=== PATIENT | male | born 1935 | race African-American/Black ===

== ENCOUNTER 2017-03-22 12:22 | Outpatient (CLI) | payer MEDICARE ==
--- NOTE | 2017-03-22 14:01 | CT ---
CT PELVIS NONCONTRAST: 03/22/2017 HISTORY: An 81-year-old male with left groin pain (R10.32). FINDINGS: There is a gamma nail in the left femoral head and neck, attached to a long intramedullary nail, that extends at least to the mid femoral diaphysis, with the distal portion outside the field of view. T he gamma nail tip is within the confines of the humeral head. There are no high grade degenerative c hanges of the bilateral hips. No fracture or destructive osseous lesion. There is multilevel severe degenerative disk disease and severe degenerative facet disease in the lower lumbar spine, associate d with high grade bilateral neural foraminal stenosis. This is associated with a dextroscoliosis of the lumbar spine, as seen on the drafting layout man scanogram. Evaluation of the intrapelvic contents is limited without IV and oral contrast. The prostate gland is enlarged, and it mildly superiorly displaces the urinary bladder. No moderate or large amounts of free fluid within the pelvic cavity. No herniatio n of bowel loops into the inguinal canals. There is a nonspecific, approximately 2.5 x 1.5 x 2 cm lo w attenuation cystic structure just deep to the left inguinal canal, of uncertain etiology and signif icance, with limited evaluation without IV contrast. No destructive osseous lesion is identified. T he pelvic ring appears to be intact. IMPRESSION: 1. Severe lumbar spondylosis with multilevel severe bilateral neural foraminal stenosis. 2. Gamma nail and intramedullary nail fixation of the left femur. 3. Enlarged prostate gland. 4. Nonspecific small cystic structure just deep to the left inguinal canal, of uncertain etiology an d significance. POS: [facility]
== END 2017-03-22 12:23 | disposition home or self-care (01) ==
LOC: CT 12:22
PROVIDERS: ATTEND Family Medicine
DX: R10.32 Left lower quadrant pain (principal); M47.816 Spondylosis without myelopathy or radiculopathy, lumbar region; M99.53 Intervertebral disc stenosis of neural canal of lumbar region; N40.0 Benign prostatic hyperplasia without lower urinary tract symptoms
CPT/HCPCS: 72192

== ENCOUNTER 2017-06-06 12:35 | Outpatient (CLI) | payer MEDICARE | END 2017-06-06 12:36 | disposition home or self-care (01) | LOC: BICRAD 12:35 | PROVIDERS: ATTEND Family Medicine | DX: I10 Essential (primary) hypertension (principal) ==

== ENCOUNTER 2017-09-28 10:05 | Emergency (ER) | payer MEDICARE ==
[2017-09-28 10:34] LABS: Hemoglobin 12.8 g/dL (14.0-18.0); Mean Corpuscular HGB CONC 31.2 g/dL (32.0-36.0); Mean Corpuscular Hemoglobin 26.7 pg (27.0-31.0); Mean Corpuscular Volume 85.6 fL (78.0-98.0); Mean Platelet Volume 7.9 fL (7.4-10.4); Platelet Count 199 thou/uL (130-400); RBC Distribution Width 16.7 % (11.5-14.5); Red Blood Cell (RBC) Count 4.81 mill/uL (4.70-6.10); White Blood Cell (WBC) Count 5.3 thou/uL (4.8-10.8)
[2017-09-28 10:40] LABS: INR-International Normal Ratio 1.2; PTT 28.6 SEC (22.9-36.1); Prothrombin Time 15.4 SEC (12.0-14.7)
[2017-09-28 10:53] LABS: Eosinophils 2 % (0-10); Lymphocytes 21 % (21-51); MDiff Complete? YES; Monocytes 5 % (0-10); Neutrophil 72 % (42-75); RBC Morphology Normal
[2017-09-28 10:56] LABS: ALT (SGPT) 17 U/L (8-55); AST (SGOT) 19 U/L (5-34); Albumin 4.1 g/dL (3.4-4.8); Alkaline Phosphatase 84 U/L (40-150); Anion Gap 14 mmol/L (10-20); BUN (Urea Nitrogen) 9 mg/dL (8.4-25.7); Bilirubin, Total 0.7 mg/dL (0.2-1.2); Calc. Creatinine Clearance 0 mL/min (70-130); Calcium 10.1 mg/dL (7.8-10.44); Carbon Dioxide 22 mmol/L (23-31); Chloride 106 mmol/L (98-107); Estimated GFR-MDRD Greater than 90; Globulin 2.4 g/dL (2.4-3.5); Glucose 130 mg/dL (83-110); Potassium 3.9 mmol/L (3.5-5.1); Protein, Total 6.5 g/dL (5.8-8.1); Sodium 138 mmol/L (136-145)
[2017-09-28 11:00] LABS: CKMB 1.9 ng/mL (0-6.6); Troponin I Less than 0.010 ng/mL (< 0.028)
--- NOTE | 2017-09-28 11:31 | RAD ---
PA AND LATERAL IMAGING OF THE CHEST: DATE: 09/28/17. COMPARISON: 02/18/15. HISTORY: Chest pain. FINDINGS: No pneumothorax or pleural fluid. No focal consolidation or alveolar edema. Heart and mediastinal c ontours are stable. There is prominence of a tortuous descending thoracic aorta, stable. Stable int erstitial opacity noted with pulmonary hyperinflation suggesting COPD in the proper clinical setting. Multilevel degenerative change noted within the midthoracic spine and the upper lumbar spine. IMPRESSION: Chronic findings as described above. No lobar consolidation or alveolar edema. POS: [facility]
--- NOTE | 2017-09-28 12:43 | CT ---
CT ANGIOGRAM OF THE CHEST AND ABDOMEN: Date: 09-28-17 Comparison: CT angiogram chest, 07-02-16 History: Chest pain, assess for aortic aneurysm or dissection. Technique: Serial axial CT imaging obtained at 2.5 mm intervals from the thoracic inlet through the m id sacrum with IV contrast using a CT angiogram protocol. Coronal and sagittal 3D reformatted imaging obtained. FINDINGS: As seen on prior imaging there is a lipoma posterior to the pectoralis musculature on the right measu ring up to 4.3 cm. There is no axillary, mediastinal or hilar lymphadenopathy. No pleural, paracardial, or mediastinal f luid. There is no pneumothorax. Motion artifact limits detailed assessment of the lung parenchyma, particul fely the lung bases. There are scattered areas of increased linear interstitial density noted within both lungs. There is no dominant pulmonary parenchymal mass lesion or nodule noted. There is atherosclerotic calcification of the aortic arch in the ascending aorta. There is no aneurys m or dissection seen involving the thoracic aorta. The origin of the left subclavian artery, left common carotid artery, innominate artery, right common carotid artery, right subclavian artery and bilateral vertebral arteries is unremarkable. The pelvis is not imaged on this examination. Timing of the contrast bolus utilized to maximize arterial enhancement limits detailed assessment of the viscera. Gallbladder, liver, and spleen appear grossly unremarkable. Pancreas and bilateral adrenal glands demonstrate no acute findings. The common bile duct is dilated, measuring up to approximately 1.1 cm in transverse dimension, etiolo gy uncertain. There is also mild prominence of the pancreatic duct. Multiple hypodense renal lesions noted bilaterally, the majority of which are consistent with simple cysts. There is a mildly hyperdense lesion emanating from the upper pole of the right kidney with Gautam nsfield units 30-50 range, difficult to accurately assess secondary to streak artifact. This lesion m easures 2.9 cm and should be further assessed with a nonemergent follow up renal ultrasound. The abdominal aorta is tortuous but demonstrates no evidence for aneurysm or dissection. The celiac a xis, the superior mesenteric artery, and the inferior mesenteric artery are patent. Bilateral renal a rteries are patent. There are scattered atherosclerotic calcification of the abdominal aorta and the arterial structures of the pelvis. Review of the bowel is grossly unremarkable, limited without contrast media. No lymphadenopathy is no rox in the retroperitoneum. The osseous structures demonstrate multilevel degenerative change within the midthoracic spine as well as the imaged lumbar spine with multilevel disc space narrowing, degene rative endplate change and facet hypertrophic change, most prominent in the lower lumbar spine. IMPRESSION: 1. No evidence for aneurysm or dissection of the thoracic or abdominal aorta. 2. Nonspecific hypodense lesion in the upper pole of the right kidney for which follow up ultrasound advised. 3. Dilated common bile ducts, etiology uncertain. Correlation with LFT advised as this may represent a biliary obstructed process. POS: [facility]
[2017-09-28] MEDS ORDERED: ISOVUE-370 76%-LOCM 1 ML ONE (13:35)
== END 2017-09-28 14:15 | disposition home or self-care (01) ==
LOC: ERS 10:05
DX: M54.5 Low back pain (principal); M19.90 Unspecified osteoarthritis, unspecified site; N28.1 Cyst of kidney, acquired; I10 Essential (primary) hypertension; J44.9 Chronic obstructive pulmonary disease, unspecified
CPT/HCPCS: 36415; 71046; 71275; 80053; 82553; 84484; 85025; 85610; 85730; 93005

== ENCOUNTER 2018-03-23 14:46 | Emergency (ER) | payer MEDICARE ==
[2018-03-23] MEDS ORDERED: Morphine 4 MG/ML VIAL ONE (16:03)
[2018-03-23] MEDS ORDERED: Ketorolac Tromethamine 30 MG/ML VIAL ONE (16:04)
--- NOTE | 2018-03-23 17:38 | CT ---
CT PELVIS WITHOUT CONTRAST: Date: 03/23/18 HISTORY: Left hip pain. Fall. COMPARISON: 03/22/17. TECHNIQUE: A noncontrast CT pelvis is performed in the axial plane. Sagittal and coronal reformatted images are submitted for interpretation. FINDINGS: Visualized alimentary canal is unremarkable. Atherosclerosis of the visualized aorta and iliac arteri es. Symmetric attenuation of the iliopsoas muscle complex. Unremarkable urinary bladder. There is prostatic hypertrophy. Redemonstration of a hypodensity in the left inguinal region currently measuring 2.1 x 2.1 cm (previo usly measuring 2.6 x 1.8 cm). There is vacuum disc phenomenon in the lower lumbar spine, as well as the lumbosacral junction. The v isualized iliac wings are intact. Visualized inferior and superior pubic rami are intact. There is de generative change in both SI joints with osteophyte formation. Sacral ala are preserved. Contour of both femoral heads are maintained. Hip joint spaces are symmetric. Incompletely visualized internal fixation hardware in the left hip is uncomplicated. No perihardware lucency. IMPRESSION: No evidence of a left hip fracture. POS: [facility]
== END 2018-03-23 19:01 | disposition home or self-care (01) ==
LOC: ERS 14:46
DX: M25.552 Pain in left hip (principal); J44.9 Chronic obstructive pulmonary disease, unspecified; I10 Essential (primary) hypertension; F17.210 Nicotine dependence, cigarettes, uncomplicated; Z79.52 Long term (current) use of systemic steroids; Z79.51 Long term (current) use of inhaled steroids; Z79.899 Other long term (current) drug therapy
CPT/HCPCS: 72192; 93005; 96372; J1885; J2270

== ENCOUNTER 2018-04-20 14:10 | Outpatient (CLI) | payer MEDICARE ==
--- NOTE | 2018-04-20 16:16 | MRI ---
MRI LUMBAR SPINE: History: Lumbar radiculopathy, M54.16; severe back pain. Technique: Multiplanar, multisequence noncontrast MRI images were obtained of the lumbar spine. FINDINGS: Images demonstrate bilateral renal cortical cysts. T12-L1: Disc space height loss and disc desiccation seen. Osteophyte seen anteriorly posteriorly exte nding into the central canal, compressing the thecal sac resulting in mild central and lateral recess stenosis. There is moderate left and right sided neural foraminal narrowing due to osteophyte encroa chment as well as bilateral facet hypertrophy. The central canal demonstrates mild to moderate centra l and lateral recess stenosis. L1-2: Disc desiccation and disc space height loss is seen. There is a broad based disc osteophyte com plex compressing the thecal sac. There is severe facet and ligamentum flavum hypertrophy. This with t he disc degeneration at L1-2 results in moderate degree of central and lateral recess stenosis. There is severe left and mild to moderate right sided neural foraminal narrowing seen. L2-3: Disc desiccation is seen. There is disc space height loss seen. There is a broad based disc ost eophyte complex. There is severe facet and ligamentum flavum hypertrophy seen. This results in severe L2-3 central and lateral recess stenosis with moderate right and severe left sided neural foraminal narrowing. L3-4: Disc desiccation is seen. There is a broad based disc osteophyte complex with bilateral facet a nd ligamentum flavum hypertrophy resulting in moderate to severe central and severe right L3-4 latera l recess stenosis. There is moderate to severe bilateral neural foraminal narrowing seen. L4-5: Disc desiccation is seen. There is a broad based disc osteophyte complex centrally compressing the thecal sac as well as a broad based disc bulge compressing the thecal sac. This results in modera te to severe central and lateral recess stenosis. Bilateral facet and ligamentum flavum hypertrophy i s seen, more prominent on the right than on the left. This results in moderate right and mild left si ded neural foraminal narrowing. L5-S1: Bilateral facet hypertrophy is seen. Central canal is patent. There is severe left and moderat e right sided neural foraminal narrowing seen. IMPRESSION: Multilevel disc degenerative changes with severe central stenosis at L2-3. Multilevel neural foramina l level is also present as described above. POS: [facility]
== END 2018-04-20 14:11 | disposition home or self-care (01) ==
LOC: BICMRI 14:10
PROVIDERS: ATTEND Nurse Practitioner Family
DX: M51.16 Intervertebral disc disorders with radiculopathy, lumbar region (principal); M48.061 Spinal stenosis, lumbar region without neurogenic claudication; M48.07 Spinal stenosis, lumbosacral region; M48.05 Spinal stenosis, thoracolumbar region
CPT/HCPCS: 72148

== ENCOUNTER 2019-01-08 15:13 | Inpatient (IN) | payer MEDICARE ==
[2019-01-08 15:29] LABS: #Basophils 0.1 thou/uL (0.0-0.2); #Eosinphils 0.3 thou/uL (0.0-0.7); #Monocytes 0.7 thou/uL (0.11-0.59); #Neutrophils 2.1 thou/uL (1.40-6.50); %Basophils 1.6 % (0.0-1.0); %Eosinophils 5.2 % (0.0-10.0); %Lymphocytes 39.1 % (21.0-51.0); %Monocytes 12.9 % (0.0-10.0); %Neutrophils 41.3 % (42.0-75.0); Hemoglobin 15.7 g/dL (14.0-18.0); Mean Corpuscular HGB CONC 31.5 g/dL (32.0-36.0); Mean Corpuscular Hemoglobin 29.3 pg (27.0-31.0); Mean Platelet Volume 8.1 fL (7.4-10.4); Platelet Count 203 thou/uL (130-400); RBC Distribution Width 13.9 % (11.5-14.5); Red Blood Cell (RBC) Count 5.35 mill/uL (4.70-6.10)
--- NOTE | 2019-01-08 15:34 | CT ---
CT Head without IV contrast COMPARISON: None. HISTORY: Right-sided weakness. Stroke alert. TECHNIQUE: Axial CT imaging at 5 mm intervals from vertex through skull base without contrast FINDINGS: There is an oval-shaped area of increased density measuring 1.9 cm in the lower left thalamus most co mpatible with a parenchymal hemorrhage. Findings could be attributable to hypertensive hemorrhage. No additional intraparenchymal or extra-axial hemorrhage is seen. There is no evidence of an acute infarction, mass effect, or midline shift. There is decreased attenu ation seen in the periventricular white matter which is nonspecific but likely attributable to chronic small vessel ischemic changes. There is mild cerebral volume loss. The ventricular system is normal in size, shape, and position for the degree of sulcal atrophy. Visualized paranasal sinuses are clear. Osseous structures appear intact. IMPRESSION: Focal parenchymal hemorrhage measuring 1.9 cm and the left thalamus. Findings were discussed with Dr. Antunez in the emergency department on 01/08/2019 at 1528 hours.
[2019-01-08 15:36] LABS: INR-International Normal Ratio 1.2; PTT 28.7 SEC (22.9-36.1); Prothrombin Time 15.2 SEC (12.0-14.7)
[2019-01-08 15:56] LABS: ALT (SGPT) 15 U/L (8-55); AST (SGOT) 25 U/L (5-34); Albumin 4.2 g/dL (3.4-4.8); Alkaline Phosphatase 97 U/L (40-110); Anion Gap 14 mmol/L (10-20); BUN (Urea Nitrogen) 6 mg/dL (8.4-25.7); Bilirubin, Total 0.5 mg/dL (0.2-1.2); CK (CPK) 91 U/L (30-200); Calc. Creatinine Clearance 0 mL/min (70-130); Calcium 10.6 mg/dL (7.8-10.44); Carbon Dioxide 27 mmol/L (23-31); Chloride 104 mmol/L (98-107); Estimated GFR-MDRD Greater than 90; Globulin 3.1 g/dL (2.4-3.5); Glucose 95 mg/dL (83-110); Potassium 4.7 mmol/L (3.5-5.1); Protein, Total 7.3 g/dL (5.8-8.1); Sodium 140 mmol/L (136-145)
[2019-01-08] MEDS ORDERED: niCARdipine 25 MG in Sodium Chloride 0.9% 250 ML 240 ML IVPB SCH (16:00)
[2019-01-08] MEDS ORDERED: Ondansetron PF 4 MG/2 ML Vial IVP PRN (16:06)
[2019-01-08] MEDS ORDERED: Acetaminophen 650 MG in Premix Bag 1 BAG IVPB PRN (16:10)
[2019-01-08] MEDS ORDERED: Morphine 2 MG/ML SYRINGE SLOW IVP PRN (16:10)
[2019-01-08] MEDS ORDERED: CCU Electrolyte Replacement 1 EACH FS ONE (16:10)
--- NOTE | 2019-01-08 16:46 | CON ---
DATE OF CONSULTATION: 01/08/2019 REASON FOR CONSULTATION: Critical care admission, history of COPD. HISTORY OF PRESENT ILLNESS: Mr. Brunson is an 83-year-old male, who was found down at his residence in [place]. He has been found to have a left-sided intracranial bleed. This measures about 2 cm. He has developed some right hemiparesis. He also has some aphasia for speech. PAST MEDICAL HISTORY: 1. COPD, requiring oxygen. 2. Prostate cancer. 3. Chronic cough. 4. Hypertension. 5. Coronary artery disease. 6. Gastroesophageal reflux. 7. Hyperlipidemia. PAST SURGICAL HISTORY: 1. Cardiac catheterization. 2. Hernia repair. 3. Tonsillectomy. 4. Cholecystectomy. 5. Appendectomy. ALLERGIES: NONE. MEDICATIONS: Prior to admission, not currently known, but I do know for a fact that he takes inhalers. REVIEW OF SYSTEMS: Cannot be obtained secondary to his aphasia. PHYSICAL EXAMINATION: VITAL SIGNS: Temperature 98.8, pulse 87, blood pressure 171/107, O2 saturation 98%, and respiratory rate in the mid 20s. GENERAL: He is awake. He is able to follow commands, but his speech is intermittent at best. HEENT: Both pupils are 2 mm and reactive. Sclerae are muddy. Oropharynx clear. NECK: No adenopathy or JVD. LUNGS: Fairly clear without audible wheezing. CARDIOVASCULAR: S1 and S2. Regular without murmur. ABDOMEN: Soft and nontender. EXTREMITIES: No clubbing, cyanosis, or edema. NEUROLOGIC: He is aphasic for speech partially. He will say some garbled words here and there. He is able to move his left side without deficit. He is profoundly weak on his right arm and right leg, but can move them some. He says he does not feel me touch him on the right side. LABORATORY DATA: White blood cell count 5, hematocrit 49.7, and platelet count 203. INR 1.2. Sodium 140, potassium 4.7, chloride 104, CO2 of 27, BUN 6, creatinine 0.8, glucose 95, calcium is 10.6, and albumin 4.2. CT of the head was reviewed. ASSESSMENT: 1. Intracranial hemorrhage. 2. Hypertension, out of control. 3. Right-sided hemiparesis. 4. Underlying severe chronic obstructive pulmonary disease with profound cough. PLAN: The patient is being admitted to the ICU for [place] crews. I will write for some pulmonary medication, which he will need. I will follow closely with you. Job ID: [id number]
[2019-01-08 16:49] LABS: Amphetamine Not Detected (NotDetected); Barbiturates Screen Not Detected (NotDetected); Benzodiazepine Screen Not Detected (NotDetected); Cocaine Metabolite Screen Not Detected (NotDetected); Medtox Control Line Valid? VALID (VALID); Medtox Reader # READER 4; Methadone Not Detected (NotDetected); Methamphetamine Not Detected (NotDetected); Opiate Screen Detected (NotDetected); Oxycodone Screen Not Detected (NotDetected); Phencyclidine (PCP) Not Detected (NotDetected); THC/Cannabinoid Screen Not Detected (NotDetected); Tricyclic Screen Not Detected (NotDetected)
--- NOTE | 2019-01-08 17:03 | HP ---
HISTORY OF PRESENT ILLNESS: The patient is an 83-year-old male with a past medical history of COPD, hypertension, coronary artery disease, who presented to the emergency department per EMS after being found down at [facility]. The patient was brought to [facility], where he was evaluated with noncontrast CT head on arrival and found to have a small left thalamic intracranial hemorrhage. He is also found to be quite hypertensive on arrival and systolic blood pressure at the bedside during my visit was 197/119. He has recently been started on Cardene in the emergency department. During initial assessment by ER team, the patient had a significant right-sided hemiparesis as well as significant aphasia, however, this seems to be slightly improved during my visit. I visited the patient at bedside. He has a GCS of 15. He is oriented, able to tell me his name, location and birthday. He is noted to have right-sided facial droop and slightly weak on the right side with positive drift in the upper and lower extremity. He has 5/5 throughout on the left-hand side. I reviewed his med list from [facility] and there is no antiplatelet or anticoagulant medications. PAST MEDICAL HISTORY: Notable for COPD, hypertension, prostate cancer, coronary artery disease. PAST SURGICAL HISTORY: Appendectomy, cardiac cath, cholecystectomy, hernia repair, tonsillectomy. SOCIAL HISTORY: The patient does not drink or use any drugs. He is a daily tobacco user. Smokes for greater than 30 years, approximately 2 cigarettes per day. He lives at [facility]. REVIEW OF SYSTEMS: Unobtainable secondary to the patient's current condition. PHYSICAL EXAMINATION: VITAL SIGNS: Current vitals; BP 197/119, pulse is 85, respiratory rate is 18, temperature is 98.8. The patient is 97% on 3 L nasal cannula. He is on home oxygen at baseline. GCS 15. HEENT: Head, normocephalic and atraumatic. Eyes, PERRLA. Extraocular movements intact. ENT, oral mucosa is dry. He has notable aphasia. RESPIRATORY: Symmetric chest expansion. No evidence of dyspnea at this time. CARDIOVASCULAR: Regular rate and rhythm. MUSCULOSKELETAL: No obvious deformities. Symmetric pulses. He is significantly weak on the right side compared to the left with notable drift. NEURO: The patient is awake. He is oriented to person, place, and location. He has some right-sided hemiparesis when compared to the left. He is slightly weak with positive drift in the upper and lower extremity. On the left side, he has 5/5 strength throughout. ASSESSMENT AND PLAN: This is an 83-year-old male, status post acute intracranial hemorrhage in the left thalamus which is likely related to his hypertensive crisis. We will plan to treat his blood pressure with nicardipine and titrate with systolic blood pressure goal less than 140. He will be admitted to the ICU where we can monitor him closely with q.1 neuro checks. I will repeat his a.m. CT in the am. Head of the bed should be elevated to 30 degrees. He should not be given any anticoagulants or any antiplatelet medications. I have consulted Critical Care and Medicine Teams to assist with medical management of this patient. He also ultimately likely require inpatient rehab at some point. I have discussed this plan with Dr. Campbell who is in agreement. Job ID: [id number] MTDD
[2019-01-08] MEDS ORDERED: PHOS-NAK 1 PKT PACK PO PRN ×2 (17:08)
[2019-01-08] MEDS ORDERED: Magnesium 2 GM/50 ML 2 GM in Premix Bag 1 BAG IVPB PRN (17:08)
[2019-01-08] MEDS ORDERED: CCU ELECTROLYTE REPLACEMENT PROTOCOL FS PRN (17:08)
[2019-01-08] MEDS ORDERED: Potassium Phosphate 9 MMOL in Sodium Chloride 0.9% 100 ML IVPB PRN (17:08)
[2019-01-08] MEDS ORDERED: Potassium Chloride 40 MEQ in Premix Bag 1 BAG IVPB PRN (17:08)
[2019-01-08] MEDS ORDERED: Potassium Phosphate 15 MMOL in Sodium Chloride 0.9% 250 ML 250 ML IV PRN (17:08)
[2019-01-08] MEDS ORDERED: Magnesium Oxide 400 MG TAB PO PRN ×2 (17:08)
[2019-01-08] MEDS ORDERED: Potassium Phosphate 12 MMOL in Sodium Chloride 0.9% 250 ML 250 ML IV PRN (17:08)
[2019-01-08] MEDS ORDERED: Potassium Chloride 20 MEQ TAB PO PRN (17:08)
[2019-01-08] MEDS ORDERED: Potassium Chloride 40 MEQ in Sodium Chloride 0.9% 250 ML 250 ML IVPB PRN (17:08)
[2019-01-08] MEDS: Arformoterol 15 MCG/2 ML NEB NEB SCH (18:59)
[2019-01-08] MEDS: Budesonide 0.5 MG/2 ML NEB INH SCH (18:59)
[2019-01-08] MEDS ORDERED: Lorazepam 2 MG/ML VIAL SLOW IVP PRN (19:11)
[2019-01-08] MEDS: niCARdipine 25 MG in Sodium Chloride 0.9% 250 ML 240 ML IVPB PRN (20:12)
[2019-01-08] MEDS: Famotidine/PF 20 mg/2ml Vial SLOW IVP SCH (20:12)
--- NOTE | 2019-01-08 20:53 | CON ---
DATE OF CONSULTATION: 01/08/2019 PRIMARY CARE PROVIDER: Dr. Dixon. REASON FOR CONSULTATION: General medical management. HISTORY OF PRESENT ILLNESS: This is an 83-year-old male, who presents to [facility] Emergency Department after being found down at his home at [facility]. The patient apparently was last seen normal approximately at 9:00 a.m. on 01/08/2019. The patient was discovered by EMS personnel lying on the floor with right-sided weakness and facial droop with slurred speech. The patient was unable to give any significant history due to aphasia and was brought to the emergency room for further evaluation. Exact time course of patient being down is unclear, but estimations at 6 hours. In the emergency room, the patient underwent general evaluation including emergent CT imaging of the brain showing evidence of focal parenchymal hemorrhage approximately 1.9 cm of the left thalamus. Neurosurgical team was notified at which point patient was placed on a Cardene infusion due to hypertensive crisis presentation. Initial systolic in the mid 190s with diastolics in the 120s. No specific indication for acute surgical intervention was recommended and the patient was transferred to the Critical Care Unit on a Cardene infusion. PAST MEDICAL HISTORY: 1. Hypertension. 2. Chronic obstructive pulmonary disease, on chronic oxygen supplementation at 3 L/minute by nasal cannula. 3. Prostate carcinoma, status post resection. 4. Tobacco use. 5. Coronary artery disease. 6. Gastroesophageal reflux disease. 7. Benign prostatic hyperplasia. 8. Dyslipidemia. 9. Deconditioning. PAST SURGICAL HISTORY: 1. Status post hernia repair. 2. Status post cardiac catheterization x2. 3. Status post appendectomy. 4. Status post cholecystectomy. 5. Status post tonsillectomy. CURRENT MEDICATIONS: List may not be comprehensive. 1. Brovana 15 mcg nebulized b.i.d. 2. Gabapentin 300 mg p.o. daily. 3. DuoNeb 3 mL nebulized q.i.d. p.r.n. 4. Isosorbide mononitrate 30 mg p.o. daily. 5. Protonix 40 mg p.o. daily. 6. Daliresp 500 mg p.o. daily. 7. Flomax 0.4 mg p.o. daily. 8. Trazodone 50 mg p.o. at bedtime. 9. Flexeril 10 mg p.o. t.i.d. p.r.n. ALLERGIES: NO KNOWN DRUG ALLERGIES. FAMILY HISTORY: No inheritable diseases per patient report. SOCIAL HISTORY: Smokes tobacco greater than 30+ years. No alcohol or illicit drug use. Ambulates with a rolling walker or cane. Resides at [facility]. REVIEW OF SYSTEMS: Unobtainable due to patient's altered mental status and aphasia. PHYSICAL EXAMINATION: VITAL SIGNS: Currently blood pressure 132/89, pulse 105, respiratory rate 24, temperature 98.7 degrees Fahrenheit, O2 saturation 100% on 3 L/minute by nasal cannula. GENERAL APPEARANCE: This is an 83-year-old male, lethargic and agitated, receiving DuoNeb therapy on exam. HEENT: Pupils are minimally reactive to light and accommodation of the right eye. Right eye blindness noted, chronic. No scleral icterus. Nares patent. OP is clear. Teeth in poor repair. NECK: Supple. No cervical adenopathy. No thyromegaly. No carotid bruits. No JVD appreciated. Cervical spine with full active and passive range of motion. No meningeal signs noted. CHEST: Diminished breath sounds bilaterally with expiratory wheezing and coarse rhonchi. CARDIOVASCULAR EXAM: S1, S2 without noted murmur, rub, or gallop. Heart sounds are distant. ABDOMEN: Rounded, soft, nontender, and nondistended. Bowel sounds are positive in all 4 quadrants. There is no hepatosplenomegaly. No abdominal bruits, no rebound or guarding appreciated. EXTREMITIES: Warm and dry with fair turgor. No clubbing, cyanosis, or asymmetric edema appreciated. Pulses palpable distally at the dorsalis pedis, posterior tibial, and popliteal arteries bilaterally. Capillary refill less than 2 seconds. NEUROLOGIC: Expressive aphasia. Right facial asymmetry with right hemiparesis. Not observed ambulatory during this exam. PERTINENT LABORATORY AND X-RAY FINDINGS: Basic metabolic profile within normal limits. Calcium 10.6. Troponin I negative x1. Total CK of 91. CBC showed a white blood cell count of 5.0, hemoglobin 15.7, hematocrit 50, platelet count 203 with 41% neutrophils. PT 15.2, INR 1.2, PTT 28.7. Urine drug screen positive for opiates on 01/08/2019. CT of the brain without contrast dated 01/08/2019, showed intracranial hemorrhage of the left thalamus 1.9 cm. EKG dated 01/08/2019, by my interpretation shows sinus mechanism with PVCs. Heart rates in the 90s. Normal R-wave progression noted in the precordial leads. No acute ST-T wave changes noted. ASSESSMENT/PLAN: 1. Acute intracranial hemorrhage of left thalamus. The patient admitted under the Neurosurgical Service to the Critical Care Unit. No acute surgical intervention recommended currently. Continue supportive management with serial CT imaging of the brain. Avoid anticoagulation and nonsteroidal anti-inflammatory drugs. Blood pressure control with Cardene infusion. Continue general stroke protocol, obtaining carotid Doppler study and 2D transthoracic echocardiogram in the a.m. 2. Hypertensive urgency. Continue Cardene infusion to maintain systolic blood pressure less than 140. Add hydralazine as needed. Confirm home blood pressure regimen. 3. Right hemiparesis with expressive aphasia secondary to #1. We will continue general stroke protocol including PT, OT, and speech therapy evaluation. 4. Chronic hypoxic respiratory failure. Continue oxygen supplementation at 3 L/minute by nasal cannula. Continue DuoNeb q.4 hours. Resume Brovana 15 mcg nebulized b.i.d. Continue Pulmicort 0.5 mg b.i.d. 5. Prophylaxis. SCDs while in bed. Pepcid 20 mg IV b.i.d. CODE STATUS: Full. Surrogate medical decision maker is Andry Prescott. Thank you for the consultation. We will continue to follow with primary service. Job ID: [id number]
[2019-01-08] MEDS ORDERED: Amiodarone 150 MG, Admixture Fee 1 EACH in Dextrose 5% in Water 100 ML IVPB SCH (21:00)
[2019-01-08] MEDS: Amiodarone 450 MG, Admixture Fee 1 EACH in Dextrose 5% in Water 250 ML IVPB SCH (21:11)
[2019-01-09] MEDS ORDERED: Haloperidol Lactate 5 MG/ML VIAL IM SCH (02:45)
[2019-01-09] MEDS ORDERED: Haloperidol Lactate 5 MG/ML VIAL IM PRN (02:45)
[2019-01-09] MEDS: Lorazepam 2 MG/ML VIAL SLOW IVP PRN ×4 (02:48→21:17)
[2019-01-09] MEDS: Amiodarone 450 MG, Admixture Fee 1 EACH in Dextrose 5% in Water 250 ML IVPB SCH ×2 (03:00→20:10)
[2019-01-09] MEDS: niCARdipine 25 MG in Sodium Chloride 0.9% 250 ML 240 ML IVPB PRN (03:00)
[2019-01-09 04:10] LABS: #Eosinphils 0.2 thou/uL (0.0-0.7); #Lymphocytes 1.2 thou/uL (1.20-3.40); #Monocytes 0.8 thou/uL (0.11-0.59); #Neutrophils 5.3 thou/uL (1.40-6.50); %Basophils 0.5 % (0.0-1.0); %Lymphocytes 16.5 % (21.0-51.0); %Neutrophils 70.1 % (42.0-75.0); Hemoglobin 16.1 g/dL (14.0-18.0); Mean Corpuscular HGB CONC 31.8 g/dL (32.0-36.0); Mean Corpuscular Hemoglobin 29.2 pg (27.0-31.0); Mean Corpuscular Volume 91.8 fL (78.0-98.0); Mean Platelet Volume 8.1 fL (7.4-10.4); Platelet Count 209 thou/uL (130-400); Red Blood Cell (RBC) Count 5.51 mill/uL (4.70-6.10); White Blood Cell (WBC) Count 7.5 thou/uL (4.8-10.8)
[2019-01-09 04:27] LABS: Anion Gap 13 mmol/L (10-20); BUN (Urea Nitrogen) 6 mg/dL (8.4-25.7); Calc. Creatinine Clearance 59 mL/min (70-130); Calcium 10.5 mg/dL (7.8-10.44); Carbon Dioxide 24 mmol/L (23-31); Cardiac Risk 2.7 (Less than 4.5); Chloride 108 mmol/L (98-107); Cholesterol 212 mg/dl (< 200 Desired); Estimated GFR-MDRD Greater than 90; Glucose 133 mg/dL (83-110); HDL Cholesterol 78 mg/dL (>60 Neg Risk); LDL Cholesterol, Calculated 121 mg/dL; Potassium 3.7 mmol/L (3.5-5.1); Sodium 141 mmol/L (136-145); Triglycerides 65 mg/dL (Less than 150)
--- NOTE | 2019-01-09 07:28 | CT ---
PRELIMINARY REPORT/[facility]/EMERGENCY AFTER HOURS PROCEDURE: PROCEDURE INFORMATION: Exam: CT Head Without Contrast Exam date and time: 01/09/2019 4:12 AM Age: 83 years old Clinical history: Other: Ich stroke; Patient HX: Ich f/u TECHNIQUE: Imaging protocol: Computed tomography of the head without contrast. COMPARISON: CT Brain WO Con 01/08/2019 3:21 PM FINDINGS: Brain: There is stable LEFT thalamic 1.7 x 1 cm parenchymal hematoma which is unchanged from prior Th ere is mild mass effect from LEFT thalamic bleed with slight shift of the third ventricle from LEFT t o RIGHT which appears otherwise patent. No ventriculomegaly is demonstrated at this time. Ventricles: See Brain Finding. Bones/joints: Unremarkable. No acute fracture. Sinuses: Visualized sinuses are unremarkable. No fluid levels. Mastoid air cells: Visualized mastoid air cells are well aerated. Soft tissues: Unremarkable. IMPRESSION: Stable LEFT thalamic intraparenchymal hematoma. Thank you for allowing us to participate in the care of your patient. Dictated and Authenticated by: Doug Anglin MD 01/09/2019 4:23 AM Central Time ([place] & [place]) FINAL REPORT EMERGENCY AFTER HOURS CT BRAIN WITHOUT CONTRAST: IMPRESSION: I agree with the preliminary report provided by Pet[facility]. There is a stable left thalamic hemorrhagic inf arct. POS:
--- NOTE | 2019-01-09 07:48 | RAD ---
Chest AP view INDICATION: COPD COMPARISON: November 14, 2015 and September 28, 2017 FINDINGS: Lungs:Chronic lung changes are stable. No consolidation is present. Cardiac silhouette:The cardiomediastinal silhouette appears within normal limits. Pulmonary vasculature:Normal Pleural spaces:No pleural effusion or pneumothorax is demonstrated. Upper abdomen:No abnormality seen. Osseous structures: No acute osseous abnormality. Additional findings:None. IMPRESSION: No acute cardiopulmonary abnormality.
[2019-01-09] MEDS: Budesonide 0.5 MG/2 ML NEB INH SCH ×2 (08:02→18:43)
[2019-01-09] MEDS: Arformoterol 15 MCG/2 ML NEB NEB SCH ×2 (08:02→18:43)
[2019-01-09] MEDS: Famotidine/PF 20 mg/2ml Vial SLOW IVP SCH ×2 (08:17→20:29)
[2019-01-09] MEDS ORDERED: FLU VACC TS2019-20(65YR UP)/PF 180 MCG/0.5 ML SYRINGE IM ONE (09:00)
--- NOTE | 2019-01-09 09:12 | PRG ---
DATE OF SERVICE: 01/09/2019 SUBJECTIVE: Mr. Brunson is currently sedated with Ativan and Haldol after experiencing agitation last night. OBJECTIVE: VITAL SIGNS: Temperature 98.0, pulse 101, blood pressure 143/96, and O2 saturation 96%. He is currently on amiodarone drip after having atrial fibrillation with rapid ventricular response last night. He is now back in a sinus rhythm. Intake 828 and output 703. HEENT: Unremarkable. NECK: No adenopathy or JVD. LUNGS: Clear anteriorly. CARDIAC: S1 and S2, now regular. ABDOMEN: Soft. EXTREMITIES: No edema. DIAGNOSTIC STUDIES: His head CT continues to show the thalamic bleed about the same size. LABORATORY DATA: Sodium is 141, potassium 3.7, chloride 108, CO2 of 24, BUN 6, creatinine 0.8, glucose 133. White blood cell count 7.5, hematocrit 50, and platelet count 209. ASSESSMENT: 1. Thalamic brain bleed. 2. History of underlying severe chronic obstructive pulmonary disease. PLAN: 1. Continue monitoring in the CCU. 2. Continue nicardipine drip for hypertension. 3. Continue amiodarone drip for atrial fibrillation. 4. Minimize sedatives as much as possible. 5. Speech therapy consult to assess swallowing. Job ID: [id number]
--- NOTE | 2019-01-09 11:30 | ULT ---
BILATERAL CAROTID DUPLEX ULTRASOUND: HISTORY: CVA TECHNIQUE: Grayscale, color-flow and spectral Doppler ultrasound imaging of the extracranial carotid artery syst ems was performed bilaterally. FINDINGS: No significant plaque formation or intimal wall thickening is seen. The peak systolic velocity in the right ICA measures 46 cm/s. The peak systolic velocity in the left ICA measures 33 cm/s. Vertebral flow: Antegrade flow of right vertebral artery. Left vertebral artery is not visualized fo r comment. IMPRESSION: No hemodynamically significant stenosis of Both ICAs. Nonvisualization of left vertebral artery.
--- NOTE | 2019-01-09 11:47 | PRG ---
DATE OF SERVICE: 01/09/2019 SUBJECTIVE: Mr. Brunson is an 83-year-old man, who was found down in [facility]. Currently, he is alert, has slurred and largely unintelligible speech. He is moving all fours with some right hemiparesis. He is on a Cardene drip. The patient was found to have a left thalamic hemorrhage, stable on followup. IMPRESSION AND PLAN: Nonsurgical left thalamic hemorrhage, likely related to hypertension. Main focus will be on controlling blood pressure and gradually mobilize him towards rehab or snf. We will ask hospitalist to assume primary service function. No other specific neurosurgical recommendations at this time. Job ID: [id number]
[2019-01-09] MEDS: hydrALAZINE 20 MG/ML VIAL SLOW IVP PRN ×2 (13:33→20:29)
--- NOTE | 2019-01-09 14:10 | PDOC.HOSPP ---
- Subjective Subjective: Seen and examined. Patient not oriented. Requiring restraints for his safety. Received symptomatic medications to keep him calm. Patient does withdrawal all extremities to noxious stimuli, though his movement in the right hand is slower than the other extremities. Briefly discuss case with neurosurgery recommends nonsurgical intervention and maximal medical therapy. Blood pressure control. - Objective Vital Signs & Weight: Vital Signs (12 hours) Temp Pulse Pulse Pulse Resp BP BP 01/09/19 13:33 105 H 01/09/19 12:51 98.5 F 01/09/19 12:00 98.5 F 01/09/19 10:37 105 H 16 01/09/19 09:47 95 133 H 130/83 132/88 01/09/19 09:46 95 133 H 130/83 132/88 01/09/19 08:03 01/09/19 07:59 84 17 01/09/19 07:26 01/09/19 04:00 98.0 F 01/09/19 02:30 115 H 18 Pulse Ox Pulse Ox Pulse Ox 01/09/19 13:33 01/09/19 12:51 01/09/19 12:00 01/09/19 10:37 99 01/09/19 09:47 98 97 01/09/19 09:46 98 97 01/09/19 08:03 98 01/09/19 07:59 98 01/09/19 07:26 100 01/09/19 04:00 01/09/19 02:30 100 Weight Weight 142 lb 3.17 oz Most Recent Monitor Data Heart Rate from ECG 134 NIBP 168/99 NIBP BP-Mean 122 Respiration from ECG 27 SpO2 98 I&O: 01/08/19 01/09/19 01/10/19 06:59 06:59 06:59 Intake Total 828 0 Output Total 703 650 Balance 125 -650 Result Diagrams: 01/09/19 03:58 01/09/19 03:58 Additional Labs: Accuchecks 01/08/19 15:21 POC Glucose 83 Radiology Reviewed by me: Yes Hospitalist ROS - Review of Systems ROS unobtainable: due to mental status - Medication Medications: Active Medications Generic Name Dose Route Start Last Admin Trade Name Freq PRN Reason Stop Dose Admin Albuterol/Ipratropium 3 ml 01/08/19 18:30 01/09/19 10:37 Duoneb NEB 3 ml [id number] GAMAL Administration Arformoterol Tartrate 15 mcg 01/08/19 18:30 01/09/19 08:02 Brovana NEB 15 mcg BID-RT GAMAL Administration Budesonide 0.5 mg 01/08/19 18:30 01/09/19 08:02 Pulmicort Neb Solution INH 0.5 mg BID-RT GAMAL Administration Famotidine 20 mg 01/08/19 21:00 01/09/19 08:17 Pepcid SLOW IVP 20 mg BID GAMAL Administration Haloperidol Lactate 10 mg 01/09/19 02:45 01/09/19 02:58 Haldol IM 01/10/19 02:46 10 mg ONE PRN Administration Anxiety/Agitation Hydralazine HCl 10 mg 01/08/19 19:10 01/09/19 13:33 Apresoline SLOW IVP 10 mg Q4H PRN Administration SBP GREATER THAN 160 Nicardipine HCl 25 mg/ Sodium 250 mls @ 0 mls/hr 01/08/19 16:06 01/09/19 03: 00 Chloride IVPB 250 mls INF PRN Administration Hypertension Protocol Titrate Amiodarone HCl 450 mg/ 259 mls @ 0 mls/hr 01/08/19 21:15 01/09/19 03:00 Miscellaneous Medication 1 IVPB 259 mls each/ Dextrose/Water INF GAMAL Administration Protocol As Directed Lorazepam 0.5 mg 01/08/19 19:11 01/08/19 23:45 Ativan SLOW IVP 0.5 mg Q6H PRN Administration Anxiety/Agitation Lorazepam 1 mg 01/09/19 02:42 01/09/19 14:02 Ativan SLOW IVP 1 mg Q4H PRN Administration Anxiety/Agitation - Exam General Appearance: ill appearing. negative: awake alert Eye: PERRL, anicteric sclera ENT: moist mucosa Neck: supple, symmetric, no lymphadenopathy Heart: no murmur, no gallops, no rubs Respiratory: CTAB, no wheezes, no rales, no ronchi Gastrointestinal: soft, non-tender, no guarding, no rigidity Extremities: no clubbing, no edema Skin: no lesions, no rashes Neurological: cranial nerve grossly intact, no focal deficits Musculoskeletal: generalized weakness Psychiatric: not oriented, flat affect Hosp A/P (1) Hemiparesis Code(s): G81.90 - HEMIPLEGIA, UNSPECIFIED AFFECTING UNSPECIFIED SIDE Status: Acute (2) Intracranial hemorrhage Code(s): I62.9 - NONTRAUMATIC INTRACRANIAL HEMORRHAGE, UNSPECIFIED Status: Acute (3) Hypertensive emergency Code(s): I16.1 - HYPERTENSIVE EMERGENCY Status: Acute (4) Dementia Code(s): F03.90 - UNSPECIFIED DEMENTIA WITHOUT BEHAVIORAL DISTURBANCE Status: Chronic (5) HLD (hyperlipidemia) Code(s): E78.5 - HYPERLIPIDEMIA, UNSPECIFIED Status: Chronic Qualifiers: (6) Prostate CA Code(s): C61 - MALIGNANT NEOPLASM OF PROSTATE Status: Acute (7) CAD (coronary artery disease) Code(s): I25.10 - ATHSCL HEART DISEASE OF [place] CORONARY ARTERY W/O ANG PCTRS Status: Acute - Plan Plan: intensive care unit neurosurgery consultation, recommendations appreciated medical management alone no surgical intervention recommended pulmonology forward/critical-care consultation, recommendations appreciated blood pressure control with nicardipine drip as needed restart home medications as able symptomatic medications to keep the patient call restraints required for patient safety as needed no anticoagulation/antiplatelet/and sent in the setting of intracranial hemorrhage G.I. prophylaxis DVT prophylaxis SCDs
--- NOTE | 2019-01-09 14:19 | EKG ---
Test Reason : TACHYCARDIA Blood Pressure : / mmHG Vent. Rate : 163 BPM Atrial Rate : 163 BPM P-R Int : 000 ms QRS Dur : 076 ms QT Int : 300 ms P-R-T Axes : 000 050 083 degrees QTc Int : 494 ms Atrial fibrillation with rapid ventricular response with premature ventricular or aberrantly conducte d complexes Nonspecific ST and T wave abnormality Abnormal ECG When compared with ECG of 23-MAR-2018 17:16, Atrial fibrillation has replaced Sinus rhythm Vent. rate has increased BY [address] now depressed in Anterolateral leads Confirmed by JEFF HARRINGTON, SJocelyn ([id number]) on 01/09/2019 2:19:26 PM Referred By: MARTA Confirmed By:DR. Zafar AGUILAR MD
[2019-01-10] MEDS: niCARdipine 25 MG in Sodium Chloride 0.9% 250 ML 240 ML IVPB PRN ×3 (00:06→19:37)
[2019-01-10] MEDS: Lorazepam 2 MG/ML VIAL SLOW IVP PRN ×2 (01:46→07:04)
[2019-01-10 04:37] LABS: Anion Gap 16 mmol/L (10-20); BUN (Urea Nitrogen) 12 mg/dL (8.4-25.7); Calc. Creatinine Clearance 49 mL/min (70-130); Calcium 10.6 mg/dL (7.8-10.44); Carbon Dioxide 20 mmol/L (23-31); Chloride 107 mmol/L (98-107); Estimated GFR-MDRD 86; Glucose 131 mg/dL (83-110); Potassium 4.1 mmol/L (3.5-5.1); Sodium 139 mmol/L (136-145)
[2019-01-10 05:20] LABS: Band 1 % (5-11); Hemoglobin 16.6 g/dL (14.0-18.0); Lymphocytes 5 % (21-51); MDiff Complete? YES; Mean Corpuscular HGB CONC 31.4 g/dL (32.0-36.0); Mean Corpuscular Hemoglobin 28.7 pg (27.0-31.0); Mean Corpuscular Volume 91.4 fL (78.0-98.0); Mean Platelet Volume 8.6 fL (7.4-10.4); Monocytes 11 % (0-10); Neutrophil 83 % (42-75); Platelet Count 237 thou/uL (130-400); RBC Distribution Width 14.1 % (11.5-14.5); Red Blood Cell (RBC) Count 5.79 mill/uL (4.70-6.10); White Blood Cell (WBC) Count 11.5 thou/uL (4.8-10.8)
[2019-01-10] MEDS: Budesonide 0.5 MG/2 ML NEB INH SCH ×2 (06:32→18:07)
[2019-01-10] MEDS: Arformoterol 15 MCG/2 ML NEB NEB SCH ×2 (06:32→18:07)
--- NOTE | 2019-01-10 08:09 | PRG ---
DATE OF SERVICE: 01/10/2019 SUBJECTIVE: The patient remains in the ICU quite encephalopathic. He has required Ativan several times overnight. Apparently, he begins to yell out incoherently and follow his arms and legs. OBJECTIVE: VITAL SIGNS: On exam, temperature is 98.3, pulse 100, and blood pressure 148/83. GENERAL: He is currently on amiodarone drip for paroxysmal atrial fibrillation. The nicardipine has been weaned off. He is not eating. HEENT: Unremarkable. NECK: No adenopathy or JVD. LUNGS: Coarse breath sounds. CARDIOVASCULAR: S1 and S2, currently regular. ABDOMEN: Soft and nontender. EXTREMITIES: No clubbing, cyanosis, or edema. He does move all 4 extremities. LABORATORY DATA: Sodium of 139, potassium 4.1, chloride 107, CO2 of 20, BUN 12, creatinine 1.0, glucose 86, and calcium is 10.6. White blood cell count 11.5, hematocrit 53, and platelet count 237. ASSESSMENT: 1. Status post thalamic bleed from uncontrolled hypertension. 2. Encephalopathy/delirium. 3. Underlying severe chronic obstructive pulmonary disease. 4. Paroxysmal atrial fibrillation. 5. Hypercalcemia. PLAN: 1. Since he is not getting anything nutritionally, I will go ahead and start him on some D5 half-normal saline. 2. Continue the amiodarone drip since he is unable to take oral medications at this time. 3. Try to use Geodon or other antipsychotic instead of the Ativan. His Ativan can typically worsen ICU delirium. 4. At some point, we may have to insert a Dobhoff tube or consider PEG tube placement. 5. The patient has not had any family come up to participate in his care, so I am not sure what the ultimate goals or care are. I can say at baseline. He is in very poor shape from his COPD and is probably near the end of his life. Dr. Duncan will see the patient tomorrow. Job ID: [id number]
[2019-01-10] MEDS: Dextrose 5 %-0.45 % NaCl 1,000 ML IV SCH ×2 (09:20→20:29)
[2019-01-10] MEDS: Famotidine/PF 20 mg/2ml Vial SLOW IVP SCH ×2 (09:21→19:37)
[2019-01-10] MEDS: Ziprasidone 20 MG VIAL IM PRN ×2 (09:22→21:34)
[2019-01-10] MEDS: Amiodarone 450 MG, Admixture Fee 1 EACH in Dextrose 5% in Water 250 ML IVPB SCH ×2 (11:36→22:37)
--- NOTE | 2019-01-10 14:45 | PDOC.HOSPP ---
- Subjective Subjective: Seen and examined. Clinically unchanged. Patient protecting his airway. Requiring restraints for his safety, interfering with medical therapy, crawling out of bed and removing lines. Requiring symptomatic medications to keep the patient home. Both myself and pulmonology have not seen any family available at bedside. Will consolt palliative care to see if goals of care can be established with the family. Patient should probably be a DNR. Poor prognosis. - Objective Vital Signs & Weight: Vital Signs (12 hours) Temp Pulse Pulse Pulse Resp BP BP 01/10/19 14:40 96 21 H 01/10/19 11:00 98.3 F 01/10/19 10:21 92 23 H 01/10/19 09:30 122 H 98 153/95 H 138/97 H 01/10/19 08:00 01/10/19 06:33 01/10/19 06:31 107 H 24 H 01/10/19 06:00 98.4 F 01/10/19 05:00 98.3 F Pulse Ox Pulse Ox Pulse Ox 01/10/19 14:40 97 01/10/19 11:00 01/10/19 10:21 99 01/10/19 09:30 99 100 01/10/19 08:00 100 01/10/19 06:33 99 01/10/19 06:31 99 01/10/19 06:00 01/10/19 05:00 Weight Admit Weight 142 lb Weight 139 lb 12.369 oz Most Recent Monitor Data Heart Rate from ECG 86 NIBP 133/82 NIBP BP-Mean 99 Respiration from ECG 19 SpO2 94 I&O: 01/09/19 01/10/19 01/11/19 06:59 06:59 06:59 Intake Total 828 895 Output Total 703 850 400 Balance 125 45 -400 Result Diagrams: 01/10/19 03:29 01/10/19 03:29 Radiology Reviewed by me: Yes Hospitalist ROS - Review of Systems ROS unobtainable: due to mental status - Medication Medications: Active Medications Generic Name Dose Route Start Last Admin Trade Name Freq PRN Reason Stop Dose Admin Albuterol/Ipratropium 3 ml 01/08/19 18:30 01/10/19 14:40 Duoneb NEB 3 ml O3CG-DI GAMAL Administration Arformoterol Tartrate 15 mcg 01/08/19 18:30 01/10/19 06:32 Brovana NEB 15 mcg BID-RT GAMAL Administration Budesonide 0.5 mg 01/08/19 18:30 01/10/19 06:32 Pulmicort Neb Solution INH 0.5 mg BID-RT GAMAL Administration Famotidine 20 mg 01/08/19 21:00 01/10/19 09:21 Pepcid SLOW IVP 20 mg BID GAMAL Administration Hydralazine HCl 10 mg 01/08/19 19:10 01/09/19 20:29 Apresoline SLOW IVP 10 mg Q4H PRN Administration SBP GREATER THAN 160 Nicardipine HCl 25 mg/ Sodium 250 mls @ 0 mls/hr 01/08/19 16:06 01/10/19 12: 49 Chloride IVPB 250 mls INF PRN Administration Hypertension Protocol Titrate Amiodarone HCl 450 mg/ 259 mls @ 0 mls/hr 01/08/19 21:15 01/10/19 11:36 Miscellaneous Medication 1 IVPB 259 mls each/ Dextrose/Water INF GAMAL Administration Protocol As Directed Dextrose/Sodium Chloride 1,000 mls @ 75 mls/hr 01/10/19 07:45 01/10/19 09:20 D5 1/2 Ns IV 1,000 mls .[id number] GAMAL Administration Ziprasidone 20 mg 01/10/19 07:34 01/10/19 09:22 Geodon IM 20 mg Q4H PRN Administration Agitation - Exam General Appearance: ill appearing Eye: PERRL ENT: normocephalic atraumatic, moist mucosa Neck: supple, symmetric, no lymphadenopathy Heart: no murmur, no gallops, no rubs, normal peripheral pulses Respiratory: no rales, no ronchi, wheezes (Faint scattered) Gastrointestinal: soft, non-tender, no guarding, no rigidity Extremities: no edema Skin: no lesions, no rashes Neurological: cranial nerve grossly intact, no focal deficits Neurological - other findings: Follows no commands, no appreciated focal deficits Musculoskeletal: generalized weakness Psychiatric: not oriented, somnolent Hosp A/P (1) Hemiparesis Code(s): G81.90 - HEMIPLEGIA, UNSPECIFIED AFFECTING UNSPECIFIED SIDE Status: Acute (2) Intracranial hemorrhage Code(s): I62.9 - NONTRAUMATIC INTRACRANIAL HEMORRHAGE, UNSPECIFIED Status: Acute (3) Hypertensive emergency Code(s): I16.1 - HYPERTENSIVE EMERGENCY Status: Acute (4) Dementia Code(s): F03.90 - UNSPECIFIED DEMENTIA WITHOUT BEHAVIORAL DISTURBANCE Status: Chronic (5) HLD (hyperlipidemia) Code(s): E78.5 - HYPERLIPIDEMIA, UNSPECIFIED Status: Chronic Qualifiers: (6) Prostate CA Code(s): C61 - MALIGNANT NEOPLASM OF PROSTATE Status: Acute (7) CAD (coronary artery disease) Code(s): I25.10 - ATHSCL HEART DISEASE OF [place] CORONARY ARTERY W/O ANG PCTRS Status: Acute - Plan Plan: Intensive care unit Paliative care consultation, recommendations appreciated neurosurgery consultation, recommendations appreciated - medical management alone - no surgical intervention recommended pulmonology forward/critical-care consultation, recommendations appreciated blood pressure control with nicardipine drip as needed restart home medications as able symptomatic medications to keep the patient call restraints required for patient safety as needed no anticoagulation/antiplatelet/and sent in the setting of intracranial hemorrhage G.I. prophylaxis DVT prophylaxis - SCDs Disposition: Poor prognosis despite maximum medical management - recommend DNR/ DNI
[2019-01-10] MEDS ORDERED: Bisacodyl 5 MG TAB PO PRN (17:17)
[2019-01-10] MEDS ORDERED: Witch Hazel-Glycerin 1 EACH JAR TOP PRN (17:17)
--- NOTE | 2019-01-10 17:55 | RAD ---
AP ABDOMINAL RADIOGRAPHS: 01/10/19 HISTORY: Evaluate Dobhoff feeding tube placement. FINDINGS: Dobhoff feeding tube is noted in place with the tip overlying the midline of the upper abdomen likely overlying the body of the stomach. Gaseous distention loops of bowel are seen. 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 Radiopaque tubing overlies the pelvis. Postsurgical changes left hip are noted. IMPRESSION: 1. Dobhoff feeding tube noted in place with tip overlying the expected location of the body of t he stomach. 2. Gaseous distention of loops of bowel. POS: [facility]
[2019-01-11] MEDS: Ziprasidone 20 MG VIAL IM PRN ×2 (02:08→16:12)
[2019-01-11 04:13] LABS: Anion Gap 10 mmol/L (10-20); BUN (Urea Nitrogen) 14 mg/dL (8.4-25.7); Calc. Creatinine Clearance 53 mL/min (70-130); Calcium 9.7 mg/dL (7.8-10.44); Carbon Dioxide 22 mmol/L (23-31); Chloride 109 mmol/L (98-107); Estimated GFR-MDRD Greater than 90; Glucose 152 mg/dL (83-110); Potassium 3.3 mmol/L (3.5-5.1); Sodium 138 mmol/L (136-145)
[2019-01-11 05:00] LABS: Band 4 % (5-11); Hemoglobin 16.1 g/dL (14.0-18.0); Lymphocytes 10 % (21-51); MDiff Complete? YES; Mean Corpuscular HGB CONC 32.3 g/dL (32.0-36.0); Mean Corpuscular Hemoglobin 29.5 pg (27.0-31.0); Mean Corpuscular Volume 91.5 fL (78.0-98.0); Mean Platelet Volume 8.5 fL (7.4-10.4); Monocytes 12 % (0-10); Neutrophil 74 % (42-75); Platelet Count 208 thou/uL (130-400); RBC Distribution Width 14.1 % (11.5-14.5); Red Blood Cell (RBC) Count 5.46 mill/uL (4.70-6.10); White Blood Cell (WBC) Count 11.3 thou/uL (4.8-10.8)
[2019-01-11] MEDS: Budesonide 0.5 MG/2 ML NEB INH SCH ×2 (07:07→18:26)
[2019-01-11] MEDS: Arformoterol 15 MCG/2 ML NEB NEB SCH ×2 (07:07→18:25)
[2019-01-11] MEDS: Famotidine/PF 20 mg/2ml Vial SLOW IVP SCH ×2 (08:41→20:07)
[2019-01-11] MEDS: Tamsulosin HCl 0.4 MG CAP PO SCH (08:41)
[2019-01-11] MEDS: Finasteride 5 MG TAB PO SCH (08:41)
[2019-01-11] MEDS: Isosorbide Mononitrate (ER) 30 MG TAB PO SCH (08:41)
[2019-01-11] MEDS: Polyethylene Glycol OPTH DROP 15 ML BOT EA EYE SCH (08:42)
[2019-01-11] MEDS: Carvedilol 3.125 MG TAB PO SCH ×2 (08:42→16:15)
[2019-01-11] MEDS: Aspirin Chewable 81 MG TAB PO SCH (08:42)
[2019-01-11] MEDS ORDERED: ROFLUMILAST 500 MG PO SCH (09:00)
[2019-01-11] MEDS: Dorzolamide HCl 2% Ophth Soln 10 ml Bottle R EYE SCH (10:20)
[2019-01-11] MEDS: Brimonidine Tartrate 0.2% Ophth Soln 5 ml Bottle R EYE SCH (10:20)
[2019-01-11] MEDS: Dextrose 5 %-0.45 % NaCl 1,000 ML IV SCH ×2 (10:20→23:41)
--- NOTE | 2019-01-11 12:39 | PDOC.HOSPP ---
- Subjective Subjective: Seen and examined. Patient seems clinically improved. Patient turns his head to me when called by name. Patient nods his head to questions though it is questionable how accurate he is answering questions. Patient still very somnolent and weak. Requiring restraints for his safety, pulling outlines and IV. No family has been able to be contacted to date. Case management consultation, neonatal social worker consultation, and palliative care consultation requested to help locate family and goals of care. - Objective Vital Signs & Weight: Vital Signs (12 hours) Temp Pulse Resp Pulse Ox 01/11/19 12:00 98.9 F 01/11/19 10:01 100 32 H 96 01/11/19 08:00 98.0 F 97 01/11/19 07:07 103 H 27 H 97 01/11/19 04:00 100 01/11/19 03:00 98.6 F 01/11/19 02:17 113 H 33 H 100 Weight Admit Weight 142 lb Weight 143 lb 1.28 oz Most Recent Monitor Data Heart Rate from ECG 85 NIBP 105/75 NIBP BP-Mean 85 Respiration from ECG 29 SpO2 100 I&O: 01/10/19 01/11/19 01/12/19 06:59 06:59 06:59 Intake Total 895 2457 225 Output Total 850 1300 0 Balance 45 1157 225 Result Diagrams: 01/11/19 03:35 01/11/19 03:35 Radiology Reviewed by me: Yes Hospitalist ROS - Review of Systems ROS unobtainable: due to mental status - Medication Medications: Active Medications Generic Name Dose Route Start Last Admin Trade Name Freq PRN Reason Stop Dose Admin Albuterol/Ipratropium 3 ml 01/08/19 18:30 01/11/19 10:01 Duoneb NEB 3 ml [id number] GAMAL Administration Arformoterol Tartrate 15 mcg 01/08/19 18:30 01/11/19 07:07 Brovana NEB 15 mcg BID-RT GAMAL Administration Aspirin 81 mg 01/11/19 09:00 01/11/19 08:42 Aspirin Chewable PO 81 mg DAILY GAMAL Administration Brimonidine Tartrate 1 drop 01/11/19 09:00 01/11/19 10:20 Alphagan 0.2% Ophth Soln R EYE 1 drop DAILY GAMAL Administration Budesonide 0.5 mg 01/08/19 18:30 01/11/19 07:07 Pulmicort Neb Solution INH 0.5 mg BID-RT GAMAL Administration Carvedilol 3.125 mg 01/11/19 08:00 01/11/19 08:42 Coreg PO 3.125 mg BID-WM GAMAL Administration Dorzolamide HCl 1 drop 01/11/19 09:00 01/11/19 10:20 Trusopt 2% Ophth Soln R EYE 1 drop DAILY GAMAL Administration Famotidine 20 mg 01/08/19 21:00 01/11/19 08:41 Pepcid SLOW IVP 20 mg BID GAMAL Administration Finasteride 5 mg 01/11/19 09:00 01/11/19 08:41 Proscar PO 5 mg DAILY GAMAL Administration Hydralazine HCl 10 mg 01/08/19 19:10 01/09/19 20:29 Apresoline SLOW IVP 10 mg Q4H PRN Administration SBP GREATER THAN 160 Nicardipine HCl 25 mg/ Sodium 250 mls @ 0 mls/hr 01/08/19 16:06 01/10/19 19: 37 Chloride IVPB 250 mls INF PRN Administration Hypertension Protocol Titrate Amiodarone HCl 450 mg/ 259 mls @ 0 mls/hr 01/08/19 21:15 01/10/19 22:37 Miscellaneous Medication 1 IVPB 259 mls each/ Dextrose/Water INF GAMAL Administration Protocol As Directed Dextrose/Sodium Chloride 1,000 mls @ 75 mls/hr 01/10/19 07:45 01/11/19 10:20 D5 1/2 Ns IV 1,000 mls .[id number] GAMAL Administration Isosorbide Mononitrate 30 mg 01/11/19 09:00 01/11/19 08:41 Imdur Er PO 30 mg DAILY GAMAL Administration Pantoprazole Sodium 40 mg 01/11/19 09:00 01/11/19 08:42 Protonix PO Not Given DAILY GAMAL Potassium Chloride 40 meq 01/08/19 17:08 01/11/19 04:20 Klor-Con PER TUBE 40 meq ASDIR PRN Administration FOR SERUM K+ 2.5-3.5 Propylene Glycol 1 drop 01/11/19 09:00 01/11/19 08:42 Systane Opth Drop 15ml Bot EA EYE 1 drop DAILY GAMAL Administration Sertraline HCl 100 mg 01/11/19 09:00 01/11/19 08:41 Zoloft PO 100 mg DAILY GAMAL Administration Tamsulosin HCl 0.4 mg 01/11/19 09:00 01/11/19 08:41 Flomax PO 0.4 mg DAILY GAMAL Administration Ziprasidone 20 mg 01/10/19 07:34 01/11/19 02:08 Geodon IM 20 mg Q4H PRN Administration Agitation - Exam General Appearance: ill appearing Eye: PERRL ENT: normocephalic atraumatic, moist mucosa Neck: supple, symmetric, no lymphadenopathy Heart: no murmur, no gallops, no rubs Respiratory: CTAB, no rales, no ronchi, wheezes (few scattered) Gastrointestinal: soft, non-tender, non-distended, normal bowel sounds, no guarding, no rigidity Gastrointestinal - other findings: Dobhoff tube in position Extremities: 1+ LE edema Skin: no lesions, no rashes Neurological: cranial nerve grossly intact, no new deficit Neurological - other findings: Moves all extremities to noxious stim Musculoskeletal: generalized weakness Psychiatric: not oriented, flat affect Hosp A/P (1) Hemiparesis Code(s): G81.90 - HEMIPLEGIA, UNSPECIFIED AFFECTING UNSPECIFIED SIDE Status: Acute (2) Intracranial hemorrhage Code(s): I62.9 - NONTRAUMATIC INTRACRANIAL HEMORRHAGE, UNSPECIFIED Status: Acute (3) Hypertensive emergency Code(s): I16.1 - HYPERTENSIVE EMERGENCY Status: Acute (4) Dementia Code(s): F03.90 - UNSPECIFIED DEMENTIA WITHOUT BEHAVIORAL DISTURBANCE Status: Chronic (5) HLD (hyperlipidemia) Code(s): E78.5 - HYPERLIPIDEMIA, UNSPECIFIED Status: Chronic Qualifiers: (6) Prostate CA Code(s): C61 - MALIGNANT NEOPLASM OF PROSTATE Status: Acute (7) CAD (coronary artery disease) Code(s): I25.10 - ATHSCL HEART DISEASE OF [place] CORONARY ARTERY W/O ANG PCTRS Status: Acute - Plan Plan: Intensive care unit Paliative care consultation, recommendations appreciated neurosurgery consultation, recommendations appreciated - medical management alone - no surgical intervention recommended pulmonology forward/critical-care consultation, recommendations appreciated blood pressure control with nicardipine drip as needed Started Carvedilol 01/11 - will titrate up as needed Restarted Imdur restart other home medications as able symptomatic medications to keep the patient calm restraints required for patient safety as needed no anticoagulation/antiplatelet/and sent in the setting of intracranial hemorrhage G.I. prophylaxis DVT prophylaxis - SCDs Disposition: Poor prognosis despite maximum medical management - recommend DNR/ DNI
[2019-01-11] MEDS ORDERED: Amiodarone 200 MG TAB PO SCH (16:45)
--- NOTE | 2019-01-11 16:57 | PRG ---
DATE OF SERVICE: 01/11/2019 SUBJECTIVE: Ray Brunson is in no distress. OBJECTIVE: VITAL SIGNS: He is afebrile. Heart rate is 97 to 109, blood pressure is 112/74. This afternoon, respiratory rates in the high 20s. LUNGS: Remarkable for mild wheezes bilaterally. HEART: Regular rhythm. ABDOMEN: Soft. EXTREMITIES: Without clubbing, cyanosis, or edema. LABORATORY DATA: White count 11.3, hemoglobin 16.1, platelets 208. Sodium 138, potassium 3.3, chloride 109, bicarb 22, BUN 14, creatinine 0.92. IMPRESSION: 1. Status post thalamic bleed. 2. Hypertension. 3. Encephalopathy. 4. Severe chronic obstructive pulmonary disease. 5. Atrial fibrillation. 6. Hypercalcemia that is improved slightly. No family has been at the bedside. He has very poor prognosis without the bleed and I suspect this bedridden state will push him over the edge. I examined him after he was rolled over and changed and cleaned and just laying flat led to severe shortness of breath. This dramatically improved when he was set back up. Job ID: [id number]
[2019-01-12] MEDS: Ziprasidone 20 MG VIAL IM PRN ×2 (01:19→14:42)
[2019-01-12] MEDS: hydrALAZINE 20 MG/ML VIAL SLOW IVP PRN (04:10)
[2019-01-12 04:31] LABS: Eosinophils 1 % (0-10); Lymphocytes 14 % (21-51); MDiff Complete? YES; Mean Corpuscular HGB CONC 32.1 g/dL (32.0-36.0); Mean Corpuscular Volume 93.5 fL (78.0-98.0); Monocytes 2 % (0-10); Neutrophil 83 % (42-75); Platelet Count 127 thou/uL (130-400); Platelet Morphology Comment Appears Adequate; RBC Morphology Normal; Red Blood Cell (RBC) Count 5.01 mill/uL (4.70-6.10); White Blood Cell (WBC) Count 13.2 thou/uL (4.8-10.8)
[2019-01-12] MEDS: Budesonide 0.5 MG/2 ML NEB INH SCH ×2 (06:39→18:50)
[2019-01-12] MEDS: Arformoterol 15 MCG/2 ML NEB NEB SCH ×2 (06:40→18:49)
[2019-01-12 06:42] LABS: Anion Gap 14 mmol/L (10-20); BUN (Urea Nitrogen) 14 mg/dL (8.4-25.7); Calc. Creatinine Clearance 60 mL/min (70-130); Calcium 9.4 mg/dL (7.8-10.44); Carbon Dioxide 19 mmol/L (23-31); Chloride 109 mmol/L (98-107); Estimated GFR-MDRD Greater than 90; Glucose 136 mg/dL (83-110); Potassium 4.5 mmol/L (3.5-5.1); Sodium 137 mmol/L (136-145)
[2019-01-12] MEDS: Isosorbide Mononitrate (ER) 30 MG TAB PO SCH (08:12)
[2019-01-12] MEDS: Tamsulosin HCl 0.4 MG CAP PO SCH (08:12)
[2019-01-12] MEDS: Carvedilol 3.125 MG TAB PO SCH ×2 (08:12→17:20)
[2019-01-12] MEDS: Famotidine/PF 20 mg/2ml Vial SLOW IVP SCH ×2 (08:13→19:44)
[2019-01-12] MEDS: Finasteride 5 MG TAB PO SCH (08:13)
[2019-01-12] MEDS: Amiodarone 200 MG TAB PO SCH ×2 (08:13→19:44)
[2019-01-12] MEDS: Aspirin Chewable 81 MG TAB PO SCH (08:13)
[2019-01-12] MEDS: Brimonidine Tartrate 0.2% Ophth Soln 5 ml Bottle R EYE SCH (08:14)
[2019-01-12] MEDS: Dorzolamide HCl 2% Ophth Soln 10 ml Bottle R EYE SCH (08:14)
[2019-01-12] MEDS: Polyethylene Glycol OPTH DROP 15 ML BOT EA EYE SCH (08:15)
--- NOTE | 2019-01-12 09:05 | RAD ---
Portable chest: HISTORY: Cough COMPARISON: 01/09/2019 FINDINGS: Lung chu are clear. Heart and mediastinum appear unremarkable. Vascularity is normal. Visualized osseous structures unremarkable. NG tube is noted in place IMPRESSION: No acute finding
--- NOTE | 2019-01-12 09:56 | PRG ---
DATE OF SERVICE: 01/12/2019 SUBJECTIVE: Mr. Brunson was able to verbalize with me this morning. He told me that he wanted his oxygen back on. This is the first time he has been coherent since I have seen him during this hospitalization. OBJECTIVE: VITAL SIGNS: His temperature is 98.4, pulse 98, blood pressure 124/74, and O2 saturation 98%. HEENT: Remarkable for right naris Dobbhoff tube. NECK: No JVD, but he has audible upper airway breath sounds. CARDIAC: S1 and S2, regular. LUNGS: No distant wheezing. ABDOMEN: Soft and nontender. EXTREMITIES: No edema. LABORATORY DATA: Sodium 137, potassium 4.5, chloride 109, CO2 of 19, BUN 14, creatinine 0.8, glucose 136, calcium level is 9.4. White blood cell count 13.2, hematocrit 46.9, and platelet count 127. ASSESSMENT: 1. Status post thalamic bleed from uncontrolled hypertension. 2. Improved encephalopathy/delirium. 3. Underlying severe chronic obstructive pulmonary disease. 4. Underlying anxiety. 5. Corrected hypercalcemia with normal parathyroid hormone level. 6. Paroxysmal atrial fibrillation. PLAN: 1. The patient will be fed through his Dobbhoff tube until his swallowing improves. We will try to minimize sedation as much as possible. If his mental status cooperates, he can probably transfer to the stroke floor soon. 2. Further management per Internal Medicine. Job ID: [id number]
--- NOTE | 2019-01-12 10:36 | RAD ---
EXAM: Portable supine abdomen INDICATIONS: Feeding tube placement COMPARISON: 01/10/2019 FINDINGS: Feeding tube passes through the EG junction is coiled within the gastric fundus. Tip points toward the gastric antrum but is located in the upper gastric body.
--- NOTE | 2019-01-12 11:57 | RAD ---
SUPINE PORTABLE ABDOMEN: INDICATION: Assess feeding tube placement. COMPARISON: Film at 10:08 a.m. FINDINGS: NG tube passes through the EG junction is coiled in the upper gastric fundus. The tip points toward the antrum in the upper gastric fundal region. Bowel gas pattern is unchanged with mild gaseous distention. POS: OFF
--- NOTE | 2019-01-12 11:58 | RAD ---
SUPINE PORTABLE ABDOMEN: INDICATION: Dobbhoff placement: COMPARISON: Exam at 11:05 a.m. FINDINGS/IMPRESSION: The tube has been advanced. The tube is now coiled in the body of the stomach with the tip pointing away from the gastric antrum. POS: OFF
--- NOTE | 2019-01-12 12:28 | PDOC.HOSPP ---
- Subjective Subjective: Seen and examined. Patient continues to improve daily. He is able to tell me his name today. Moves all extremities. Complains of pain in the foot. Patient is breathing on room air. So far efforts to find family and power of hat finisher has not been fruitful. Patient is chronic resident of assisted living facility though they are not clear on his wishes towards end-of-life care. Will continue to investigate and see if family can be identified. In the meantime I'm happy with the progress the patient is made. Being moved out of the ICU today. - Objective Vital Signs & Weight: Vital Signs (12 hours) Temp Pulse Resp BP Pulse Ox 01/12/19 12:00 100.2 F H 01/12/19 10:24 98 31 H 87 L 01/12/19 08:00 98.4 F 01/12/19 07:32 99 01/12/19 06:40 100 01/12/19 06:39 102 H 33 H 100 01/12/19 04:10 86 172/98 H 01/12/19 03:00 98.0 F Weight Admit Weight 142 lb Weight 144 lb 2.917 oz Most Recent Monitor Data Heart Rate from ECG 90 NIBP 121/83 NIBP BP-Mean 95 Respiration from ECG 27 SpO2 100 I&O: 01/11/19 01/12/19 01/13/19 06:59 06:59 06:59 Intake Total 2457 3468 372 Output Total 1300 0 0 Balance 1157 3468 372 Result Diagrams: 01/12/19 04:03 01/12/19 06:15 Radiology Reviewed by me: Yes Hospitalist ROS - Review of Systems All other systems reviewed; all pertinent +/- noted in HPI/Subj - Medication Medications: Active Medications Generic Name Dose Route Start Last Admin Trade Name Freq PRN Reason Stop Dose Admin Albuterol/Ipratropium 3 ml 01/08/19 18:30 01/12/19 10:24 Duoneb NEB 3 ml [id number] GAMAL Administration Amiodarone HCl 400 mg 01/12/19 09:00 01/12/19 08:13 Cordarone PO 400 mg BID GAMAL Administration Arformoterol Tartrate 15 mcg 01/08/19 18:30 01/12/19 06:40 Brovana NEB 15 mcg BID-RT GAMAL Administration Aspirin 81 mg 01/11/19 09:00 01/12/19 08:13 Aspirin Chewable PO 81 mg DAILY GAMAL Administration Brimonidine Tartrate 1 drop 01/11/19 09:00 01/12/19 08:14 Alphagan 0.2% Ophth Soln R EYE 1 drop DAILY GAMAL Administration Budesonide 0.5 mg 01/08/19 18:30 01/12/19 06:39 Pulmicort Neb Solution INH 0.5 mg BID-RT GAMAL Administration Carvedilol 3.125 mg 01/11/19 08:00 01/12/19 08:12 Coreg PO 3.125 mg BID-WM GAMAL Administration Dorzolamide HCl 1 drop 01/11/19 09:00 01/12/19 08:14 Trusopt 2% Ophth Soln R EYE 1 drop DAILY GAMAL Administration Famotidine 20 mg 01/08/19 21:00 01/12/19 08:13 Pepcid SLOW IVP 20 mg BID GAMAL Administration Finasteride 5 mg 01/11/19 09:00 01/12/19 08:13 Proscar PO 5 mg DAILY GAMAL Administration Hydralazine HCl 10 mg 01/08/19 19:10 01/12/19 04:10 Apresoline SLOW IVP 10 mg Q4H PRN Administration SBP GREATER THAN 160 Nicardipine HCl 25 mg/ Sodium 250 mls @ 0 mls/hr 01/08/19 16:06 01/10/19 19: 37 Chloride IVPB 250 mls INF PRN Administration Hypertension Protocol Titrate Isosorbide Mononitrate 30 mg 01/11/19 09:00 01/12/19 08:12 Imdur Er PO 30 mg DAILY GAMAL Administration Pantoprazole Sodium 40 mg 01/11/19 09:00 01/12/19 08:12 Protonix PO Not Given DAILY GAMAL Potassium Chloride 40 meq 01/08/19 17:08 01/11/19 04:20 Klor-Con PER TUBE 40 meq ASDIR PRN Administration FOR SERUM K+ 2.5-3.5 Propylene Glycol 1 drop 01/11/19 09:00 01/12/19 08:15 Systane Opth Drop 15ml Bot EA EYE 1 drop DAILY GAMAL Administration Sertraline HCl 100 mg 01/11/19 09:00 01/12/19 08:13 Zoloft PO 100 mg DAILY GAMAL Administration Tamsulosin HCl 0.4 mg 01/11/19 09:00 01/12/19 08:12 Flomax PO 0.4 mg DAILY GAMAL Administration Ziprasidone 20 mg 01/10/19 07:34 01/12/19 01:19 Geodon IM 20 mg Q4H PRN Administration Agitation - Exam General Appearance: NAD Eye: PERRL, anicteric sclera ENT: normocephalic atraumatic, moist mucosa ENT - other findings: Dobhoff in position Neck: supple, symmetric, no JVD, no lymphadenopathy Heart: RRR, no murmur, no gallops, no rubs Respiratory: no rales, no ronchi, normal chest expansion, wheezes (improving) Gastrointestinal: soft, non-tender, no guarding, no rigidity Extremities: no edema Skin: no lesions, no rashes Neurological: cranial nerve grossly intact, no focal deficits Musculoskeletal: generalized weakness Psychiatric: oriented to person, flat affect. negative: oriented to place, oriented to time Hosp A/P (1) Hemiparesis Code(s): G81.90 - HEMIPLEGIA, UNSPECIFIED AFFECTING UNSPECIFIED SIDE Status: Acute (2) Intracranial hemorrhage Code(s): I62.9 - NONTRAUMATIC INTRACRANIAL HEMORRHAGE, UNSPECIFIED Status: Acute (3) Hypertensive emergency Code(s): I16.1 - HYPERTENSIVE EMERGENCY Status: Acute (4) Dementia Code(s): F03.90 - UNSPECIFIED DEMENTIA WITHOUT BEHAVIORAL DISTURBANCE Status: Chronic (5) HLD (hyperlipidemia) Code(s): E78.5 - HYPERLIPIDEMIA, UNSPECIFIED Status: Chronic Qualifiers: (6) Prostate CA Code(s): C61 - MALIGNANT NEOPLASM OF PROSTATE Status: Acute (7) CAD (coronary artery disease) Code(s): I25.10 - ATHSCL HEART DISEASE OF [place] CORONARY ARTERY W/O ANG PCTRS Status: Acute - Plan Plan: Intensive care unit, stable for d/g to Med/ tel on stroke unit Paliative care consultation, recommendations appreciated neurosurgery consultation, recommendations appreciated - medical management alone - no surgical intervention recommended pulmonology forward/critical-care consultation, recommendations appreciated blood pressure controlled on oral meds, off nicardipine drip Carvedilol 01/11 - will titrate up as needed Imdur Continue other home medications as able Speech therapy/ PT/ OT - eval and treat symptomatic medications to keep the patient calm restraints required for patient safety as needed no anticoagulation/antiplatelet/and sent in the setting of intracranial hemorrhage G.I. prophylaxis DVT prophylaxis - SCDs Disposition: prison prognosis remains guarded, despite maximum medical management - recommend DNR/ DNI
--- NOTE | 2019-01-12 14:54 | CON ---
DATE OF CONSULTATION: PRIMARY STEEL ERECTOR: Dr. Mao. HISTORY OF PRESENT ILLNESS: Ray Brunson is an 83-year-old black male who was hospitalized with a stroke. On January 08, he went into atrial fibrillation. He was started on IV amiodarone bolus and drip at 5 hours. At 1 hours, he converted back to sinus rhythm. He has been in sinus rhythm since that time. Now 4 days later, cardiology consultation is requested. The patient is aphasic with a stroke and could not provide any history. Mr. Brunson did undergo cardiac catheterization by Dr. Cordon in 2010, which revealed normal coronary arteries. Then in April 2015, he saw Dr. Mao for evaluation of chest discomfort. Lexiscan Cardiolite test revealed study to be probably normal with fixed finding of inferior wall defect probably due to diaphragmatic attenuation. In March 2015, he underwent chest CTA for evaluation of chest discomfort. He was found to have coronary artery calcification, possible lipoma in the anterior chest. He then underwent cardiac catheterization, which revealed luminal irregularities , but no significant coronary artery disease. Ejection fraction was 70%. He has not seen Dr. Mao since that time and several calls have been made from the office to have him come in for followup, however, he has not. He now lives at [facility] and apparently was found down. A noncontrast head CT revealed a left thalamic intracranial hemorrhage. Blood pressure was 197/119 at the time of admission. He was found to have right-sided hemiparesis as well as aphasia. He then on the day of admission had the atrial fibrillation as described above. PAST MEDICAL HISTORY: Coronary artery calcifications, but no significance stenosis; severe COPD; hypertension; prostate cancer. PAST SURGICAL HISTORY: Appendectomy, cholecystectomy, hernia repair, tonsillectomy. SOCIAL HISTORY: Smokes two cigarettes per day. Lives at [facility]. MEDICATIONS: At home include 1. Aspirin 81 daily. 2. Celebrex 200 mg b.i.d. 3. Butrans 5 mcg topically q.7 days. 4. Proscar 5 mg daily. 5. Flonase daily. 6. Neurontin 300 daily. 7. Motrin 600 mg q.12 hours p.r.n. 8. Isosorbide mononitrate 30 daily. 9. Loratadine 10 daily. 10. Myrbetriq 25 mg daily. 11. Nitrostat p.r.n. 12. Protonix 40 mg daily. 13. Prednisone dose pack. 14. Sertraline 100 mg daily. 15. Flomax 0.4 daily. 16. Ventolin inhaler. 17. Trazodone 150 at bedtime. ALLERGIES: NONE. REVIEW OF SYSTEMS: Unobtainable due to the patient's aphasia. PHYSICAL EXAMINATION: VITAL SIGNS: Blood pressure 122/70, pulse 99. HEENT PERRL. NECK: Supple. CHEST: Reveals bilateral rhonchi. CARDIOVASCULAR: S1, S2 normal without any S3, S4, or murmurs. Carotid upstrokes normal without bruits. Dorsalis pedis and posterior tibial pulses are intact. ABDOMEN: Normal bowel sounds without tenderness or organomegaly. EXTREMITIES: Revealed no clubbing, cyanosis, or edema. NEUROLOGIC: The patient is aphasic. He has right-sided hemiparesis. LABORATORY DATA: EKG on admission revealed normal sinus rhythm with PVC. White count 13,200, hemoglobin 15.0, hematocrit 46.9, platelets 127,000. Sodium 137, potassium 4.5, chloride 109, carbon dioxide 19, BUN 14, creatinine 0.83. Cholesterol 212, triglycerides 65, HDL 78, LDL 121. Echocardiogram was technically difficult. Ejection fraction of 55% to 60%, mild left atrial enlargement, mitral annular calcification, mild mitral regurgitation , aortic valvular sclerosis and mild tricuspid regurgitation. IMPRESSION: 1. Left thalamic intracranial bleed secondary to hypertension. 2. Atrial fibrillation with fast ventricular response 4 days ago, which converted to sinus rhythm 6 minutes after a bolus of amiodarone was given and drip was started. He now has been converted to p.o. amiodarone. 3. Coronary artery calcifications, but no significant stenosis. 4. Chronic obstructive pulmonary disease. 5. Hypertension. 6. Hyperlipidemia. 7. Prostate cancer. 8. Smoker. PLAN: Patient is being transitioned to p.o. amiodarone. Job ID: [id number] [facility]
[2019-01-13 06:31] LABS: Eosinophils 1 % (0-10); Hemoglobin 13.7 g/dL (14.0-18.0); Lymphocytes 6 % (21-51); MDiff Complete? YES; Mean Corpuscular HGB CONC 32.4 g/dL (32.0-36.0); Mean Corpuscular Hemoglobin 29.8 pg (27.0-31.0); Mean Corpuscular Volume 91.9 fL (78.0-98.0); Mean Platelet Volume 8.6 fL (7.4-10.4); Monocytes 12 % (0-10); Neutrophil 81 % (42-75); Platelet Count 172 thou/uL (130-400); Platelet Morphology Comment Appears Adequate; RBC Distribution Width 13.7 % (11.5-14.5); Red Blood Cell (RBC) Count 4.61 mill/uL (4.70-6.10); White Blood Cell (WBC) Count 11.5 thou/uL (4.8-10.8)
[2019-01-13 06:38] LABS: Anion Gap 11 mmol/L (10-20); BUN (Urea Nitrogen) 17 mg/dL (8.4-25.7); Calc. Creatinine Clearance 57 mL/min (70-130); Calcium 9.7 mg/dL (7.8-10.44); Carbon Dioxide 25 mmol/L (23-31); Chloride 109 mmol/L (98-107); Estimated GFR-MDRD Greater than 90; Glucose 142 mg/dL (83-110); Potassium 3.9 mmol/L (3.5-5.1); Sodium 141 mmol/L (136-145)
[2019-01-13] MEDS: Arformoterol 15 MCG/2 ML NEB NEB SCH ×2 (07:33→19:37)
[2019-01-13] MEDS: Budesonide 0.5 MG/2 ML NEB INH SCH ×2 (07:34→19:35)
[2019-01-13] MEDS: Carvedilol 3.125 MG TAB PO SCH ×2 (08:35→20:01)
[2019-01-13] MEDS: Famotidine/PF 20 mg/2ml Vial SLOW IVP SCH ×2 (08:35→20:01)
[2019-01-13] MEDS: Finasteride 5 MG TAB PO SCH (08:35)
[2019-01-13] MEDS: Tamsulosin HCl 0.4 MG CAP PO SCH (08:35)
[2019-01-13] MEDS: Aspirin Chewable 81 MG TAB PO SCH (08:35)
[2019-01-13] MEDS: Isosorbide Mononitrate (ER) 30 MG TAB PO SCH (08:35)
[2019-01-13] MEDS: Amiodarone 200 MG TAB PO SCH ×2 (08:35→20:01)
[2019-01-13] MEDS: Dorzolamide HCl 2% Ophth Soln 10 ml Bottle R EYE SCH (08:36)
[2019-01-13] MEDS: Brimonidine Tartrate 0.2% Ophth Soln 5 ml Bottle R EYE SCH (08:36)
[2019-01-13] MEDS: Polyethylene Glycol OPTH DROP 15 ML BOT EA EYE SCH (08:37)
--- NOTE | 2019-01-13 09:34 | PRG ---
DATE OF SERVICE: 01/13/2019 SUBJECTIVE: Mr. Brunson looks much better today. He is very communicative. OBJECTIVE: VITAL SIGNS: Temperature 98.0, pulse 94, blood pressure 120/80, O2 saturation 94%. HEENT: Unremarkable. NECK: No adenopathy or JVD. LUNGS: Clear to auscultation. CARDIAC: S1 and S2, regular. ABDOMEN: Soft. EXTREMITIES: No edema. LABORATORY DATA: Sodium 141, potassium 3.9, chloride 109, CO2 of 25, BUN 17, creatinine 0.8, glucose 142. White blood cell count 11.5, hematocrit 42.4, and platelet count 172. ASSESSMENT: 1. Thalamic bleed. 2. Uncontrolled hypertension, now better. 3. Improved encephalopathy/delirium. 4. Underlying chronic obstructive pulmonary disease. 5. Paroxysmal atrial fibrillation. PLAN: The patient is going to the stroke floor when a bed is available. He needs to be re-evaluated by Speech to see if he can swallow and in the meantime, he is continuing tube feeds. I will go ahead and stop the Geodon. He continues on the sertraline. Overall, his improvement is very impressive. Job ID: [id number]
--- NOTE | 2019-01-13 10:12 | PDOC.HOSPP ---
- Subjective Subjective: Seen and examined. Clinically improving. Talking more. Patient still with Dobbhoff tube for enteral nutrition. Working with speech therapy. I'm happy with the progress on this patient, hopefully now that he is more awake he will be able to cooperate more with speech therapy and we can advance his diet. - Objective Vital Signs & Weight: Vital Signs (12 hours) Temp Pulse Resp Pulse Ox 01/13/19 08:00 98.0 F 01/13/19 07:34 93 28 H 97 01/13/19 07:33 96 27 H 96 01/13/19 03:00 98.4 F 01/13/19 02:27 97 33 H 95 01/12/19 23:00 98.2 F 01/12/19 22:26 95 27 H 96 Weight Admit Weight 142 lb Weight 143 lb 11.862 oz Most Recent Monitor Data Heart Rate from ECG 94 NIBP 128/80 NIBP BP-Mean 96 Respiration from ECG 31 SpO2 94 I&O: 01/12/19 01/13/19 01/14/19 06:59 06:59 06:59 Intake Total 3468 1486 Output Total 0 150 0 Balance 3468 1336 0 Result Diagrams: 01/13/19 06:01 01/13/19 06:01 Radiology Reviewed by me: Yes Hospitalist ROS - Review of Systems All other systems reviewed; all pertinent +/- noted in HPI/Subj - Medication Medications: Active Medications Generic Name Dose Route Start Last Admin Trade Name Freq PRN Reason Stop Dose Admin Albuterol/Ipratropium 3 ml 01/08/19 18:30 01/13/19 07:34 Duoneb NEB 3 ml [id number] GAMAL Administration Amiodarone HCl 400 mg 01/12/19 09:00 01/13/19 08:35 Cordarone PO 400 mg BID GAMAL Administration Arformoterol Tartrate 15 mcg 01/08/19 18:30 01/13/19 07:33 Brovana NEB 15 mcg BID-RT GAMAL Administration Aspirin 81 mg 01/11/19 09:00 01/13/19 08:35 Aspirin Chewable PO 81 mg DAILY GAMAL Administration Brimonidine Tartrate 1 drop 01/11/19 09:00 01/13/19 08:36 Alphagan 0.2% Ophth Soln R EYE 1 drop DAILY GAMAL Administration Budesonide 0.5 mg 01/08/19 18:30 01/13/19 07:34 Pulmicort Neb Solution INH 0.5 mg BID-RT GAMAL Administration Carvedilol 3.125 mg 01/11/19 08:00 01/13/19 08:35 Coreg PO 3.125 mg BID-WM GAMAL Administration Dorzolamide HCl 1 drop 01/11/19 09:00 01/13/19 08:36 Trusopt 2% Ophth Soln R EYE 1 drop DAILY GAMAL Administration Famotidine 20 mg 01/08/19 21:00 01/13/19 08:35 Pepcid SLOW IVP 20 mg BID GAMAL Administration Finasteride 5 mg 01/11/19 09:00 01/13/19 08:35 Proscar PO 5 mg DAILY GAMAL Administration Hydralazine HCl 10 mg 01/08/19 19:10 01/12/19 04:10 Apresoline SLOW IVP 10 mg Q4H PRN Administration SBP GREATER THAN 160 Isosorbide Mononitrate 30 mg 01/11/19 09:00 01/13/19 08:35 Imdur Er PO 30 mg DAILY GAMAL Administration Pantoprazole Sodium 40 mg 01/11/19 09:00 01/13/19 08:37 Protonix PO Not Given DAILY GAMAL Propylene Glycol 1 drop 01/11/19 09:00 01/13/19 08:37 Systane Opth Drop 15ml Bot EA EYE 1 drop DAILY GAMAL Administration Sertraline HCl 100 mg 01/11/19 09:00 01/13/19 08:35 Zoloft PO 100 mg DAILY GAMAL Administration Tamsulosin HCl 0.4 mg 01/11/19 09:00 01/13/19 08:35 Flomax PO 0.4 mg DAILY GAAML Administration - Exam General Appearance: NAD, awake alert Eye: PERRL ENT: normocephalic atraumatic, moist mucosa Neck: supple, symmetric, no lymphadenopathy Heart: RRR, no murmur, no gallops, no rubs Respiratory: no rales, no ronchi (few coarse), normal chest expansion, no tachypnea, wheezes (few scattered) Gastrointestinal: soft, non-tender, no guarding, no rigidity Extremities: no edema Skin: no lesions, no rashes Neurological: cranial nerve grossly intact, normal sensation to touch Musculoskeletal: generalized weakness, diffuse muscle atrophy Psychiatric: oriented to person, oriented to place Hosp A/P (1) Hemiparesis Code(s): G81.90 - HEMIPLEGIA, UNSPECIFIED AFFECTING UNSPECIFIED SIDE Status: Acute (2) Intracranial hemorrhage Code(s): I62.9 - NONTRAUMATIC INTRACRANIAL HEMORRHAGE, UNSPECIFIED Status: Acute (3) Hypertensive emergency Code(s): I16.1 - HYPERTENSIVE EMERGENCY Status: Acute (4) Dementia Code(s): F03.90 - UNSPECIFIED DEMENTIA WITHOUT BEHAVIORAL DISTURBANCE Status: Chronic (5) HLD (hyperlipidemia) Code(s): E78.5 - HYPERLIPIDEMIA, UNSPECIFIED Status: Chronic Qualifiers: (6) Prostate CA Code(s): C61 - MALIGNANT NEOPLASM OF PROSTATE Status: Acute (7) CAD (coronary artery disease) Code(s): I25.10 - ATHSCL HEART DISEASE OF [place] CORONARY ARTERY W/O ANG PCTRS Status: Acute - Plan Plan: Intensive care unit, stable for d/g to Med/ tel on stroke unit Paliative care consultation, recommendations appreciated neurosurgery consultation, recommendations appreciated - medical management alone - no surgical intervention recommended pulmonology forward/critical-care consultation, recommendations appreciated blood pressure controlled on oral meds, off nicardipine drip Carvedilol 01/11 - will titrate up as needed Imdur Continue other home medications as able Speech therapy/ PT/ OT - eval and treat symptomatic medications to keep the patient calm restraints required for patient safety as needed no anticoagulation/antiplatelet/and sent in the setting of intracranial hemorrhage G.I. 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
--- NOTE | 2019-01-13 14:20 | PDOC.CPN ---
- Subjective Date: 01/13/19 Time: 14:17 Interval history: No new issues. Still not able to have full conversation. - Review of Systems ROS unobtainable: due to mental status - Objective Allergies/Adverse Reactions: Allergies Allergy/AdvReac Type Severity Reaction Status Date / Time No Known Allergies Allergy Verified 11/04/15 02:56 Visit Medications: Current Medications Albuterol/Ipratropium (Duoneb) 3 ml NEB [id number] GAMAL Last Admin: 01/13/19 11:11 Dose: 3 ml Albuterol/Ipratropium (Duoneb) 3 ml NEB QIDPRN PRN PRN Reason: SOB/WHEEZING Amiodarone HCl (Cordarone) 400 mg PO BID GAMAL Last Admin: 01/13/19 08:35 Dose: 400 mg Arformoterol Tartrate (Brovana) 15 mcg NEB BID-RT GAMAL Last Admin: 01/13/19 07:33 Dose: 15 mcg Aspirin (Aspirin Chewable) 81 mg PO DAILY GAMAL Last Admin: 01/13/19 08:35 Dose: 81 mg Bisacodyl (Dulcolax) 5 mg PO PRN PRN PRN Reason: Constipation Brimonidine Tartrate (Alphagan 0.2% Ophth Soln) 1 drop R EYE DAILY GAMAL Last Admin: 01/13/19 08:36 Dose: 1 drop Budesonide (Pulmicort Neb Solution) 0.5 mg INH BID-RT GAMAL Last Admin: 01/13/19 07:34 Dose: 0.5 mg Carvedilol (Coreg) 3.125 mg PO BID-WM GAMAL Last Admin: 01/13/19 08:35 Dose: 3.125 mg Dorzolamide HCl (Trusopt 2% Ophth Soln) 1 drop R EYE DAILY GAMAL Last Admin: 01/13/19 08:36 Dose: 1 drop Famotidine (Pepcid) 20 mg SLOW IVP BID GAMAL Last Admin: 01/13/19 08:35 Dose: 20 mg Finasteride (Proscar) 5 mg PO DAILY GAMAL Last Admin: 01/13/19 08:35 Dose: 5 mg Hydralazine HCl (Apresoline) 10 mg SLOW IVP Q4H PRN PRN Reason: SBP GREATER THAN 160 Last Admin: 01/12/19 04:10 Dose: 10 mg Cefazolin Sodium/Dextrose 2 gm (/ Device) 50 mls @ 100 mls/hr IVPB Q8HR [facility] Isosorbide Mononitrate (Imdur Er) 30 mg PO DAILY [facility] Last Admin: 01/13/19 08:35 Dose: 30 mg Ccu Electrolyte (Replacement Protocol) 0 each FS PRN PRN PRN Reason: FOR ELECTROLYTE REPLACEMENT Non-Formulary Medication (Roflumilast [Daliresp]) 500 mg PO DAILY [facility] Ondansetron HCl (Zofran) 4 mg IVP BIDPRN PRN PRN Reason: Nausea/Vomiting Pantoprazole Sodium (Protonix) 40 mg PO DAILY [facility] Last Admin: 01/13/19 08:37 Dose: Not Given Propylene Glycol (Systane Opth Drop 15ml Bot) 1 drop EA EYE DAILY [facility] Last Admin: 01/13/19 08:37 Dose: 1 drop Sertraline HCl (Zoloft) 100 mg PO DAILY [facility] Last Admin: 01/13/19 08:35 Dose: 100 mg Sodium Chloride (Flush - Normal Saline) 10 ml IVF PRN PRN PRN Reason: Saline Flush Tamsulosin HCl (Flomax) 0.4 mg PO DAILY [facility] Last Admin: 01/13/19 08:35 Dose: 0.4 mg Witch Delores/Glycerin (Tucks Pads) 1 each TOP PRN PRN PRN Reason: Hemorrhoids Vital Signs & Weight: Vital Signs Temp Pulse Resp Pulse Ox 01/13/19 11:11 90 29 H 97 01/13/19 08:00 98.0 F 96 01/13/19 07:34 93 28 H 97 01/13/19 07:33 96 27 H 96 01/13/19 03:00 98.4 F 01/13/19 02:27 97 33 H 95 Admit Weight 142 lb Weight 143 lb 11.862 oz - Physical Exam General: no apparent distress HEENT: mucus membranes moist, normocephaly Neck: supple neck Cardiac: regular rate and rhythm, systolic murmur Lungs: clear to auscultation Neuro: weakness Abdomen: active bowel sounds, soft, non-tender Extremities: no edema Skin: clear Musculoskeletal: no pain - Labs Result Diagrams: 01/13/19 06:01 01/13/19 06:01 Troponin/CKMB Troponin I Less than 0.010 ng/mL (< 0.028) 01/08/19 15:20 - Telemetry Sinus rhythms and dysrhythmias: sinus rhythm - Assessment/Plan Assessment/Plan: 1. 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 Paroxysmal afib, currently back in sinus. 3. CAD, mild 4. HTN 5. HLP 6. Prostate Ca 7. Tobacco use. PLAN: - Not a candidate for any anticoagulation or anti platelet at this time given intracraneal hemorrhage. - Continue PO amiodarone and coreg. - BP now very well controlled.
[2019-01-13] MEDS: CEFAZOLIN 2 GM in Premix Bag 1 BAG IVPB SCH ×2 (14:43→21:56)
--- NOTE | 2019-01-13 17:29 | RAD ---
SUPINE ABDOMEN: 01/13/19 HISTORY: NG tube placement. COMPARISON: 01/12/19. FINDINGS/IMPRESSION: NG tube passes through the EG junction and coils in the gastric fundus. The tip is near the EG juncti on pointing toward the gastric antrum. POS: AGW
--- NOTE | 2019-01-13 21:56 | EKG ---
Test Reason : Blood Pressure : / mmHG Vent. Rate : 096 BPM Atrial Rate : 100 BPM P-R Int : 154 ms QRS Dur : 066 ms QT Int : 340 ms P-R-T Axes : 224 124 088 degrees QTc Int : 429 ms Undetermined rhythm Left posterior fascicular block Junctional ST depression, probably normal Abnormal ECG Confirmed by JAKY BERGER DO ([id number]), brands editor CASANDRA KHAN ([id number] on 01/13/2019 9:54:42 PM Referred By: Confirmed By:JAKY BERGER DO
[2019-01-14] MEDS: CEFAZOLIN 2 GM in Premix Bag 1 BAG IVPB SCH ×3 (05:04→21:02)
[2019-01-14] MEDS: Aspirin Chewable 81 MG TAB PO SCH (08:14)
[2019-01-14] MEDS: Amiodarone 200 MG TAB PO SCH ×2 (08:14→19:26)
[2019-01-14] MEDS: Carvedilol 3.125 MG TAB PO SCH (08:14)
[2019-01-14] MEDS: Famotidine/PF 20 mg/2ml Vial SLOW IVP SCH ×2 (08:15→19:26)
[2019-01-14] MEDS: Finasteride 5 MG TAB PO SCH (08:15)
[2019-01-14] MEDS: Tamsulosin HCl 0.4 MG CAP PO SCH (08:15)
[2019-01-14] MEDS: Polyethylene Glycol OPTH DROP 15 ML BOT EA EYE SCH (08:21)
[2019-01-14] MEDS: Brimonidine Tartrate 0.2% Ophth Soln 5 ml Bottle R EYE SCH (08:22)
[2019-01-14] MEDS: Arformoterol 15 MCG/2 ML NEB NEB SCH ×2 (08:23→18:03)
[2019-01-14] MEDS: Budesonide 0.5 MG/2 ML NEB INH SCH ×2 (08:24→18:03)
[2019-01-14] MEDS: Dorzolamide HCl 2% Ophth Soln 10 ml Bottle R EYE SCH (08:24)
[2019-01-14] MEDS: Isosorbide Mononitrate (ER) 30 MG TAB PO SCH (08:26)
[2019-01-14] MEDS ORDERED: Carvedilol 3.125 MG TAB PO SCH (09:08)
--- NOTE | 2019-01-14 09:13 | PRG ---
DATE OF SERVICE: 01/14/2019 SUBJECTIVE: The patient remains in the ICU awaiting a stroke bed. His clinical course is unchanged overnight. PHYSICAL EXAMINATION: VITAL SIGNS: Temperature 97.4, pulse 84, blood pressure 159/94, O2 saturation 99%. HEENT: Unremarkable except for the right naris Dobbhoff tube. NECK: No adenopathy or JVD. CHEST: Fairly clear. CARDIAC: S1, S2. Regular. ABDOMEN: Soft. EXTREMITIES: No edema. NEUROLOGIC: Nonfocal. ASSESSMENT: 1. Status post thalamic bleed from uncontrolled hypertension. 2. Improved encephalopathy. 3. Underlying chronic obstructive pulmonary disease. 4. Paroxysmal atrial fibrillation. PLAN: Stroke rehab. Increase activity as tolerated. Pulmonary status is stable. Current medications. Job ID: [id number]
[2019-01-14] MEDS ORDERED: Carvedilol 6.25 MG TAB PO SCH (09:15)
--- NOTE | 2019-01-14 11:27 | PDOC.HOSPP ---
- Subjective Subjective: Seen and examined. Less alert and awake this a.m. Required restraints in the night for his safety. Still with Dobbhoff tube for medications and feeding. Patient does speak and tells me his name. Patient denies pain. Patient breathing well. - Objective Vital Signs & Weight: Vital Signs (12 hours) Temp Pulse Resp Pulse Ox 01/14/19 10:39 75 23 H 97 01/14/19 08:24 82 18 99 01/14/19 08:23 83 21 H 97 01/14/19 08:00 98.8 F 96 01/14/19 04:00 97.4 F L 01/14/19 03:33 96 01/14/19 00:00 99.2 F 01/13/19 23:35 95 Weight Admit Weight 142 lb Weight 135 lb 9.349 oz Most Recent Monitor Data Heart Rate from ECG 86 NIBP 159/98 NIBP BP-Mean 118 Respiration from ECG 24 SpO2 97 I&O: 01/13/19 01/14/19 01/15/19 06:59 06:59 06:59 Intake Total 1486 1628 Output Total 150 2 1 Balance 1336 1626 -1 Result Diagrams: 01/13/19 06:01 01/13/19 06:01 Radiology Reviewed by me: Yes Hospitalist ROS - Review of Systems All other systems reviewed; all pertinent +/- noted in HPI/Subj - Medication Medications: Active Medications Generic Name Dose Route Start Last Admin Trade Name Freq PRN Reason Stop Dose Admin Albuterol/Ipratropium 3 ml 01/08/19 18:30 01/14/19 10:39 Duoneb NEB 3 ml [id number] GAMAL Administration Amiodarone HCl 400 mg 01/12/19 09:00 01/14/19 08:14 Cordarone PO 400 mg BID GAMAL Administration Arformoterol Tartrate 15 mcg 01/08/19 18:30 01/14/19 08:23 Brovana NEB 15 mcg BID-RT G[facility]AL Administration Aspirin 81 mg 01/11/19 09:00 01/14/19 08:14 Aspirin Chewable PO 81 mg DAILY G[facility] Administration Brimonidine Tartrate 1 drop 01/11/19 09:00 01/14/19 08:22 Alphagan 0.2% Ophth Soln R EYE 1 drop DAILY G[facility] Administration Budesonide 0.5 mg 01/08/19 18:30 01/14/19 08:24 Pulmicort Neb Solution INH 0.5 mg BID-RT G[facility]AL Administration Dorzolamide HCl 1 drop 01/11/19 09:00 01/14/19 08:24 Trusopt 2% Ophth Soln R EYE 1 drop DAILY G[facility] Administration Famotidine 20 mg 01/08/19 21:00 01/14/19 08:15 Pepcid SLOW IVP 20 mg BID GAMAL Administration Finasteride 5 mg 01/11/19 09:00 01/14/19 08:15 Proscar PO 5 mg DAILY G[facility] Administration Hydralazine HCl 10 mg 01/08/19 19:10 01/12/19 04:10 Apresoline SLOW IVP 10 mg Q4H PRN Administration SBP GREATER THAN 160 Cefazolin Sodium/Dextrose 2 gm 50 mls @ 100 mls/hr 01/13/19 14:00 01/14/19 05 :04 / Device IVPB 50 mls Q8HR GAMAL Administration Isosorbide Mononitrate 30 mg 01/11/19 09:00 01/14/19 08:26 Imdur Er PO 30 mg DAILY [facility] Administration Propylene Glycol 1 drop 01/11/19 09:00 01/14/19 08:21 Systane Opth Drop 15ml Bot EA EYE 1 drop DAILY G[facility] Administration Sertraline HCl 100 mg 01/11/19 09:00 01/14/19 08:15 Zoloft PO 100 mg DAILY G[facility] Administration Tamsulosin HCl 0.4 mg 01/11/19 09:00 01/14/19 08:15 Flomax PO 0.4 mg DAILY GAMAL Administration - Exam General Appearance: NAD, awake alert Eye: PERRL ENT: normocephalic atraumatic, moist mucosa Neck: supple, symmetric, no lymphadenopathy Heart: RRR, no murmur, no gallops, no rubs, normal peripheral pulses Respiratory: CTAB, no wheezes, no rales, normal chest expansion Gastrointestinal: soft, non-tender, non-distended, no guarding, no rigidity Extremities: no edema Skin: no lesions, no rashes Neurological: cranial nerve grossly intact, no focal deficits Musculoskeletal: generalized weakness Psychiatric: normal behavior, oriented to person, oriented to place, flat affect Hosp A/P (1) Hemiparesis Code(s): G81.90 - HEMIPLEGIA, UNSPECIFIED AFFECTING UNSPECIFIED SIDE Status: Acute (2) Intracranial hemorrhage Code(s): I62.9 - NONTRAUMATIC INTRACRANIAL HEMORRHAGE, UNSPECIFIED Status: Acute (3) Hypertensive emergency Code(s): I16.1 - HYPERTENSIVE EMERGENCY Status: Acute (4) Dementia Code(s): F03.90 - UNSPECIFIED DEMENTIA WITHOUT BEHAVIORAL DISTURBANCE Status: Chronic (5) HLD (hyperlipidemia) Code(s): E78.5 - HYPERLIPIDEMIA, UNSPECIFIED Status: Chronic Qualifiers: (6) Prostate CA Code(s): C61 - MALIGNANT NEOPLASM OF PROSTATE Status: Acute (7) CAD (coronary artery disease) Code(s): I25.10 - ATHSCL HEART DISEASE OF [place] CORONARY ARTERY W/O ANG PCTRS Status: Acute - Plan Plan: Intensive care unit, stable for d/g to Med/ tel on stroke unit Paliative care consultation, recommendations appreciated neurosurgery consultation, recommendations appreciated - medical management alone - no surgical intervention recommended pulmonology forward/critical-care consultation, recommendations appreciated blood pressure controlled on oral meds, off nicardipine drip Carvedilol 01/11 - will titrate up as needed Imdur Continue other home medications as able Speech therapy/ PT/ OT - eval and treat - hopefully mentation will improve to the point where he can pass swallow evaluation, restart diet and do oral medications symptomatic medications to keep the patient calm restraints required for patient safety as needed no anticoagulation/antiplatelet/and sent in the setting of intracranial hemorrhage G.I. prophylaxis DVT prophylaxis - SCDs Disposition: jail prognosis remains guarded, despite maximum medical management - recommend DNR/ DNI
--- NOTE | 2019-01-14 11:28 | PDOC.CPN ---
- Subjective Date: 01/14/19 Time: 11:26 Interval history: No new issues. Remains - Review of Systems ROS unobtainable: due to mental status - Objective Allergies/Adverse Reactions: Allergies Allergy/AdvReac Type Severity Reaction Status Date / Time No Known Allergies Allergy Verified 11/04/15 02:56 Visit Medications: Current Medications Albuterol/Ipratropium (Duoneb) 3 ml NEB [id number] [facility] Last Admin: 01/14/19 10:39 Dose: 3 ml Albuterol/Ipratropium (Duoneb) 3 ml NEB QIDPRN PRN PRN Reason: SOB/WHEEZING Amiodarone HCl (Cordarone) 400 mg PO BID [facility] Last Admin: 01/14/19 08:14 Dose: 400 mg Arformoterol Tartrate (Brovana) 15 mcg NEB BID-RT [facility] Last Admin: 01/14/19 08:23 Dose: 15 mcg Aspirin (Aspirin Chewable) 81 mg PO DAILY [facility] Last Admin: 01/14/19 08:14 Dose: 81 mg Bisacodyl (Dulcolax) 5 mg PO PRN PRN PRN Reason: Constipation Brimonidine Tartrate (Alphagan 0.2% Ophth Soln) 1 drop R EYE DAILY [facility] Last Admin: 01/14/19 08:22 Dose: 1 drop Budesonide (Pulmicort Neb Solution) 0.5 mg INH BID-RT [facility] Last Admin: 01/14/19 08:24 Dose: 0.5 mg Carvedilol (Coreg) 6.25 mg PO BID-WM [facility] Carvedilol (Coreg) 6.25 mg PO NOW [facility] Stop: 01/14/19 12:00 Dorzolamide HCl (Trusopt 2% Ophth Soln) 1 drop R EYE DAILY [facility] Last Admin: 01/14/19 08:24 Dose: 1 drop Famotidine (Pepcid) 20 mg SLOW IVP BID [facility] Last Admin: 01/14/19 08:15 Dose: 20 mg Finasteride (Proscar) 5 mg PO DAILY [facility] Last Admin: 01/14/19 08:15 Dose: 5 mg Hydralazine HCl (Apresoline) 10 mg SLOW IVP Q4H PRN PRN Reason: SBP GREATER THAN 160 Last Admin: 01/12/19 04:10 Dose: 10 mg Cefazolin Sodium/Dextrose 2 gm (/ Device) 50 mls @ 100 mls/hr IVPB Q8HR [facility] Last Admin: 01/14/19 05:04 Dose: 50 mls Isosorbide Mononitrate (Imdur Er) 30 mg PO DAILY [facility] Last Admin: 01/14/19 08:26 Dose: 30 mg Ccu Electrolyte (Replacement Protocol) 0 each FS PRN PRN PRN Reason: FOR ELECTROLYTE REPLACEMENT Non-Formulary Medication (Roflumilast [Daliresp]) 500 mg PO DAILY [facility] Ondansetron HCl (Zofran) 4 mg IVP BIDPRN PRN PRN Reason: Nausea/Vomiting Propylene Glycol (Systane Opth Drop 15ml Bot) 1 drop EA EYE DAILY [facility] Last Admin: 01/14/19 08:21 Dose: 1 drop Sertraline HCl (Zoloft) 100 mg PO DAILY [facility] Last Admin: 01/14/19 08:15 Dose: 100 mg Sodium Chloride (Flush - Normal Saline) 10 ml IVF PRN PRN PRN Reason: Saline Flush Tamsulosin HCl (Flomax) 0.4 mg PO DAILY [facility] Last Admin: 01/14/19 08:15 Dose: 0.4 mg Witch Delores/Glycerin (Tucks Pads) 1 each TOP PRN PRN PRN Reason: Hemorrhoids Vital Signs & Weight: Vital Signs Temp Pulse Resp Pulse Ox 01/14/19 10:39 75 23 H 97 01/14/19 08:24 82 18 99 01/14/19 08:23 83 21 H 97 01/14/19 08:00 98.8 F 96 01/14/19 04:00 97.4 F L 01/14/19 03:33 96 01/14/19 00:00 99.2 F 01/13/19 23:35 95 Admit Weight 142 lb Weight 135 lb 9.349 oz - Physical Exam General: no apparent distress HEENT: mucus membranes moist, normocephaly Neck: supple neck, midline trachea Cardiac: regular rate and rhythm, no murmur Lungs: clear to auscultation Abdomen: active bowel sounds, soft, non-tender Extremities: no edema Skin: clear Musculoskeletal: no pain - Labs Result Diagrams: 01/13/19 06:01 01/13/19 06:01 Troponin/CKMB Troponin I Less than 0.010 ng/mL (< 0.028) 01/08/19 15:20 - Telemetry Sinus rhythms and dysrhythmias: sinus rhythm - Assessment/Plan Assessment/Plan: 1. 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 Paroxysmal afib, currently in sinus. 3. CAD, mild 4. HTN 5. HLP 6. Prostate Ca 7. Tobacco use. PLAN: - Not a candidate for any anticoagulation or anti platelet at this time given intracraneal hemorrhage. - Continue PO amiodarone and coreg. - BP now very well controlled, will add ACEI.
[2019-01-14] MEDS ORDERED: Lisinopril 5 MG TAB PO SCH (11:30)
[2019-01-14] MEDS: Carvedilol 6.25 MG TAB PO SCH (17:54)
[2019-01-15] MEDS: CEFAZOLIN 2 GM in Premix Bag 1 BAG IVPB SCH ×3 (05:01→21:00)
[2019-01-15] MEDS: Budesonide 0.5 MG/2 ML NEB INH SCH ×2 (07:10→18:32)
[2019-01-15] MEDS: Arformoterol 15 MCG/2 ML NEB NEB SCH ×2 (07:10→18:32)
[2019-01-15] MEDS: Isosorbide Mononitrate (ER) 30 MG TAB PO SCH (08:00)
[2019-01-15] MEDS: Carvedilol 6.25 MG TAB PO SCH ×2 (08:00→16:24)
[2019-01-15] MEDS: Lisinopril 5 MG TAB PO SCH (08:00)
[2019-01-15] MEDS: Aspirin Chewable 81 MG TAB PO SCH (08:00)
[2019-01-15] MEDS: Famotidine/PF 20 mg/2ml Vial SLOW IVP SCH ×2 (08:01→19:18)
[2019-01-15] MEDS: Finasteride 5 MG TAB PO SCH (08:01)
[2019-01-15] MEDS: Amiodarone 200 MG TAB PO SCH ×2 (08:01→19:18)
[2019-01-15] MEDS: Tamsulosin HCl 0.4 MG CAP PO SCH (08:01)
[2019-01-15] MEDS: Dorzolamide HCl 2% Ophth Soln 10 ml Bottle R EYE SCH (08:02)
[2019-01-15] MEDS: Polyethylene Glycol OPTH DROP 15 ML BOT EA EYE SCH (08:02)
[2019-01-15] MEDS: Brimonidine Tartrate 0.2% Ophth Soln 5 ml Bottle R EYE SCH (08:02)
--- NOTE | 2019-01-15 08:40 | PRG ---
DATE OF SERVICE: 01/15/2019 SUBJECTIVE: Mr. Brunson is doing reasonably well. He is still confabulating many of his answers. His Dobhoff tube was removed. He is able to swallow now. OBJECTIVE: VITAL SIGNS: His temperature is 98.6, pulse 82, blood pressure 151/87, and O2 saturation in the 90s. HEENT: Unremarkable. NECK: No adenopathy or JVD. CHEST: Clear. CARDIAC: S1, S2. Regular. ABDOMEN: Soft. EXTREMITIES: Show right arm edema. NEUROLOGIC: He has difficulty moving his right arm. LABORATORY DATA: No labs were done today. ASSESSMENT: 1. Status post thalamic stroke. 2. Hypertension. 3. Underlying chronic obstructive pulmonary disease. PLAN: I will restart his gabapentin as his legs are bother him. Main issue now is stroke rehab. His pulmonary medications are appropriate. Job ID: [id number]
[2019-01-15] MEDS: Gabapentin 300 MG CAP PO SCH (08:49)
--- NOTE | 2019-01-15 13:18 | PQF ---
CLINICAL DOCUMENTATION IMPROVEMENT CLARIFICATION FORM: ICD-10 Updated PLEASE DO AN ADDENDUM TO THE PROGRESS NOTE WITH ANY DOCUMENTATION UPDATES OR ADDITIONS AND CARRY THROUGH TO DC SUMMARY. THANK YOU. DATE: 01/15/2019 ATTN: Dr. Santana Please exercise your independent, professional judgment in responding to the clarification form. Clinical indicators are provided on the bottom of this form for your review Please check appropriate box(s): [x ] Encephalopathy: Type: [ x ] Acute [ ] Subacute [ ] Chronic Etiology: [ ] Hypertensive [ ] Metabolic [ ] Toxic [ ] Unspecified [ ] in the setting of underlying dementia [ x ] Other (please specify) Acute CVA [ ] Other diagnosis [ ] Unable to determine In addition, please specify: Present on Admission (POA): [ x ] Yes [ ] No [ ] Unable to determine For continuity of documentation, please document condition throughout progress notes and discharge summary. Thank You. CLINICAL INDICATORS - SIGNS / SYMPTOMS / LABS / RESULTS AND LOCATION IN EMR PN 01/10: ([place]) S/P thalamic bleed from uncontrolled hypertension. Encephalopathy/delirium. PN 01/12: ([place]) S/P thalamic bleed from uncontrolled hypertension. Improved encephalopathy/delirium. Underlying severe chronic obstructive pulmonary disease Corrected hypercalcemia with normal parathyroid hormone level PN 01/14: ([place]) Less alert and awake this am. Required restraints in the night for his safety. Pt does speak and tells me his name. RISKS: H&P 01/08: S/p acute intracranial hemorrhage in the left thalamus which is likely related to his hypertensive crisis. PN 01/14 ([place]) Intracranial hemorrhage. Hypertensive emergency. Dementia. TREATMENT: Order 01/08-01/12: Cardene 25 mg IV titrate per protocol Order 01/08-01/10: Ativan 0.5 mg slow IVP Q6 h prn. Order 01/09: Haldol 10 mg IM NOW Thank you, Cortney (This form is maintained as a part of the permanent medical record) 2014 [employer]. All Rights Reserved Cortney Foley RN, BSN [email or web address] Office: [phone] [facility]
--- NOTE | 2019-01-15 14:22 | PDOC.CPN ---
- Subjective Date: 01/15/19 Time: 14:19 Interval history: He is doing much better. He is more alert today. - Review of Systems General: denies: fever/chills, weight/appetite/sleep changes, night sweats, fatigue Respiratory: denies: cough, congestion, shortness of breath, exercise intolerance Cardiovascular: denies: chest pain, palpitation, edema, paroxysmal nocturnal dyspnea, orthopnea Gastrointestinal: denies: nausea, vomiting, diarrhea, constipation, abd pain, GI bleeding Musculoskeletal: denies: pain, tenderness, stiffness, swelling, arthritis/ arthralgias Neurological: denies: numbness, syncope, seizure, weakness - Objective Allergies/Adverse Reactions: Allergies Allergy/AdvReac Type Severity Reaction Status Date / Time No Known Allergies Allergy Verified 11/04/15 02:56 Visit Medications: Current Medications Albuterol/Ipratropium (Duoneb) 3 ml NEB [id number] [facility] Last Admin: 01/15/19 10:58 Dose: 3 ml Albuterol/Ipratropium (Duoneb) 3 ml NEB QIDPRN PRN PRN Reason: SOB/WHEEZING Amiodarone HCl (Cordarone) 400 mg PO BID [facility] Last Admin: 01/15/19 08:01 Dose: 400 mg Arformoterol Tartrate (Brovana) 15 mcg NEB BID-RT [facility] Last Admin: 01/15/19 07:10 Dose: 15 mcg Aspirin (Aspirin Chewable) 81 mg PO DAILY [facility] Last Admin: 01/15/19 08:00 Dose: 81 mg Bisacodyl (Dulcolax) 5 mg PO PRN PRN PRN Reason: Constipation Last Admin: 01/14/19 19:26 Dose: 5 mg Brimonidine Tartrate (Alphagan 0.2% Ophth Soln) 1 drop R EYE DAILY [facility] Last Admin: 01/15/19 08:02 Dose: 1 drop Budesonide (Pulmicort Neb Solution) 0.5 mg INH BID-RT [facility] Last Admin: 01/15/19 07:10 Dose: 0.5 mg Carvedilol (Coreg) 6.25 mg PO BID-WM [facility] Last Admin: 01/15/19 08:00 Dose: 6.25 mg Dorzolamide HCl (Trusopt 2% Ophth Soln) 1 drop R EYE DAILY [facility] Last Admin: 01/15/19 08:02 Dose: 1 drop Famotidine (Pepcid) 20 mg SLOW IVP BID [facility] Last Admin: 01/15/19 08:01 Dose: 20 mg Finasteride (Proscar) 5 mg PO DAILY [facility] Last Admin: 01/15/19 08:01 Dose: 5 mg Gabapentin (Neurontin) 300 mg PO DAILY [facility] Last Admin: 01/15/19 08:49 Dose: 300 mg Hydralazine HCl (Apresoline) 10 mg SLOW IVP Q4H PRN PRN Reason: SBP GREATER THAN 160 Last Admin: 01/12/19 04:10 Dose: 10 mg Cefazolin Sodium/Dextrose 2 gm (/ Device) 50 mls @ 100 mls/hr IVPB Q8HR [facility] Last Admin: 01/15/19 13:18 Dose: 50 mls Isosorbide Mononitrate (Imdur Er) 30 mg PO DAILY [facility] Last Admin: 01/15/19 08:00 Dose: 30 mg Lisinopril (Zestril) 5 mg PO DAILY [facility] Last Admin: 01/15/19 08:00 Dose: 5 mg Ccu Electrolyte (Replacement Protocol) 0 each FS PRN PRN PRN Reason: FOR ELECTROLYTE REPLACEMENT Non-Formulary Medication (Roflumilast [Daliresp]) 500 mg PO DAILY [facility] Ondansetron HCl (Zofran) 4 mg IVP BIDPRN PRN PRN Reason: Nausea/Vomiting Propylene Glycol (Systane Opth Drop 15ml Bot) 1 drop EA EYE DAILY [facility] Last Admin: 01/15/19 08:02 Dose: 1 drop Sertraline HCl (Zoloft) 100 mg PO DAILY [facility] Last Admin: 01/15/19 08:01 Dose: 100 mg Sodium Chloride (Flush - Normal Saline) 10 ml IVF PRN PRN PRN Reason: Saline Flush Tamsulosin HCl (Flomax) 0.4 mg PO DAILY [facility] Last Admin: 01/15/19 08:01 Dose: 0.4 mg Witch Delores/Glycerin (Tucks Pads) 1 each TOP PRN PRN PRN Reason: Hemorrhoids Vital Signs & Weight: Vital Signs Temp Pulse Resp BP Pulse Ox 01/15/19 11:55 98.4 F 01/15/19 08:00 79 135/82 01/15/19 07:11 72 22 H 100 01/15/19 07:10 71 17 99 01/15/19 07:04 97 01/15/19 03:15 68 25 H 98 01/15/19 03:00 98.6 F Admit Weight 142 lb Weight 139 lb 12.369 oz - Physical Exam General: alert & oriented x3 HEENT: mucus membranes moist Neck: supple neck Cardiac: regular rate and rhythm, no murmur, regular rate Lungs: normal breath sounds Neuro: weakness Abdomen: active bowel sounds, soft, non-tender Extremities: no edema Skin: clear Musculoskeletal: no pain - Labs Result Diagrams: 01/13/19 06:01 01/13/19 06:01 Troponin/CKMB Troponin I Less than 0.010 ng/mL (< 0.028) 01/08/19 15:20 - Telemetry Sinus rhythms and dysrhythmias: sinus rhythm - Assessment/Plan Assessment/Plan: 1. 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 Paroxysmal afib, currently in sinus. 3. CAD, mild 4. HTN 5. HLP 6. Prostate Ca 7. Tobacco use. PLAN: - Not a candidate for any anticoagulation or anti platelet at this time given intracraneal hemorrhage. - Continue PO amiodarone and coreg. - BP better control. Continue current regimen. - Placement.
--- NOTE | 2019-01-15 16:51 | PDOC.HOSPP ---
- Subjective Subjective: Doing ok. He spoke very briefly and then did not speak a great deal after that. - Objective Vital Signs & Weight: Vital Signs (12 hours) Temp Pulse Pulse Pulse Resp BP BP 01/15/19 16:24 100/70 01/15/19 15:04 72 77 105/68 01/15/19 14:35 74 24 H 01/15/19 11:55 98.4 F 01/15/19 08:00 79 135/82 01/15/19 07:11 72 22 H 01/15/19 07:10 71 17 01/15/19 07:04 BP Pulse Ox Pulse Ox Pulse Ox 01/15/19 16:24 01/15/19 15:04 110/66 100 100 01/15/19 14:35 100 01/15/19 11:55 01/15/19 08:00 01/15/19 07:11 100 01/15/19 07:10 99 01/15/19 07:04 97 Weight Admit Weight 142 lb Weight 139 lb 12.369 oz Most Recent Monitor Data Heart Rate from ECG 68 NIBP 100/70 NIBP BP-Mean 80 Respiration from ECG 18 SpO2 100 I&O: 01/14/19 01/15/19 01/16/19 06:59 06:59 06:59 Intake Total 1628 1833 600 Output Total 2 601 350 Balance 1626 1232 250 Result Diagrams: 01/13/19 06:01 01/13/19 06:01 Hospitalist ROS - Medication Medications: Active Medications Generic Name Dose Route Start Last Admin Trade Name Freq PRN Reason Stop Dose Admin Albuterol/Ipratropium 3 ml 01/08/19 18:30 01/15/19 14:35 Duoneb NEB 3 ml [id number] [facility] Administration Amiodarone HCl 400 mg 01/12/19 09:00 01/15/19 08:01 Cordarone PO 400 mg BID [facility] Administration Arformoterol Tartrate 15 mcg 01/08/19 18:30 01/15/19 07:10 Brovana NEB 15 mcg BID-RT [facility] Administration Aspirin 81 mg 01/11/19 09:00 01/15/19 08:00 Aspirin Chewable PO 81 mg DAILY [facility] Administration Bisacodyl 5 mg 01/10/19 17:17 01/14/19 19:26 Dulcolax PO 5 mg PRN PRN Administration Constipation Brimonidine Tartrate 1 drop 01/11/19 09:00 01/15/19 08:02 Alphagan 0.2% Ophth Soln R EYE 1 drop DAILY [facility] Administration Budesonide 0.5 mg 01/08/19 18:30 01/15/19 07:10 Pulmicort Neb Solution INH 0.5 mg BID-RT [facility] Administration Carvedilol 6.25 mg 01/14/19 17:00 01/15/19 16:24 Coreg PO Not Given BID-WM [facility] Dorzolamide HCl 1 drop 01/11/19 09:00 01/15/19 08:02 Trusopt 2% Ophth Soln R EYE 1 drop DAILY [facility] Administration Famotidine 20 mg 01/08/19 21:00 01/15/19 08:01 Pepcid SLOW IVP 20 mg BID [facility] Administration Finasteride 5 mg 01/11/19 09:00 01/15/19 08:01 Proscar PO 5 mg DAILY [facility] Administration Gabapentin 300 mg 01/15/19 09:00 01/15/19 08:49 Neurontin PO 300 mg DAILY [facility] Administration Hydralazine HCl 10 mg 01/08/19 19:10 01/12/19 04:10 Apresoline SLOW IVP 10 mg Q4H PRN Administration SBP GREATER THAN 160 Cefazolin Sodium/Dextrose 2 gm 50 mls @ 100 mls/hr 01/13/19 14:00 01/15/19 13 :18 / Device IVPB 50 mls Q8HR [facility] Administration Isosorbide Mononitrate 30 mg 01/11/19 09:00 01/15/19 08:00 Imdur Er PO 30 mg DAILY [facility] Administration Lisinopril 5 mg 01/15/19 09:00 01/15/19 08:00 Zestril PO 5 mg DAILY [facility] Administration Propylene Glycol 1 drop 01/11/19 09:00 01/15/19 08:02 Systane Opth Drop 15ml Bot EA EYE 1 drop DAILY [facility] Administration Sertraline HCl 100 mg 01/11/19 09:00 01/15/19 08:01 Zoloft PO 100 mg DAILY [facility] Administration Tamsulosin HCl 0.4 mg 01/11/19 09:00 01/15/19 08:01 Flomax PO 0.4 mg DAILY [facility] Administration - Exam General Appearance: NAD, awake alert Heart: RRR Respiratory - other findings: Scattered rales that cleared largely with cough. Gastrointestinal: soft, non-tender, non-distended, normal bowel sounds, no palpable masses, no hepatomegaly, no splenomegaly, no bruit Extremities: no cyanosis, no clubbing, no edema Skin: normal turgor Neurological - other findings: Moved right toes, LE. No signif movement with LUE. Musculoskeletal: generalized weakness Psychiatric: flat affect Hosp A/P (1) CAD (coronary artery disease) Code(s): I25.10 - ATHSCL HEART DISEASE OF [place] CORONARY ARTERY W/O ANG PCTRS Status: Acute (2) Hemiparesis Code(s): G81.90 - HEMIPLEGIA, UNSPECIFIED AFFECTING UNSPECIFIED SIDE Status: Acute (3) Hypertensive emergency Code(s): I16.1 - HYPERTENSIVE EMERGENCY Status: Acute (4) Intracranial hemorrhage Code(s): I62.9 - NONTRAUMATIC INTRACRANIAL HEMORRHAGE, UNSPECIFIED Status: Acute (5) Prostate CA Code(s): C61 - MALIGNANT NEOPLASM OF PROSTATE Status: Acute (6) Acute exacerbation of chronic obstructive pulmonary disease (COPD) Code(s): J44.1 - CHRONIC OBSTRUCTIVE PULMONARY DISEASE W (ACUTE) EXACERBATION Status: Acute (7) Dementia Code(s): F03.90 - UNSPECIFIED DEMENTIA WITHOUT BEHAVIORAL DISTURBANCE Status: Chronic (8) HLD (hyperlipidemia) Code(s): E78.5 - HYPERLIPIDEMIA, UNSPECIFIED Status: Chronic Qualifiers: (9) HTN (hypertension) Code(s): I10 - ESSENTIAL (PRIMARY) HYPERTENSION Status: Chronic Qualifiers: (10) PAF (paroxysmal atrial fibrillation) Code(s): I48.0 - PAROXYSMAL ATRIAL FIBRILLATION Status: Acute - Plan Stable. Working on placement. Can move to stroke unit anytime. No anticoag due to bleed. Currently in NSR. Continue cordarone.
[2019-01-16] MEDS ORDERED: Acetaminophen 325 MG TAB PO PRN (02:08)
[2019-01-16] MEDS ORDERED: traMADol HCl 50 MG TAB PO PRN (03:04)
[2019-01-16] MEDS ORDERED: Fentanyl 100 MCG/2 ML VIAL SLOW IVP PRN (03:05)
[2019-01-16] MEDS: CEFAZOLIN 2 GM in Premix Bag 1 BAG IVPB SCH ×3 (05:06→21:31)
[2019-01-16] MEDS: Budesonide 0.5 MG/2 ML NEB INH SCH ×2 (06:51→18:25)
[2019-01-16] MEDS: Arformoterol 15 MCG/2 ML NEB NEB SCH ×2 (06:51→18:25)
--- NOTE | 2019-01-16 08:25 | PRG ---
DATE OF SERVICE: 01/16/2019 SUBJECTIVE: Mr. Brunson is doing well. He has no acute complaints other than not being able to walk. OBJECTIVE: VITAL SIGNS: His temperature is 98.7, pulse 83, blood pressure 143/92, respiratory rate 23. HEENT: Unremarkable. NECK: No adenopathy or JVD. CHEST: Clear. CARDIAC: S1, S2. Regular. ABDOMEN: Soft. EXTREMITIES: No edema. LABORATORY DATA: I see no new labs. ASSESSMENT: 1. Status post thalamic bleed secondary to uncontrolled hypertension. 2. Chronic obstructive pulmonary disease which is stable. PLAN: Awaiting bed on stroke floor. Continue current pulmonary management. Job ID: [id number]
[2019-01-16] MEDS: Famotidine/PF 20 mg/2ml Vial SLOW IVP SCH ×2 (08:49→21:31)
[2019-01-16] MEDS: Aspirin Chewable 81 MG TAB PO SCH (08:50)
[2019-01-16] MEDS: Lisinopril 5 MG TAB PO SCH (08:50)
[2019-01-16] MEDS: Gabapentin 300 MG CAP PO SCH (08:50)
[2019-01-16] MEDS: Carvedilol 6.25 MG TAB PO SCH (08:50)
[2019-01-16] MEDS: Tamsulosin HCl 0.4 MG CAP PO SCH (08:50)
[2019-01-16] MEDS: Amiodarone 200 MG TAB PO SCH ×2 (08:50→21:30)
[2019-01-16] MEDS: Finasteride 5 MG TAB PO SCH (08:51)
[2019-01-16] MEDS: Polyethylene Glycol OPTH DROP 15 ML BOT EA EYE SCH (08:51)
[2019-01-16] MEDS: Isosorbide Mononitrate (ER) 30 MG TAB PO SCH (08:51)
[2019-01-16] MEDS: Dorzolamide HCl 2% Ophth Soln 10 ml Bottle R EYE SCH (08:52)
[2019-01-16] MEDS: Brimonidine Tartrate 0.2% Ophth Soln 5 ml Bottle R EYE SCH (08:52)
--- NOTE | 2019-01-16 16:58 | PDOC.HOSPP ---
- Subjective Subjective: Doing much better today. He has reported some pain in the right groin area when trying to lift his right leg. Has impeded his ability to do some of his therapy on that leg. A little frustrated about not being able to use his right hand. - Objective Vital Signs & Weight: Vital Signs (12 hours) Pulse Pulse Pulse Resp BP BP BP 01/16/19 14:22 67 19 01/16/19 10:27 87 27 H 01/16/19 10:03 85 77 130/77 129/77 01/16/19 08:50 73 100/70 01/16/19 08:00 01/16/19 06:51 73 24 H 01/16/19 06:47 73 24 H Pulse Ox Pulse Ox Pulse Ox 01/16/19 14:22 99 01/16/19 10:27 92 L 01/16/19 10:03 95 96 01/16/19 08:50 01/16/19 08:00 95 01/16/19 06:51 94 L 01/16/19 06:47 94 L Weight Admit Weight 142 lb Weight 138 lb 7.205 oz Most Recent Monitor Data Heart Rate from ECG 62 NIBP 132/78 NIBP BP-Mean 96 Respiration from ECG 21 SpO2 98 I&O: 01/15/19 01/16/19 01/17/19 06:59 06:59 06:59 Intake Total 1833 1269 460 Output Total 601 1100 65 Balance 1232 169 395 Result Diagrams: 01/13/19 06:01 01/13/19 06:01 Hospitalist ROS - Medication Medications: Active Medications Generic Name Dose Route Start Last Admin Trade Name Surendra PRN Reason Stop Dose Admin Acetaminophen 650 mg 01/16/19 02:08 01/16/19 02:24 Tylenol PO 650 mg Q6H PRN Administration Headache/Fever/MILD Pain 1-3 Albuterol/Ipratropium 3 ml 01/08/19 18:30 01/16/19 14:22 Duoneb NEB 3 ml [id number] GAMAL Administration Amiodarone HCl 400 mg 01/12/19 09:00 01/16/19 08:50 Cordarone PO 400 mg BID GAMAL Administration Arformoterol Tartrate 15 mcg 01/08/19 18:30 01/16/19 06:51 Brovana NEB 15 mcg BID-RT GAMAL Administration Aspirin 81 mg 01/11/19 09:00 01/16/19 08:50 Aspirin Chewable PO 81 mg DAILY GAMAL Administration Bisacodyl 5 mg 01/10/19 17:17 01/14/19 19:26 Dulcolax PO 5 mg PRN PRN Administration Constipation Brimonidine Tartrate 1 drop 01/11/19 09:00 01/16/19 08:52 Alphagan 0.2% Ophth Soln R EYE 1 drop DAILY GAMAL Administration Budesonide 0.5 mg 01/08/19 18:30 01/16/19 06:51 Pulmicort Neb Solution INH 0.5 mg BID-RT GAMAL Administration Carvedilol 6.25 mg 01/14/19 17:00 01/16/19 08:50 Coreg PO 6.25 mg BID-WM GAMAL Administration Dorzolamide HCl 1 drop 01/11/19 09:00 01/16/19 08:52 Trusopt 2% Ophth Soln R EYE 1 drop DAILY GAMAL Administration Famotidine 20 mg 01/08/19 21:00 01/16/19 08:49 Pepcid SLOW IVP 20 mg BID GAMAL Administration Fentanyl 25 mcg 01/16/19 03:05 01/16/19 03:21 Sublimaze SLOW IVP 01/19/19 03:06 25 mcg ONE PRN Administration Pain Finasteride 5 mg 01/11/19 09:00 01/16/19 08:51 Proscar PO 5 mg DAILY GAMAL Administration Gabapentin 300 mg 01/15/19 09:00 01/16/19 08:50 Neurontin PO 300 mg DAILY GAMAL Administration Hydralazine HCl 10 mg 01/08/19 19:10 01/12/19 04:10 Apresoline SLOW IVP 10 mg Q4H PRN Administration SBP GREATER THAN 160 Cefazolin Sodium/Dextrose 2 gm 50 mls @ 100 mls/hr 01/13/19 14:00 01/16/19 13 :47 / Device IVPB 50 mls Q8HR GAMAL Administration Isosorbide Mononitrate 30 mg 01/11/19 09:00 01/16/19 08:51 Imdur Er PO 30 mg DAILY GAMAL Administration Lisinopril 5 mg 01/15/19 09:00 01/16/19 08:50 Zestril PO 5 mg DAILY GAMAL Administration Propylene Glycol 1 drop 01/11/19 09:00 01/16/19 08:51 Systane Opth Drop 15ml Bot EA EYE 1 drop DAILY GAMAL Administration Sertraline HCl 100 mg 01/11/19 09:00 01/16/19 08:50 Zoloft PO 100 mg DAILY GAMAL Administration Tamsulosin HCl 0.4 mg 01/11/19 09:00 01/16/19 08:50 Flomax PO 0.4 mg DAILY GAMAL Administration - Exam General Appearance: NAD, awake alert Heart: RRR, no murmur, no gallops, no rubs, normal peripheral pulses Respiratory: CTAB, no wheezes, no rales, no ronchi, normal chest expansion, no tachypnea, normal percussion Gastrointestinal: soft, non-tender, non-distended, normal bowel sounds, no palpable masses, no hepatomegaly, no splenomegaly, no bruit Gastrointestinal - other findings: Appears to have R ing hernia. Not incarcerated. Neurological - other findings: Right hand weakness. Mild R sided weakness generally Musculoskeletal: generalized weakness Psychiatric: normal affect Psychiatric - other findings: Much improved. Sense of humor today. Hosp A/P (1) Intracranial hemorrhage Code(s): I62.9 - NONTRAUMATIC INTRACRANIAL HEMORRHAGE, UNSPECIFIED Status: Acute (2) Hemiparesis Code(s): G81.90 - HEMIPLEGIA, UNSPECIFIED AFFECTING UNSPECIFIED SIDE Status: Acute (3) CAD (coronary artery disease) Code(s): I25.10 - ATHSCL HEART DISEASE OF [place] CORONARY ARTERY W/O ANG PCTRS Status: Acute (4) Hypertensive emergency Code(s): I16.1 - HYPERTENSIVE EMERGENCY Status: Acute (5) Prostate CA Code(s): C61 - MALIGNANT NEOPLASM OF PROSTATE Status: Acute (6) Acute exacerbation of chronic obstructive pulmonary disease (COPD) Code(s): J44.1 - CHRONIC OBSTRUCTIVE PULMONARY DISEASE W (ACUTE) EXACERBATION Status: Acute (7) Dementia Code(s): F03.90 - UNSPECIFIED DEMENTIA WITHOUT BEHAVIORAL DISTURBANCE Status: Chronic (8) HLD (hyperlipidemia) Code(s): E78.5 - HYPERLIPIDEMIA, UNSPECIFIED Status: Chronic Qualifiers: (9) HTN (hypertension) Code(s): I10 - ESSENTIAL (PRIMARY) HYPERTENSION Status: Chronic Qualifiers: (10) PAF (paroxysmal atrial fibrillation) Code(s): I48.0 - PAROXYSMAL ATRIAL FIBRILLATION Status: Acute (11) Acute metabolic encephalopathy Code(s): G93.41 - METABOLIC ENCEPHALOPATHY Status: Resolved - Plan Stable. Working on placement. Can move to stroke unit anytime. No anticoag due to bleed. Currently in NSR. Continue cordarone. His metabolic encephalopathy appears to be resolved. More consistent with acute acute encephalopathy. Mental status is pretty good. Making jokes and seems very appropriate.
--- NOTE | 2019-01-16 17:46 | PDOC.CPN ---
- Subjective Date: 01/16/19 Time: 17:44 Interval history: More confused today. Sleeping but easily arousable. - Review of Systems ROS unobtainable: due to mental status - Objective Allergies/Adverse Reactions: Allergies Allergy/AdvReac Type Severity Reaction Status Date / Time No Known Allergies Allergy Verified 11/04/15 02:56 Visit Medications: Current Medications Acetaminophen (Tylenol) 650 mg PO Q6H PRN PRN Reason: Headache/Fever/MILD Pain 1-3 Last Admin: 01/16/19 02:24 Dose: 650 mg Albuterol/Ipratropium (Duoneb) 3 ml NEB [id number] GAMAL Last Admin: 01/16/19 14:22 Dose: 3 ml Albuterol/Ipratropium (Duoneb) 3 ml NEB QIDPRN PRN PRN Reason: SOB/WHEEZING Amiodarone HCl (Cordarone) 400 mg PO BID [facility] Last Admin: 01/16/19 08:50 Dose: 400 mg Arformoterol Tartrate (Brovana) 15 mcg NEB BID-RT GAMAL Last Admin: 01/16/19 06:51 Dose: 15 mcg Aspirin (Aspirin Chewable) 81 mg PO DAILY [facility] Last Admin: 01/16/19 08:50 Dose: 81 mg Bisacodyl (Dulcolax) 5 mg PO PRN PRN PRN Reason: Constipation Last Admin: 01/14/19 19:26 Dose: 5 mg Brimonidine Tartrate (Alphagan 0.2% Ophth Soln) 1 drop R EYE DAILY [facility] Last Admin: 01/16/19 08:52 Dose: 1 drop Budesonide (Pulmicort Neb Solution) 0.5 mg INH BID-RT [facility] Last Admin: 01/16/19 06:51 Dose: 0.5 mg Carvedilol (Coreg) 6.25 mg PO BID-WM [facility] Last Admin: 01/16/19 08:50 Dose: 6.25 mg Dorzolamide HCl (Trusopt 2% Ophth Soln) 1 drop R EYE DAILY [facility] Last Admin: 01/16/19 08:52 Dose: 1 drop Famotidine (Pepcid) 20 mg SLOW IVP BID GAMAL Last Admin: 01/16/19 08:49 Dose: 20 mg Fentanyl (Sublimaze) 25 mcg SLOW IVP ONE PRN PRN Reason: Pain Stop: 01/19/19 03:06 Last Admin: 01/16/19 03:21 Dose: 25 mcg Finasteride (Proscar) 5 mg PO DAILY [facility] Last Admin: 01/16/19 08:51 Dose: 5 mg Gabapentin (Neurontin) 300 mg PO DAILY [facility] Last Admin: 01/16/19 08:50 Dose: 300 mg Hydralazine HCl (Apresoline) 10 mg SLOW IVP Q4H PRN PRN Reason: SBP GREATER THAN 160 Last Admin: 01/12/19 04:10 Dose: 10 mg Cefazolin Sodium/Dextrose 2 gm (/ Device) 50 mls @ 100 mls/hr IVPB Q8HR [facility] Last Admin: 01/16/19 13:47 Dose: 50 mls Isosorbide Mononitrate (Imdur Er) 30 mg PO DAILY [facility] Last Admin: 01/16/19 08:51 Dose: 30 mg Lisinopril (Zestril) 5 mg PO DAILY [facility] Last Admin: 01/16/19 08:50 Dose: 5 mg Ccu Electrolyte (Replacement Protocol) 0 each FS PRN PRN PRN Reason: FOR ELECTROLYTE REPLACEMENT Non-Formulary Medication (Roflumilast [Daliresp]) 500 mg PO DAILY [facility] Ondansetron HCl (Zofran) 4 mg IVP BIDPRN PRN PRN Reason: Nausea/Vomiting Propylene Glycol (Systane Opth Drop 15ml Bot) 1 drop EA EYE DAILY [facility] Last Admin: 01/16/19 08:51 Dose: 1 drop Sertraline HCl (Zoloft) 100 mg PO DAILY [facility] Last Admin: 01/16/19 08:50 Dose: 100 mg Sodium Chloride (Flush - Normal Saline) 10 ml IVF PRN PRN PRN Reason: Saline Flush Tamsulosin HCl (Flomax) 0.4 mg PO DAILY [facility] Last Admin: 01/16/19 08:50 Dose: 0.4 mg Tramadol HCl (Ultram) 50 mg PO Q6H PRN PRN Reason: Moderate Pain (4-6) Witch Delores/Glycerin (Tucks Pads) 1 each TOP PRN PRN PRN Reason: Hemorrhoids Vital Signs & Weight: Vital Signs Pulse Pulse Pulse Resp BP BP BP 01/16/19 14:22 67 19 01/16/19 10:27 87 27 H 01/16/19 10:03 85 77 130/77 129/77 01/16/19 08:50 73 100/70 01/16/19 08:00 01/16/19 06:51 73 24 H 01/16/19 06:47 73 24 H Pulse Ox Pulse Ox Pulse Ox 01/16/19 14:22 99 01/16/19 10:27 92 L 01/16/19 10:03 95 96 01/16/19 08:50 01/16/19 08:00 95 01/16/19 06:51 94 L 01/16/19 06:47 94 L Admit Weight 142 lb Weight 138 lb 7.205 oz - Physical Exam General: alert & oriented x3 HEENT: mucus membranes moist Neck: supple neck Cardiac: regular rate and rhythm, no murmur Lungs: normal breath sounds Abdomen: active bowel sounds, soft, non-tender Extremities: no edema Skin: clear Musculoskeletal: normal range of motion - Labs Result Diagrams: 01/13/19 06:01 01/13/19 06:01 Troponin/CKMB Troponin I Less than 0.010 ng/mL (< 0.028) 01/08/19 15:20 - Telemetry Sinus rhythms and dysrhythmias: sinus rhythm - Assessment/Plan Assessment/Plan: 1. 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 Paroxysmal afib, currently in sinus. 3. CAD, mild 4. HTN 5. HLP 6. Prostate Ca 7. Tobacco use. PLAN: - Not a candidate for any anticoagulation or anti platelet at this time given intracraneal hemorrhage. - Continue PO amiodarone and coreg. - BP well controlled. Continue current regimen. - Placement. - Will sign off. Please call with any questions.
[2019-01-17] MEDS ORDERED: hydrALAZINE 20 MG/ML VIAL ONE (05:55)
[2019-01-17] MEDS: Budesonide 0.5 MG/2 ML NEB INH SCH ×2 (06:42→18:44)
[2019-01-17] MEDS ORDERED: Carvedilol 6.25 MG TAB ONE (07:15)
--- NOTE | 2019-01-17 11:41 | PRG ---
DATE OF SERVICE: 01/17/2019 Of note, the [employer] was down during the time I saw this patient this morning. SUBJECTIVE: The patient remains in the ICU, waiting a stroke bed. There have been no acute events overnight. OBJECTIVE: VITAL SIGNS: On exam, his temperature is 98.7, pulse 78, respirations 23, blood pressure 156/100, and O2 saturation 94%. GENERAL: He is complaining of some difficulty grasping with his right hand. HEENT: Unremarkable except for dysarthric speech. NECK: No adenopathy or JVD. LUNGS: Clear. CARDIAC: S1 and S2. Regular. ABDOMEN: Soft. EXTREMITIES: No edema. LABORATORY DATA: No labs are available for review at this time. ASSESSMENT: 1. Status post thalamic stroke. 2. Severe chronic obstructive pulmonary disease. PLAN: Main issue now is stroke rehab and control of his blood pressure. His pulmonary status is stable. Job ID: [id number]
[2019-01-17] MEDS: Arformoterol 15 MCG/2 ML NEB NEB SCH ×2 (14:32→18:44)
[2019-01-17] MEDS: CEFAZOLIN 2 GM in Premix Bag 1 BAG IVPB SCH ×3 (14:32→21:48)
[2019-01-17 14:46] VITALS: BMI 19.8
[2019-01-17] MEDS: Carvedilol 6.25 MG TAB PO SCH ×3 (18:22→19:58)
[2019-01-17] MEDS: Amiodarone 200 MG TAB PO SCH ×2 (18:23→21:47)
[2019-01-17] MEDS: Brimonidine Tartrate 0.2% Ophth Soln 5 ml Bottle R EYE SCH (18:24)
[2019-01-17] MEDS: Aspirin Chewable 81 MG TAB PO SCH (18:24)
[2019-01-17] MEDS: Famotidine/PF 20 mg/2ml Vial SLOW IVP SCH ×2 (18:24→21:47)
[2019-01-17] MEDS: Finasteride 5 MG TAB PO SCH (18:24)
[2019-01-17] MEDS: Gabapentin 300 MG CAP PO SCH (18:24)
[2019-01-17] MEDS: Dorzolamide HCl 2% Ophth Soln 10 ml Bottle R EYE SCH (18:24)
[2019-01-17] MEDS: Lisinopril 5 MG TAB PO SCH (18:27)
[2019-01-17] MEDS: Polyethylene Glycol OPTH DROP 15 ML BOT EA EYE SCH (18:27)
[2019-01-17] MEDS: Tamsulosin HCl 0.4 MG CAP PO SCH (18:27)
[2019-01-17] MEDS: Isosorbide Mononitrate (ER) 30 MG TAB PO SCH (18:27)
--- NOTE | 2019-01-17 21:18 | PDOC.HOSPP ---
- Subjective Subjective: Doing ok. Denies problems. - Objective Vital Signs & Weight: Vital Signs (12 hours) Temp Pulse Resp BP BP Pulse Ox 01/17/19 19:33 98.5 F 88 16 144/91 H 144/91 H 96 01/17/19 18:43 84 28 H 92 L 01/17/19 16:15 99.3 F 78 26 H 148/91 H 93 L 01/17/19 14:34 70 23 H 01/17/19 10:39 72 24 H 96 Weight Admit Weight 142 lb Weight 138 lb 7.205 oz Most Recent Monitor Data Heart Rate from ECG 78 NIBP 102/84 NIBP BP-Mean 90 Respiration from ECG 23 SpO2 92 I&O: 01/16/19 01/17/19 01/18/19 06:59 06:59 06:59 Intake Total 1269 648 Output Total 1100 340 Balance 169 308 Result Diagrams: 01/13/19 06:01 01/13/19 06:01 Hospitalist ROS - Medication Medications: Active Medications Generic Name Dose Route Start Last Admin Trade Name Freq PRN Reason Stop Dose Admin Acetaminophen 650 mg 01/16/19 02:08 01/16/19 02:24 Tylenol PO 650 mg Q6H PRN Administration Headache/Fever/MILD Pain 1-3 Albuterol/Ipratropium 3 ml 01/08/19 18:30 01/17/19 18:43 Duoneb NEB 3 ml [id number] GAMAL Administration Amiodarone HCl 400 mg 01/12/19 09:00 01/17/19 18:23 Cordarone PO Not Given BID GAMAL Arformoterol Tartrate 15 mcg 01/08/19 18:30 01/17/19 18:44 Brovana NEB 15 mcg BID-RT GAMAL Administration Aspirin 81 mg 01/11/19 09:00 01/17/19 18:24 Aspirin Chewable PO Not Given DAILY GAMAL Bisacodyl 5 mg 01/10/19 17:17 01/14/19 19:26 Dulcolax PO 5 mg PRN PRN Administration Constipation Brimonidine Tartrate 1 drop 01/11/19 09:00 01/17/19 18:24 Alphagan 0.2% Ophth Soln R EYE Not Given DAILY GAMAL Budesonide 0.5 mg 01/08/19 18:30 01/17/19 18:44 Pulmicort Neb Solution INH 0.5 mg BID-RT GAMAL Administration Carvedilol 6.25 mg 01/14/19 17:00 01/17/19 19:58 Coreg PO Not Given BID-WM [facility] Dorzolamide HCl 1 drop 01/11/19 09:00 01/17/19 18:24 Trusopt 2% Ophth Soln R EYE Not Given DAILY [facility] Famotidine 20 mg 01/08/19 21:00 01/17/19 18:24 Pepcid SLOW IVP Not Given BID [facility] Fentanyl 25 mcg 01/16/19 03:05 01/16/19 03:21 Sublimaze SLOW IVP 01/19/19 03:06 25 mcg ONE PRN Administration Pain Finasteride 5 mg 01/11/19 09:00 01/17/19 18:24 Proscar PO Not Given DAILY [facility] Gabapentin 300 mg 01/15/19 09:00 01/17/19 18:24 Neurontin PO Not Given DAILY [facility] Hydralazine HCl 10 mg 01/08/19 19:10 01/12/19 04:10 Apresoline SLOW IVP 10 mg Q4H PRN Administration SBP GREATER THAN 160 Cefazolin Sodium/Dextrose 2 gm 50 mls @ 100 mls/hr 01/13/19 14:00 01/17/19 18 :22 / Device IVPB Not Given Q8HR [facility] Isosorbide Mononitrate 30 mg 01/11/19 09:00 01/17/19 18:27 Imdur Er PO Not Given DAILY [facility] Lisinopril 5 mg 01/15/19 09:00 01/17/19 18:27 Zestril PO Not Given DAILY [facility] Propylene Glycol 1 drop 01/11/19 09:00 01/17/19 18:27 Systane Opth Drop 15ml Bot EA EYE Not Given DAILY [facility] Sertraline HCl 100 mg 01/11/19 09:00 01/17/19 18:27 Zoloft PO Not Given DAILY [facility] Tamsulosin HCl 0.4 mg 01/11/19 09:00 01/17/19 18:27 Flomax PO Not Given DAILY [facility] - Exam General Appearance: NAD, awake alert Heart: RRR, no murmur, no gallops, no rubs, normal peripheral pulses Respiratory: CTAB, no wheezes, no rales, no ronchi, normal chest expansion, no tachypnea, normal percussion Skin: normal turgor, no lesions, no rashes Musculoskeletal: normal tone, normal strength, generalized weakness Psychiatric: normal affect Hosp A/P (1) Intracranial hemorrhage Code(s): I62.9 - NONTRAUMATIC INTRACRANIAL HEMORRHAGE, UNSPECIFIED Status: Acute (2) Hemiparesis Code(s): G81.90 - HEMIPLEGIA, UNSPECIFIED AFFECTING UNSPECIFIED SIDE Status: Acute (3) CAD (coronary artery disease) Code(s): I25.10 - ATHSCL HEART DISEASE OF [place] CORONARY ARTERY W/O ANG PCTRS Status: Acute (4) Hypertensive emergency Code(s): I16.1 - HYPERTENSIVE EMERGENCY Status: Acute (5) Prostate CA Code(s): C61 - MALIGNANT NEOPLASM OF PROSTATE Status: Acute (6) Acute exacerbation of chronic obstructive pulmonary disease (COPD) Code(s): J44.1 - CHRONIC OBSTRUCTIVE PULMONARY DISEASE W (ACUTE) EXACERBATION Status: Acute (7) Dementia Code(s): F03.90 - UNSPECIFIED DEMENTIA WITHOUT BEHAVIORAL DISTURBANCE Status: Chronic (8) HLD (hyperlipidemia) Code(s): E78.5 - HYPERLIPIDEMIA, UNSPECIFIED Status: Chronic Qualifiers: (9) HTN (hypertension) Code(s): I10 - ESSENTIAL (PRIMARY) HYPERTENSION Status: Chronic Qualifiers: (10) PAF (paroxysmal atrial fibrillation) Code(s): I48.0 - PAROXYSMAL ATRIAL FIBRILLATION Status: Acute (11) Acute metabolic encephalopathy Code(s): G93.41 - METABOLIC ENCEPHALOPATHY Status: Resolved - Plan Stable. Working on placement. Can move to stroke unit anytime. No anticoag due to bleed. Currently in NSR. Continue cordarone. His metabolic encephalopathy appears to be resolved. More consistent with acute acute encephalopathy. Mental status is pretty good. Assisted him with using his cell phone to call his aunt. Can go to rehab anytime. BP well controlled.
[2019-01-18] MEDS: CEFAZOLIN 2 GM in Premix Bag 1 BAG IVPB SCH ×2 (06:35→15:00)
[2019-01-18] MEDS: Arformoterol 15 MCG/2 ML NEB NEB SCH (07:10)
[2019-01-18] MEDS: Budesonide 0.5 MG/2 ML NEB INH SCH (07:11)
[2019-01-18 07:37] VITALS: TEMP 98.3
[2019-01-18] MEDS: Brimonidine Tartrate 0.2% Ophth Soln 5 ml Bottle R EYE SCH (09:24)
[2019-01-18] MEDS: Dorzolamide HCl 2% Ophth Soln 10 ml Bottle R EYE SCH (09:24)
[2019-01-18] MEDS: Famotidine/PF 20 mg/2ml Vial SLOW IVP SCH (09:25)
[2019-01-18] MEDS: Polyethylene Glycol OPTH DROP 15 ML BOT EA EYE SCH (09:25)
[2019-01-18] MEDS: Amiodarone 200 MG TAB PO SCH (09:27)
[2019-01-18] MEDS: Aspirin Chewable 81 MG TAB PO SCH (09:27)
[2019-01-18] MEDS: Tamsulosin HCl 0.4 MG CAP PO SCH (09:27)
[2019-01-18] MEDS: Gabapentin 300 MG CAP PO SCH (09:27)
[2019-01-18] MEDS: Lisinopril 5 MG TAB PO SCH (09:27)
[2019-01-18] MEDS: Isosorbide Mononitrate (ER) 30 MG TAB PO SCH (09:27)
[2019-01-18] MEDS: Finasteride 5 MG TAB PO SCH (09:28)
[2019-01-18] MEDS: Carvedilol 6.25 MG TAB PO SCH (09:28)
--- NOTE | 2019-01-18 11:20 | PRG ---
DATE OF SERVICE: 01/18/2019 SUBJECTIVE: The patient remains alert, but disoriented. OBJECTIVE: VITAL SIGNS: Temperature 98.3, pulse 75, blood pressure 143/100, O2 saturation 96%. HEENT: Unremarkable. NECK: No JVD. LUNGS: Clear. CARDIAC: S1, S2. Regular. ABDOMEN: Soft. EXTREMITIES: No edema. ASSESSMENT: 1. Status post thalamic stroke. 2. Chronic obstructive pulmonary disease. PLAN: I doubt he will ever be able to return to independent living situation. His pulmonary status is stable on his current inhalers and nebulization treatments. I think he is ready for correction placement. No further recommendations available as needed. Job ID: [id number]
[2019-01-18 12:27] VITALS: BP 93/64
--- NOTE | 2019-01-19 20:07 | DIS ---
DATE OF ADMISSION: 01/08/2019 DATE OF DISCHARGE: 01/18/2019 DISCHARGE DIAGNOSES: 1. Left thalamic intracerebral hemorrhage. 2. Right hemiparesis. 3. Dysphagia, improved. 4. Acute metabolic encephalopathy, improved. 5. Hypertensive emergency. 6. Coronary artery disease. 7. Prostate cancer. 8. Chronic obstructive pulmonary disease with exacerbation. 9. Dementia. 10. Hyperlipidemia. 11. Paroxysmal atrial fibrillation. 12. Tobacco abuse. 13. Possible right inguinal hernia. HISTORY OF PRESENT ILLNESS: This patient is 83-year-old male who is a resident of the [facility]. He was found down and brought to the emergency department where CT scan revealed the left thalamic intracerebral hemorrhage. The patient had some right facial droop, right right-sided hemiparesis, and initially some aphasia which apparently promptly improved at the time of his admission as seen by Neurosurgery. He had severely elevated blood pressure. He was admitted to the ICU and started on a Cardene drip for blood pressure control. Neurosurgery indicated there was no surgical intervention indicated, so he was subsequently further managed by the Medicine Team. He had Dobhoff tube placed for feedings initially and was assessed by Physical and Occupational Therapy and Speech Therapy. His mental status continually improved from his initial encephalopathy. His right-sided weakness gradually improved, although he never fully regained complete use of his right hand. He was able to have the Dobhoff tube removed and eat independently and his blood pressure was managed with oral medications. Ultimately once these things were accomplished, the patient was felt to be stable for discharge to a nursing rehab facility. The patient did have underlying COPD and continued to require some nasal cannula oxygen in order to maintain adequate oxygen saturations. Of note, the patient did have an episode of atrial fibrillation with rapid ventricular response and soon after admission, he was converted to sinus rhythm 6 minutes after bolus of amiodarone and was started on a drip and subsequently converted to p.o. The patient also was reporting some discomfort in his right groin area with attempts at physical therapy. There was initially some concern on exam that he might have hernia in this area; however, it did not appear to be incarcerated in any way and subsequent exams were not as evident. Regardless, the patient was felt not to be a candidate for any type of elective intervention given the recent events; therefore, this will need to be continually monitored. PHYSICAL EXAMINATION: VITAL SIGNS: At the time of discharge, temperature was 98.3, pulse 65, respirations 20, O2 saturation 92% on 3 L nasal cannula, BP was 93/64. GENERAL: He was awake and alert. He was pleasant and interactive, still had some baseline dementia. HEART: Regular without murmurs. LUNGS: Clear bilaterally. ABDOMEN: Benign. EXTREMITIES: Had no edema. DISPOSITION: The patient will be discharged to a nursing rehab facility. ACTIVITY: As tolerated. He will have OT and PT. MEDICATIONS: He will be on: 1. Tylenol 650 mg q.6 hours p.r.n. 2. Amiodarone 400 mg b.i.d. 3. Brovana 15 mcg inhaled b.i.d. 4. Pulmicort 0.5 mg inhalation b.i.d. 5. Coreg 6.25 b.i.d. 6. Gabapentin 300 mg daily. 7. Lisinopril 5 mg daily. 8. Tramadol 50 mg q.6 hours p.r.n. 9. Tamsulosin 0.4 mg daily. 10. Aspirin 81 mg daily. 11. Trazodone 150 mg daily. 12. Daliresp 500 mg daily. 13. Pantoprazole 40 mg daily. 14. DuoNeb p.r.n. 15. Ventolin inhaler two puffs q.4 hours p.r.n. 16. Isosorbide mononitrate 30 mg daily. 17. Centrum adult multivitamin one daily. 18. Loratadine 10 mg daily. 19. Dulcolax 5 mg daily p.r.n. 20. Myrbetriq 25 mg daily. 21. Sertraline 100 mg daily. 22. Finasteride 5 mg daily. 23. Polyethylene glycol 17 g daily. 24. Simbrinza ophthalmic solution one drop right eye daily. 25. Nitroglycerin sublingual p.r.n. 26. Systane eye drops one drop each eye daily. 27. Fluticasone nasal spray one spray per nostril daily. 28. Preparation-H p.r.n. FOLLOWUP: He will be discharged to [facility] and will have further followup by the medical record administrator there and the patient can return to the hospital any time should he feel the need to do so. Time spent in discharge activities was 37 minutes. Job ID: [id number] [facility]
== END 2019-01-18 15:45 | DRG 64 ==
LOC: ERS 15:13 → CCU 17:37 → 2SE 01-17 16:17
PROVIDERS: ADMIT Neurological Surgery; ATTEND Neurological Surgery
DX: I62.9 Nontraumatic intracranial hemorrhage, unspecified (principal); G93.41 Metabolic encephalopathy; J44.1 Chronic obstructive pulmonary disease with (acute) exacerbation; G81.91 Hemiplegia, unspecified affecting right dominant side; I16.9 Hypertensive crisis, unspecified; J96.11 Chronic respiratory failure with hypoxia; I25.10 Atherosclerotic heart disease of native coronary artery without angina pectoris; F03.90 Unspecified dementia, unspecified severity, without behavioral disturbance, psychotic disturbance, mood disturbance, and anxiety; E78.5 Hyperlipidemia, unspecified; R47.01 Aphasia; R29.810 Facial weakness; R29.713 NIHSS score 13; H54.62 Unqualified visual loss, left eye, normal vision right eye; F17.210 Nicotine dependence, cigarettes, uncomplicated; I48.0 Paroxysmal atrial fibrillation; R47.81 Slurred speech; Z85.46 Personal history of malignant neoplasm of prostate; Z90.79 Acquired absence of other genital organ(s); K21.9 Gastro-esophageal reflux disease without esophagitis; I16.0 Hypertensive urgency; R40.2362 Coma scale, best motor response, obeys commands, at arrival to emergency department; E83.52 Hypercalcemia; R40.2142 Coma scale, eyes open, spontaneous, at arrival to emergency department; R40.2252 Coma scale, best verbal response, oriented, at arrival to emergency department; Z79.01 Long term (current) use of anticoagulants; Z90.49 Acquired absence of other specified parts of digestive tract
CPT/HCPCS: 36415; 36416; 70450; 71045; 74018; 80048; 80053; 80061; 80306; 82550; 83970; 84484; 85025; 85610; 85730; 93005; 93010; 93306; 93880; 94640; 96365; J0282; J0360; J0690; J1630; J2060; J3010; J3486; J7050; J7070; J7620; J7626; S0028

== ENCOUNTER 2019-01-19 18:38 | Inpatient (IN) | payer MEDICARE ==
[2019-01-19] MEDS ORDERED: Cefepime 2 GM VIAL ONE ×2 (19:46→19:49)
[2019-01-19] MEDS ORDERED: methylPREDNISolone Sod Succ/PF 125 MG/2 ML VIAL ONE (19:48)
[2019-01-19 19:55] LABS: #Basophils 0.1 thou/uL (0.0-0.2); #Eosinphils 0.1 thou/uL (0.0-0.7); #Lymphocytes 1.3 thou/uL (1.20-3.40); #Monocytes 0.7 thou/uL (0.11-0.59); #Neutrophils 4.7 thou/uL (1.40-6.50); %Basophils 0.7 % (0.0-1.0); %Eosinophils 1.7 % (0.0-10.0); %Lymphocytes 19.4 % (21.0-51.0); %Monocytes 10.6 % (0.0-10.0); %Neutrophils 67.5 % (42.0-75.0); Hemoglobin 14.3 g/dL (14.0-18.0); Mean Corpuscular HGB CONC 31.4 g/dL (32.0-36.0); Mean Corpuscular Hemoglobin 29.3 pg (27.0-31.0); Mean Corpuscular Volume 93.2 fL (78.0-98.0); Mean Platelet Volume 8.2 fL (7.4-10.4); Platelet Count 260 thou/uL (130-400); RBC Distribution Width 13.4 % (11.5-14.5); Red Blood Cell (RBC) Count 4.89 mill/uL (4.70-6.10); White Blood Cell (WBC) Count 6.9 thou/uL (4.8-10.8)
--- NOTE | 2019-01-19 20:04 | RAD ---
Chest one view HISTORY: Dyspnea. Cough. COMPARISON: 01/12/2019. FINDINGS: Cardiac silhouette is magnified by projection. Pulmonary vasculature is unremarkable. Media stinum is midline. No lobar consolidation or evidence of pneumothorax. Chronic interstitial prominence is stable. quality assurance monitor final leads overlie the chest. IMPRESSION: No active cardiopulmonary abnormalities are demonstrated.
[2019-01-19 20:16] LABS: ALT (SGPT) 13 U/L (8-55); AST (SGOT) 25 U/L (5-34); Albumin 3.4 g/dL (3.4-4.8); Alkaline Phosphatase 82 U/L (40-110); Anion Gap 11 mmol/L (10-20); BUN (Urea Nitrogen) 19 mg/dL (8.4-25.7); Bilirubin, Total 0.5 mg/dL (0.2-1.2); CK (CPK) 63 U/L (30-200); Calc. Creatinine Clearance 0 mL/min (70-130); Calcium 9.9 mg/dL (7.8-10.44); Carbon Dioxide 27 mmol/L (23-31); Chloride 109 mmol/L (98-107); Estimated GFR-MDRD 84; Globulin 3.3 g/dL (2.4-3.5); Glucose 105 mg/dL (83-110); Protein, Total 6.7 g/dL (5.8-8.1); Sodium 143 mmol/L (136-145)
--- NOTE | 2019-01-19 21:02 | CT ---
CT head noncontrast HISTORY: Altered mental status. COMPARISON: 01/09/2019. FINDINGS: The oval hyperdense lesion within the left thalamus surrounded by vasogenic edema now measu res 1.5 cm greatest oblique diameter (previously 1.9 cm). Mild associated mass effect is stable. No new areas of hemorrhage or infarct. Diffuse cortical atrophy and chronic ischemic small vessel dis ease are again demonstrated. There is calcification within the arterial structures. IMPRESSION: Interval evolution and slight decrease in size of hemorrhagic infarct at the left thalamu s. No new abnormalities are demonstrated.
[2019-01-19] MEDS ORDERED: Acetaminophen 325 MG TAB PO PRN (22:17)
[2019-01-19] MEDS ORDERED: HYDROcodone/Acetaminophen 5/325 mg Tablet PO PRN (22:17)
--- NOTE | 2019-01-19 22:21 | PDOC.HHP ---
Hospitalist HPI - History of Present Illness SOB History of Present Illness: Patient is a 83 year old male with PMH recent CVA and history of COPD, now with what looks to be chronic R sided weakenss and facial droop presents to ED for shortness of breath, patient Hospitalist ROS - Review of Systems Constitutional: denies: fever, chills Eyes: denies: pain, vision change ENT: denies: mouth pain, mouth swelling Respiratory: reports: cough, shortness of breath Cardiovascular: denies: chest pain, palpitations Gastrointestinal: denies: nausea, vomiting Genitourinary: denies: dysuria, frequency Musculoskeletal: denies: neck pain, shoulder pain Skin: denies: rash, lesions Neurological: reports: weakness (R side weakness since stroke) All other systems reviewed; all pertinent +/- noted in HPI/Subj - Medication Medications: reviewed Hospitalist History - Past Medical History Other Medical History: COPD, HTN, prostate cancer, CVA - Past Surgical History Other Surgical History: appendectomy CCY prostate surgery T&A - Family History Family History: reports: no pertinent history - Social History Smoking Status: Current every day smoker Alcohol: reports: None Drugs: reports: none - Exam General Appearance: NAD, awake alert Eye: PERRL, anicteric sclera ENT: normocephalic atraumatic, no oropharyngeal lesions, moist mucosa Neck: supple, symmetric, no JVD Heart: RRR, no murmur, no gallops Respiratory: tachypneic, wheezes Gastrointestinal: soft, non-tender, non-distended, normal bowel sounds Extremities: no cyanosis, no clubbing, no edema Skin: no lesions, no rashes Neurological - other findings: R sided weakness and R facial droop Psychiatric: normal affect, A&O x 3 Hospitalist Results - Labs Result Diagrams: 01/19/19 19:46 01/19/19 19:46 Lab results: WBC 6.9 thou/uL (4.8-10.8) 01/19/19 19:46 Hgb 14.3 g/dL (14.0-18.0) 01/19/19 19:46 Hct 45.5 % (42.0-52.0) 01/19/19 19:46 MCV 93.2 fL (78.0-98.0) 01/19/19 19:46 Plt Count 260 thou/uL (130-400) 01/19/19 19:46 Neutrophils % 67.5 % (42.0-75.0) 01/19/19 19:46 Sodium 143 mmol/L (136-145) 01/19/19 19:46 Potassium 4.0 mmol/L (3.5-5.1) 01/19/19 19:46 Chloride 109 mmol/L (98-107) H 01/19/19 19:46 Carbon Dioxide 27 mmol/L (23-31) 01/19/19 19:46 BUN 19 mg/dL (8.4-25.7) 01/19/19 19:46 Creatinine 1.02 mg/dL (0.7-1.3) 01/19/19 19:46 Glucose 105 mg/dL (83-110) 01/19/19 19:46 Calcium 9.9 mg/dL (7.8-10.44) 01/19/19 19:46 Total Bilirubin 0.5 mg/dL (0.2-1.2) 01/19/19 19:46 AST 25 U/L (5-34) 01/19/19 19:46 ALT 13 U/L (8-55) 01/19/19 19:46 Alkaline Phosphatase 82 U/L (40-110) 01/19/19 19:46 Creatine Kinase 63 U/L (30-200) 01/19/19 19:46 Troponin I 0.023 ng/mL (< 0.028) 01/19/19 19:46 Serum Total Protein 6.7 g/dL (5.8-8.1) 01/19/19 19:46 Albumin 3.4 g/dL (3.4-4.8) 01/19/19 19:46 Hospitalist H&P A/P - Plan Plan: # COPD exacerbation - unasyn - steroids - nebs scheduled + PRN # CVA w/ residual R sided symptoms - speech consult aspiration precautions - CVA w/ normal evolution of process - resume home meds when med rec compete # # HTN - PRNs ordered, resume home meds when med rec complete
[2019-01-19] MEDS ORDERED: Bacteriostatic Water 30 ML VIAL FS PRN (22:30)
[2019-01-20] MEDS: Ampicillin/Sulbactam 3 GM, Admixture Fee 1 EACH in Sodium Chloride 0.9% 100 ML IVPB SCH ×4 (00:04→17:14)
[2019-01-20] MEDS: Sodium Chloride 0.9% 1,000 ML IV SCH ×2 (00:04→12:41)
[2019-01-20 00:38] VITALS: BMI 20.3
[2019-01-20] MEDS: Nitroglycerin 0.4 MG TAB (25 Tab Bottle) ONE ×2 (05:45→05:50)
[2019-01-20] MEDS ORDERED: cloNIDine 0.1 MG TAB PO PRN (06:23)
[2019-01-20] MEDS ORDERED: methylPREDNISolone Sod Succ 40 MG VIAL IVP SCH (09:00)
[2019-01-20] MEDS: Prevnar 13-Val Conj/PF 0.5 ML SYRINGE IM ONE ×2 (09:15→10:20)
[2019-01-20] MEDS: Enoxaparin Sodium 40 MG/0.4 ML SYRINGE SC SCH (09:15)
[2019-01-20] MEDS: hydrALAZINE 20 MG/ML VIAL SLOW IVP PRN (11:17)
[2019-01-20 11:19] LABS: Troponin I 0.032 ng/mL (< 0.028)
[2019-01-20 14:53] LABS: Troponin I 0.309 ng/mL (< 0.028)
[2019-01-20] MEDS ORDERED: Aspirin Chewable 81 MG TAB ONE (15:47)
[2019-01-20] MEDS: Nitroglycerin 0.4 MG TAB (25 Tab Bottle) SL PRN ×2 (16:06→16:11)
[2019-01-20] MEDS: Carvedilol 6.25 MG TAB PO SCH (16:15)
[2019-01-20] MEDS: Budesonide 0.5 MG/2 ML NEB NEB SCH (19:11)
[2019-01-20] MEDS: Arformoterol 15 MCG/2 ML NEB NEB SCH (19:11)
[2019-01-20 19:27] LABS: Troponin I 4.344 ng/mL (< 0.028)
--- NOTE | 2019-01-20 19:58 | CON ---
DATE OF CONSULTATION: 01/20/2019 REASON FOR CONSULTATION: Chest pain, abnormal EKG. [employer] MANAGER: Donald Mao MD HISTORY OF PRESENT ILLNESS: Mr. Brunson is an unfortunate 83-year-old gentleman. He recently was in the hospital. He had a stroke and was hemorrhagic. The patient was released home. He was brought back to the hospital last night with shortness of breath. While the patient has been here, he had an episode of chest tightness with transient ST elevation, fortunately the ST segments came back down. He has been given aspirin. The patient is aphasic, therefore cannot give any other history. PAST MEDICAL HISTORY: 1. History of normal coronary arteries, had catheterization in 2010. 2. History of stroke. 3. Paroxysmal atrial fibrillation. 4. History of a malignancy. MEDICATIONS: 1. He has been started back on aspirin 81 mg a day. 2. He is on amiodarone. 3. Atorvastatin. 4. Carvedilol. 5. Enoxaparin has been started here. 6. . 7. Lisinopril. 8. Methylprednisolone. REVIEW OF SYSTEMS: Not obtainable due to the aphasia. PHYSICAL EXAMINATION: GENERAL: This is a pleasant, chronically ill-appearing gentleman. He is aphasic as mentioned. VITAL SIGNS: Blood pressure 118/68, pulse 90, it is regular. LUNGS: Clear. CARDIAC: Normal S1, normal S2. ABDOMEN: Soft, nontender. EXTREMITIES: No clubbing or cyanosis. There is no edema. SKIN: Warm and dry. PSYCHIATRIC: His mood and affect appear normal. PERTINENT LABORATORY DATA: Troponin 0.3. EKG showed transient ST elevation which fortunately returned back to normal. ASSESSMENT: 1. Recent intracranial hemorrhage. 2. Transient ST-elevation. 3. Paroxysmal atrial fibrillation. PLAN: 1. Continue amiodarone. 2. Started back on aspirin. 3. He is on low-dose Lovenox. 4. We will add nitrates. 5. Prognosis guarded. Would likely not be a candidate for any interventional therapies. He cannot be anticoagulated with a recent intracranial hemorrhage. Job ID: [id number]
[2019-01-20] MEDS: traZODone HCl 50 MG TAB PO SCH (20:08)
[2019-01-20] MEDS: Atorvastatin Calcium 40 MG TAB PO SCH (20:08)
[2019-01-20] MEDS: Nitroglycerin 2% Ointment 1 INCH/1 GM Packet TOP SCH (20:08)
[2019-01-20] MEDS ORDERED: Amiodarone 200 MG TAB PO SCH (21:00)
[2019-01-20 23:36] LABS: Troponin I 6.426 ng/mL (< 0.028)
[2019-01-21] MEDS: Ampicillin/Sulbactam 3 GM, Admixture Fee 1 EACH in Sodium Chloride 0.9% 100 ML IVPB SCH ×5 (01:08→23:28)
[2019-01-21] MEDS: Sodium Chloride 0.9% 1,000 ML IV SCH ×3 (05:26→21:06)
[2019-01-21] MEDS: Nitroglycerin 2% Ointment 1 INCH/1 GM Packet TOP SCH ×3 (05:26→21:07)
[2019-01-21] MEDS: Budesonide 0.5 MG/2 ML NEB NEB SCH ×2 (07:06→19:53)
[2019-01-21] MEDS: Arformoterol 15 MCG/2 ML NEB NEB SCH ×2 (07:08→20:51)
[2019-01-21] MEDS ORDERED: ROFLUMILAST 500 MG PO SCH ×2 (09:00)
[2019-01-21] MEDS ORDERED: FLU VACC TS2019-20(65YR UP)/PF 180 MCG/0.5 ML SYRINGE IM ONE (09:00)
--- NOTE | 2019-01-21 09:31 | RAD ---
XR Ba Swallow W/Speech Therap HISTORY: CVA. Dysphagia and feeding difficulties. COMPARISON: None. FINDINGS: Patient was given a variety materials from thin barium to barium coated crackers. He showed persistent spillage to the vallecular level with all consistencies. There is flash penetration with thin liquid. There is no evidence of aspiration. Please see speech therapist's report for detail s. IMPRESSION: Findings as above.
[2019-01-21 09:40] LABS: Troponin I 7.757 ng/mL (< 0.028)
[2019-01-21] MEDS: Dorzolamide HCl 2% Ophth Soln 10 ml Bottle R EYE SCH (10:35)
[2019-01-21] MEDS: Brimonidine Tartrate 0.2% Ophth Soln 5 ml Bottle R EYE SCH (10:36)
[2019-01-21] MEDS: methylPREDNISolone Sod Succ 40 MG VIAL IVP SCH (11:01)
[2019-01-21] MEDS: Lisinopril 5 MG TAB PO SCH (11:02)
[2019-01-21] MEDS: Isosorbide Mononitrate (ER) 30 MG TAB PO SCH (11:02)
[2019-01-21] MEDS: Carvedilol 6.25 MG TAB PO SCH ×2 (11:02→18:03)
[2019-01-21] MEDS: Gabapentin 300 MG CAP PO SCH (11:02)
[2019-01-21] MEDS: Tamsulosin HCl 0.4 MG CAP PO SCH (11:02)
[2019-01-21] MEDS: Enoxaparin Sodium 40 MG/0.4 ML SYRINGE SC SCH (11:03)
[2019-01-21] MEDS: Finasteride 5 MG TAB PO SCH (11:03)
[2019-01-21] MEDS: Aspirin Chewable 81 MG TAB PO SCH (11:03)
[2019-01-21] MEDS: Amiodarone 200 MG TAB PO SCH (11:03)
[2019-01-21] MEDS: Polyethylene Glycol 3350 17 GM Packet PO SCH (11:04)
--- NOTE | 2019-01-21 19:53 | PDOC.HOSPP ---
- Subjective Encounter Date: 01/21/19 Encounter Time: 10:15 Subjective: pt up in bed no chest pain. He did have chest pain last night. - Objective Vital Signs & Weight: Vital Signs (12 hours) Temp Pulse Resp BP BP Pulse Ox 01/21/19 19:24 97.3 F L 67 18 107/68 97 01/21/19 18:03 110/68 01/21/19 16:00 98.1 F 78 14 152/72 H 96 01/21/19 13:50 70 16 01/21/19 12:00 97.4 F L 72 16 137/60 95 01/21/19 11:02 67 110/68 Weight Weight 141 lb 14.4 oz Result Diagrams: 01/19/19 19:46 01/19/19 19:46 Hospitalist ROS - Review of Systems Cardiovascular: denies: chest pain, palpitations, orthopnea, paroxysmal noc. dyspnea, edema, light headedness, other Gastrointestinal: denies: nausea, vomiting, abdominal pain, diarrhea, constipation, melena, hematochezia, other - Medication Medications: Active Medications Generic Name Dose Route Start Last Admin Trade Name Freq PRN Reason Stop Dose Admin Hydrocodone Bitart/Acetaminophen 1 tab 01/19/19 22:17 01/20/19 12:40 [place] 5/325 PO 1 tab Q4H PRN Administration Moderate Pain (4-6) Albuterol/Ipratropium 3 ml 01/20/19 01:00 01/21/19 13:50 Duoneb NEB 3 ml [id number] GAMAL Administration Amiodarone HCl 400 mg 01/21/19 09:00 01/21/19 11:03 Cordarone PO 400 mg DAILY GAMAL Administration Arformoterol Tartrate 15 mcg 01/20/19 18:30 01/21/19 07:08 Brovana NEB 15 mcg BID-RT GAMAL Administration Aspirin 81 mg 01/21/19 09:00 01/21/19 11:03 Aspirin Chewable PO 81 mg DAILY GAMAL Administration Atorvastatin Calcium 40 mg 01/20/19 21:00 01/20/19 20:08 Lipitor PO 40 mg HS GAMAL Administration Brimonidine Tartrate 1 drop 01/21/19 09:00 01/21/19 10:36 Alphagan 0.2% Ophth Soln R EYE 1 drop DAILY GAMAL Administration Budesonide 0.5 mg 01/20/19 18:30 01/21/19 07:06 Pulmicort Neb Solution NEB 0.5 mg BID-RT GAMAL Administration Carvedilol 6.25 mg 01/20/19 17:00 01/21/19 18:03 Coreg PO 6.25 mg BID-WM GAMAL Administration Dorzolamide HCl 1 drop 01/21/19 09:00 01/21/19 10:35 Trusopt 2% Ophth Soln R EYE 1 drop DAILY GAMAL Administration Enoxaparin Sodium 40 mg 01/20/19 09:00 01/21/19 11:03 Lovenox SC 40 mg 0900 GAMAL Administration Finasteride 5 mg 01/21/19 09:00 01/21/19 11:03 Proscar PO 5 mg DAILY GAMAL Administration Gabapentin 300 mg 01/21/19 09:00 01/21/19 11:02 Neurontin PO 300 mg DAILY GAMAL Administration Hydralazine HCl 10 mg 01/20/19 06:23 01/20/19 11:17 Apresoline SLOW IVP 10 mg Q6H PRN Administration SBP GREATER THAN 160 Sodium Chloride 1,000 mls @ 75 mls/hr 01/19/19 22:30 01/21/19 15:17 Normal Saline 0.9% IV Not Given .[id number] [facility] Ampicillin Sodium/Sulbactam 100 mls @ 200 mls/hr 01/19/19 23:59 01/21/19 18: 03 Sodium 3 gm/ Miscellaneous IVPB 100 mls Medication 1 each/ Sodium Q6HR [facility] Administration Chloride Isosorbide Mononitrate 30 mg 01/21/19 09:00 01/21/19 11:02 Imdur Er PO 30 mg DAILY GAMAL Administration Lisinopril 5 mg 01/21/19 09:00 01/21/19 11:02 Zestril PO 5 mg DAILY GAMAL Administration Methylprednisolone Sodium Succinate 40 mg 01/21/19 09:00 01/21/19 11:01 Solu-Medrol IVP 40 mg DAILY [facility] Administration Nitroglycerin 0.4 mg 01/20/19 06:23 01/20/19 16:11 Nitrostat SL 1 tab Q5MIN PRN Administration Chest Pain Nitroglycerin 0.5 inch 01/20/19 22:00 01/21/19 15:16 Nitro-Bid 2% Ointment TOP 0.5 inch Q8HR GAMAL Administration Pantoprazole Sodium 40 mg 01/21/19 09:00 01/21/19 11:02 Protonix PO 40 mg DAILY GAMAL Administration Polyethylene Glycol 17 gm 01/21/19 09:00 01/21/19 11:04 Miralax PO 17 gm DAILY GAMAL Administration Sertraline HCl 100 mg 01/21/19 09:00 01/21/19 11:02 Zoloft PO 100 mg DAILY GAMAL Administration Sodium Chloride 10 ml 01/20/19 09:00 01/21/19 11:04 Flush - Normal Saline IVF 10 ml Q12HR GAMAL Administration Sterile Water 1 ml 01/19/19 22:30 01/20/19 09:14 Bacteriostatic Water FS 1 ml PRN PRN Administration RECONSTITUTION Tamsulosin HCl 0.4 mg 01/21/19 09:00 01/21/19 11:02 Flomax PO 0.4 mg DAILY GAMAL Administration Trazodone HCl 150 mg 01/20/19 21:00 01/20/19 20:08 Desyrel PO 150 mg HS GAMAL Administration - Exam Heart: negative: RRR, no murmur, no gallops, no rubs, normal peripheral pulses, irregular, diminshed peripheral pulses, murmur present, II/IV, III/IV Respiratory: negative: CTAB, no wheezes, no rales, no ronchi, normal chest expansion, no tachypnea, normal percussion, rales, rhonchi, tachypneic, wheezes Gastrointestinal: negative: soft, non-tender, non-distended, normal bowel sounds , no palpable masses, no hepatomegaly, no splenomegaly, no bruit, no guarding, no rigidity, tender to palpation, distended, diminished bowl sounds, voluntary guarding Hosp A/P (1) SOB (shortness of breath) Code(s): R06.02 - SHORTNESS OF BREATH Status: Acute (2) CAD (coronary artery disease) Code(s): I25.10 - ATHSCL HEART DISEASE OF [place] CORONARY ARTERY W/O ANG PCTRS Status: Acute (3) Intracranial hemorrhage Code(s): I62.9 - NONTRAUMATIC INTRACRANIAL HEMORRHAGE, UNSPECIFIED Status: Acute (4) PAF (paroxysmal atrial fibrillation) Code(s): I48.0 - PAROXYSMAL ATRIAL FIBRILLATION Status: Acute (5) HLD (hyperlipidemia) Code(s): E78.5 - HYPERLIPIDEMIA, UNSPECIFIED Status: Chronic Qualifiers: (6) HTN (hypertension) Code(s): I10 - ESSENTIAL (PRIMARY) HYPERTENSION Status: Chronic Qualifiers: (7) Aspiration pneumonia Code(s): J69.0 - PNEUMONITIS DUE TO INHALATION OF FOOD AND VOMIT Status: Acute (8) Non-STEMI (non-ST elevated myocardial infarction) Code(s): I21.4 - NON-ST ELEVATION (NSTEMI) MYOCARDIAL INFARCTION Status: Acute - Plan will continue abx for now. pt's cardiac enzymes are elevated. Due to his recent hemorrhagic conversion stroke not a candidate for AC. cardio consulted. pt to undergo swallow eval.
--- NOTE | 2019-01-21 19:55 | PDOC.HOSPP ---
- Subjective Encounter Date: 01/20/19 Encounter Time: 10:30 Subjective: pt up in bed complains of chest pain - Objective Vital Signs & Weight: Vital Signs (12 hours) Temp Pulse Resp BP BP Pulse Ox 01/21/19 19:24 97.3 F L 67 18 107/68 97 01/21/19 18:03 110/68 01/21/19 16:00 98.1 F 78 14 152/72 H 96 01/21/19 13:50 70 16 01/21/19 12:00 97.4 F L 72 16 137/60 95 01/21/19 11:02 67 110/68 Weight Weight 141 lb 14.4 oz Result Diagrams: 01/19/19 19:46 01/19/19 19:46 Hospitalist ROS - Review of Systems Cardiovascular: reports: chest pain. denies: palpitations, orthopnea, paroxysmal noc. dyspnea, edema, light headedness, other Gastrointestinal: denies: nausea, vomiting, abdominal pain, diarrhea, constipation, melena, hematochezia, other - Medication Medications: Active Medications Generic Name Dose Route Start Last Admin Trade Name Freq PRN Reason Stop Dose Admin Hydrocodone Bitart/Acetaminophen 1 tab 01/19/19 22:17 01/20/19 12:40 [place] 5/325 PO 1 tab Q4H PRN Administration Moderate Pain (4-6) Albuterol/Ipratropium 3 ml 01/20/19 01:00 01/21/19 13:50 Duoneb NEB 3 ml [id number] GAMAL Administration Amiodarone HCl 400 mg 01/21/19 09:00 01/21/19 11:03 Cordarone PO 400 mg DAILY GAMAL Administration Arformoterol Tartrate 15 mcg 01/20/19 18:30 01/21/19 07:08 Brovana NEB 15 mcg BID-RT GAMAL Administration Aspirin 81 mg 01/21/19 09:00 01/21/19 11:03 Aspirin Chewable PO 81 mg DAILY GAMAL Administration Atorvastatin Calcium 40 mg 01/20/19 21:00 01/20/19 20:08 Lipitor PO 40 mg HS GAMAL Administration Brimonidine Tartrate 1 drop 01/21/19 09:00 01/21/19 10:36 Alphagan 0.2% Ophth Soln R EYE 1 drop DAILY GAMAL Administration Budesonide 0.5 mg 01/20/19 18:30 01/21/19 07:06 Pulmicort Neb Solution NEB 0.5 mg BID-RT GAMAL Administration Carvedilol 6.25 mg 01/20/19 17:00 01/21/19 18:03 Coreg PO 6.25 mg BID-WM GAMAL Administration Dorzolamide HCl 1 drop 01/21/19 09:00 01/21/19 10:35 Trusopt 2% Ophth Soln R EYE 1 drop DAILY GAMAL Administration Enoxaparin Sodium 40 mg 01/20/19 09:00 01/21/19 11:03 Lovenox SC 40 mg 0900 GAMAL Administration Finasteride 5 mg 01/21/19 09:00 01/21/19 11:03 Proscar PO 5 mg DAILY GAMAL Administration Gabapentin 300 mg 01/21/19 09:00 01/21/19 11:02 Neurontin PO 300 mg DAILY GAMAL Administration Hydralazine HCl 10 mg 01/20/19 06:23 01/20/19 11:17 Apresoline SLOW IVP 10 mg Q6H PRN Administration SBP GREATER THAN 160 Sodium Chloride 1,000 mls @ 75 mls/hr 01/19/19 22:30 01/21/19 15:17 Normal Saline 0.9% IV Not Given .[id number] GAMAL Ampicillin Sodium/Sulbactam 100 mls @ 200 mls/hr 01/19/19 23:59 01/21/19 18: 03 Sodium 3 gm/ Miscellaneous IVPB 100 mls Medication 1 each/ Sodium Q6HR GAMAL Administration Chloride Isosorbide Mononitrate 30 mg 01/21/19 09:00 01/21/19 11:02 Imdur Er PO 30 mg DAILY GAMAL Administration Lisinopril 5 mg 01/21/19 09:00 01/21/19 11:02 Zestril PO 5 mg DAILY GAMAL Administration Methylprednisolone Sodium Succinate 40 mg 01/21/19 09:00 01/21/19 11:01 Solu-Medrol IVP 40 mg DAILY GAMAL Administration Nitroglycerin 0.4 mg 01/20/19 06:23 01/20/19 16:11 Nitrostat SL 1 tab Q5MIN PRN Administration Chest Pain Nitroglycerin 0.5 inch 01/20/19 22:00 01/21/19 15:16 Nitro-Bid 2% Ointment TOP 0.5 inch Q8HR GAMAL Administration Pantoprazole Sodium 40 mg 01/21/19 09:00 01/21/19 11:02 Protonix PO 40 mg DAILY GAMAL Administration Polyethylene Glycol 17 gm 01/21/19 09:00 01/21/19 11:04 Miralax PO 17 gm DAILY GAMAL Administration Sertraline HCl 100 mg 01/21/19 09:00 01/21/19 11:02 Zoloft PO 100 mg DAILY GAMAL Administration Sodium Chloride 10 ml 01/20/19 09:00 01/21/19 11:04 Flush - Normal Saline IVF 10 ml Q12HR GAMAL Administration Sterile Water 1 ml 01/19/19 22:30 01/20/19 09:14 Bacteriostatic Water FS 1 ml PRN PRN Administration RECONSTITUTION Tamsulosin HCl 0.4 mg 01/21/19 09:00 01/21/19 11:02 Flomax PO 0.4 mg DAILY GAMAL Administration Trazodone HCl 150 mg 01/20/19 21:00 01/20/19 20:08 Desyrel PO 150 mg HS GAMAL Administration - Exam Heart: negative: RRR, no murmur, no gallops, no rubs, normal peripheral pulses, irregular, diminshed peripheral pulses, murmur present, II/IV, III/IV Respiratory: negative: CTAB, no wheezes, no rales, no ronchi, normal chest expansion, no tachypnea, normal percussion, rales, rhonchi, tachypneic, wheezes Gastrointestinal: negative: soft, non-tender, non-distended, normal bowel sounds , no palpable masses, no hepatomegaly, no splenomegaly, no bruit, no guarding, no rigidity, tender to palpation, distended, diminished bowl sounds, voluntary guarding Hosp A/P (1) SOB (shortness of breath) Code(s): R06.02 - SHORTNESS OF BREATH Status: Acute (2) CAD (coronary artery disease) Code(s): I25.10 - ATHSCL HEART DISEASE OF [place] CORONARY ARTERY W/O ANG PCTRS Status: Acute (3) Intracranial hemorrhage Code(s): I62.9 - NONTRAUMATIC INTRACRANIAL HEMORRHAGE, UNSPECIFIED Status: Acute (4) PAF (paroxysmal atrial fibrillation) Code(s): I48.0 - PAROXYSMAL ATRIAL FIBRILLATION Status: Acute (5) HLD (hyperlipidemia) Code(s): E78.5 - HYPERLIPIDEMIA, UNSPECIFIED Status: Chronic Qualifiers: (6) HTN (hypertension) Code(s): I10 - ESSENTIAL (PRIMARY) HYPERTENSION Status: Chronic Qualifiers: (7) Aspiration pneumonia Code(s): J69.0 - PNEUMONITIS DUE TO INHALATION OF FOOD AND VOMIT Status: Acute (8) Non-STEMI (non-ST elevated myocardial infarction) Code(s): I21.4 - NON-ST ELEVATION (NSTEMI) MYOCARDIAL INFARCTION Status: Acute - Plan pt's trops trending up. will monitor. He does have ekg changes. spoke with cardio, however given his recent stroke not a candidate for AC. will continue aspirin and statin. will continue abx for now. pt's cardiac enzymes are elevated. Due to his recent hemorrhagic conversion stroke not a candidate for AC. cardio consulted. pt to undergo swallow eval.
[2019-01-21] MEDS: traZODone HCl 50 MG TAB PO SCH (21:06)
[2019-01-21] MEDS: Atorvastatin Calcium 40 MG TAB PO SCH (21:07)
[2019-01-22] MEDS: Ampicillin/Sulbactam 3 GM, Admixture Fee 1 EACH in Sodium Chloride 0.9% 100 ML IVPB SCH ×4 (05:11→23:56)
[2019-01-22] MEDS: Nitroglycerin 2% Ointment 1 INCH/1 GM Packet TOP SCH ×3 (05:11→22:10)
[2019-01-22] MEDS: Budesonide 0.5 MG/2 ML NEB NEB SCH ×2 (06:35→19:46)
[2019-01-22] MEDS: Arformoterol 15 MCG/2 ML NEB NEB SCH ×2 (06:44→19:49)
[2019-01-22] MEDS: Finasteride 5 MG TAB PO SCH (10:26)
[2019-01-22] MEDS: Polyethylene Glycol 3350 17 GM Packet PO SCH (10:26)
[2019-01-22] MEDS: Aspirin Chewable 81 MG TAB PO SCH (10:26)
[2019-01-22] MEDS: Gabapentin 300 MG CAP PO SCH (10:26)
[2019-01-22] MEDS: Isosorbide Mononitrate (ER) 30 MG TAB PO SCH (10:26)
[2019-01-22] MEDS: Carvedilol 6.25 MG TAB PO SCH ×2 (10:26→17:33)
[2019-01-22] MEDS: Lisinopril 5 MG TAB PO SCH (10:26)
[2019-01-22] MEDS: Amiodarone 200 MG TAB PO SCH (10:26)
[2019-01-22] MEDS: methylPREDNISolone Sod Succ 40 MG VIAL IVP SCH (10:27)
[2019-01-22] MEDS: Brimonidine Tartrate 0.2% Ophth Soln 5 ml Bottle R EYE SCH (10:27)
[2019-01-22] MEDS: Dorzolamide HCl 2% Ophth Soln 10 ml Bottle R EYE SCH (10:27)
[2019-01-22] MEDS: Enoxaparin Sodium 40 MG/0.4 ML SYRINGE SC SCH (10:27)
[2019-01-22] MEDS: Tamsulosin HCl 0.4 MG CAP PO SCH (10:28)
[2019-01-22 12:35] LABS: Troponin I 2.314 ng/mL (< 0.028)
--- NOTE | 2019-01-22 13:49 | PDOC.PALCO ---
Palliative Care Consult - Consult Details Requesting Physician: Dr Medrano Reason for Consult: goals of care, advance directives assistance Family Members Present: None - Allergies Allergies/Adverse Reactions: Allergies Allergy/AdvReac Type Severity Reaction Status Date / Time No Known Allergies Allergy Verified 01/20/19 00:00 - Objective Vital Signs: Vital Signs - Most Recent Temp Pulse Resp BP Pulse Ox 97.7 F 63 16 154/86 H 97 01/22/19 11:47 01/22/19 12:57 01/22/19 12:57 01/22/19 11:47 01/22/19 11:47 - Plan/Recommendations Plan: Attempting to locate next of kin/family for patient. CM with Palliative Care to assist. [] minutes spent on this encounter with >50% of the time in counseling and coordination of care. Thank you for this very appropriate consult.
[2019-01-22] MEDS ORDERED: traZODone HCl 50 MG TAB PO PRN (16:44)
--- NOTE | 2019-01-22 17:24 | PDOC.CPN ---
- Subjective Date: 01/22/19 Time: 11:55 Interval history: No chest pain. - Review of Systems ROS unobtainable: due to mental status - Objective Allergies/Adverse Reactions: Allergies Allergy/AdvReac Type Severity Reaction Status Date / Time No Known Allergies Allergy Verified 01/20/19 00:00 Visit Medications: Current Medications Acetaminophen (Tylenol) 650 mg PO Q4H PRN PRN Reason: Headache/Fever/Mild Pain (1-3) Hydrocodone Bitart/Acetaminophen ([place] 5/325) 1 tab PO Q4H PRN PRN Reason: Moderate Pain (4-6) Last Admin: 01/20/19 12:40 Dose: 1 tab Albuterol/Ipratropium (Duoneb) 3 ml NEB [id number] GAMAL Last Admin: 01/22/19 12:57 Dose: 3 ml Albuterol/Ipratropium (Duoneb) 3 ml NEB Q4H PRN PRN Reason: SOB &/or Wheezing Amiodarone HCl (Cordarone) 400 mg PO DAILY GAMAL Last Admin: 01/22/19 10:26 Dose: 400 mg Arformoterol Tartrate (Brovana) 15 mcg NEB BID-RT GAMAL Last Admin: 01/22/19 06:44 Dose: 15 mcg Aspirin (Aspirin Chewable) 81 mg PO DAILY GAMAL Last Admin: 01/22/19 10:26 Dose: 81 mg Atorvastatin Calcium (Lipitor) 40 mg PO HS GAMAL Last Admin: 01/21/19 21:07 Dose: 40 mg Brimonidine Tartrate ([place] 0.2% Ophth Soln) 1 drop R EYE DAILY GAMAL Last Admin: 01/22/19 10:27 Dose: 1 drop Budesonide (Pulmicort Neb Solution) 0.5 mg NEB BID-RT GAMAL Last Admin: 01/22/19 06:35 Dose: 0.5 mg Carvedilol (Coreg) 6.25 mg PO BID-WM GAMAL Last Admin: 01/22/19 10:26 Dose: 6.25 mg Clonidine (Catapres) 0.1 mg PO Q4H PRN PRN Reason: SBP > 160 use second Dorzolamide HCl (Trusopt 2% Ophth Soln) 1 drop R EYE DAILY GAMAL Last Admin: 01/22/19 10:27 Dose: 1 drop Enoxaparin Sodium (Lovenox) 40 mg SC 0900 [facility] Last Admin: 01/22/19 10:27 Dose: 40 mg Finasteride (Proscar) 5 mg PO DAILY [facility] Last Admin: 01/22/19 10:26 Dose: 5 mg Gabapentin (Neurontin) 300 mg PO DAILY [facility] Last Admin: 01/22/19 10:26 Dose: 300 mg Hydralazine HCl (Apresoline) 10 mg SLOW IVP Q6H PRN PRN Reason: SBP GREATER THAN 160 Last Admin: 01/20/19 11:17 Dose: 10 mg Sodium Chloride (Normal Saline 0.9%) 1,000 mls @ 75 mls/hr IV .[id number] [facility] Last Admin: 01/21/19 21:06 Dose: 1,000 mls Ampicillin Sodium/Sulbactam Sodium 3 gm/ Miscellaneous Medication 1 each/ Sodium Chloride 100 mls @ 200 mls/hr IVPB Q6HR [facility] Last Admin: 01/22/19 12:57 Dose: 100 mls Isosorbide Mononitrate (Imdur Er) 30 mg PO DAILY [facility] Last Admin: 01/22/19 10:26 Dose: 30 mg Lisinopril (Zestril) 5 mg PO DAILY [facility] Last Admin: 01/22/19 10:26 Dose: 5 mg Nitroglycerin (Nitrostat) 0.4 mg SL Q5MIN PRN PRN Reason: Chest Pain Last Admin: 01/20/19 16:11 Dose: 1 tab Nitroglycerin (Nitro-Bid 2% Ointment) 0.5 inch TOP Q8HR [facility] Last Admin: 01/22/19 15:40 Dose: 0.5 inch Pantoprazole Sodium (Protonix) 40 mg PO DAILY [facility] Last Admin: 01/22/19 10:26 Dose: 40 mg Patient's Home Medication ( Roflumilast 500 Mg) 0 each PO DAILY [facility] Polyethylene Glycol (Miralax) 17 gm PO DAILY [facility] Last Admin: 01/22/19 10:26 Dose: 17 gm Sertraline HCl (Zoloft) 100 mg PO DAILY [facility] Last Admin: 01/22/19 10:28 Dose: 100 mg Sodium Chloride (Flush - Normal Saline) 10 ml IVF Q12HR [facility] Last Admin: 01/22/19 10:28 Dose: 10 ml Sodium Chloride (Flush - Normal Saline) 10 ml IVF PRN PRN PRN Reason: Saline Flush Sterile Water (Bacteriostatic Water) 1 ml FS PRN PRN PRN Reason: RECONSTITUTION Last Admin: 01/20/19 09:14 Dose: 1 ml Tamsulosin HCl (Flomax) 0.4 mg PO DAILY G[facility]AL Last Admin: 01/22/19 10:28 Dose: 0.4 mg Trazodone HCl (Desyrel) 50 mg PO HS PRN PRN Reason: Insomnia Vital Signs & Weight: Vital Signs Temp Pulse Resp BP Pulse Ox 01/22/19 15:23 97.5 F L 65 19 121/75 96 01/22/19 12:57 63 16 01/22/19 11:47 97.7 F 63 22 H 154/86 H 97 01/22/19 07:42 97.6 F 65 16 135/76 96 01/22/19 06:44 95 01/22/19 06:35 63 24 H Weight 148 lb 8 oz - Physical Exam General: appears well HEENT: normocephaly Neck: supple neck Cardiac: regular rate and rhythm Lungs: normal breath sounds Neuro: weakness Abdomen: active bowel sounds Extremities: no edema Skin: clear Musculoskeletal: no pain - Labs Result Diagrams: 01/19/19 19:46 01/19/19 19:46 Troponin/CKMB Troponin I 2.314 ng/mL (< 0.028) H* 01/22/19 11:35 - Telemetry Sinus rhythms and dysrhythmias: sinus rhythm - Assessment/Plan Assessment/Plan: 1. Acute GA 2. Transient EDWIGE, resolved,. 3. Recent hemorrhagic CVA PLAN: - Continue conservative therapy. - Will repeat echo to see extent of damage to LV. - Cannot anticoagulate or do any invasive therapies due to recent cerebral hemorrhage. - He currently is asymptomatic.
[2019-01-22] MEDS: Sodium Chloride 0.9% 1,000 ML IV SCH (17:33)
--- NOTE | 2019-01-22 19:23 | PDOC.HOSPP ---
- Subjective Encounter Date: 01/22/19 Encounter Time: 09:00 Subjective: pt appears very drowsy but arousable - Objective Vital Signs & Weight: Vital Signs (12 hours) Temp Pulse Resp BP Pulse Ox 01/22/19 15:23 97.5 F L 65 19 121/75 96 01/22/19 12:57 63 16 01/22/19 11:47 97.7 F 63 22 H 154/86 H 97 01/22/19 07:42 97.6 F 65 16 135/76 96 Weight Weight 148 lb 8 oz I&O: 01/21/19 01/22/19 01/23/19 06:59 06:59 06:59 Intake Total 1200 Balance 1200 Result Diagrams: 01/19/19 19:46 01/19/19 19:46 Hospitalist ROS - Review of Systems Other: unable to obtain - Medication Medications: Active Medications Generic Name Dose Route Start Last Admin Trade Name Freq PRN Reason Stop Dose Admin Hydrocodone Bitart/Acetaminophen 1 tab 01/19/19 22:17 01/20/19 12:40 [place] 5/325 PO 1 tab Q4H PRN Administration Moderate Pain (4-6) Albuterol/Ipratropium 3 ml 01/20/19 01:00 01/22/19 12:57 Duoneb NEB 3 ml [id number] GAMAL Administration Amiodarone HCl 400 mg 01/21/19 09:00 01/22/19 10:26 Cordarone PO 400 mg DAILY GAMAL Administration Arformoterol Tartrate 15 mcg 01/20/19 18:30 01/22/19 06:44 Brovana NEB 15 mcg BID-RT GAMAL Administration Aspirin 81 mg 01/21/19 09:00 01/22/19 10:26 Aspirin Chewable PO 81 mg DAILY GAMAL Administration Atorvastatin Calcium 40 mg 01/20/19 21:00 01/21/19 21:07 Lipitor PO 40 mg HS GAMAL Administration Brimonidine Tartrate 1 drop 01/21/19 09:00 01/22/19 10:27 Alphagan 0.2% Ophth Soln R EYE 1 drop DAILY GAMAL Administration Budesonide 0.5 mg 01/20/19 18:30 01/22/19 06:35 Pulmicort Neb Solution NEB 0.5 mg BID-RT GAMAL Administration Carvedilol 6.25 mg 01/20/19 17:00 01/22/19 17:33 Coreg PO 6.25 mg BID-WM GAMAL Administration Dorzolamide HCl 1 drop 01/21/19 09:00 01/22/19 10:27 Trusopt 2% Ophth Soln R EYE 1 drop DAILY GAMAL Administration Enoxaparin Sodium 40 mg 01/20/19 09:00 01/22/19 10:27 Lovenox SC 40 mg 0900 GAMAL Administration Finasteride 5 mg 01/21/19 09:00 01/22/19 10:26 Proscar PO 5 mg DAILY GAMAL Administration Gabapentin 300 mg 01/21/19 09:00 01/22/19 10:26 Neurontin PO 300 mg DAILY GAMAL Administration Hydralazine HCl 10 mg 01/20/19 06:23 01/20/19 11:17 Apresoline SLOW IVP 10 mg Q6H PRN Administration SBP GREATER THAN 160 Sodium Chloride 1,000 mls @ 75 mls/hr 01/19/19 22:30 01/22/19 17:33 Normal Saline 0.9% IV 1,000 mls .[id number] GAMAL Administration Ampicillin Sodium/Sulbactam 100 mls @ 200 mls/hr 01/19/19 23:59 01/22/19 17: 33 Sodium 3 gm/ Miscellaneous IVPB 100 mls Medication 1 each/ Sodium Q6HR GAMAL Administration Chloride Isosorbide Mononitrate 30 mg 01/21/19 09:00 01/22/19 10:26 Imdur Er PO 30 mg DAILY GAMAL Administration Lisinopril 5 mg 01/21/19 09:00 01/22/19 10:26 Zestril PO 5 mg DAILY GAMAL Administration Nitroglycerin 0.4 mg 01/20/19 06:23 01/20/19 16:11 Nitrostat SL 1 tab Q5MIN PRN Administration Chest Pain Nitroglycerin 0.5 inch 01/20/19 22:00 01/22/19 15:40 Nitro-Bid 2% Ointment TOP 0.5 inch Q8HR GAMAL Administration Pantoprazole Sodium 40 mg 01/21/19 09:00 01/22/19 10:26 Protonix PO 40 mg DAILY GAMAL Administration Polyethylene Glycol 17 gm 01/21/19 09:00 01/22/19 10:26 Miralax PO 17 gm DAILY GAMAL Administration Sertraline HCl 100 mg 01/21/19 09:00 01/22/19 10:28 Zoloft PO 100 mg DAILY GAMAL Administration Sodium Chloride 10 ml 01/20/19 09:00 01/22/19 10:28 Flush - Normal Saline IVF 10 ml Q12HR GAMAL Administration Sterile Water 1 ml 01/19/19 22:30 01/20/19 09:14 Bacteriostatic Water FS 1 ml PRN PRN Administration RECONSTITUTION Tamsulosin HCl 0.4 mg 01/21/19 09:00 01/22/19 10:28 Flomax PO 0.4 mg DAILY GAMAL Administration - Exam Heart: negative: RRR, no murmur, no gallops, no rubs, normal peripheral pulses, irregular, diminshed peripheral pulses, murmur present, II/IV, III/IV Respiratory: negative: CTAB, no wheezes, no rales, no ronchi, normal chest expansion, no tachypnea, normal percussion, rales, rhonchi, tachypneic, wheezes Gastrointestinal: negative: soft, non-tender, non-distended, normal bowel sounds , no palpable masses, no hepatomegaly, no splenomegaly, no bruit, no guarding, no rigidity, tender to palpation, distended, diminished bowl sounds, voluntary guarding Hosp A/P (1) SOB (shortness of breath) Code(s): R06.02 - SHORTNESS OF BREATH Status: Acute (2) CAD (coronary artery disease) Code(s): I25.10 - ATHSCL HEART DISEASE OF [place] CORONARY ARTERY W/O ANG PCTRS Status: Acute (3) Intracranial hemorrhage Code(s): I62.9 - NONTRAUMATIC INTRACRANIAL HEMORRHAGE, UNSPECIFIED Status: Acute (4) PAF (paroxysmal atrial fibrillation) Code(s): I48.0 - PAROXYSMAL ATRIAL FIBRILLATION Status: Acute (5) HLD (hyperlipidemia) Code(s): E78.5 - HYPERLIPIDEMIA, UNSPECIFIED Status: Chronic Qualifiers: (6) HTN (hypertension) Code(s): I10 - ESSENTIAL (PRIMARY) HYPERTENSION Status: Chronic Qualifiers: (7) Aspiration pneumonia Code(s): J69.0 - PNEUMONITIS DUE TO INHALATION OF FOOD AND VOMIT Status: Acute (8) Non-STEMI (non-ST elevated myocardial infarction) Code(s): I21.4 - NON-ST ELEVATION (NSTEMI) MYOCARDIAL INFARCTION Status: Acute - Plan pt's trops trending up. will monitor. He does have ekg changes. spoke with cardio, however given his recent stroke not a candidate for AC. will continue aspirin and statin. will continue abx for now. pt's cardiac enzymes are elevated. Due to his recent hemorrhagic conversion stroke not a candidate for AC. cardio consulted. pt to undergo swallow eval. 01/22 will decrease his dose of trazadone. He did get up to eat. No pain meds given. if he continues to be drowsy will get ct head. will make trazadone prn. continue asa/statin. trop improving.
[2019-01-22] MEDS: Atorvastatin Calcium 40 MG TAB PO SCH (22:10)
[2019-01-23] MEDS: Ampicillin/Sulbactam 3 GM, Admixture Fee 1 EACH in Sodium Chloride 0.9% 100 ML IVPB SCH ×3 (05:33→18:13)
[2019-01-23] MEDS: Nitroglycerin 2% Ointment 1 INCH/1 GM Packet TOP SCH ×3 (05:34→21:06)
[2019-01-23] MEDS: hydrALAZINE 20 MG/ML VIAL SLOW IVP PRN (06:07)
[2019-01-23] MEDS: Budesonide 0.5 MG/2 ML NEB NEB SCH ×2 (06:52→19:08)
[2019-01-23] MEDS: Arformoterol 15 MCG/2 ML NEB NEB SCH ×2 (06:53→19:06)
[2019-01-23] MEDS ORDERED: predniSONE 20 MG TAB PO SCH (08:00)
[2019-01-23] MEDS: Sodium Chloride 0.9% 1,000 ML IV SCH (09:48)
[2019-01-23] MEDS: Aspirin Chewable 81 MG TAB PO SCH (10:09)
[2019-01-23] MEDS: Amiodarone 200 MG TAB PO SCH (10:09)
[2019-01-23] MEDS: Brimonidine Tartrate 0.2% Ophth Soln 5 ml Bottle R EYE SCH (10:09)
[2019-01-23] MEDS: Carvedilol 6.25 MG TAB PO SCH ×2 (10:09→18:13)
[2019-01-23] MEDS: Dorzolamide HCl 2% Ophth Soln 10 ml Bottle R EYE SCH (10:10)
[2019-01-23] MEDS: Isosorbide Mononitrate (ER) 30 MG TAB PO SCH (10:10)
[2019-01-23] MEDS: Gabapentin 300 MG CAP PO SCH (10:10)
[2019-01-23] MEDS: Lisinopril 5 MG TAB PO SCH (10:10)
[2019-01-23] MEDS: Enoxaparin Sodium 40 MG/0.4 ML SYRINGE SC SCH (10:10)
[2019-01-23] MEDS: Finasteride 5 MG TAB PO SCH (10:10)
[2019-01-23] MEDS: Polyethylene Glycol 3350 17 GM Packet PO SCH (10:11)
[2019-01-23] MEDS: Tamsulosin HCl 0.4 MG CAP PO SCH (10:12)
[2019-01-23 10:17] LABS: Hemoglobin 13.7 g/dL (14.0-18.0); Mean Corpuscular HGB CONC 31.4 g/dL (32.0-36.0); Mean Corpuscular Hemoglobin 29.5 pg (27.0-31.0); Mean Platelet Volume 8.1 fL (7.4-10.4); Platelet Count 305 thou/uL (130-400); RBC Distribution Width 13.2 % (11.5-14.5); Red Blood Cell (RBC) Count 4.65 mill/uL (4.70-6.10); White Blood Cell (WBC) Count 9.6 thou/uL (4.8-10.8)
[2019-01-23 10:18] LABS: Anion Gap 11 mmol/L (10-20); BUN (Urea Nitrogen) 12 mg/dL (8.4-25.7); Calc. Creatinine Clearance 66 mL/min (70-130); Calcium 8.9 mg/dL (7.8-10.44); Carbon Dioxide 25 mmol/L (23-31); Chloride 108 mmol/L (98-107); Estimated GFR-MDRD Greater than 90; Glucose 101 mg/dL (83-110); Potassium 3.6 mmol/L (3.5-5.1); Sodium 140 mmol/L (136-145)
[2019-01-23 11:34] LABS: Band 3 % (5-11); Lymphocytes 16 % (21-51); MDiff Complete? YES; Monocytes 2 % (0-10); Neutrophil 76 % (42-75); RBC Morphology Normal; Reactive Lymphocytes 3 % (0-10)
--- NOTE | 2019-01-23 18:47 | PDOC.CPN ---
- Subjective Date: 01/23/19 Time: 12:25 Interval history: No new issues. No chest pain. - Review of Systems General: denies: fever/chills, weight/appetite/sleep changes, night sweats, fatigue Respiratory: denies: cough, congestion, shortness of breath, exercise intolerance Cardiovascular: denies: chest pain, palpitation, edema, paroxysmal nocturnal dyspnea, orthopnea Gastrointestinal: denies: nausea, vomiting, diarrhea, constipation, abd pain, GI bleeding Musculoskeletal: denies: pain, tenderness, stiffness, swelling, arthritis/ arthralgias Neurological: reports: weakness. denies: numbness, syncope, seizure - Objective Allergies/Adverse Reactions: Allergies Allergy/AdvReac Type Severity Reaction Status Date / Time No Known Allergies Allergy Verified 01/20/19 00:00 Visit Medications: Current Medications Acetaminophen (Tylenol) 650 mg PO Q4H PRN PRN Reason: Headache/Fever/Mild Pain (1-3) Hydrocodone Bitart/Acetaminophen ([place] 5/325) 1 tab PO Q4H PRN PRN Reason: Moderate Pain (4-6) Last Admin: 01/20/19 12:40 Dose: 1 tab Albuterol/Ipratropium (Duoneb) 3 ml NEB [id number] GAMAL Last Admin: 01/23/19 13:10 Dose: 3 ml Albuterol/Ipratropium (Duoneb) 3 ml NEB Q4H PRN PRN Reason: SOB &/or Wheezing Amiodarone HCl (Cordarone) 400 mg PO DAILY GAMAL Last Admin: 01/23/19 10:09 Dose: 400 mg Arformoterol Tartrate (Brovana) 15 mcg NEB BID-RT GAMAL Last Admin: 01/23/19 06:53 Dose: 15 mcg Aspirin (Aspirin Chewable) 81 mg PO DAILY GAMAL Last Admin: 01/23/19 10:09 Dose: 81 mg Atorvastatin Calcium (Lipitor) 40 mg PO HS [facility] Last Admin: 01/22/19 22:10 Dose: 40 mg Brimonidine Tartrate (Alphagan 0.2% Oph Soln) 1 drop R EYE DAILY GAMAL Last Admin: 01/23/19 10:09 Dose: 1 drop Budesonide (Pulmicort Neb Solution) 0.5 mg NEB BID-RT GAMAL Last Admin: 01/23/19 06:52 Dose: 0.5 mg Carvedilol (Coreg) 6.25 mg PO BID-WM [facility] Last Admin: 01/23/19 18:13 Dose: 6.25 mg Clonidine (Catapres) 0.1 mg PO Q4H PRN PRN Reason: SBP > 160 use second Dorzolamide HCl (Trusopt 2% Ophth Soln) 1 drop R EYE DAILY [facility] Last Admin: 01/23/19 10:10 Dose: 1 drop Enoxaparin Sodium (Lovenox) 40 mg SC 0900 [facility] Last Admin: 01/23/19 10:10 Dose: 40 mg Finasteride (Proscar) 5 mg PO DAILY [facility] Last Admin: 01/23/19 10:10 Dose: 5 mg Gabapentin (Neurontin) 300 mg PO DAILY [facility] Last Admin: 01/23/19 10:10 Dose: 300 mg Hydralazine HCl (Apresoline) 10 mg SLOW IVP Q6H PRN PRN Reason: SBP GREATER THAN 160 Last Admin: 01/23/19 06:07 Dose: 10 mg Ampicillin Sodium/Sulbactam Sodium 3 gm/ Miscellaneous Medication 1 each/ Sodium Chloride 100 mls @ 200 mls/hr IVPB Q6HR [facility] Last Admin: 01/23/19 18:13 Dose: 100 mls Isosorbide Mononitrate (Imdur Er) 30 mg PO DAILY [facility] Last Admin: 01/23/19 10:10 Dose: 30 mg Lisinopril (Zestril) 5 mg PO DAILY [facility] Last Admin: 01/23/19 10:10 Dose: 5 mg Nitroglycerin (Nitrostat) 0.4 mg SL Q5MIN PRN PRN Reason: Chest Pain Last Admin: 01/20/19 16:11 Dose: 1 tab Nitroglycerin (Nitro-Bid 2% Ointment) 0.5 inch TOP Q8HR [facility] Last Admin: 01/23/19 13:58 Dose: 0.5 inch Pantoprazole Sodium (Protonix) 40 mg PO DAILY [facility] Last Admin: 01/23/19 10:11 Dose: 40 mg Patient's Home Medication ( Roflumilast 500 Mg) 0 each PO DAILY [facility] Polyethylene Glycol (Miralax) 17 gm PO DAILY [facility] Last Admin: 01/23/19 10:11 Dose: 17 gm Sertraline HCl (Zoloft) 100 mg PO DAILY [facility] Last Admin: 01/23/19 10:11 Dose: 100 mg Sodium Chloride (Flush - Normal Saline) 10 ml IVF Q12HR [facility] Last Admin: 01/23/19 10:12 Dose: 10 ml Sodium Chloride (Flush - Normal Saline) 10 ml IVF PRN PRN PRN Reason: Saline Flush Sterile Water (Bacteriostatic Water) 1 ml FS PRN PRN PRN Reason: RECONSTITUTION Last Admin: 01/20/19 09:14 Dose: 1 ml Tamsulosin HCl (Flomax) 0.4 mg PO DAILY [facility] Last Admin: 01/23/19 10:12 Dose: 0.4 mg Trazodone HCl (Desyrel) 50 mg PO HS PRN PRN Reason: Insomnia Vital Signs & Weight: Vital Signs Temp Pulse Resp BP Pulse Ox 01/23/19 15:18 97.3 F L 66 21 H 140/80 95 01/23/19 13:10 88 20 96 01/23/19 11:00 98 F 71 27 H 133/80 95 01/23/19 07:55 97.6 F 61 20 149/80 H 93 L 01/23/19 06:52 63 18 97 Weight 148 lb 8 oz - Physical Exam General: alert & oriented x3 HEENT: mucus membranes moist Neck: supple neck Cardiac: regular rate and rhythm Lungs: normal breath sounds Neuro: weakness Abdomen: active bowel sounds Extremities: no edema Skin: clear Musculoskeletal: no pain - Labs Result Diagrams: 01/23/19 09:37 01/23/19 09:37 Troponin/CKMB Troponin I 2.314 ng/mL (< 0.028) H* 01/22/19 11:35 - Telemetry Sinus rhythms and dysrhythmias: sinus rhythm - Assessment/Plan Assessment/Plan: 1. Acute [place] 2. Transient EDWIGE, resolved. 3. Recent hemorrhagic CVA PLAN: - Continue conservative therapy. - LV function appears normal on echo. - Cannot anticoagulate or do any invasive therapies due to recent cerebral hemorrhage. - He currently is asymptomatic. - CV stable. - May discharge any time from cardiac perspective.
[2019-01-23] MEDS: Atorvastatin Calcium 40 MG TAB PO SCH (21:06)
[2019-01-24] MEDS: Ampicillin/Sulbactam 3 GM, Admixture Fee 1 EACH in Sodium Chloride 0.9% 100 ML IVPB SCH ×4 (00:05→17:14)
[2019-01-24] MEDS: Nitroglycerin 2% Ointment 1 INCH/1 GM Packet TOP SCH ×3 (05:01→21:12)
--- NOTE | 2019-01-24 06:50 | PDOC.HOSPP ---
- Subjective Encounter Date: 01/23/19 Encounter Time: 10:15 Subjective: pt up in bed more awake. will try to get him up in chair. - Objective Vital Signs & Weight: Vital Signs (12 hours) Temp Pulse Resp BP Pulse Ox 01/24/19 00:05 77 16 96 01/23/19 23:50 64 173/94 H 01/23/19 20:00 97.9 F 63 18 148/75 H 94 L 01/23/19 19:06 77 18 95 Weight Weight 148 lb I&O: 01/22/19 01/23/19 01/24/19 06:59 06:59 06:59 Intake Total 1200 1200 440 Balance 1200 1200 440 Result Diagrams: 01/23/19 09:37 01/23/19 09:37 Hospitalist ROS - Review of Systems Cardiovascular: denies: chest pain, palpitations, orthopnea, paroxysmal noc. dyspnea, edema, light headedness, other Gastrointestinal: denies: nausea, vomiting, abdominal pain, diarrhea, constipation, melena, hematochezia, other - Medication Medications: Active Medications Generic Name Dose Route Start Last Admin Trade Name Freq PRN Reason Stop Dose Admin Hydrocodone Bitart/Acetaminophen 1 tab 01/19/19 22:17 01/20/19 12:40 [place] 5/325 PO 1 tab Q4H PRN Administration Moderate Pain (4-6) Albuterol/Ipratropium 3 ml 01/20/19 01:00 01/24/19 00:05 Duoneb NEB 3 ml [id number] GAMAL Administration Amiodarone HCl 400 mg 01/21/19 09:00 01/23/19 10:09 Cordarone PO 400 mg DAILY GAMAL Administration Arformoterol Tartrate 15 mcg 01/20/19 18:30 01/23/19 19:06 Brovana NEB 15 mcg BID-RT GAMAL Administration Aspirin 81 mg 01/21/19 09:00 01/23/19 10:09 Aspirin Chewable PO 81 mg DAILY GAMAL Administration Atorvastatin Calcium 40 mg 01/20/19 21:00 01/23/19 21:06 Lipitor PO 40 mg HS GAMAL Administration Brimonidine Tartrate 1 drop 01/21/19 09:00 01/23/19 10:09 Alphagan 0.2% Ophth Soln R EYE 1 drop DAILY GAMAL Administration Budesonide 0.5 mg 01/20/19 18:30 01/23/19 19:08 Pulmicort Neb Solution NEB 0.5 mg BID-RT GAMAL Administration Carvedilol 6.25 mg 01/20/19 17:00 01/23/19 18:13 Coreg PO 6.25 mg BID-WM GAMAL Administration Dorzolamide HCl 1 drop 01/21/19 09:00 01/23/19 10:10 Trusopt 2% Ophth Soln R EYE 1 drop DAILY GAMAL Administration Enoxaparin Sodium 40 mg 01/20/19 09:00 01/23/19 10:10 Lovenox SC 40 mg 0900 GAMAL Administration Finasteride 5 mg 01/21/19 09:00 01/23/19 10:10 Proscar PO 5 mg DAILY GAMAL Administration Gabapentin 300 mg 01/21/19 09:00 01/23/19 10:10 Neurontin PO 300 mg DAILY GAMAL Administration Hydralazine HCl 10 mg 01/20/19 06:23 01/23/19 06:07 Apresoline SLOW IVP 10 mg Q6H PRN Administration SBP GREATER THAN 160 Ampicillin Sodium/Sulbactam 100 mls @ 200 mls/hr 01/19/19 23:59 01/24/19 05: 00 Sodium 3 gm/ Miscellaneous IVPB 100 mls Medication 1 each/ Sodium Q6HR GAMAL Administration Chloride Isosorbide Mononitrate 30 mg 01/21/19 09:00 01/23/19 10:10 Imdur Er PO 30 mg DAILY GAMAL Administration Nitroglycerin 0.4 mg 01/20/19 06:23 01/20/19 16:11 Nitrostat SL 1 tab Q5MIN PRN Administration Chest Pain Nitroglycerin 0.5 inch 01/20/19 22:00 01/24/19 05:01 Nitro-Bid 2% Ointment TOP 0.5 inch Q8HR GAMAL Administration Pantoprazole Sodium 40 mg 01/21/19 09:00 01/23/19 10:11 Protonix PO 40 mg DAILY GAMAL Administration Polyethylene Glycol 17 gm 01/21/19 09:00 01/23/19 10:11 Miralax PO 17 gm DAILY GAMAL Administration Sertraline HCl 100 mg 01/21/19 09:00 01/23/19 10:11 Zoloft PO 100 mg DAILY GAMAL Administration Sodium Chloride 10 ml 01/20/19 09:00 12/10/19 21:07 Flush - Normal Saline IVF Not Given Q12HR GAMAL Sterile Water 1 ml 01/19/19 22:30 01/20/19 09:14 Bacteriostatic Water FS 1 ml PRN PRN Administration RECONSTITUTION Tamsulosin HCl 0.4 mg 01/21/19 09:00 01/23/19 10:12 Flomax PO 0.4 mg DAILY GAMAL Administration - Exam Neck: negative: supple, symmetric, no JVD, no thyromegaly, no lymphadenopathy, no carotid bruit, JVD Heart: negative: RRR, no murmur, no gallops, no rubs, normal peripheral pulses, irregular, diminshed peripheral pulses, murmur present, II/IV, III/IV Respiratory: negative: CTAB, no wheezes, no rales, no ronchi, normal chest expansion, no tachypnea, normal percussion, rales, rhonchi, tachypneic, wheezes Extremities - other findings: mild right upper ext weakness Hosp A/P (1) SOB (shortness of breath) Code(s): R06.02 - SHORTNESS OF BREATH Status: Acute (2) CAD (coronary artery disease) Code(s): I25.10 - ATHSCL HEART DISEASE OF [place] CORONARY ARTERY W/O ANG PCTRS Status: Acute (3) Intracranial hemorrhage Code(s): I62.9 - NONTRAUMATIC INTRACRANIAL HEMORRHAGE, UNSPECIFIED Status: Acute (4) PAF (paroxysmal atrial fibrillation) Code(s): I48.0 - PAROXYSMAL ATRIAL FIBRILLATION Status: Acute (5) HLD (hyperlipidemia) Code(s): E78.5 - HYPERLIPIDEMIA, UNSPECIFIED Status: Chronic Qualifiers: (6) HTN (hypertension) Code(s): I10 - ESSENTIAL (PRIMARY) HYPERTENSION Status: Chronic Qualifiers: (7) Aspiration pneumonia Code(s): J69.0 - PNEUMONITIS DUE TO INHALATION OF FOOD AND VOMIT Status: Acute (8) Non-STEMI (non-ST elevated myocardial infarction) Code(s): I21.4 - NON-ST ELEVATION (NSTEMI) MYOCARDIAL INFARCTION Status: Acute - Plan pt's trops trending up. will monitor. He does have ekg changes. spoke with cardio, however given his recent stroke not a candidate for AC. will continue aspirin and statin. will continue abx for now. pt's cardiac enzymes are elevated. Due to his recent hemorrhagic conversion stroke not a candidate for AC. cardio consulted. pt to undergo swallow eval. 01/22 will decrease his dose of trazadone. He did get up to eat. No pain meds given. if he continues to be drowsy will get ct head. will make trazadone prn. continue asa/statin. trop improving. 01/23 pt more awake today. will get him up in chair with PT. possible discharge to [place] [facility]. no AC due to his recent bleed in brain. will increase his lisinopril for better bp control. Tried to call numbers listed in the computer wrong number.
[2019-01-24] MEDS: Arformoterol 15 MCG/2 ML NEB NEB SCH ×2 (07:28→19:04)
[2019-01-24] MEDS: Budesonide 0.5 MG/2 ML NEB NEB SCH ×2 (07:28→19:05)
[2019-01-24] MEDS ORDERED: Lisinopril 5 MG TAB PO SCH (09:00)
[2019-01-24] MEDS: Amiodarone 200 MG TAB PO SCH (09:17)
[2019-01-24] MEDS: Carvedilol 6.25 MG TAB PO SCH ×2 (09:17→17:13)
[2019-01-24] MEDS: Aspirin Chewable 81 MG TAB PO SCH (09:17)
[2019-01-24] MEDS: Enoxaparin Sodium 40 MG/0.4 ML SYRINGE SC SCH (09:18)
[2019-01-24] MEDS: Dorzolamide HCl 2% Ophth Soln 10 ml Bottle R EYE SCH (09:18)
[2019-01-24] MEDS: Brimonidine Tartrate 0.2% Ophth Soln 5 ml Bottle R EYE SCH (09:18)
[2019-01-24] MEDS: Finasteride 5 MG TAB PO SCH (09:18)
[2019-01-24] MEDS: Lisinopril 20 MG TAB PO SCH (09:19)
[2019-01-24] MEDS: Gabapentin 300 MG CAP PO SCH (09:19)
[2019-01-24] MEDS: Isosorbide Mononitrate (ER) 30 MG TAB PO SCH (09:19)
[2019-01-24] MEDS: Tamsulosin HCl 0.4 MG CAP PO SCH (09:20)
[2019-01-24] MEDS: Polyethylene Glycol 3350 17 GM Packet PO SCH (09:20)
--- NOTE | 2019-01-24 12:57 | RAD ---
XR Chest 1 View Portable History: Shortness of breath Comparison: Radiograph January 2019 Findings: The elias are enlarged bilaterally. 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 No pneumothorax. No confluent airspace consolidation. Mild ectasia of the aorta. Bilateral narrowing of the subacromial spaces. Impression: Similar examination the chest. No acute intrathoracic abnormality.
--- NOTE | 2019-01-24 18:59 | PDOC.CPN ---
- Subjective Date: 01/24/19 Time: 18:57 Interval history: No new issues. Denies chest pain. - Review of Systems General: denies: fever/chills, weight/appetite/sleep changes, night sweats, fatigue Respiratory: denies: cough, congestion, shortness of breath, exercise intolerance Cardiovascular: denies: chest pain, palpitation, edema, paroxysmal nocturnal dyspnea, orthopnea Gastrointestinal: denies: nausea, vomiting, diarrhea, constipation, abd pain, GI bleeding Musculoskeletal: denies: pain, tenderness, stiffness, swelling, arthritis/ arthralgias Neurological: denies: numbness, syncope, seizure, weakness - Objective Allergies/Adverse Reactions: Allergies Allergy/AdvReac Type Severity Reaction Status Date / Time No Known Allergies Allergy Verified 01/20/19 00:00 Visit Medications: Current Medications Acetaminophen (Tylenol) 650 mg PO Q4H PRN PRN Reason: Headache/Fever/Mild Pain (1-3) Hydrocodone Bitart/Acetaminophen ([place] 5/325) 1 tab PO Q4H PRN PRN Reason: Moderate Pain (4-6) Last Admin: 01/20/19 12:40 Dose: 1 tab Albuterol/Ipratropium (Duoneb) 3 ml NEB [id number] GAMAL Last Admin: 01/24/19 14:04 Dose: 3 ml Albuterol/Ipratropium (Duoneb) 3 ml NEB Q4H PRN PRN Reason: SOB &/or Wheezing Amiodarone HCl (Cordarone) 400 mg PO DAILY [facility] Last Admin: 01/24/19 09:17 Dose: 400 mg Arformoterol Tartrate (Brovana) 15 mcg NEB BID-RT GAMAL Last Admin: 01/24/19 07:28 Dose: 15 mcg Aspirin (Aspirin Chewable) 81 mg PO DAILY [facility] Last Admin: 01/24/19 09:17 Dose: 81 mg Atorvastatin Calcium (Lipitor) 40 mg PO HS [facility] Last Admin: 01/23/19 21:06 Dose: 40 mg Brimonidine Tartrate ([place] 0.2% Oph Soln) 1 drop R EYE DAILY [facility] Last Admin: 01/24/19 09:18 Dose: 1 drop Budesonide (Pulmicort Neb Solution) 0.5 mg NEB BID-RT [facility]AMAL Last Admin: 01/24/19 07:28 Dose: 0.5 mg Carvedilol (Coreg) 6.25 mg PO BID-[facility] Last Admin: 01/24/19 17:13 Dose: 6.25 mg Clonidine (Catapres) 0.1 mg PO Q4H PRN PRN Reason: SBP > 160 use second Dorzolamide HCl (Trusopt 2% Ophth Soln) 1 drop R EYE DAILY [facility] Last Admin: 01/24/19 09:18 Dose: 1 drop Enoxaparin Sodium (Lovenox) 40 mg SC 0900 [facility] Last Admin: 01/24/19 09:18 Dose: 40 mg Finasteride (Proscar) 5 mg PO DAILY [facility] Last Admin: 01/24/19 09:18 Dose: 5 mg Gabapentin (Neurontin) 300 mg PO DAILY [facility] Last Admin: 01/24/19 09:19 Dose: 300 mg Hydralazine HCl (Apresoline) 10 mg SLOW IVP Q6H PRN PRN Reason: SBP GREATER THAN 160 Last Admin: 01/23/19 06:07 Dose: 10 mg Ampicillin Sodium/Sulbactam Sodium 3 gm/ Miscellaneous Medication 1 each/ Sodium Chloride 100 mls @ 200 mls/hr IVPB Q6HR [facility] Last Admin: 01/24/19 17:14 Dose: 100 mls Isosorbide Mononitrate (Imdur Er) 30 mg PO DAILY [facility] Last Admin: 01/24/19 09:19 Dose: 30 mg Lisinopril (Zestril) 20 mg PO DAILY [facility] Last Admin: 01/24/19 09:19 Dose: 20 mg Nitroglycerin (Nitrostat) 0.4 mg SL Q5MIN PRN PRN Reason: Chest Pain Last Admin: 01/20/19 16:11 Dose: 1 tab Nitroglycerin (Nitro-Bid 2% Ointment) 0.5 inch TOP Q8HR [facility] Last Admin: 01/24/19 14:00 Dose: 0.5 inch Pantoprazole Sodium (Protonix) 40 mg PO DAILY [facility] Last Admin: 01/24/19 09:20 Dose: 40 mg Patient's Home Medication ( Roflumilast 500 Mg) 0 each PO DAILY [facility] Polyethylene Glycol (Miralax) 17 gm PO DAILY [facility] Last Admin: 01/24/19 09:20 Dose: Not Given Sertraline HCl (Zoloft) 100 mg PO DAILY [facility] Last Admin: 01/24/19 09:20 Dose: 100 mg Sodium Chloride (Flush - Normal Saline) 10 ml IVF Q12HR [facility] Last Admin: 01/24/19 09:20 Dose: 10 ml Sodium Chloride (Flush - Normal Saline) 10 ml IVF PRN PRN PRN Reason: Saline Flush Sterile Water (Bacteriostatic Water) 1 ml FS PRN PRN PRN Reason: RECONSTITUTION Last Admin: 01/20/19 09:14 Dose: 1 ml Tamsulosin HCl (Flomax) 0.4 mg PO DAILY [facility] Last Admin: 01/24/19 09:20 Dose: 0.4 mg Trazodone HCl (Desyrel) 50 mg PO HS PRN PRN Reason: Insomnia Vital Signs & Weight: Vital Signs Temp Pulse Pulse Pulse Resp BP BP 01/24/19 15:27 98.7 F 62 20 01/24/19 15:05 65 62 116/66 118/69 01/24/19 14:04 59 L 18 01/24/19 12:30 98.3 F 77 20 01/24/19 08:05 01/24/19 08:01 97.4 F L 67 20 01/24/19 07:29 01/24/19 07:26 66 20 BP Pulse Ox Pulse Ox 01/24/19 15:27 118/64 94 L 01/24/19 15:05 94 L 01/24/19 14:04 01/24/19 12:30 115/72 96 01/24/19 08:05 94 L 01/24/19 08:01 162/84 H 94 L 01/24/19 07:29 96 01/24/19 07:26 95 Weight 148 lb - Physical Exam General: appears well HEENT: normocephaly Neck: supple neck Cardiac: regular rate and rhythm, no murmur Lungs: normal breath sounds Neuro: weakness Abdomen: active bowel sounds, soft, non-tender Extremities: no edema Skin: clear Musculoskeletal: no fluid collection - Labs Result Diagrams: 01/23/19 09:37 01/23/19 09:37 Troponin/CKMB Troponin I 2.314 ng/mL (< 0.028) H* 01/22/19 11:35 - Telemetry Sinus rhythms and dysrhythmias: sinus rhythm - Assessment/Plan Assessment/Plan: 1. Acute [place] 2. Transient EDWIGE, resolved. 3. Recent hemorrhagic CVA PLAN: - Continue conservative therapy. - LV function appears normal on echo. - Cannot anticoagulate or do any invasive therapies due to recent cerebral hemorrhage. - He currently is asymptomatic. - CV stable. - May discharge any time from cardiac perspective. - Will sign off. Please call with any questions.
[2019-01-24] MEDS: Atorvastatin Calcium 40 MG TAB PO SCH (21:12)
[2019-01-25] MEDS: Ampicillin/Sulbactam 3 GM, Admixture Fee 1 EACH in Sodium Chloride 0.9% 100 ML IVPB SCH ×3 (00:07→13:03)
[2019-01-25] MEDS: Nitroglycerin 2% Ointment 1 INCH/1 GM Packet TOP SCH ×2 (05:46→15:19)
[2019-01-25] MEDS: Arformoterol 15 MCG/2 ML NEB NEB SCH (07:53)
[2019-01-25] MEDS: Budesonide 0.5 MG/2 ML NEB NEB SCH (07:55)
[2019-01-25] MEDS: Dorzolamide HCl 2% Ophth Soln 10 ml Bottle R EYE SCH (09:27)
[2019-01-25] MEDS: Brimonidine Tartrate 0.2% Ophth Soln 5 ml Bottle R EYE SCH (09:27)
[2019-01-25] MEDS: Finasteride 5 MG TAB PO SCH (09:28)
[2019-01-25] MEDS: Aspirin Chewable 81 MG TAB PO SCH (09:28)
[2019-01-25] MEDS: Amiodarone 200 MG TAB PO SCH (09:28)
[2019-01-25] MEDS: Gabapentin 300 MG CAP PO SCH (09:28)
[2019-01-25] MEDS: Carvedilol 6.25 MG TAB PO SCH (09:28)
[2019-01-25] MEDS: Lisinopril 20 MG TAB PO SCH (09:29)
[2019-01-25] MEDS: Enoxaparin Sodium 40 MG/0.4 ML SYRINGE SC SCH (09:29)
[2019-01-25] MEDS: Isosorbide Mononitrate (ER) 30 MG TAB PO SCH (09:29)
[2019-01-25] MEDS: Tamsulosin HCl 0.4 MG CAP PO SCH (09:30)
[2019-01-25] MEDS: Polyethylene Glycol 3350 17 GM Packet PO SCH (09:30)
[2019-01-25 16:15] VITALS: BP 125/69; TEMP 97.9
--- NOTE | 2019-01-26 20:05 | DIS ---
DATE OF ADMISSION: 01/19/2019 DATE OF DISCHARGE: 01/25/2019 DISCHARGE DIAGNOSES: 1. Acute myocardial infarction. 2. Transient ST-elevation, resolved. 3. Recent hemorrhagic cerebrovascular accident. 4. Hyperlipidemia. 5. Paroxysmal atrial fibrillation. HOSPITAL COURSE: The patient is an 83-year-old male who just recently was discharged from the hospital, who came right back to the hospital with complaints of shortness of breath. While he was in the hospital, he started having some chest pain and his troponin became significantly elevated. 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 At this time, the patient was treated for his chest pain. He did have some transient ST elevation. Cardiology was called. However, given the patient's recent thalamic stroke with hemorrhagic conversion, the decision was to medically manage this patient. The patient's symptoms resolved. His troponins started improving. The patient was then gotten up with therapy and was discharged to his intermediate facility. On admission, there were some concerns for possible left lower lobe pneumonia. At this time, he was treated with antibiotics. The patient had repeat chest x-ray on 01/24, which indicated chronic fibrosis in the upper lobes. No pneumothorax was noted and the hilar was enlarged bilaterally, but there was no airspace consolidation or thoracic abnormalities. He also had a modified speech swallow, which indicated that he had dysphagia, which recommended no evidence of aspiration. I did try to reach the patient's family member for possible resuscitation advice. The patient is awake, alert, oriented, however, he does not have any family members and he has a friend which we tried to call, but with no results. The patient at this time, doing well. He needs more rehabilitation and we will discharge him. Unable to do dual anti-platelet therapy given his recent hemorrhagic conversion from the stroke. He will have to follow up with Neurology to get approval to when to restart him on medications for his paroxysmal atrial fibrillation. He will need to be on anticoagulation. He had an echocardiogram which indicated EF 55% to 60%, grade 1/3 diastolic dysfunction, mildly concentric left ventricular hypertrophy and some aortic valve sclerosis. HOME MEDICATIONS: Will be: 1. Amiodarone 400 mg daily. 2. Augmentin 1 p.o. b.i.d. 3. Atorvastatin 40 mg daily. 4. Aspirin 81 mg daily. 5. Brovana 15 mcg neb treatments. 6. Budesonide 0.5 b.i.d. 7. Coreg 6.25 b.i.d. 8. Finasteride 5 mg daily. 9. Gabapentin 300 mg daily. 10. Ipratropium 3 mL neb q.i.d. p.r.n. 11. Isosorbide 30 mg daily. 12. Lisinopril 5 mg daily. 13. Multivitamin one p.o. daily. 14. Daliresp 500 mcg daily. 15. Sertraline 100 mg daily. 16. Flomax 0.4 mg daily. 17. Tramadol as needed. 18. Trazodone 150 mg p.o. at bedtime. PHYSICAL EXAMINATION: VITAL SIGNS: Temperature of 98.8, heart rate of 64, respirations 19, 94% room air blood pressure 134/77. GENERAL: He is awake, alert, and oriented x3. Does not appear in distress. CV: S1 and S2 present. No murmurs, rubs, or gallops. DISCHARGE INSTRUCTIONS: Again, he will be discharged home, to follow up with his primary, Neurology, and also Cardiology. Job ID: [id number]
--- NOTE | 2019-01-27 04:30 | PQF ---
[employer] Bridge Tender Crystal Reports Winform ViewerERIKA PORTILLO STEPHANIE TONY [id number] [facility]297 [id number] CLINICAL DOCUMENTATION CLARIFICATION FORM: POST DISCHARGE Addendum to original discharge summary date: ____ Late entry note date: __ DATE: 01/27/2019 ATTN:STEPHANIE TONY Please exercise your independent, professional judgment in responding to the clarification form. Clinical indicators are provided on the bottom of this form for your review Please check appropriate box(s) to clarify if the following diagnosis has been ruled in or ruled out: PNEUMONIA (CDI/Coding list diagnosis here) [ ] Ruled in diagnosis [ ] Continue to treat [ ] Resolved [ ] Ruled out diagnosis [ ] Cannot rule out diagnosis [ ] Other diagnosis [ ] Unable to determine In addition, please specify: Present on Admission (POA): [ ] Yes [ ] No [ ] Unable to determine For continuity of documentation, please document condition throughout progress notes and discharge summary. Thank You. CLINICAL INDICATORS - SIGNS / SYMPTOMS / LABS COPD exacerbation - Documented in H&P on 01/19 by Geo Thompson MD On Admission there were some concerns for possible LLL Pneumonia - Documented DS on 01/26 by STEPHANIE TONY Repeat chest xray indicated chronic fibrosis - Documented DS on 01/26 by STEPHANIE TONY RISK FACTORS Acute myocardial Infarction - Documented DS on 01/26 by STEPHANIE TONY HTN CVA w/ residual R sided Symptoms - Documented in H&P on 01/19 by Geo Thompson MD TREATMENTS Cefepime 2gm - Medication report Chest Xray Patient had repeat Chest xray SAP Bridge Tender Crystal Reports Winform Viewer (This form is maintained as a part of the permanent medical record) 2014 [employer]. All Rights Reserved [email or web address] [not provided] MTDD
--- NOTE | 2019-02-03 15:45 | EKG ---
Test Reason : Blood Pressure : / mmHG Vent. Rate : 074 BPM Atrial Rate : 074 BPM P-R Int : 160 ms QRS Dur : 092 ms QT Int : 392 ms P-R-T Axes : 102 041 061 degrees QTc Int : 435 ms Normal sinus rhythm Nonspecific ST and T wave abnormality Abnormal ECG Confirmed by VALDEZ ROSE D.O. ([id number]), index editor CARLA AREVALO ([id number]) on 02/03/2019 3:45:19 PM Referred By: Confirmed By:VALDEZ ROSE D.O.
== END 2019-01-25 18:06 | DRG 281 ==
LOC: ERS 18:38 → 2NO 23:41
PROVIDERS: ADMIT Internal Medicine; ATTEND Internal Medicine
DX: I21.4 Non-ST elevation (NSTEMI) myocardial infarction (principal); J44.1 Chronic obstructive pulmonary disease with (acute) exacerbation; I69.351 Hemiplegia and hemiparesis following cerebral infarction affecting right dominant side; Z51.5 Encounter for palliative care; I10 Essential (primary) hypertension; Z90.49 Acquired absence of other specified parts of digestive tract; Z85.46 Personal history of malignant neoplasm of prostate; F17.200 Nicotine dependence, unspecified, uncomplicated; I48.0 Paroxysmal atrial fibrillation; Z79.899 Other long term (current) drug therapy; I69.392 Facial weakness following cerebral infarction; J84.10 Pulmonary fibrosis, unspecified
CPT/HCPCS: 36415; 70450; 71045; 74230; 80048; 80053; 82550; 83735; 84484; 85025; 90471; 90662; 90670; 93005; 93010; 93306; 94640; 96374; G0008; G0009; J0295; J0360; J0692; J1650; J2920; J2930; J3490; J7620; J7626

== ENCOUNTER 2019-01-30 17:48 | Emergency (ER) | payer MEDICARE ==
[2019-01-30 19:26] LABS: Hemoglobin 13.6 g/dL (14.0-18.0); Mean Corpuscular HGB CONC 31.7 g/dL (32.0-36.0); Mean Corpuscular Hemoglobin 29.5 pg (27.0-31.0); Mean Corpuscular Volume 93.3 fL (78.0-98.0); Mean Platelet Volume 8.2 fL (7.4-10.4); Platelet Count 291 thou/uL (130-400); RBC Distribution Width 13.3 % (11.5-14.5); White Blood Cell (WBC) Count 6.2 thou/uL (4.8-10.8)
[2019-01-30 19:46] LABS: ALT (SGPT) 15 U/L (8-55); AST (SGOT) 20 U/L (5-34); Albumin 3.3 g/dL (3.4-4.8); Alkaline Phosphatase 81 U/L (40-110); Anion Gap 13 mmol/L (10-20); BUN (Urea Nitrogen) 14 mg/dL (8.4-25.7); Bilirubin, Total 0.7 mg/dL (0.2-1.2); Calc. Creatinine Clearance 0 mL/min (70-130); Carbon Dioxide 27 mmol/L (23-31); Chloride 105 mmol/L (98-107); Estimated GFR-MDRD Greater than 90; Globulin 3.3 g/dL (2.4-3.5); Glucose 91 mg/dL (83-110); Lipase 4 U/L (8-78); Potassium 4.3 mmol/L (3.5-5.1); Protein, Total 6.6 g/dL (5.8-8.1); Sodium 141 mmol/L (136-145)
[2019-01-30 19:49] LABS: Eosinophils 1 % (0-10); Lymphocytes 15 % (21-51); MDiff Complete? YES; Monocytes 8 % (0-10); Neutrophil 69 % (42-75); Platelet Morphology Comment Appears Adequate; RBC Morphology Normal; Reactive Lymphocytes 6 % (0-10)
--- NOTE | 2019-01-30 20:13 | RAD ---
PORTABLE CHEST: 01/30/19 HISTORY: Cough and congestion. COMPARISON: 01/24/19. There are chronic lung changes. No evidence of infiltrate or vascular congestion. Heart size is withi n normal range and stable in appearance. 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 IMPRESSION: No acute lung process identified. POS: OFF
[2019-01-30 21:58] LABS: Bilirubin Negative (Negative); Blood, Urine Negative (Negative); Clarity Clear (Clear); Glucose, Urine (Dipstick) Normal (Negative); Leukocyte Negative Leu/uL (Negative); Nitrite Negative (Negative); Protein, Urine (Dipstick) 10 mg/dL (Neg-Trace)
== END 2019-01-30 23:45 | disposition home or self-care (01) ==
LOC: ERS 17:48
DX: R63.0 Anorexia (principal); J44.9 Chronic obstructive pulmonary disease, unspecified; I10 Essential (primary) hypertension; F17.210 Nicotine dependence, cigarettes, uncomplicated; Z79.899 Other long term (current) drug therapy
CPT/HCPCS: 71045; 80053; 81003; 83690; 85025

== ENCOUNTER 2019-02-12 14:38 | Inpatient (IN) | payer MEDICARE ==
[2019-02-12] MEDS ORDERED: Succinylcholine Chloride 20 MG/ML 10 ml SYRINGE FS ONE (14:43)
[2019-02-12] MEDS ORDERED: Ketamine 50 MG/ML (10ML VIAL) ONE ×2 (14:43→15:10)
[2019-02-12] MEDS ORDERED: Midazolam HCl 5 mg/ml Vial ONE (14:51)
[2019-02-12 15:04] LABS: #Monocytes 0.7 thou/uL (0.11-0.59); #Neutrophils 5.6 thou/uL (1.40-6.50); %Basophils 0.6 % (0.0-1.0); %Eosinophils 0.4 % (0.0-10.0); %Lymphocytes 13.1 % (21.0-51.0); %Monocytes 9.5 % (0.0-10.0); %Neutrophils 76.4 % (42.0-75.0); Hemoglobin 13.3 g/dL (14.0-18.0); Mean Corpuscular HGB CONC 30.9 g/dL (32.0-36.0); Mean Corpuscular Hemoglobin 28.8 pg (27.0-31.0); Mean Corpuscular Volume 93.2 fL (78.0-98.0); Mean Platelet Volume 8.4 fL (7.4-10.4); Platelet Count 137 thou/uL (130-400); RBC Distribution Width 13.6 % (11.5-14.5); Red Blood Cell (RBC) Count 4.61 mill/uL (4.70-6.10); White Blood Cell (WBC) Count 7.3 thou/uL (4.8-10.8)
[2019-02-12] MEDS ORDERED: methylPREDNISolone Sod Succ/PF 125 MG/2 ML VIAL ONE (15:10)
[2019-02-12 15:16] LABS: Bilirubin Negative (Negative); Blood, Urine Negative (Negative); Clarity Clear (Clear); Glucose, Urine (Dipstick) Normal (Negative); Leukocyte Negative Leu/uL (Negative); Nitrite Negative (Negative); Protein, Urine (Dipstick) 20 mg/dL (Neg-Trace); Urobilinogen 3 mg/dL (Less than 2)
[2019-02-12] MEDS ORDERED: Piperacillin/Tazobactam 4.5 GM VIAL ONE (15:18)
[2019-02-12] MEDS ORDERED: Rocuronium Bromide 10 MG/ML (10ML VIAL) ONE (15:18)
[2019-02-12] MEDS ORDERED: fentaNYL Citrate/PF 2,000 MCG in Sodium Chloride 0.9% 60 ML IV SCH (15:19)
[2019-02-12] MEDS ORDERED: DISCONTINUE PREVIOUS NARCOTIC PAIN MEDICATIONS AND BENZODIAZEPINES FS SCH ×2 (15:19→18:09)
[2019-02-12 15:28] LABS: ALT (SGPT) 19 U/L (8-55); AST (SGOT) 18 U/L (5-34); Albumin 3.4 g/dL (3.4-4.8); Alkaline Phosphatase 108 U/L (40-110); Anion Gap 11 mmol/L (10-20); BUN (Urea Nitrogen) 13 mg/dL (8.4-25.7); Bilirubin, Total 0.5 mg/dL (0.2-1.2); Calc. Creatinine Clearance 0 mL/min (70-130); Calcium 9.8 mg/dL (7.8-10.44); Carbon Dioxide 30 mmol/L (23-31); Chloride 106 mmol/L (98-107); Estimated GFR-MDRD 79; Globulin 3.4 g/dL (2.4-3.5); Glucose 155 mg/dL (83-110); Protein, Total 6.8 g/dL (5.8-8.1); Sodium 143 mmol/L (136-145)
[2019-02-12] MEDS ORDERED: Norepinephrine 8 MG/0.9% NS 0 ML ONE (15:39)
[2019-02-12 15:41] LABS: Actual Bicarbonate (HCO3a) 22.7 mEq/L (22-28); Analyzer IN Cardio ER; Base Excess (BEa) -3.4 mEq/L (-2.0 to +3.0); CO2 Tension 45.2 mmHg (35.0-45.0); Calcium, Ionized 1.17 mmol/L (1.12-1.30); Carboxyhemoglobin (COHb) 0.3 gm% (0.0-3.0); Hemoglobin (Hb) 10.9 g/dL (14.0-18.0); O2 Tension (PaO2) 103.8 mmHg (> 60.0); Potassium - ABG Lab 3.29 mmol/L (3.70-5.30); pH, Arterial 7.32 (7.35-7.45)
[2019-02-12 15:44] LABS: CKMB 0.8 ng/mL (0-6.6)
[2019-02-12 16:00] LABS: Puncture Site RRA
--- NOTE | 2019-02-12 16:00 | CT ---
EXAM: CT brain without contrast HISTORY: CODE BLUE. Difficulty breathing. COMPARISON: 01/19/2019 TECHNIQUE: Multiple contiguous axial images were obtained and a CT of the brain without contrast. FINDINGS: There are scattered hypodensities in the subcortical and periventricular white matter consi stent with small vessel ischemic disease. The previously seen hemorrhage in the left basal ganglia has resorbed and there is encephalomalacia in this location. There is no evidence of hydrocephalus, i ntracranial hemorrhage, or extra-axial fluid collection. The calvarium and overlying soft tissues are unremarkable. The visualized paranasal sinuses and masto id air cells are well aerated. IMPRESSION: No evidence of acute intracranial abnormality
--- NOTE | 2019-02-12 16:17 | RAD ---
EXAM: Single view of the chest HISTORY: Respiratory compromise COMPARISON: 01/30/2019 FINDINGS: Single view of the chest shows a normal sized cardiomediastinal silhouette. An endotrachea l tube is seen with its tip at the lower border of the clavicles. A left subclavian central venous catheter seen with its tip in the superior vena cava. An NG tube is seen with its tip in the stomach. No pneumothorax is seen. There is no evidence of consolidation, mass, or pleural effusion. The bones are unremarkable. IMPRESSION: Appropriate position of lines and tubes
--- NOTE | 2019-02-12 16:18 | RAD ---
EXAM: 4 views of the left knee HISTORY: Knee pain COMPARISON: None FINDINGS: A small knee effusion is seen. There is no evidence of acute fracture or dislocation. Hardw are is seen in the distal femur. Moderate tricompartmental joint space narrowing and osteophyte formation is seen consistent with osteoarthritis. IMPRESSION: Moderate left knee osteoarthritis without evidence of acute osseous abnormality.
[2019-02-12] MEDS ORDERED: Ventilator Sedation Protocol 1 EACH FS SCH (17:05)
[2019-02-12] MEDS ORDERED: Norepinephrine 8 MG/0.9% NS 250 ML IVPB SCH (17:15)
--- NOTE | 2019-02-12 17:25 | PDOC.HHP ---
Hospitalist HPI - History of Present Illness Shortness of breath, respiratory failure History of Present Illness: Mr. Brunson is an 83 y/o gentleman with PMH of CAD, history of recent ICH, HLD, who presents from [place] with shortness of breath and respiratory failure. He was reportedly intubated by EMS in the field due to severe respiratory distress with breathing into the 30s. Majority of history obtained from healthcare personnel. Staff states upon arrival had fever of 102. ABG showing pH of 7.3/ pCO2 of 45/HCO3 23/pO2 103.8 on MV with FiO2 of 50%. WBC count normal on admission. CXR reportedly unimpressive, possible early infiltrate. Of note, Mr. Brunson was here last month after being admitted for ICH. Has history of CAD and atrial fibrillation. History of COPD. Apparently off anticoagulants and discharged to retirement from hospital. CT head in the ED unimpressive for acute pathology. Hospitalist ROS - Review of Systems ROS unobtainable: due to endotracheal tube - Medication Medications: Medication Instructions Recorded Confirmed Type Tamsulosin HCl [Flomax] 0.4 mg PO DAILY 01/17/15 01/19/19 History Aspirin Chewable [Aspirin Chewable 81 mg PO DAILY #0 tab 04/30/15 01/19/19 Rx Tablet] Roflumilast [Daliresp] 500 mg PO DAILY 11/04/15 01/19/19 History traZODone HCl [Trazodone HCl] 150 mg PO HS 11/04/15 01/19/19 History Pantoprazole [Protonix] 40 mg PO DAILY 11/14/15 01/19/19 History Ipratropium/Albuterol Sulfate 3 ml NEB QID PRN 07/02/16 01/19/19 History [DuoNeb] Isosorbide Mononitrate [Isosorbide 30 mg PO DAILY 07/02/16 01/19/19 History Mononitrate ER] Ventolin HFA Inhaler 2 puff INH Q4HR PRN 07/02/16 01/19/19 History Bisacodyl [Dulcolax] 5 mg PO PRN PRN 01/08/19 01/19/19 History Brinzolamide/Brimonidine Tart 1 drop R EYE DAILY 01/08/19 01/19/19 History [Simbrinza 1%/0.2% Ophth Susp] Finasteride [Proscar] 5 mg PO DAILY 01/08/19 01/19/19 History Fluticasone Furoate [Flonase 2 puff NASAL DAILY 01/08/19 01/19/19 History Sensimist] Loratadine 10 mg PO DAILY 01/08/19 01/19/19 History Mirabegron [Myrbetriq] 25 mg PO DAILY 01/08/19 01/19/19 History Multivitamin/Iron/Folic Acid 1 each PO DAILY 01/08/19 01/19/19 History [Centrum Adults Tablet] Nitroglycerin [Nitrostat] 0.3 mg SL PRN PRN 01/08/19 01/19/19 History Polyethylene Glycol 3350 [Miralax] 17 gm PO DAILY 01/08/19 01/19/19 History Propylene Glycol/PEG 400/PF 1 drop EA EYE DAILY 01/08/19 01/19/19 History [Systane 0.3-0.4% Eye Drop] Sertraline HCl 100 mg PO DAILY 01/08/19 01/19/19 History Witch Delores [Preparation H] 1 applic IA PRN PRN 01/08/19 01/19/19 History Acetaminophen [Tylenol Regular 650 mg PO Q6H PRN tab 01/18/19 01/19/19 Rx Strength] Arformoterol [Brovana] 15 mcg NEB BID-RT neb 01/18/19 01/19/19 Rx Budesonide [Pulmicort Neb Solution] 0.5 mg INH BID-RT ampule 01/18/19 01/19/19 Rx Carvedilol [Coreg] 6.25 mg PO BID-WM tab 01/18/19 01/19/19 Rx Gabapentin [Neurontin] 300 mg PO DAILY cap 01/18/19 01/19/19 Rx Lisinopril [Zestril] 5 mg PO DAILY tab 01/18/19 01/19/19 Rx traMADol HCl [Ultram] 50 mg PO Q6H PRN tab 01/18/19 01/19/19 Rx Amiodarone [Cordarone] 400 mg PO DAILY #0 tab 01/25/19 Rx Amoxicillin/Potassium Clav 1 each PO BID #10 tablet 01/25/19 Rx [Augmentin 875-125 Tablet] Atorvastatin Calcium [Lipitor] 40 mg PO HS tab 01/25/19 Rx Hospitalist History - Past Medical History Cardiac: reports: AFIB, CAD, HTN Pulmonary: reports: COPD 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) Gastrointestinal: reports: no pertinent history Heme/Onc: reports: no pertinent history Hepatobiliary: reports: no pertinent history Psych: reports: no pertinent history Musculoskeletal: reports: no pertinent history Rheumatologic: reports: no pertinent history Infectious Disease: reports: no pertinent history ENT: reports: no pertinent history Renal/: reports: no pertinent history Endocrine: reports: no pertinent history Dermatology: reports: no pertinent history - Past Surgical History Past Surgical History: reports: no pertinent history - Family History Family History: reports: no pertinent history - Social History Smoking Status: Former smoker Alcohol: reports: None Drugs: reports: none Living Situation: Shelter - Exam General Appearance: ill appearing General - other findings: Intubated and sedated Eye - other findings: slow pupillary responde ENT: normocephalic atraumatic Neck: supple, no JVD Heart: RRR, no murmur, no gallops, no rubs Respiratory: CTAB, no wheezes Gastrointestinal: soft, non-tender Extremities: no cyanosis Skin: normal turgor, no lesions, no rashes Neurological: no focal deficits Musculoskeletal: diffuse muscle atrophy Hospitalist Results - Labs Result Diagrams: 02/12/19 14:43 02/12/19 14:43 Lab results: WBC 7.3 thou/uL (4.8-10.8) 02/12/19 14:43 Hgb 13.3 g/dL (14.0-18.0) L 02/12/19 14:43 Hct 43.0 % (42.0-52.0) 02/12/19 14:43 MCV 93.2 fL (78.0-98.0) 02/12/19 14:43 Plt Count 137 thou/uL (130-400) 02/12/19 14:43 Neutrophils % 76.4 % (42.0-75.0) H 02/12/19 14:43 ABG pH 7.32 (7.35-7.45) L 02/12/19 15:30 ABG pCO2 45.2 mmHg (35.0-45.0) H 02/12/19 15:30 ABG pO2 103.8 mmHg (> 60.0) H 02/12/19 15:30 Sodium 143 mmol/L (136-145) 02/12/19 14:43 Potassium 4.0 mmol/L (3.5-5.1) 02/12/19 14:43 Chloride 106 mmol/L (98-107) 02/12/19 14:43 Carbon Dioxide 30 mmol/L (23-31) 02/12/19 14:43 BUN 13 mg/dL (8.4-25.7) 02/12/19 14:43 Creatinine 1.08 mg/dL (0.7-1.3) 02/12/19 14:43 Glucose 155 mg/dL (83-110) H 02/12/19 14:43 Lactic Acid 1.8 mmol/L (0.5-2.2) 02/12/19 14:43 Calcium 9.8 mg/dL (7.8-10.44) 02/12/19 14:43 Total Bilirubin 0.5 mg/dL (0.2-1.2) 02/12/19 14:43 AST 18 U/L (5-34) 02/12/19 14:43 ALT 19 U/L (8-55) 02/12/19 14:43 Alkaline Phosphatase 108 U/L (40-110) 02/12/19 14:43 Creatine Kinase 26 U/L (30-200) L 02/12/19 14:43 CK-MB (CK-2) 0.8 ng/mL (0-6.6) 02/12/19 14:43 Troponin I 0.034 ng/mL (< 0.028) H 02/12/19 14:43 B-Natriuretic Peptide 125.9 pg/mL (0-100) H 02/12/19 14:43 Serum Total Protein 6.8 g/dL (5.8-8.1) 02/12/19 14:43 Albumin 3.4 g/dL (3.4-4.8) 02/12/19 14:43 Urine Ketones Negative mg/dL (Negative) 02/12/19 14:58 Urine Blood Negative (Negative) 02/12/19 14:58 Urine Nitrite Negative (Negative) 02/12/19 14:58 Ur Leukocyte Esterase Negative Spike/uL (Negative) 02/12/19 14:58 Additional comment: VITAL SIGNS Mon Feb 12, 2019 16:20 ARIAS Pena Daniel BP: 146/80, MAP: 102, Pulse: 71, Resp: 16 (Not breathing on own), Temp: 99.0 ( Criticore Temp), Pain: UTR, O2 sat: 100 on (Ventilator), End-Tidal CO2: 29, Time : 02/12/2019 16:20. - EKG Interpretation EK lead EKG shows normal sinus rhythm, Rate (beats per minute): 86, Conduction normal, ST, nonspecific ST wave abnormality, T waves, Nonspecific T wave abnormality, [place] normal. Hospitalist H&P A/P - Problem (1) Acute respiratory failure Code(s): J96.00 - ACUTE RESPIRATORY FAILURE, UNSP W HYPOXIA OR HYPERCAPNIA Status: Acute Assessment and Plan: on mechanical ventilation and intubated (2) Shock Code(s): R57.9 - SHOCK, UNSPECIFIED Status: Acute Assessment and Plan: DDx: infectious, hypovolemic, less likely cardiogenic (3) History of intracerebral hemorrhage without residual deficit Code(s): Z86.79 - PERSONAL HISTORY OF OTHER DISEASES OF THE CIRCULATORY SYSTEM Status: Chronic (4) COPD (chronic obstructive pulmonary disease) Status: Chronic (5) PAF (paroxysmal atrial fibrillation) Code(s): I48.0 - PAROXYSMAL ATRIAL FIBRILLATION Status: Chronic (6) Dementia Code(s): F03.90 - UNSPECIFIED DEMENTIA WITHOUT BEHAVIORAL DISTURBANCE Status: Chronic (7) HLD (hyperlipidemia) Code(s): E78.5 - HYPERLIPIDEMIA, UNSPECIFIED Status: Chronic Qualifiers: (8) HTN (hypertension) Code(s): I10 - ESSENTIAL (PRIMARY) HYPERTENSION Status: Chronic Qualifiers: (9) Coronary artery disease Code(s): I25.10 - ATHSCL HEART DISEASE OF [place] CORONARY ARTERY W/O ANG PCTRS Status: Acute - Plan Plan: Admit to CCU. Continue mechanical ventilation Ventilator protocol, fentanyl and propfol for sedation, titratable by ICU staff Levophed to maintain MAP above 65mmHg, if needed, 3L NS given in the ED Previous echo reviewed, EF of 55%, however new onset of shock/failure, will acquire repeat study XR possible pnuemonia in left side CT head reviewed, no sign of acute process, if neuro status does not improve in the coming days, will consider MRI Consult PCCM for ventilator management Empiric Vancomycin, dose by pharmacy and Zosyn Follow blood cultures CT chest w/o contrast ABG in the AM CXR in the AM DVT Prophylaxis: SCDs Code status: Full ACP: unable to discuss, no surrogate named Disposition: Admit to CCU. Continue mechanical ventilation. Workup of shock. Treat broadly for infectious etiologies at this time. Critical care time spent with patient > 40 minutes in planning, medical decision making, and documentation of critically ill patient.
[2019-02-12 17:52] LABS: Lactic Acid 1.6 mmol/L (0.5-2.2)
[2019-02-12] MEDS ORDERED: Morphine 2 MG/ML SYRINGE SLOW IVP PRN (18:09)
[2019-02-12] MEDS ORDERED: Propofol BOLUS 1,000 MG/100 ML VIAL IV PRN (18:09)
[2019-02-12] MEDS ORDERED: Fentanyl BOLUS 250 ML IVPB PRN (18:09)
--- NOTE | 2019-02-12 19:55 | CT ---
EXAM: CT Chest WO Con PROVIDED CLINICAL HISTORY: Respiratory failure COMPARISON: None FINDINGS: The heart, pericardium and great vessels are suboptimally evaluated in the absence of IV contrast. Va scular calcification including coronary calcium is demonstrated. A left subclavian central line is demonstrated, the tip of which terminates in the SVC. An endotrache al tube is noted, the tip of which terminates proximal to the martínez. An enteric catheter is noted, tip of which terminates within the stomach. There is consolidation involving the left lower lobe compatible with pneumonia. This is superimposed upon bibasilar subsegmental atelectatic change. Scattered areas of nonspecific interstitial thickening predominating at the lung apices. The airway appears patent and of normal caliber where rosalina ng is nonconsolidated. A simple intramuscular lipoma is seen within the right pectoralis minor muscle. The visualized portio ns of the upper abdomen demonstrate no evidence for an acute process. Bilateral renal hypodensities are incompletely characterized presumably reflects cysts. The osseous structures demonstrate no concerning lytic or blastic lesions. IMPRESSION: Left lower lobe consolidation, compatible with pneumonia in the appropriate clinical context. Follow- up after treatment is recommended to evaluate for resolution.
[2019-02-12] MEDS ORDERED: Piperacillin/Tazobactam 3.375 GM VIAL ONE (21:18)
[2019-02-12] MEDS: Piperacillin/Tazobactam 3.375 GM in Sodium Chloride 0.9% 100 ML IVPB SCH (21:41)
[2019-02-13] MEDS: Propofol 1,000 MG/100 ML VIAL IV PRN ×3 (02:40→23:47)
[2019-02-13] MEDS: Piperacillin/Tazobactam 3.375 GM in Sodium Chloride 0.9% 100 ML IVPB SCH ×4 (04:18→20:06)
[2019-02-13 05:17] LABS: ALT (SGPT) 21 U/L (8-55); AST (SGOT) 22 U/L (5-34); Alkaline Phosphatase 82 U/L (40-110); Anion Gap 9 mmol/L (10-20); BUN (Urea Nitrogen) 13 mg/dL (8.4-25.7); Bilirubin, Total 0.4 mg/dL (0.2-1.2); Calc. Creatinine Clearance 0 mL/min (70-130); Calcium 8.8 mg/dL (7.8-10.44); Carbon Dioxide 27 mmol/L (23-31); Chloride 113 mmol/L (98-107); Estimated GFR-MDRD Greater than 90; Glucose 137 mg/dL (83-110); Potassium 3.8 mmol/L (3.5-5.1); Sodium 145 mmol/L (136-145)
[2019-02-13 05:19] LABS: Band 1 % (5-11); Hemoglobin 11.7 g/dL (14.0-18.0); Hypochromia SLIGHT = 6-15 cells (100X) (0-5/hpf); Lymphocytes 4 % (21-51); MDiff Complete? YES; Mean Corpuscular HGB CONC 30.7 g/dL (32.0-36.0); Mean Corpuscular Hemoglobin 28.8 pg (27.0-31.0); Mean Corpuscular Volume 93.9 fL (78.0-98.0); Mean Platelet Volume 8.8 fL (7.4-10.4); Monocytes 4 % (0-10); Neutrophil 91 % (42-75); Platelet Count 132 thou/uL (130-400); Platelet Morphology Comment Appears Adequate; RBC Distribution Width 13.5 % (11.5-14.5); Red Blood Cell (RBC) Count 4.06 mill/uL (4.70-6.10); White Blood Cell (WBC) Count 7.5 thou/uL (4.8-10.8)
[2019-02-13 07:11] LABS: Actual Bicarbonate (HCO3a) 23.6 mEq/L (22-28); Base Excess (BEa) -1.3 mEq/L (-2.0 to +3.0); CO2 Tension 40.2 mmHg (35.0-45.0); Calcium, Ionized 1.21 mmol/L (1.12-1.30); Carboxyhemoglobin (COHb) 0.4 gm% (0.0-3.0); Hemoglobin (Hb) 12.1 g/dL (14.0-18.0); O2 Tension (PaO2) 72.8 mmHg (> 60.0); pH, Arterial 7.39 (7.35-7.45)
[2019-02-13 07:13] LABS: Puncture Site RRA
--- NOTE | 2019-02-13 07:59 | PDOC.HOSPP ---
- Subjective Subjective: Remains mechanically ventilated and sedated with propofol and fentanyl. On 3mcg on Levophed at this time. No other overnight issues. On SIMV, FIO2 or 40% and PEEP of 5. - Objective Vital Signs & Weight: Vital Signs (12 hours) Temp Pulse Resp BP Pulse Ox 02/13/19 07:13 16 100 02/13/19 07:00 97.9 F 02/13/19 06:41 62 101/68 02/13/19 06:00 16 02/13/19 04:00 99.1 F 16 02/13/19 02:00 18 02/13/19 00:00 98.9 F 16 02/12/19 22:00 16 02/12/19 20:00 98.8 F 16 97 Weight Weight 138 lb 10.732 oz Most Recent Monitor Data Heart Rate from ECG 54 NIBP 96/62 NIBP BP-Mean 73 Respiration from ECG 16 SpO2 100 I&O: 02/12/19 02/13/19 02/14/19 06:59 06:59 06:59 Intake Total 323.3 323.3 Output Total 530 85 Balance -206.7 238.3 Result Diagrams: 02/13/19 03:40 02/13/19 03:40 Hospitalist ROS - Review of Systems ROS unobtainable: due to endotracheal tube - Medication Medications: Active Medications Generic Name Dose Route Start Last Admin Trade Name Freq PRN Reason Stop Dose Admin Piperacillin Sod/Tazobactam 100 mls @ 200 mls/hr 02/12/19 22:00 02/13/19 07: 45 Sod 3.375 gm/ Sodium Chloride IVPB 100 mls 0400,0800,1600,2200 GAMAL Administration Norepinephrine Bitartrate 250 mls @ 0 mls/hr 02/12/19 17:15 02/12/19 18:48 Levophed IVPB 250 mls INF GAMAL Administration Protocol Titrate Propofol 1,000 mg 02/12/19 18:09 02/13/19 02:40 Diprivan IV 03/14/19 18:09 1,000 mg INF PRN Administration TO ACHIEVE GOAL RASS Protocol - Exam General - other findings: Intubated and sedated to RASS -2 ENT: normocephalic atraumatic, moist mucosa Neck: no JVD, no carotid bruit Heart: RRR, no murmur, no gallops, no rubs Respiratory: no wheezes, no ronchi, normal chest expansion Gastrointestinal: soft, non-distended, normal bowel sounds Extremities: no cyanosis Skin: no lesions, no rashes Neurological: no focal deficits Musculoskeletal: diffuse muscle atrophy Hosp A/P (1) Acute respiratory failure Code(s): J96.00 - ACUTE RESPIRATORY FAILURE, UNSP W HYPOXIA OR HYPERCAPNIA Status: Acute (2) Shock Code(s): R57.9 - SHOCK, UNSPECIFIED Status: Acute Plan: At this time, CT scan showing LL pneumonia., Shock is septic in nature due to LL bacterial pneumonia (3) History of intracerebral hemorrhage without residual deficit Code(s): Z86.79 - PERSONAL HISTORY OF OTHER DISEASES OF THE CIRCULATORY SYSTEM Status: Chronic (4) COPD (chronic obstructive pulmonary disease) Status: Chronic (5) PAF (paroxysmal atrial fibrillation) Code(s): I48.0 - PAROXYSMAL ATRIAL FIBRILLATION Status: Chronic (6) Dementia Code(s): F03.90 - UNSPECIFIED DEMENTIA WITHOUT BEHAVIORAL DISTURBANCE Status: Chronic (7) HLD (hyperlipidemia) Code(s): E78.5 - HYPERLIPIDEMIA, UNSPECIFIED Status: Chronic Qualifiers: (8) HTN (hypertension) Code(s): I10 - ESSENTIAL (PRIMARY) HYPERTENSION Status: Chronic Qualifiers: (9) Coronary artery disease Code(s): I25.10 - ATHSCL HEART DISEASE OF [place] CORONARY ARTERY W/O ANG PCTRS Status: Acute - Plan Continue mechanical ventilation as per pulmonary reccs Daily spontaneous breathing trials Wean off levophed Light sedation to RASS -2 Continue Vancomycin and Zosyn Pending echo Shock septic in nature due to pneumonia DVT Prophylaxis: SCDs, avoid AC as hx of ICH one month ago Code Status: Full Disposition: Continue care in CCU. Tx of pneumonia/shock.
[2019-02-13] MEDS ORDERED: CCU Electrolyte Replacement 1 EACH FS ONE (08:43)
[2019-02-13] MEDS ORDERED: Magnesium Oxide 400 MG TAB PO PRN ×2 (08:53)
[2019-02-13] MEDS ORDERED: Magnesium 2 GM/50 ML 2 GM in Premix Bag 1 BAG IVPB PRN (08:53)
[2019-02-13] MEDS ORDERED: Potassium Phosphate 15 MMOL in Sodium Chloride 0.9% 250 ML 250 ML IV PRN (08:53)
[2019-02-13] MEDS ORDERED: Potassium Chloride 20 MEQ TAB PO PRN (08:53)
[2019-02-13] MEDS ORDERED: Potassium Chloride 40 MEQ in Sodium Chloride 0.9% 250 ML 250 ML IVPB PRN (08:53)
[2019-02-13] MEDS ORDERED: PHOS-NAK 1 PKT PACK PO PRN (08:53)
[2019-02-13] MEDS ORDERED: Potassium Phosphate 9 MMOL in Sodium Chloride 0.9% 100 ML IVPB PRN (08:53)
[2019-02-13] MEDS ORDERED: CCU ELECTROLYTE REPLACEMENT PROTOCOL FS PRN (08:53)
[2019-02-13] MEDS ORDERED: Potassium Phosphate 12 MMOL in Sodium Chloride 0.9% 250 ML 250 ML IV PRN (08:53)
[2019-02-13] MEDS ORDERED: Prevnar 13-Val Conj/PF 0.5 ML SYRINGE IM ONE (09:00)
--- NOTE | 2019-02-13 09:42 | CON ---
DATE OF CONSULTATION: 02/12/2019 35 minutes of critical care time. HISTORY OF PRESENT ILLNESS: Mr. Brunson is well known to me from previous hospitalizations. Yesterday, he was intubated in the field by EMS after being found at his retirement short of breath and in apparent respiratory arrest. He was found to have left lower lobe pneumonia by CT. He had a fever of 102. PAST MEDICAL HISTORY: 1. Recently in the hospital for intracranial hemorrhage. 2. Severe COPD, requiring home oxygen. 3. Prostate cancer. 4. Chronic cough. 5. Hypertension. 6. Coronary artery disease. 7. Gastroesophageal reflux. 8. Hyperlipidemia. PAST SURGICAL HISTORY: 1. Cardiac catheterization. 2. Hernia repair. 3. Tonsillectomy. 4. Cholecystectomy. 5. Appendectomy. ALLERGIES: NONE. MEDICATIONS: Prior to admission 1. Trazodone 150 mg nightly. 2. Ultram 50 mg q.6 hours. 3. Ventolin metered-dose inhaler as needed. 4. Flomax 0.4 mg daily. 5. Sertraline 100 mg daily. 6. Daliresp 500 daily. 7. MiraLAX 17 g daily. 8. Protonix 40 mg daily. 9. Nitroglycerin sublingual p.r.n. 10. Mirabegron 25 mg daily. 11. Loratadine 10 mg daily. 12. Zestril 5 mg daily. 13. Isosorbide ER 30 mg daily. 14. DuoNeb 4 times daily as needed. 15. Neurontin 300 mg daily. 16. Proscar 5 mg daily. 17. Carvedilol 6.25 mg b.i.d. 18. Pulmicort nebs twice daily. 19. Dulcolax 5 mg daily. 20. Lipitor 40 mg daily. 21. Aspirin 81 mg daily. 22. Brovana nebs twice daily. 23. Cordarone 400 mg daily. Current inpatient medications: 1. Fentanyl. 2. Lorazepam. 3. Ativan. 4. Morphine. 5. Levophed. 6. Zosyn. 7. Vancomycin. REVIEW OF SYSTEMS: Cannot be obtained as the patient is on mechanical ventilation. PHYSICAL EXAMINATION: VITAL SIGNS: Heart rate 70, O2 saturation 100%, respiratory rate 27, blood pressure 110/65. His temperature is 97.9. The patient is intubated on mechanical ventilation. He will respond to commands. HEENT: Pupils reactive, sclerae anicteric. Oropharynx is clear. NECK: No adenopathy or JVD. LUNGS: He has bilateral coarse rhonchi. CARDIOVASCULAR: S1, S2. Slightly tachycardic. No murmur. ABDOMEN: Soft and nontender to palpation. EXTREMITIES: No clubbing, cyanosis, or edema. NEUROLOGIC: Moves all 4 extremities. LABORATORY DATA: White blood cell count 7.5, hematocrit 38.1, and platelet count 132 with 91% neutrophils. PH of 7.39, pCO2 of 40, PO2 of 72 on SIMV rate 16, tidal volume 450, PEEP 5, pressure support 10, FiO2 40%. Sodium 145, potassium 3.8, chloride 113, CO2 of 27, BUN 13, creatinine 0.8, glucose 137. CT shows a fairly substantial left lower lobe infiltrate consistent with pneumonia. ASSESSMENT: 1. Healthcare-associated pneumonia from retirement patient. 2. Recent intracranial hemorrhage. 3. Severe chronic obstructive pulmonary disease. 4. Acute respiratory failure requiring mechanical ventilation. PLAN: For the time being, he will be kept intubated and on mechanical ventilation. He is receiving Levophed for blood pressure support. He is on broad-spectrum IV antibiotics with Zosyn and vancomycin. He will receive nebulization treatments and IV steroids. This patient's prognosis is extremely poor. He has no decisionmaker that I know of because he has been estranged from his family for quite some time. Further disposition to follow. Job ID: [id number]
[2019-02-13] MEDS: Enoxaparin Sodium 40 MG/0.4 ML SYRINGE SC SCH (09:49)
[2019-02-13] MEDS: Pantoprazole 40 MG VIAL IVP SCH (09:49)
--- NOTE | 2019-02-13 09:51 | RAD ---
PORTABLE CHEST ONE VIEW: 02/13/2019 4:06 a.m. HISTORY: Respiratory failure. FINDINGS: No significant interval changes seen since the previous day's exam. POS: JORDYN
[2019-02-13] MEDS: Sodium Chloride 0.9% 1,000 ML IV SCH ×2 (10:34→23:19)
[2019-02-13] MEDS: methylPREDNISolone Sod Succ 40 MG VIAL IVP SCH ×3 (13:48→23:19)
[2019-02-13] MEDS: Vancomycin HCl 1 GM in Premix Bag 1 BAG IVPB SCH (14:09)
[2019-02-13] MEDS: Budesonide 0.5 MG/2 ML NEB INH SCH (18:49)
[2019-02-13] MEDS: Arformoterol 15 MCG/2 ML NEB NEB SCH (18:49)
[2019-02-14] MEDS: Piperacillin/Tazobactam 3.375 GM in Sodium Chloride 0.9% 100 ML IVPB SCH ×4 (02:23→20:40)
[2019-02-14 04:09] LABS: #Lymphocytes 0.4 thou/uL (1.20-3.40); #Monocytes 0.3 thou/uL (0.11-0.59); #Neutrophils 8.4 thou/uL (1.40-6.50); %Lymphocytes 4.7 % (21.0-51.0); %Monocytes 2.9 % (0.0-10.0); %Neutrophils 92.4 % (42.0-75.0); Hemoglobin 11.3 g/dL (14.0-18.0); Mean Corpuscular HGB CONC 30.8 g/dL (32.0-36.0); Mean Corpuscular Hemoglobin 29.2 pg (27.0-31.0); Mean Corpuscular Volume 94.6 fL (78.0-98.0); Mean Platelet Volume 8.9 fL (7.4-10.4); Platelet Count 132 thou/uL (130-400); RBC Distribution Width 13.6 % (11.5-14.5); Red Blood Cell (RBC) Count 3.85 mill/uL (4.70-6.10)
[2019-02-14 04:29] LABS: Anion Gap 10 mmol/L (10-20); BUN (Urea Nitrogen) 14 mg/dL (8.4-25.7); Calc. Creatinine Clearance 62 mL/min (70-130); Calcium 8.7 mg/dL (7.8-10.44); Carbon Dioxide 25 mmol/L (23-31); Chloride 113 mmol/L (98-107); Estimated GFR-MDRD Greater than 90; Glucose 122 mg/dL (83-110); Sodium 144 mmol/L (136-145)
[2019-02-14] MEDS: Budesonide 0.5 MG/2 ML NEB INH SCH ×2 (06:50→18:37)
[2019-02-14] MEDS: Arformoterol 15 MCG/2 ML NEB NEB SCH ×2 (06:50→18:37)
[2019-02-14 07:08] LABS: CO2 Tension 37.8 mmHg (35.0-45.0); pH, Arterial 7.41 (7.35-7.45)
[2019-02-14 07:09] LABS: Actual Bicarbonate (HCO3a) 23.2 mEq/L (22-28); Base Excess (BEa) -1.2 mEq/L (-2.0 to +3.0); Hemoglobin (Hb) 13.1 g/dL (14.0-18.0)
[2019-02-14 07:10] LABS: Calcium, Ionized 1.25 mmol/L (1.12-1.30); Carboxyhemoglobin (COHb) 0.8 gm% (0.0-3.0); Puncture Site LRA
[2019-02-14] MEDS: methylPREDNISolone Sod Succ 40 MG VIAL IVP SCH (07:14)
[2019-02-14] MEDS: Lorazepam 2 MG/ML VIAL SLOW IVP PRN ×2 (07:55→14:35)
[2019-02-14] MEDS: Sodium Chloride 0.9% 1,000 ML IV SCH (07:55)
[2019-02-14] MEDS: Propofol 1,000 MG/100 ML VIAL IV PRN ×3 (08:00→21:53)
[2019-02-14] MEDS: Enoxaparin Sodium 40 MG/0.4 ML SYRINGE SC SCH (08:03)
[2019-02-14] MEDS: Pantoprazole 40 MG VIAL IVP SCH (08:03)
--- NOTE | 2019-02-14 08:16 | RAD ---
EXAM: Single view of the chest HISTORY: Ventilated patient with respiratory failure COMPARISON: 02/13/2019 FINDINGS: Single view of the chest shows an enlarged but stable cardiomediastinal silhouette. The li donny and tubes are unchanged in position. There are bilateral pleural effusions with adjacent atelectasis. The bones are unremarkable. IMPRESSION: Bilateral pleural effusions with adjacent atelectasis
--- NOTE | 2019-02-14 09:56 | PDOC.HOSPP ---
- Subjective Subjective: Remains intubated and sedated. Propofol and Fentanyl remain on APR. Levophed has been weaned off. Remains on SIMV/PEEP of 5/FIO2 30%. No overnight reported issues. - Objective Vital Signs & Weight: Vital Signs (12 hours) Temp Pulse Resp BP Pulse Ox 02/14/19 08:00 20 99 02/14/19 07:00 98.7 F 02/14/19 06:52 83 134/78 02/14/19 06:48 70 23 H 93 L 02/14/19 06:00 16 02/14/19 04:00 98.9 F 16 02/14/19 03:07 61 02/14/19 03:06 95 02/14/19 02:00 24 H 02/14/19 00:00 16 02/13/19 23:17 67 98/61 02/13/19 23:00 98.8 F 02/13/19 22:59 99 02/13/19 22:00 18 Weight Admit Weight 138 lb Weight 142 lb 3.17 oz Most Recent Monitor Data Heart Rate from ECG 71 NIBP 108/62 NIBP BP-Mean 77 Respiration from ECG 20 SpO2 98 I&O: 02/13/19 02/14/19 02/15/19 06:59 06:59 06:59 Intake Total 323.3 4873.4 100 Output Total 530 1772 70 Balance -206.7 3101.4 30 Result Diagrams: 02/14/19 03:56 02/14/19 03:56 Hospitalist ROS - Review of Systems ROS unobtainable: due to endotracheal tube - Medication Medications: Active Medications Generic Name Dose Route Start Last Admin Trade Name Mattq PRN Reason Stop Dose Admin Albuterol/Ipratropium 3 ml 02/13/19 10:30 02/14/19 06:48 Duoneb NEB 3 ml [id number] GAMAL Administration Arformoterol Tartrate 15 mcg 02/13/19 18:30 02/14/19 06:50 Brovana NEB 15 mcg BID-RT GAMAL Administration Budesonide 0.5 mg 02/13/19 18:30 02/14/19 06:50 Pulmicort Neb Solution INH 0.5 mg BID-RT GAMAL Administration Enoxaparin Sodium 40 mg 02/13/19 09:00 02/14/19 08:03 Lovenox SC 40 mg 0900 GAMAL Administration Vancomycin HCl 1 gm/ Device 200 mls @ 200 mls/hr 02/13/19 15:00 02/13/19 14: 09 IVPB 200 mls 1500 GAMAL Administration Norepinephrine Bitartrate 250 mls @ 0 mls/hr 02/12/19 17:15 02/12/19 18:48 Levophed IVPB 250 mls INF GAMAL Administration Protocol Titrate Sodium Chloride 1,000 mls @ 100 mls/hr 02/13/19 09:00 02/14/19 07:55 Normal Saline 0.9% IV 1,000 mls .Q10H GAMAL Administration Piperacillin Sod/Tazobactam 100 mls @ 200 mls/hr 02/13/19 14:00 02/14/19 07: 54 Sod 3.375 gm/ Sodium Chloride IVPB 100 mls 0200,0800,1400,2000 GAMAL Administration Lorazepam 2 mg 02/12/19 18:09 02/14/19 07:55 Ativan SLOW IVP 03/14/19 18:09 2 mg Q1H PRN Administration Breakthrough agitation Methylprednisolone Sodium Succinate 20 mg 02/13/19 12:00 02/14/19 07:14 Solu-Medrol IVP 20 mg Q6HR GAMAL Administration Pantoprazole Sodium 40 mg 02/13/19 09:00 02/14/19 08:03 Protonix IVP 40 mg DAILY GAMAL Administration Propofol 1,000 mg 02/12/19 18:09 02/14/19 08:00 Diprivan IV 03/14/19 18:09 1,000 mg INF PRN Administration TO ACHIEVE GOAL RASS Protocol - Exam General - other findings: Intubated and sedated Eye: anicteric sclera ENT: normocephalic atraumatic Neck: supple, no JVD Heart: no murmur, no gallops, no rubs, normal peripheral pulses Respiratory: CTAB, no wheezes, no rales Gastrointestinal: soft, non-tender, non-distended Neurological: cranial nerve grossly intact, no focal deficits Musculoskeletal: diffuse muscle atrophy Hosp A/P (1) Acute respiratory failure Code(s): J96.00 - ACUTE RESPIRATORY FAILURE, UNSP W HYPOXIA OR HYPERCAPNIA Status: Acute (2) Shock Code(s): R57.9 - SHOCK, UNSPECIFIED Status: Acute (3) History of intracerebral hemorrhage without residual deficit Code(s): Z86.79 - PERSONAL HISTORY OF OTHER DISEASES OF THE CIRCULATORY SYSTEM Status: Chronic (4) COPD (chronic obstructive pulmonary disease) Status: Chronic (5) PAF (paroxysmal atrial fibrillation) Code(s): I48.0 - PAROXYSMAL ATRIAL FIBRILLATION Status: Chronic (6) Dementia Code(s): F03.90 - UNSPECIFIED DEMENTIA WITHOUT BEHAVIORAL DISTURBANCE Status: Chronic (7) HLD (hyperlipidemia) Code(s): E78.5 - HYPERLIPIDEMIA, UNSPECIFIED Status: Chronic Qualifiers: (8) HTN (hypertension) Code(s): I10 - ESSENTIAL (PRIMARY) HYPERTENSION Status: Chronic Qualifiers: (9) Coronary artery disease Code(s): I25.10 - ATHSCL HEART DISEASE OF [place] CORONARY ARTERY W/O ANG PCTRS Status: Acute - Plan Continue mechanical ventilation as per pulmonary reccs Daily spontaneous breathing trials CXR showing pleural effusions, will add on IV lasix today Budensodine and DuoNeb as per pulm Light sedation to RASS -2 Continue Vancomycin and Zosyn Shock septic in nature due to pneumonia DVT Prophylaxis: SCDs, avoid AC as hx of ICH one month ago Code Status: Full Disposition: Continue care in CCU. Tx of pneumonia/shock. Contineu Mech roslyn per pulmonary.
[2019-02-14] MEDS ORDERED: Furosemide 40 MG/4 ML VIAL ONE (10:20)
[2019-02-14] MEDS ORDERED: Sodium Bicarbonate Tab 325 MG TAB PER TUBE PRN (11:10)
[2019-02-14] MEDS ORDERED: Pancrelipase DR 12000 1 CAP FS PRN (11:10)
[2019-02-14] MEDS ORDERED: Dextrose 5% in Water 1,000 ML IV SCH (11:30)
[2019-02-14] MEDS ORDERED: Furosemide 40 MG/4 ML VIAL SLOW IVP SCH (11:30)
--- NOTE | 2019-02-14 11:58 | PRG ---
DATE OF SERVICE: 02/14/2019 SERVICE: Pulmonary Medicine. INTERVAL HISTORY: The patient is doing okay from Respiratory standpoint. Oxygen requirements have actually gone up a little bit. The patient is off pressors now. IV fluids have been continued, but diuretics have been initiated. Otherwise, there has been no interval change to his condition. PHYSICAL EXAMINATION: VITAL SIGNS: Afebrile, pulse 91, blood pressure 127/68, respirations 29, and saturation 93%, currently on 30% FiO2 and a PEEP of 7. GENERAL: The patient is intubated, sedated. HEENT: Normocephalic and atraumatic. Sclerae white. Conjunctivae pink. Oral mucosa is moist without lesions. LUNGS: Decent air entry with no prolonged expiratory phase or wheezing present. HEART: Normal rate regular. ABDOMEN: Soft, nontender, and nondistended. Bowel sounds are positive. MUSCULOSKELETAL: No cyanosis or clubbing. No pitting in the bilateral lower extremities. LABORATORIES: WBC 9.0, hemoglobin 11.3, and platelets 132,000. The pH 7.41, pCO2 of 37, PO2 of 46 corresponding to saturation of 82%. Basic metabolic profile is completely unremarkable. Blood cultures x2, respiratory culture, and urine culture all negative to date. IMAGING: Chest x-ray demonstrates increased bibasilar infiltrates. My suspicion is that there is some layering effusion present. I cannot exclude the possibility of an overt consolidating lesion. Endotracheal tube remains in good position. There is a left subclavian central venous catheter that terminates in excellent position. Enteric catheter courses below the level of the diaphragm. Echocardiogram demonstrates a small pericardial effusion with normal right ventricular size and function and a normal ejection fraction and trivial valvular abnormalities. ASSESSMENT: 1. Acute hypoxic respiratory failure. 2. Healthcare-associated pneumonia. 3. Intracranial hemorrhage, history of. 4. Chronic obstructive pulmonary disease with minimal exacerbation. 5. Debility. DISCUSSION AND PLAN: The patient will remain intubated for additional 24 hours as I do not think that he can clear secretions currently. We will continue with antibiotics, steroids, and nebulized medications. IV fluids will be interrupted as he has been off pressors now. We will start to gently diurese him through time if he can tolerate it. He is tolerating tube feeds. As such, all medications that will be be converted over to oral. Pulmonary/Critical Care will follow along. Small adjustments have been made to the ventilator. CRITICAL CARE TIME: 30 minutes. Job ID: [id number] MTDD
[2019-02-14 15:02] LABS: Vancomycin, Trough 5.4 ug/mL
[2019-02-14] MEDS: Vancomycin HCl 1.25 GM in Sodium Chloride 0.9% 250 ML 250 ML IVPB SCH (16:16)
[2019-02-14] MEDS: Vancomycin HCl 1 GM in Premix Bag 1 BAG IVPB SCH (19:26)
[2019-02-15] MEDS: Piperacillin/Tazobactam 3.375 GM in Sodium Chloride 0.9% 100 ML IVPB SCH ×4 (01:53→20:43)
[2019-02-15] MEDS: Propofol 1,000 MG/100 ML VIAL IV PRN ×3 (04:03→18:18)
[2019-02-15 04:17] LABS: Anion Gap 13 mmol/L (10-20); BUN (Urea Nitrogen) 18 mg/dL (8.4-25.7); Calc. Creatinine Clearance 62 mL/min (70-130); Calcium 8.8 mg/dL (7.8-10.44); Carbon Dioxide 25 mmol/L (23-31); Chloride 110 mmol/L (98-107); Estimated GFR-MDRD Greater than 90; Glucose 97 mg/dL (83-110); Magnesium 2.1 mg/dL (1.6-2.6); Potassium 3.5 mmol/L (3.5-5.1); Sodium 144 mmol/L (136-145)
[2019-02-15 04:24] LABS: Phosphorus 1.7 mg/dL (2.3-4.7)
[2019-02-15] MEDS: Potassium Chloride 40 MEQ in Premix Bag 1 BAG IVPB PRN (04:35)
[2019-02-15] MEDS: PHOS-NAK 1 PKT PACK PO PRN ×3 (04:36→12:11)
[2019-02-15] MEDS: Budesonide 0.5 MG/2 ML NEB INH SCH ×2 (06:54→18:20)
--- NOTE | 2019-02-15 07:59 | RAD ---
Chest AP view INDICATION: Daily cc examination COMPARISON: Prior exam dated February 14, 2019 FINDINGS: Lungs:Bibasilar opacities persist Cardiac silhouette:Mild cardiomegaly is stable Pulmonary vasculature:Mild pulmonary vascular congestion remains Pleural spaces:Small bilateral pleural effusions persist Upper abdomen:No abnormality seen. Osseous structures: No acute osseous abnormality. Additional findings:None. IMPRESSION: Stable exam
[2019-02-15] MEDS: Furosemide 40 MG/4 ML VIAL SLOW IVP SCH (08:57)
[2019-02-15] MEDS: predniSONE 20 MG TAB PO SCH (08:57)
[2019-02-15] MEDS: Pantoprazole 40 MG VIAL IVP SCH (08:57)
[2019-02-15 09:24] LABS: Actual Bicarbonate (HCO3a) 25.8 mEq/L (22-28); Base Excess (BEa) 2.1 mEq/L (-2.0 to +3.0); CO2 Tension 36.7 mmHg (35.0-45.0); Calcium, Ionized 1.23 mmol/L (1.12-1.30); Carboxyhemoglobin (COHb) 0.6 gm% (0.0-3.0); Hemoglobin (Hb) 12.2 g/dL (14.0-18.0); O2 Tension (PaO2) 64.2 mmHg (> 60.0); Potassium - ABG Lab 3.66 mmol/L (3.70-5.30); pH, Arterial 7.46 (7.35-7.45)
[2019-02-15 09:26] LABS: ALV-art Gradient 96.695 (0-20); Puncture Site LRA
[2019-02-15] MEDS: Enoxaparin Sodium 40 MG/0.4 ML SYRINGE SC SCH (10:08)
[2019-02-15] MEDS: Morphine 4 MG/ML VIAL SLOW IVP PRN ×2 (10:13→12:01)
--- NOTE | 2019-02-15 10:14 | PRG ---
DATE OF SERVICE: 02/15/2019 TIME SPENT: 35 minutes critical care time. SUBJECTIVE: The patient remains intubated on mechanical ventilation. There have been no acute changes overnight. OBJECTIVE: VITAL SIGNS: His temperature is 99.1, pulse 83, blood pressure 135/85, O2 saturation 98%. He is sedated on mechanical ventilation. HEENT: Unremarkable. NECK: No adenopathy or JVD. LUNGS: He has poor air movement. He has difficulty triggering the ventilator despite effort. He has diffuse rhonchi. CARDIAC: S1 and S2. Regular. ABDOMEN: Soft. EXTREMITIES: No edema. LABORATORY DATA: Sodium 144, potassium 3.5, chloride 110, CO2 of 25, BUN 18, creatinine 0.8, glucose 97, phosphorus 1.7. White blood cell count 9, hematocrit 36.5, and platelet count 132. PH of 7.46, pCO2 of 36, pO2 of 64, on SIMV rate 13, tidal volume 450, PEEP 7, pressure support 19, FiO2 of 29%. IMAGING STUDIES: His x-ray shows no acute changes. He has bibasilar atelectasis. ASSESSMENT: Mr. Brunson has end-stage chronic obstructive pulmonary disease, and now, is in acute on chronic respiratory failure, on mechanical ventilation without evidence of improvement. In reality, this patient has been near the end of his life for quite some time. I do not think there is much hope of returning to his previous baseline. Apparently, he is estranged from his family. I will ask Palliative Care to get involved and see if they can identify anyone who is going to be making medical decisions for the patient. I would suggest converting him over to a palliative state and focus on comfort rather than interventions that are not going to do anything to prolong his life. For the time being, he remains on mechanical ventilation. I am holding enoxaparin because of bleeding from his [place]. He continues on steroids, nebulization treatments, and antibiotics. Job ID: [id number]
[2019-02-15] MEDS: Scopolamine 1.5 mg/72 hour Patch TOP SCH (11:15)
[2019-02-15] MEDS: fentaNYL Citrate/PF 2,000 MCG in Sodium Chloride 0.9% 60 ML IV SCH (12:09)
[2019-02-15] MEDS: Arformoterol 15 MCG/2 ML NEB NEB SCH ×2 (13:33→18:21)
[2019-02-15] MEDS: Sodium Chloride 0.9% 1,000 ML IV SCH (14:21)
[2019-02-15] MEDS: Vancomycin HCl 1.25 GM in Sodium Chloride 0.9% 250 ML 250 ML IVPB SCH (14:49)
--- NOTE | 2019-02-15 14:52 | PDOC.HOSPP ---
- Subjective Encounter Date: 02/15/19 Encounter Time: 16:00 Subjective: is on vent, not in distress. Barely awakens to touch - Objective Vital Signs & Weight: Vital Signs (12 hours) Temp Pulse Resp BP Pulse Ox 02/15/19 14:20 70 98/65 02/15/19 14:19 71 35 H 99 02/15/19 14:00 36 H 02/15/19 12:00 98.6 F 02/15/19 11:19 80 124/74 02/15/19 11:18 80 35 H 96 02/15/19 10:00 38 H 02/15/19 08:00 98.7 F 02/15/19 06:49 81 120/73 02/15/19 06:46 78 21 H 98 02/15/19 06:00 34 H 02/15/19 04:00 99.1 F 02/15/19 03:05 76 Weight Admit Weight 138 lb Weight 136 lb 0.403 oz Most Recent Monitor Data Heart Rate from ECG 72 NIBP 98/65 NIBP BP-Mean 76 Respiration from ECG 25 SpO2 100 I&O: 02/14/19 02/15/19 02/16/19 06:59 06:59 06:59 Intake Total 4873.4 2403 140 Output Total 1772 3180 2132 Balance 3101.4 -777 -1995 Result Diagrams: 02/14/19 03:56 02/15/19 03:13 Hospitalist ROS - Medication Medications: Active Medications Generic Name Dose Route Start Last Admin Trade Name Freq PRN Reason Stop Dose Admin Albuterol/Ipratropium 3 ml 02/13/19 10:30 02/15/19 14:19 Duoneb NEB 3 ml [id number] GAMAL Administration Arformoterol Tartrate 15 mcg 02/13/19 18:30 02/15/19 13:33 Brovana NEB Not Given BID-RT GAMAL Budesonide 0.5 mg 02/13/19 18:30 02/15/19 06:54 Pulmicort Neb Solution INH 0.5 mg BID-RT GAMAL Administration Furosemide 40 mg 02/15/19 09:00 02/15/19 08:57 Lasix SLOW IVP 40 mg DAILY GAMAL Administration Fentanyl Citrate 2,000 mcg/ 100 mls @ 0 mls/hr 02/12/19 18:09 02/15/19 12:09 Sodium Chloride IV 03/14/19 18:09 100 mls INF GAMAL Administration Protocol Per Protocol Potassium Chloride 40 meq/ 100 mls @ 50 mls/hr 02/13/19 08:53 02/15/19 04:35 Device IVPB 100 mls ASDIR PRN Administration FOR SERUM K+ 2.5 - 3.5 Piperacillin Sod/Tazobactam 100 mls @ 200 mls/hr 02/13/19 14:00 02/15/19 14: 46 Sod 3.375 gm/ Sodium Chloride IVPB 100 mls 0200,0800,1400,2000 GAMAL Administration Vancomycin HCl 1.25 gm/ Sodium 250 mls @ 166.667 mls/hr 02/14/19 16:00 14:49 Chloride IVPB 250 mls 1600 GAMAL Administration Sodium Chloride 1,000 mls @ 20 mls/hr 02/15/19 13:15 02/15/19 14:21 Normal Saline 0.9% IV Not Given .Q24H GAMAL TKO Lorazepam 2 mg 02/12/19 18:09 02/14/19 14:35 Ativan SLOW IVP 03/14/19 18:09 2 mg Q1H PRN Administration Breakthrough agitation Miscellaneous Medication 1 pkt 02/13/19 08:53 02/15/19 12:11 Phos-Nak PO 1 pkt TIDPRN PRN Administration FOR PHOS LEVEL 1.0 - 1.8 Morphine Sulfate 4 mg 02/15/19 09:38 02/15/19 12:01 Morphine SLOW IVP 4 mg Q1H PRN Administration cough Pantoprazole Sodium 40 mg 02/13/19 09:00 02/15/19 08:57 Protonix IVP 40 mg DAILY GAMAL Administration Prednisone 40 mg 02/15/19 08:00 02/15/19 08:57 Prednisone PO 40 mg QAM-WM GAMAL Administration Propofol 1,000 mg 02/12/19 18:09 02/15/19 10:34 Diprivan IV 03/14/19 18:09 1,000 mg INF PRN Administration TO ACHIEVE GOAL RASS Protocol Scopolamine 1.5 mg 02/15/19 11:00 02/15/19 11:15 Transderm Scop TOP 1.5 mg Q3D GAMAL Administration - Exam General Appearance: ill appearing Eye: anicteric sclera ENT: no oropharyngeal lesions, dry oral mucosa Neck: supple, no JVD Heart: RRR, no murmur Respiratory: no wheezes, no rales, rhonchi Gastrointestinal: soft, non-tender, non-distended, normal bowel sounds Extremities: no cyanosis, no edema Neurological: cranial nerve grossly intact, no focal deficits Hosp A/P (1) COPD (chronic obstructive pulmonary disease) Status: Chronic Qualifiers: COPD type: COPD with acute exacerbation Qualified Code(s): J44.1 - Chronic obstructive pulmonary disease with (acute) exacerbation (2) Acute respiratory failure Code(s): J96.00 - ACUTE RESPIRATORY FAILURE, UNSP W HYPOXIA OR HYPERCAPNIA Status: Acute Qualifiers: Respiratory failure complication: hypoxia and hypercapnia Qualified Code(s) : J96.01 - Acute respiratory failure with hypoxia; J96.02 - Acute respiratory failure with hypercapnia (3) Coronary artery disease Code(s): I25.10 - ATHSCL HEART DISEASE OF [place] CORONARY ARTERY W/O ANG PCTRS Status: Chronic Qualifiers: Coronary Disease-Associated Artery/Lesion type: [place] artery [place] vs. transplanted heart: [place] heart Associated angina: without angina Qualified Code(s): I25.10 - Atherosclerotic heart disease of [place] coronary artery without angina pectoris (4) History of intracerebral hemorrhage without residual deficit Code(s): Z86.79 - PERSONAL HISTORY OF OTHER DISEASES OF THE CIRCULATORY SYSTEM Status: Chronic (5) Prostate CA Code(s): C61 - MALIGNANT NEOPLASM OF PROSTATE Status: Chronic (6) Dementia Code(s): F03.90 - UNSPECIFIED DEMENTIA WITHOUT BEHAVIORAL DISTURBANCE Status: Chronic Qualifiers: Dementia type: Alzheimer's disease (7) HLD (hyperlipidemia) Code(s): E78.5 - HYPERLIPIDEMIA, UNSPECIFIED Status: Chronic Qualifiers: (8) HTN (hypertension) Code(s): I10 - ESSENTIAL (PRIMARY) HYPERTENSION Status: Chronic Qualifiers: (9) PAF (paroxysmal atrial fibrillation) Code(s): I48.0 - PAROXYSMAL ATRIAL FIBRILLATION Status: Chronic - Plan is on vanc and zosyn weaning per pulm adv, palliative care has been consulted in view of poor prognosis and deconditioning family comtemplating DNAR and withdrawal of care, has a niece likely poa, palliative care looking into it. likely has end stage copd continue zeeshan olsena, pulmicort, lasix, protonix and prednisone prognosis guarded has hematuria this am/overnight, got resolved, is off anticoagulants now.
[2019-02-16] MEDS: Propofol 1,000 MG/100 ML VIAL IV PRN ×4 (01:14→23:39)
[2019-02-16] MEDS: Piperacillin/Tazobactam 3.375 GM in Sodium Chloride 0.9% 100 ML IVPB SCH ×4 (01:21→20:50)
[2019-02-16 04:20] LABS: Anion Gap 10 mmol/L (10-20); BUN (Urea Nitrogen) 18 mg/dL (8.4-25.7); Calc. Creatinine Clearance 64 mL/min (70-130); Calcium 8.9 mg/dL (7.8-10.44); Carbon Dioxide 30 mmol/L (23-31); Chloride 109 mmol/L (98-107); Estimated GFR-MDRD Greater than 90; Glucose 111 mg/dL (83-110); Magnesium 2.1 mg/dL (1.6-2.6); Potassium 3.5 mmol/L (3.5-5.1); Sodium 145 mmol/L (136-145)
[2019-02-16] MEDS: Potassium Chloride 40 MEQ in Premix Bag 1 BAG IVPB PRN (05:53)
[2019-02-16 06:20] LABS: Phosphorus 2.7 mg/dL (2.3-4.7)
[2019-02-16] MEDS: Budesonide 0.5 MG/2 ML NEB INH SCH ×2 (06:49→18:32)
[2019-02-16] MEDS: Arformoterol 15 MCG/2 ML NEB NEB SCH ×2 (06:49→18:31)
[2019-02-16 07:24] LABS: Actual Bicarbonate (HCO3a) 29.5 mEq/L (22-28); Base Excess (BEa) 4.5 mEq/L (-2.0 to +3.0); CO2 Tension 45.9 mmHg (35.0-45.0); Calcium, Ionized 1.25 mmol/L (1.12-1.30); Carboxyhemoglobin (COHb) 0.5 gm% (0.0-3.0); Hemoglobin (Hb) 11.1 g/dL (14.0-18.0); O2 Tension (PaO2) 62.1 mmHg (> 60.0); Potassium - ABG Lab 4.04 mmol/L (3.70-5.30); pH, Arterial 7.43 (7.35-7.45)
[2019-02-16 07:33] LABS: ALV-art Gradient 130.075 (0-20); Puncture Site LRA
--- NOTE | 2019-02-16 08:33 | PRG ---
DATE OF SERVICE: 02/16/2019 TIME SPENT: 35 minutes of critical care time. SUBJECTIVE: The patient remains intubated on mechanical ventilation. There have been no acute changes overnight. OBJECTIVE: VITAL SIGNS: Temperature is 98.0, pulse 61, blood pressure 109/66, and O2 saturation 100%. A 24-hour intake 2797, output 2880. HEENT: Unremarkable. NECK: No adenopathy or JVD. LUNGS: Clear anteriorly without wheezing. CARDIAC: S1 and S2, regular. ABDOMEN: Soft. EXTREMITIES: No edema. DIAGNOSTIC STUDIES: ABG; pH 7.43, pCO2 of 45, and pO2 of 62, it is on SIMV rate 16, tidal volume 450, PEEP 7, pressure support 15, FiO2 of 35%. Sodium 145, potassium 3.5, chloride 109, CO2 of 30, BUN 18, creatinine 0.7, and glucose 111. Chest x-ray shows no significant change. ASSESSMENT: 1. Acute on chronic hypoxic respiratory failure, requiring mechanical ventilation. 2. End-stage chronic obstructive pulmonary disease. 3. Hematuria. PLAN: Palliative Care has apparently identified a family member who is contacting another family member. The patient has been made DNR. I would expect a compassionate extubation once the family is in agreement. In the meantime, we are continuing his antibiotics, steroids, nebulization treatments, and mechanical ventilation. Again, his prognosis is extremely poor for functional recovery. Job ID: [id number]
[2019-02-16] MEDS: Pantoprazole 40 MG VIAL IVP SCH (09:35)
[2019-02-16] MEDS: Furosemide 40 MG/4 ML VIAL SLOW IVP SCH (09:35)
--- NOTE | 2019-02-16 09:36 | RAD ---
CHEST ONE VIEW: INDICATIONS: Daily CCU examination on ventilation. COMPARISON: 02/15/2019 FINDINGS: There is stable mild cardiomegaly and bibasilar air space opacities. The patient remains intubated wi th left subclavian central venous catheter placement and gastric catheter placement. No pneumothorax is evident. Chronic osseous changes are stable appearing. Tiny bilateral pleural effusions persist. IMPRESSION: Stable examination. POS: OFF
[2019-02-16] MEDS: predniSONE 20 MG TAB PO SCH (09:40)
[2019-02-16] MEDS: Sodium Chloride 0.9% 1,000 ML IV SCH (16:57)
--- NOTE | 2019-02-16 17:48 | PDOC.HOSPP ---
- Subjective Encounter Date: 02/16/19 Encounter Time: 11:45 Subjective: on vent, not oriented - Objective Vital Signs & Weight: Vital Signs (12 hours) Temp Pulse Resp BP Pulse Ox 02/16/19 17:00 99.4 F 02/16/19 16:00 30 H 02/16/19 14:21 72 103/65 02/16/19 14:20 76 31 H 99 02/16/19 14:00 21 H 02/16/19 13:00 99.0 F 02/16/19 12:00 13 02/16/19 10:31 70 123/72 02/16/19 10:29 70 23 H 97 02/16/19 10:00 13 02/16/19 09:00 99.3 F 02/16/19 08:00 13 02/16/19 06:51 62 109/66 02/16/19 06:48 61 25 H 99 02/16/19 06:00 13 Weight Admit Weight 138 lb Weight 134 lb 4.184 oz Most Recent Monitor Data Heart Rate from ECG 67 NIBP 91/64 NIBP BP-Mean 73 Respiration from ECG 21 SpO2 100 I&O: 02/15/19 02/16/19 02/17/19 06:59 06:59 06:59 Intake Total 2403 2797.1 420 Output Total 3180 2880 1610 Balance -777 -82.9 -1190 Result Diagrams: 02/14/19 03:56 02/16/19 03:24 Hospitalist ROS - Medication Medications: Active Medications Generic Name Dose Route Start Last Admin Trade Name Freq PRN Reason Stop Dose Admin Albuterol/Ipratropium 3 ml 02/13/19 10:30 02/16/19 14:20 Duoneb NEB 3 ml [id number] GAMAL Administration Arformoterol Tartrate 15 mcg 02/13/19 18:30 02/16/19 06:49 Brovana NEB 15 mcg BID-RT GAMAL Administration Budesonide 0.5 mg 02/13/19 18:30 02/16/19 06:49 Pulmicort Neb Solution INH 0.5 mg BID-RT GAMAL Administration Furosemide 40 mg 02/15/19 09:00 02/16/19 09:35 Lasix SLOW IVP 40 mg DAILY GAMAL Administration Fentanyl Citrate 2,000 mcg/ 100 mls @ 0 mls/hr 02/12/19 18:09 02/15/19 12:09 Sodium Chloride IV 03/14/19 18:09 100 mls INF GAMAL Administration Protocol Per Protocol Potassium Chloride 40 meq/ 100 mls @ 50 mls/hr 02/13/19 08:53 02/16/19 05:53 Device IVPB 100 mls ASDIR PRN Administration FOR SERUM K+ 2.5 - 3.5 Piperacillin Sod/Tazobactam 100 mls @ 200 mls/hr 02/13/19 14:00 02/16/19 13: 23 Sod 3.375 gm/ Sodium Chloride IVPB 100 mls 0200,0800,1400,2000 GAMAL Administration Sodium Chloride 1,000 mls @ 20 mls/hr 02/15/19 13:15 02/16/19 16:57 Normal Saline 0.9% IV 1,000 mls .Q24H GAMAL Administration TKO Lorazepam 2 mg 02/12/19 18:09 02/14/19 14:35 Ativan SLOW IVP 03/14/19 18:09 2 mg Q1H PRN Administration Breakthrough agitation Miscellaneous Medication 1 pkt 02/13/19 08:53 02/15/19 12:11 Phos-Nak PO 1 pkt TIDPRN PRN Administration FOR PHOS LEVEL 1.0 - 1.8 Morphine Sulfate 4 mg 02/15/19 09:38 02/15/19 12:01 Morphine SLOW IVP 4 mg Q1H PRN Administration cough Pantoprazole Sodium 40 mg 02/13/19 09:00 02/16/19 09:35 Protonix IVP 40 mg DAILY GAMAL Administration Prednisone 40 mg 02/15/19 08:00 02/16/19 09:40 Prednisone PO 40 mg QAM-WM GAMAL Administration Propofol 1,000 mg 02/12/19 18:09 02/16/19 16:40 Diprivan IV 03/14/19 18:09 1,000 mg INF PRN Administration TO ACHIEVE GOAL RASS Protocol Scopolamine 1.5 mg 02/15/19 11:00 02/15/19 11:15 Transderm Scop TOP 1.5 mg Q3D GAMAL Administration - Exam General Appearance: ill appearing Eye: PERRL, anicteric sclera ENT: no oropharyngeal lesions, dry oral mucosa Neck: supple, no JVD Heart: RRR, no murmur Respiratory: no wheezes, no rales, rhonchi Gastrointestinal: soft, non-tender, non-distended, normal bowel sounds Extremities: no cyanosis, no edema Neurological: cranial nerve grossly intact, no focal deficits Hosp A/P (1) COPD (chronic obstructive pulmonary disease) Status: Chronic Qualifiers: COPD type: COPD with acute exacerbation Qualified Code(s): J44.1 - Chronic obstructive pulmonary disease with (acute) exacerbation (2) Acute respiratory failure Code(s): J96.00 - ACUTE RESPIRATORY FAILURE, UNSP W HYPOXIA OR HYPERCAPNIA Status: Acute Qualifiers: Respiratory failure complication: hypoxia and hypercapnia Qualified Code(s) : J96.01 - Acute respiratory failure with hypoxia; J96.02 - Acute respiratory failure with hypercapnia (3) Coronary artery disease Code(s): I25.10 - ATHSCL HEART DISEASE OF [place] CORONARY ARTERY W/O ANG PCTRS Status: Chronic Qualifiers: Coronary Disease-Associated Artery/Lesion type: [place] artery [place] vs. 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 Code(s): Z86.79 - PERSONAL HISTORY OF OTHER DISEASES OF THE CIRCULATORY SYSTEM Status: Chronic (5) Prostate CA Code(s): C61 - MALIGNANT NEOPLASM OF PROSTATE Status: Chronic (6) Dementia Code(s): F03.90 - UNSPECIFIED DEMENTIA WITHOUT BEHAVIORAL DISTURBANCE Status: Chronic Qualifiers: Dementia type: Alzheimer's disease (7) HLD (hyperlipidemia) Code(s): E78.5 - HYPERLIPIDEMIA, UNSPECIFIED Status: Chronic Qualifiers: (8) HTN (hypertension) Code(s): I10 - ESSENTIAL (PRIMARY) HYPERTENSION Status: Chronic Qualifiers: (9) PAF (paroxysmal atrial fibrillation) Code(s): I48.0 - PAROXYSMAL ATRIAL FIBRILLATION Status: Chronic - Plan is on vanc and zosyn weaning per pulm adv, palliative care is seeing him DNAR family comtemplating withdrawal of care, has a niece likely poa, palliative care looking into it. has end stage copd continue nebs, brovana, pulmicort, lasix, protonix and prednisone prognosis guarded had hematuria 02/15/2019, got resolved, is off anticoagulants now.
[2019-02-17] MEDS: fentaNYL Citrate/PF 2,000 MCG in Sodium Chloride 0.9% 60 ML IV SCH (00:53)
[2019-02-17] MEDS: Piperacillin/Tazobactam 3.375 GM in Sodium Chloride 0.9% 100 ML IVPB SCH ×4 (01:12→19:53)
[2019-02-17 04:52] LABS: Phosphorus 2.6 mg/dL (2.3-4.7)
[2019-02-17 04:56] LABS: Anion Gap 9 mmol/L (10-20); BUN (Urea Nitrogen) 18 mg/dL (8.4-25.7); Calc. Creatinine Clearance 61 mL/min (70-130); Carbon Dioxide 33 mmol/L (23-31); Chloride 106 mmol/L (98-107); Estimated GFR-MDRD Greater than 90; Glucose 118 mg/dL (83-110); Magnesium 2.1 mg/dL (1.6-2.6); Potassium 3.6 mmol/L (3.5-5.1); Sodium 144 mmol/L (136-145)
[2019-02-17] MEDS: Budesonide 0.5 MG/2 ML NEB INH SCH ×2 (06:42→18:37)
[2019-02-17] MEDS: Arformoterol 15 MCG/2 ML NEB NEB SCH ×2 (06:42→18:36)
[2019-02-17 06:58] LABS: Actual Bicarbonate (HCO3a) 27.6 mEq/L (22-28); Base Excess (BEa) 3.8 mEq/L (-2.0 to +3.0); CO2 Tension 38.7 mmHg (35.0-45.0); Calcium, Ionized 1.25 mmol/L (1.12-1.30); Carboxyhemoglobin (COHb) 0.7 gm% (0.0-3.0); Hemoglobin (Hb) 12.5 g/dL (14.0-18.0); O2 Tension (PaO2) 66.6 mmHg (> 60.0); Potassium - ABG Lab 3.61 mmol/L (3.70-5.30); pH, Arterial 7.47 (7.35-7.45)
[2019-02-17 06:59] LABS: ALV-art Gradient 91.795 (0-20); Puncture Site LRA
[2019-02-17] MEDS: Propofol 1,000 MG/100 ML VIAL IV PRN ×2 (07:24→19:53)
[2019-02-17] MEDS: Pantoprazole 40 MG VIAL IVP SCH (09:32)
[2019-02-17] MEDS: Furosemide 40 MG/4 ML VIAL SLOW IVP SCH (09:32)
[2019-02-17] MEDS: predniSONE 20 MG TAB PO SCH (09:32)
--- NOTE | 2019-02-17 11:02 | PRG ---
DATE OF SERVICE: 02/17/2019 SERVICE: Pulmonary Medicine. INTERVAL HISTORY: The patient is doing fine from respiratory standpoint. Mentation castrejon, things have not changed much. He cannot provide any additional elements of the history currently. Otherwise, there were no events. PHYSICAL EXAMINATION: VITAL SIGNS: Afebrile, pulse 68, blood pressure 125/90, respirations are 18, and saturation 95%, currently on 29% FiO2 and a PEEP of 5. GENERAL: The patient is intubated. He is under the influence of some sedation. HEENT: Normocephalic and atraumatic. Sclerae white. Conjunctivae pink. Oral mucosa is moist without lesions. LUNGS: Very good air entry. Extensive rhonchi are present. No prolonged expiratory phase appreciated. HEART: Normal rate. Regular. ABDOMEN: Soft, nontender, and nondistended. Bowel sounds are positive. MUSCULOSKELETAL: No cyanosis or clubbing. There is diffuse 1 to 2+ pitting throughout. LABORATORY DATA: WBC 9.0, hemoglobin 11.3, and platelets are 132,000. PH of 7.47, pCO2 of 39, and pO2 of 66. Basic metabolic profile is unremarkable. Magnesium and phosphorous fall within the normal limits. Urinalysis is unremarkable. Urine culture, blood culture x2, and respiratory culture are unremarkable. IMAGING DATA: Chest x-ray demonstrates no acute changes compared to prior. There is a left subclavian central venous catheter, endotracheal tube, enteric catheter coursing below the level of the diaphragm. Interstitial markings are pronounced. ASSESSMENT: 1. Acute hypoxic respiratory failure. 2. Chronic obstructive pulmonary disease. 3. 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 DISCUSSION AND RECOMMENDATIONS: At this point, we will continue supportive care including antibiotics, steroids, and nebulized medications. My expectations are that over the next 24 to 48 hours, the family will convene to proceed with compassionate extubation. If that is not pursued, I do think that the patient will require tracheostomy, and PEG tube placement for long-term survival, though the benefit of these maneuvers are questionable. Critical care time: 30 minutes. Job ID: [id number] MTDD
--- NOTE | 2019-02-17 12:23 | PDOC.HOSPP ---
- Subjective Encounter Date: 02/17/19 Encounter Time: 08:25 Subjective: awakens to touch, on vent, does not follow verbal stimuli - Objective Vital Signs & Weight: Vital Signs (12 hours) Temp Pulse Resp BP Pulse Ox 02/17/19 10:41 89 125/90 02/17/19 10:39 76 30 H 99 02/17/19 10:00 17 02/17/19 08:00 17 02/17/19 07:00 98.6 F 02/17/19 06:44 75 114/66 02/17/19 06:41 59 L 21 H 99 02/17/19 06:00 19 02/17/19 04:00 98.5 F 22 H 02/17/19 02:26 64 122/74 02/17/19 02:00 22 H Weight Admit Weight 138 lb Weight 129 lb 13.636 oz Most Recent Monitor Data Heart Rate from ECG 79 NIBP 101/70 NIBP BP-Mean 80 Respiration from ECG 27 SpO2 98 I&O: 02/16/19 02/17/19 02/18/19 06:59 06:59 06:59 Intake Total 2797.1 2507.8 70 Output Total 2880 2231 391 Balance -82.9 276.8 -321 Result Diagrams: 02/14/19 03:56 02/17/19 03:40 Hospitalist ROS - Medication Medications: Active Medications Generic Name Dose Route Start Last Admin Trade Name Freq PRN Reason Stop Dose Admin Albuterol/Ipratropium 3 ml 02/13/19 10:30 02/17/19 10:39 Duoneb NEB 3 ml [id number] GAMAL Administration Arformoterol Tartrate 15 mcg 02/13/19 18:30 02/17/19 06:42 Brovana NEB 15 mcg BID-RT GAMAL Administration Budesonide 0.5 mg 02/13/19 18:30 02/17/19 06:42 Pulmicort Neb Solution INH 0.5 mg BID-RT GAMAL Administration Furosemide 40 mg 02/15/19 09:00 02/17/19 09:32 Lasix SLOW IVP 40 mg DAILY GAMAL Administration Fentanyl Citrate 2,000 mcg/ 100 mls @ 0 mls/hr 02/12/19 18:09 02/17/19 00:53 Sodium Chloride IV 03/14/19 18:09 100 mls INF GAMAL Administration Protocol Per Protocol Potassium Chloride 40 meq/ 100 mls @ 50 mls/hr 02/13/19 08:53 02/16/19 05:53 Device IVPB 100 mls ASDIR PRN Administration FOR SERUM K+ 2.5 - 3.5 Piperacillin Sod/Tazobactam 100 mls @ 200 mls/hr 02/13/19 14:00 02/17/19 09: 29 Sod 3.375 gm/ Sodium Chloride IVPB 100 mls 0200,0800,1400,2000 GAMAL Administration Sodium Chloride 1,000 mls @ 20 mls/hr 02/15/19 13:15 02/16/19 16:57 Normal Saline 0.9% IV 1,000 mls .Q24H GAMAL Administration TKO Lorazepam 2 mg 02/12/19 18:09 02/14/19 14:35 Ativan SLOW IVP 03/14/19 18:09 2 mg Q1H PRN Administration Breakthrough agitation Miscellaneous Medication 1 pkt 02/13/19 08:53 02/15/19 12:11 Phos-Nak PO 1 pkt TIDPRN PRN Administration FOR PHOS LEVEL 1.0 - 1.8 Morphine Sulfate 4 mg 02/15/19 09:38 02/15/19 12:01 Morphine SLOW IVP 4 mg Q1H PRN Administration cough Pantoprazole Sodium 40 mg 02/13/19 09:00 02/17/19 09:32 Protonix IVP 40 mg DAILY GAMAL Administration Prednisone 40 mg 02/15/19 08:00 02/17/19 09:32 Prednisone PO 40 mg QAM-WM GAMAL Administration Propofol 1,000 mg 02/12/19 18:09 02/17/19 07:24 Diprivan IV 03/14/19 18:09 1,000 mg INF PRN Administration TO ACHIEVE GOAL RASS Protocol Scopolamine 1.5 mg 02/15/19 11:00 02/15/19 11:15 Transderm Scop TOP 1.5 mg Q3D GAMAL Administration - Exam General Appearance: ill appearing Eye: PERRL, anicteric sclera ENT: no oropharyngeal lesions, dry oral mucosa Neck: supple, no JVD Heart: no murmur, no gallops Respiratory: no wheezes, no rales, rhonchi Gastrointestinal: soft, non-tender, non-distended, normal bowel sounds Extremities: no cyanosis, no edema Neurological: cranial nerve grossly intact, no focal deficits Hosp A/P (1) COPD (chronic obstructive pulmonary disease) Status: Chronic Qualifiers: COPD type: COPD with acute exacerbation Qualified Code(s): J44.1 - Chronic obstructive pulmonary disease with (acute) exacerbation (2) Acute respiratory failure Code(s): J96.00 - ACUTE RESPIRATORY FAILURE, UNSP W HYPOXIA OR HYPERCAPNIA Status: Acute Qualifiers: Respiratory failure complication: hypoxia and hypercapnia Qualified Code(s) : J96.01 - Acute respiratory failure with hypoxia; J96.02 - Acute respiratory failure with hypercapnia (3) Coronary artery disease Code(s): I25.10 - ATHSCL HEART DISEASE OF [place] CORONARY ARTERY W/O ANG PCTRS Status: Chronic Qualifiers: Coronary Disease-Associated Artery/Lesion type: [place] artery [place] vs. 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 Code(s): Z86.79 - PERSONAL HISTORY OF OTHER DISEASES OF THE CIRCULATORY SYSTEM Status: Chronic (5) Prostate CA Code(s): C61 - MALIGNANT NEOPLASM OF PROSTATE Status: Chronic (6) Dementia Code(s): F03.90 - UNSPECIFIED DEMENTIA WITHOUT BEHAVIORAL DISTURBANCE Status: Chronic Qualifiers: Dementia type: Alzheimer's disease (7) HLD (hyperlipidemia) Code(s): E78.5 - HYPERLIPIDEMIA, UNSPECIFIED Status: Chronic Qualifiers: (8) HTN (hypertension) Code(s): I10 - ESSENTIAL (PRIMARY) HYPERTENSION Status: Chronic Qualifiers: (9) PAF (paroxysmal atrial fibrillation) Code(s): I48.0 - PAROXYSMAL ATRIAL FIBRILLATION Status: Chronic - Plan is on vanc and zosyn not weanable per pulm, still encephalopathic, palliative care is seeing him DNAR family comtemplating withdrawal of care, has a niece likely poa, palliative care looking into it. has end stage copd continue nebs, brovana, pulmicort, lasix, protonix and prednisone prognosis guarded had hematuria 02/15/2019, got resolved, is off anticoagulants now.
[2019-02-17] MEDS: Sodium Chloride 0.9% 1,000 ML IV SCH (18:45)
[2019-02-18] MEDS: Piperacillin/Tazobactam 3.375 GM in Sodium Chloride 0.9% 100 ML IVPB SCH ×4 (01:38→20:17)
[2019-02-18] MEDS: Propofol 1,000 MG/100 ML VIAL IV PRN ×3 (03:48→17:25)
[2019-02-18 05:21] LABS: Phosphorus 2.8 mg/dL (2.3-4.7)
[2019-02-18 05:23] LABS: Anion Gap 12 mmol/L (10-20); BUN (Urea Nitrogen) 16 mg/dL (8.4-25.7); Calc. Creatinine Clearance 62 mL/min (70-130); Calcium 9.1 mg/dL (7.8-10.44); Carbon Dioxide 30 mmol/L (23-31); Chloride 105 mmol/L (98-107); Estimated GFR-MDRD Greater than 90; Glucose 97 mg/dL (83-110); Magnesium 2.1 mg/dL (1.6-2.6); Potassium 3.6 mmol/L (3.5-5.1); Sodium 143 mmol/L (136-145)
[2019-02-18] MEDS: Arformoterol 15 MCG/2 ML NEB NEB SCH ×2 (06:59→18:13)
[2019-02-18] MEDS: Budesonide 0.5 MG/2 ML NEB INH SCH ×2 (06:59→18:13)
[2019-02-18] MEDS: predniSONE 20 MG TAB PO SCH (07:58)
[2019-02-18] MEDS: Furosemide 40 MG/4 ML VIAL SLOW IVP SCH (09:20)
[2019-02-18] MEDS: Pantoprazole 40 MG VIAL IVP SCH (09:20)
[2019-02-18] MEDS: Scopolamine 1.5 mg/72 hour Patch TOP SCH (10:14)
[2019-02-18] MEDS: Potassium Chloride 40 MEQ in Premix Bag 1 BAG IVPB PRN (10:14)
--- NOTE | 2019-02-18 13:09 | PRG ---
DATE OF SERVICE: 02/18/2019 SERVICE: Pulmonary Medicine. INTERVAL HISTORY: The patient is doing fine from respiratory standpoint. That being said, he has excessive secretions. The family is trying to decide on whether or not to transition over to comfort care only. I believe they are moving in that direction. I have no family available at bedside to update. PHYSICAL EXAMINATION: VITAL SIGNS: Afebrile, pulse 66, blood pressure 100/59, respirations 19, saturation 99%, and currently on 29% FiO2 and a PEEP of 5. GENERAL: The patient is intubated. He is heavily sedated because if he does not, he will bite and cough significantly on the ventilator. HEENT: Normocephalic and atraumatic. Sclerae are white. Conjunctivae are pink. Oral mucosa is moist without lesions. LUNGS: Decent air entry. Rhonchi are present. No prolonged expiratory phase are appreciated. HEART: Normal rate. Regular. ABDOMEN: Soft, nontender, and nondistended. Bowel sounds are positive. MUSCULOSKELETAL: No cyanosis or clubbing. There is 1+ pitting in the bilateral lower extremities. LABORATORY DATA: Basic metabolic profile is completely unremarkable. His potassium is 3.6. Magnesium and phosphorous fall within the normal limits. Blood cultures x2, urine culture, and respiratory culture negative to date. ASSESSMENT: 1. Acute hypoxic respiratory failure. 2. Chronic obstructive pulmonary disease with acute exacerbation. 3. 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 DISCUSSION AND PLAN: I will put a scopolamine patch on him to help with his excessive secretions. A dose of potassium will be provided. Pulmonary/Critical Care will follow along in this location. It looks as though we may be transitioned over to comfort care in 24 to 48 hours. Critical care time: 30 minutes. Job ID: [id number] MTDD
[2019-02-18] MEDS: Sodium Chloride 0.9% 1,000 ML IV SCH (13:59)
--- NOTE | 2019-02-18 15:00 | PDOC.HOSPP ---
- Subjective Encounter Date: 02/18/19 Encounter Time: 09:20 Subjective: Pt seen for followup re: acute hypoxic and hypercapnic respiratory failure. Pt intubated, unable to complete ROS. - Objective Vital Signs & Weight: Vital Signs (12 hours) Temp Pulse Resp BP Pulse Ox 02/18/19 14:39 70 138/70 02/18/19 14:37 68 21 H 99 02/18/19 14:00 20 02/18/19 12:00 19 02/18/19 11:09 66 98/56 L 02/18/19 11:07 62 22 H 99 02/18/19 11:00 98.5 F 02/18/19 10:00 17 02/18/19 08:00 34 H 97 02/18/19 07:00 98.3 F 02/18/19 06:59 71 151/89 H 02/18/19 06:53 85 40 H 95 02/18/19 06:00 14 02/18/19 04:00 99 F 17 Weight Admit Weight 138 lb Weight 130 lb 4.691 oz Most Recent Monitor Data Heart Rate from ECG 78 NIBP 138/70 NIBP BP-Mean 92 Respiration from ECG 20 SpO2 100 I&O: 02/17/19 02/18/19 02/19/19 06:59 06:59 06:59 Intake Total 2507.8 2547 562.5 Output Total 2231 2221 1825 Balance 276.8 326 -1262.5 Result Diagrams: 02/14/19 03:56 02/18/19 04:43 Additional Labs: labs and MARs reviewed by me EKG Reviewed by me: Yes (Tele: NSR) Hospitalist ROS - Review of Systems ROS unobtainable: due to endotracheal tube - Medication Medications: Active Medications Generic Name Dose Route Start Last Admin Trade Name Freq PRN Reason Stop Dose Admin Albuterol/Ipratropium 3 ml 02/13/19 10:30 02/18/19 14:37 Duoneb NEB 3 ml [id number] GAMAL Administration Arformoterol Tartrate 15 mcg 02/13/19 18:30 02/18/19 06:59 Brovana NEB 15 mcg BID-RT GAMAL Administration Budesonide 0.5 mg 02/13/19 18:30 02/18/19 06:59 Pulmicort Neb Solution INH 0.5 mg BID-RT GAMAL Administration Furosemide 40 mg 02/15/19 09:00 02/18/19 09:20 Lasix SLOW IVP 40 mg DAILY GAMAL Administration Fentanyl Citrate 2,000 mcg/ 100 mls @ 0 mls/hr 02/12/19 18:09 02/17/19 00:53 Sodium Chloride IV 03/14/19 18:09 100 mls INF GAMAL Administration Protocol Per Protocol Potassium Chloride 40 meq/ 100 mls @ 50 mls/hr 02/13/19 08:53 02/18/19 10:14 Device IVPB 100 mls ASDIR PRN Administration FOR SERUM K+ 2.5 - 3.5 Piperacillin Sod/Tazobactam 100 mls @ 200 mls/hr 02/13/19 14:00 02/18/19 13: 59 Sod 3.375 gm/ Sodium Chloride IVPB 100 mls 0200,0800,1400,2000 GAMAL Administration Sodium Chloride 1,000 mls @ 20 mls/hr 02/15/19 13:15 02/18/19 13:59 Normal Saline 0.9% IV Not Given .Q24H GAMAL TKO Lorazepam 2 mg 02/12/19 18:09 02/14/19 14:35 Ativan SLOW IVP 03/14/19 18:09 2 mg Q1H PRN Administration Breakthrough agitation Miscellaneous Medication 1 pkt 02/13/19 08:53 02/15/19 12:11 Phos-Nak PO 1 pkt TIDPRN PRN Administration FOR PHOS LEVEL 1.0 - 1.8 Morphine Sulfate 4 mg 02/15/19 09:38 02/15/19 12:01 Morphine SLOW IVP 4 mg Q1H PRN Administration cough Pantoprazole Sodium 40 mg 02/13/19 09:00 02/18/19 09:20 Protonix IVP 40 mg DAILY GAMAL Administration Prednisone 40 mg 02/15/19 08:00 02/18/19 07:58 Prednisone PO 40 mg QAM-WM GAMAL Administration Propofol 1,000 mg 02/12/19 18:09 02/18/19 10:13 Diprivan IV 03/14/19 18:09 1,000 mg INF PRN Administration TO ACHIEVE GOAL RASS Protocol Scopolamine 1.5 mg 02/15/19 11:00 02/18/19 10:14 Transderm Scop TOP 1.5 mg Q3D GAMAL Administration - Exam General - other findings: Intubated ENT: moist mucosa ENT - other findings: ETT, OG tube Heart: RRR Respiratory: CTAB Gastrointestinal: soft Skin: no rashes Psychiatric - other findings: Unable to assess Hosp A/P (1) Acute respiratory failure Code(s): J96.00 - ACUTE RESPIRATORY FAILURE, UNSP W HYPOXIA OR HYPERCAPNIA Status: Acute Qualifiers: Respiratory failure complication: hypoxia and hypercapnia Qualified Code(s) : J96.01 - Acute respiratory failure with hypoxia; J96.02 - Acute respiratory failure with hypercapnia (2) Coronary artery disease Code(s): I25.10 - ATHSCL HEART DISEASE OF [place] CORONARY ARTERY W/O ANG PCTRS Status: Chronic Qualifiers: Coronary Disease-Associated Artery/Lesion type: [place] artery [place] vs. transplanted heart: [place] heart Associated angina: without angina Qualified Code(s): I25.10 - Atherosclerotic heart disease of [place] coronary artery without angina pectoris (3) HLD (hyperlipidemia) Code(s): E78.5 - HYPERLIPIDEMIA, UNSPECIFIED Status: Chronic Qualifiers: (4) HTN (hypertension) Code(s): I10 - ESSENTIAL (PRIMARY) HYPERTENSION Status: Chronic Qualifiers: - Plan continue IV Zosyn and vancomycin. Discussion with family re; terminal extubation tomorrow. DNAR continue nebs, brovana, pulmicort, lasix, protonix and prednisone prognosis guarded
[2019-02-18] MEDS: fentaNYL Citrate/PF 2,000 MCG in Sodium Chloride 0.9% 60 ML IV SCH (15:18)
[2019-02-19] MEDS: Piperacillin/Tazobactam 3.375 GM in Sodium Chloride 0.9% 100 ML IVPB SCH ×4 (01:47→19:53)
[2019-02-19] MEDS: Propofol 1,000 MG/100 ML VIAL IV PRN ×3 (01:48→16:53)
[2019-02-19 04:33] LABS: Anion Gap 15 mmol/L (10-20); BUN (Urea Nitrogen) 17 mg/dL (8.4-25.7); Calc. Creatinine Clearance 64 mL/min (70-130); Calcium 9.4 mg/dL (7.8-10.44); Carbon Dioxide 27 mmol/L (23-31); Chloride 105 mmol/L (98-107); Estimated GFR-MDRD Greater than 90; Glucose 114 mg/dL (83-110); Sodium 143 mmol/L (136-145)
[2019-02-19] MEDS: Budesonide 0.5 MG/2 ML NEB INH SCH ×2 (06:40→19:14)
[2019-02-19] MEDS: predniSONE 20 MG TAB PO SCH (08:09)
[2019-02-19] MEDS: Pantoprazole 40 MG VIAL IVP SCH (08:10)
--- NOTE | 2019-02-19 08:46 | PRG ---
DATE OF SERVICE: 02/19/2019 SUBJECTIVE: The patient remains intubated, on mechanical ventilation. There has been no acute changes overnight. PHYSICAL EXAMINATION: VITAL SIGNS: His pulse is 85, blood pressure 103/68, O2 saturation 100%, respiratory rate 19, temperature 98.6. HEENT: He will open his eyes. NECK: No adenopathy or JVD. LUNGS: Clear. CARDIAC: S1 and S2, regular. ABDOMEN: Soft. EXTREMITIES: Severe muscle wasting. LABORATORY DATA: Sodium 143, potassium 4.0, chloride 105, CO2 of 27, BUN 17, creatinine 0.7, glucose 114. ASSESSMENT: 1. Chronic obstructive pulmonary disease with exacerbation. 2. Acute respiratory failure, requiring mechanical ventilation. 3. 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 PLAN: I have adjusted the pressure sensitivity on his ventilator. We will try to lessen his sedation. My understanding was that the family was leaning toward extubation. I am not sure what the hold up is. Palliative care likely discussed with family again today. In the meantime, I am trying to wean him slowly off mechanical ventilation. I have stopped his daily Lasix. He will continue to be monitored. Above encompassed 35 minutes critical care time. Job ID: [id number]
[2019-02-19] MEDS: Arformoterol 15 MCG/2 ML NEB NEB SCH ×2 (10:13→19:14)
--- NOTE | 2019-02-19 10:36 | PDOC.HOSPP ---
- Subjective Encounter Date: 02/19/19 Encounter Time: 10:00 Subjective: is on vent awakens to touch per staff follows some verbal stimuli - Objective Vital Signs & Weight: Vital Signs (12 hours) Temp Pulse Resp BP Pulse Ox 02/19/19 10:13 67 132/81 02/19/19 10:12 69 17 97 02/19/19 10:00 20 02/19/19 08:00 34 H 96 02/19/19 07:00 98.6 F 02/19/19 06:41 60 103/64 02/19/19 06:39 59 L 12 97 02/19/19 06:00 11 L 02/19/19 04:00 97.9 F 18 02/19/19 02:15 62 130/73 02/19/19 02:00 21 H 02/19/19 00:00 97.7 F 17 Weight Admit Weight 138 lb Weight 127 lb 13.89 oz Most Recent Monitor Data Heart Rate from ECG 69 NIBP 132/81 NIBP BP-Mean 98 Respiration from ECG 20 SpO2 96 I&O: 02/18/19 02/19/19 02/20/19 06:59 06:59 06:59 Intake Total 2547 2594.5 160.0 Output Total 2221 2810 10 Balance 326 -215.5 150.0 Result Diagrams: 02/14/19 03:56 02/19/19 03:38 Hospitalist ROS - Medication Medications: Active Medications Generic Name Dose Route Start Last Admin Trade Name Freq PRN Reason Stop Dose Admin Albuterol/Ipratropium 3 ml 02/13/19 10:30 02/19/19 10:12 Duoneb NEB 3 ml [id number] GAMAL Administration Arformoterol Tartrate 15 mcg 02/13/19 18:30 02/19/19 10:13 Brovana NEB 15 mcg BID-RT GAMAL Administration Budesonide 0.5 mg 02/13/19 18:30 02/19/19 06:40 Pulmicort Neb Solution INH 0.5 mg BID-RT GAMAL Administration Fentanyl Citrate 2,000 mcg/ 100 mls @ 0 mls/hr 02/12/19 18:09 02/18/19 15:18 Sodium Chloride IV 03/14/19 18:09 100 mls INF GAMAL Administration Protocol Per Protocol Potassium Chloride 40 meq/ 100 mls @ 50 mls/hr 02/13/19 08:53 02/18/19 10:14 Device IVPB 100 mls ASDIR PRN Administration FOR SERUM K+ 2.5 - 3.5 Piperacillin Sod/Tazobactam 100 mls @ 200 mls/hr 02/13/19 14:00 02/19/19 08: 09 Sod 3.375 gm/ Sodium Chloride IVPB 100 mls 0200,0800,1400,2000 GAMAL Administration Sodium Chloride 1,000 mls @ 20 mls/hr 02/15/19 13:15 02/18/19 13:59 Normal Saline 0.9% IV Not Given .Q24H GAMAL TKO Lorazepam 2 mg 02/12/19 18:09 02/14/19 14:35 Ativan SLOW IVP 03/14/19 18:09 2 mg Q1H PRN Administration Breakthrough agitation Miscellaneous Medication 1 pkt 02/13/19 08:53 02/15/19 12:11 Phos-Nak PO 1 pkt TIDPRN PRN Administration FOR PHOS LEVEL 1.0 - 1.8 Morphine Sulfate 4 mg 02/15/19 09:38 02/15/19 12:01 Morphine SLOW IVP 4 mg Q1H PRN Administration cough Pantoprazole Sodium 40 mg 02/13/19 09:00 02/19/19 08:10 Protonix IVP 40 mg DAILY GAMAL Administration Prednisone 40 mg 02/15/19 08:00 02/19/19 08:09 Prednisone PO 40 mg QAM-WM GAMAL Administration Propofol 1,000 mg 02/12/19 18:09 02/19/19 01:48 Diprivan IV 03/14/19 18:09 1,000 mg INF PRN Administration TO ACHIEVE GOAL RASS Protocol Scopolamine 1.5 mg 02/15/19 11:00 02/18/19 10:14 Transderm Scop TOP 1.5 mg Q3D GAMAL Administration - Exam General Appearance: ill appearing Eye: PERRL, anicteric sclera ENT: normocephalic atraumatic, no oropharyngeal lesions Neck: supple, no JVD Heart: RRR, no murmur Respiratory: no wheezes, no rales, rhonchi Gastrointestinal: soft, non-tender, non-distended, normal bowel sounds Extremities: no cyanosis, no edema Neurological: cranial nerve grossly intact, no focal deficits Hosp A/P (1) COPD (chronic obstructive pulmonary disease) Status: Chronic Qualifiers: COPD type: COPD with acute exacerbation Qualified Code(s): J44.1 - Chronic obstructive pulmonary disease with (acute) exacerbation (2) Acute respiratory failure Code(s): J96.00 - ACUTE RESPIRATORY FAILURE, UNSP W HYPOXIA OR HYPERCAPNIA Status: Acute Qualifiers: Respiratory failure complication: hypoxia and hypercapnia Qualified Code(s) : J96.01 - Acute respiratory failure with hypoxia; J96.02 - Acute respiratory failure with hypercapnia (3) Coronary artery disease Code(s): I25.10 - ATHSCL HEART DISEASE OF [place] CORONARY ARTERY W/O ANG PCTRS Status: Chronic Qualifiers: Coronary Disease-Associated Artery/Lesion type: [place] artery [place] vs. 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 Code(s): Z86.79 - PERSONAL HISTORY OF OTHER DISEASES OF THE CIRCULATORY SYSTEM Status: Chronic (5) Prostate CA Code(s): C61 - MALIGNANT NEOPLASM OF PROSTATE Status: Chronic (6) Dementia Code(s): F03.90 - UNSPECIFIED DEMENTIA WITHOUT BEHAVIORAL DISTURBANCE Status: Chronic Qualifiers: Dementia type: Alzheimer's disease (7) HLD (hyperlipidemia) Code(s): E78.5 - HYPERLIPIDEMIA, UNSPECIFIED Status: Chronic Qualifiers: (8) HTN (hypertension) Code(s): I10 - ESSENTIAL (PRIMARY) HYPERTENSION Status: Chronic Qualifiers: (9) PAF (paroxysmal atrial fibrillation) Code(s): I48.0 - PAROXYSMAL ATRIAL FIBRILLATION Status: Chronic - Plan is on zosyn, prednisone not weanable per pulm, still encephalopathic, palliative care is seeing him DNAR family comtemplating withdrawal of care, has a niece likely poa, palliative care looking into it. has end stage copd continue nebs, brovana, pulmicort, protonix. prognosis guarded has off and on hematuria likely due to teran trauma, is off anticoagulants.
--- NOTE | 2019-02-19 15:52 | PDOC.PALCO ---
Palliative Care Consult - Consult Details Requesting Physician: Dr Hall Reason for Consult: goals of care, advance directives assistance, complex decision-making Family Members Present: None, spoke with Meenu who is MPOA over the phone - Pertinent HPI 83 year old male who recently was discharged from [facility] to a half-way. He had an increase in shortness of breath and subsequent respiratory failure. EMS was called and patient was intubated enroute to [facility]. Emergency room evaluation identified fever, but no elevated white count, and unimpressive Chest x-ray. Admitted to CCU for medical management. - Social History Smoking Status: Unknown if ever smoked Smoking: no tobacco exposure Alcohol Use: none Drug Use History: none Living Situation: half-way resident - Medications MAR Reviewed: Yes - Allergies Allergies/Adverse Reactions: Allergies Allergy/AdvReac Type Severity Reaction Status Date / Time No Known Allergies Allergy Verified 01/20/19 00:00 - Subjective Intubated, did not open eyes for me at time of assessment. - ROS Non Response: due to endotracheal tube, due to mental status - Objective Vital Signs: Vital Signs - Most Recent Temp Pulse Resp BP Pulse Ox 98.3 F 74 12 124/79 99 02/19/19 15:00 02/19/19 15:07 02/19/19 15:05 02/19/19 15:07 02/19/19 15:05 Palliative Performance Scale: 20 - Advance Directives Medical Power of Soldering Technician: Niece Meenu - Physical Exam Constitutional: encephalitic, ill appearing HEENT: moist MMs, sclera anicteric Respiratory: no wheezing, diminished lung sound Cardiovascular: RRR Gastrointestinal: positive bowel sounds, incontinent Musculoskeletal: no cyanosis, no clubbing, muscle wasting Neurology: no focal deficits Skin: cap refill <2 seconds, fragile - Problem List (1) Palliative care encounter Code(s): Z51.5 - ENCOUNTER FOR PALLIATIVE CARE Current Visit: Yes Status: Acute (2) Acute respiratory failure Code(s): J96.00 - ACUTE RESPIRATORY FAILURE, UNSP W HYPOXIA OR HYPERCAPNIA Current Visit: Yes Status: Acute Qualifiers: Respiratory failure complication: hypoxia and hypercapnia Qualified Code(s) : J96.01 - Acute respiratory failure with hypoxia; J96.02 - Acute respiratory failure with hypercapnia (3) Coronary artery disease Code(s): I25.10 - ATHSCL HEART DISEASE OF [place] CORONARY ARTERY W/O ANG PCTRS Current Visit: Yes Status: Chronic Qualifiers: Coronary Disease-Associated Artery/Lesion type: [place] artery [place] vs. 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 Code(s): Z86.79 - PERSONAL HISTORY OF OTHER DISEASES OF THE CIRCULATORY SYSTEM Current Visit: Yes Status: Chronic (5) Acute exacerbation of chronic obstructive pulmonary disease (COPD) Code(s): J44.1 - CHRONIC OBSTRUCTIVE PULMONARY DISEASE W (ACUTE) EXACERBATION Current Visit: No Status: Acute (6) H/O primary malignant neoplasm of testis Code(s): Z85.47 - PERSONAL HISTORY OF MALIGNANT NEOPLASM OF TESTIS Current Visit: No Status: Acute (7) Dementia Code(s): F03.90 - UNSPECIFIED DEMENTIA WITHOUT BEHAVIORAL DISTURBANCE Current Visit: No Status: Chronic Qualifiers: Dementia type: Alzheimer's disease (8) HLD (hyperlipidemia) Code(s): E78.5 - HYPERLIPIDEMIA, UNSPECIFIED Current Visit: No Status: Chronic Qualifiers: (9) HTN (hypertension) Code(s): I10 - ESSENTIAL (PRIMARY) HYPERTENSION Current Visit: No Status: Chronic Qualifiers: (10) PAF (paroxysmal atrial fibrillation) Code(s): I48.0 - PAROXYSMAL ATRIAL FIBRILLATION Current Visit: No Status: Chronic (11) Acute metabolic encephalopathy Code(s): G93.41 - METABOLIC ENCEPHALOPATHY Current Visit: No Status: Resolved - Plan/Recommendations Plan: Visited with patient niece who is MPOA for patient over the phone. She is going to decide tonight after talking to other family members in relation to when to compassionately patient. Revisited current medical conditions. *Compassionately extubate, will confirm "when" either tonight 02/19 or tomorrow *She is concerned in relation to burial expenses and resources, provided list of homes/resources as well as encouraged he to call affairs as he may have [place] benefits. *She states that she or patient sister may not be able to come, assured her that palliative care and spiritual care would be with patient when compassionately extubated. [45] minutes spent on this encounter with >50% of the time in counseling and coordination of care. Thank you for this very appropriate consult.
[2019-02-19] MEDS: Sodium Chloride 0.9% 1,000 ML IV SCH (16:53)
[2019-02-20] MEDS: Piperacillin/Tazobactam 3.375 GM in Sodium Chloride 0.9% 100 ML IVPB SCH (01:59)
[2019-02-20] MEDS: Propofol 1,000 MG/100 ML VIAL IV PRN ×4 (02:01→20:37)
[2019-02-20 03:44] LABS: Anion Gap 13 mmol/L (10-20); BUN (Urea Nitrogen) 19 mg/dL (8.4-25.7); Calc. Creatinine Clearance 60 mL/min (70-130); Calcium 9.2 mg/dL (7.8-10.44); Carbon Dioxide 28 mmol/L (23-31); Chloride 109 mmol/L (98-107); Estimated GFR-MDRD Greater than 90; Glucose 98 mg/dL (83-110); Sodium 146 mmol/L (136-145)
[2019-02-20] MEDS: Budesonide 0.5 MG/2 ML NEB INH SCH ×2 (06:47→19:03)
[2019-02-20 06:51] LABS: Actual Bicarbonate (HCO3a) 28.1 mEq/L (22-28); CO2 Tension 45.1 mmHg (35.0-45.0); Calcium, Ionized 1.27 mmol/L (1.12-1.30); Carboxyhemoglobin (COHb) 0.9 gm% (0.0-3.0); Hemoglobin (Hb) 12.2 g/dL (14.0-18.0); Potassium - ABG Lab 3.61 mmol/L (3.70-5.30); pH, Arterial 7.41 (7.35-7.45)
[2019-02-20 07:06] LABS: ALV-art Gradient 90.795 (0-20); O2 Tension (PaO2) 59.6 mmHg (> 60.0); Puncture Site LRA
--- NOTE | 2019-02-20 08:27 | PRG ---
DATE OF SERVICE: 02/20/2019 35 minutes critical time. SUBJECTIVE: The patient remains intubated on mechanical ventilation. There have been no acute changes overnight. PHYSICAL EXAMINATION: VITAL SIGNS: His temperature is 98.2, pulse 63, blood pressure 132/78, O2 saturation 100%. Intake 2438, output 1865. HEENT: Unremarkable. NECK: No adenopathy or JVD. CHEST: Fairly clear anteriorly. CARDIAC: S1, S2. Regular. ABDOMEN: Soft. EXTREMITIES: No edema. LABORATORY DATA: ABG; pH of 7.41, pCO2 of 45, and pO2 of 59, SIMV rate 7, tidal volume 450, PEEP 5, pressure support of 15, and FiO2 of 29%. Sodium 146, potassium 4, chloride 109, CO2 of 28, BUN 19, creatinine 0.7 glucose 98. ASSESSMENT: 1. Acute respiratory failure requiring mechanical ventilation. 2. Severe end-stage chronic obstructive pulmonary disease. 3. 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 PLAN: The power of attorney recruiter/family member is supposed to get back to us today regarding decision for terminal extubation. It seems very unlikely that this gentleman will return to his previous level of functioning. In the meantime, I have placed him on pressure support ventilation to see if he can tolerate spontaneous breathing trial. His prognosis remains extremely poor. Job ID: [id number]
[2019-02-20] MEDS: Pantoprazole 40 MG GRANULES PACKET PER TUBE SCH (08:29)
[2019-02-20] MEDS: Arformoterol 15 MCG/2 ML NEB NEB SCH ×2 (11:27→19:04)
[2019-02-20] MEDS: methylPREDNISolone Sod Succ 40 MG VIAL IVP SCH ×2 (11:46→17:32)
--- NOTE | 2019-02-20 12:06 | PDOC.HOSPP ---
- Subjective Encounter Date: 02/20/19 Encounter Time: 10:45 Subjective: on vent cpap trial awakens to touch, does not follow verbal stimuli, per staff follows some verbal stimuli has off and on hematuria in his teran - Objective Vital Signs & Weight: Vital Signs (12 hours) Temp Pulse Resp BP Pulse Ox 02/20/19 11:27 80 144/85 H 02/20/19 11:26 81 32 H 96 02/20/19 10:00 29 H 02/20/19 08:00 31 H 02/20/19 07:37 100 02/20/19 07:00 98.5 F 02/20/19 06:45 66 132/78 02/20/19 06:40 70 30 H 98 02/20/19 06:00 14 02/20/19 04:00 98.2 F 17 02/20/19 02:59 87 122/71 02/20/19 02:00 18 Weight Admit Weight 138 lb Weight 131 lb 2.801 oz Most Recent Monitor Data Heart Rate from ECG 72 NIBP 126/75 NIBP BP-Mean 92 Respiration from ECG 29 SpO2 96 I&O: 02/19/19 02/20/19 02/21/19 06:59 06:59 06:59 Intake Total 2594.5 2438.6 Output Total 2810 1865 315 Balance -215.5 573.6 -315 Result Diagrams: 02/14/19 03:56 02/20/19 03:14 Hospitalist ROS - Medication Medications: Active Medications Generic Name Dose Route Start Last Admin Trade Name Freq PRN Reason Stop Dose Admin Albuterol/Ipratropium 3 ml 02/13/19 10:30 02/20/19 11:26 Duoneb NEB 3 ml [id number] GAMAL Administration Arformoterol Tartrate 15 mcg 02/13/19 18:30 02/20/19 11:27 Brovana NEB 15 mcg BID-RT GAMAL Administration Budesonide 0.5 mg 02/13/19 18:30 02/20/19 06:47 Pulmicort Neb Solution INH 0.5 mg BID-RT GAMAL Administration Fentanyl Citrate 2,000 mcg/ 100 mls @ 0 mls/hr 02/12/19 18:09 02/18/19 15:18 Sodium Chloride IV 03/14/19 18:09 100 mls INF GAMAL Administration Protocol Per Protocol Potassium Chloride 40 meq/ 100 mls @ 50 mls/hr 02/13/19 08:53 02/18/19 10:14 Device IVPB 100 mls ASDIR PRN Administration FOR SERUM K+ 2.5 - 3.5 Sodium Chloride 1,000 mls @ 20 mls/hr 02/15/19 13:15 02/19/19 16:53 Normal Saline 0.9% IV Not Given .Q24H GAMAL TKO Lorazepam 2 mg 02/12/19 18:09 02/14/19 14:35 Ativan SLOW IVP 03/14/19 18:09 2 mg Q1H PRN Administration Breakthrough agitation Methylprednisolone Sodium Succinate 20 mg 02/20/19 12:00 02/20/19 11:46 Solu-Medrol IVP 20 mg Q6HR GAMAL Administration Miscellaneous Medication 1 pkt 02/13/19 08:53 02/15/19 12:11 Phos-Nak PO 1 pkt TIDPRN PRN Administration FOR PHOS LEVEL 1.0 - 1.8 Morphine Sulfate 4 mg 02/15/19 09:38 02/15/19 12:01 Morphine SLOW IVP 4 mg Q1H PRN Administration cough Pantoprazole Sodium 40 mg 02/20/19 09:00 02/20/19 08:29 Protonix PER TUBE 40 mg DAILY GAMAL Administration Propofol 1,000 mg 02/12/19 18:09 02/20/19 08:29 Diprivan IV 03/14/19 18:09 1,000 mg INF PRN Administration TO ACHIEVE GOAL RASS Protocol Scopolamine 1.5 mg 02/15/19 11:00 02/18/19 10:14 Transderm Scop TOP 1.5 mg Q3D GAMAL Administration - Exam General Appearance: ill appearing Eye: PERRL, anicteric sclera ENT: no oropharyngeal lesions, dry oral mucosa Neck: supple, no JVD Heart: RRR, no murmur Respiratory: no wheezes, no rales, rhonchi Gastrointestinal: soft, non-tender, non-distended, normal bowel sounds Extremities: no cyanosis, no edema Neurological: hemiplegia Hosp A/P (1) COPD (chronic obstructive pulmonary disease) Status: Chronic Qualifiers: COPD type: COPD with acute exacerbation Qualified Code(s): J44.1 - Chronic obstructive pulmonary disease with (acute) exacerbation (2) Acute respiratory failure Code(s): J96.00 - ACUTE RESPIRATORY FAILURE, UNSP W HYPOXIA OR HYPERCAPNIA Status: Acute Qualifiers: Respiratory failure complication: hypoxia and hypercapnia Qualified Code(s) : J96.01 - Acute respiratory failure with hypoxia; J96.02 - Acute respiratory failure with hypercapnia (3) Coronary artery disease Code(s): I25.10 - ATHSCL HEART DISEASE OF [place] CORONARY ARTERY W/O ANG PCTRS Status: Chronic Qualifiers: Coronary Disease-Associated Artery/Lesion type: [place] artery [place] vs. 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 Code(s): Z86.79 - PERSONAL HISTORY OF OTHER DISEASES OF THE CIRCULATORY SYSTEM Status: Chronic (5) Prostate CA Code(s): C61 - MALIGNANT NEOPLASM OF PROSTATE Status: Chronic (6) Dementia Code(s): F03.90 - UNSPECIFIED DEMENTIA WITHOUT BEHAVIORAL DISTURBANCE Status: Chronic Qualifiers: Dementia type: Alzheimer's disease (7) HLD (hyperlipidemia) Code(s): E78.5 - HYPERLIPIDEMIA, UNSPECIFIED Status: Chronic Qualifiers: (8) HTN (hypertension) Code(s): I10 - ESSENTIAL (PRIMARY) HYPERTENSION Status: Chronic Qualifiers: (9) PAF (paroxysmal atrial fibrillation) Code(s): I48.0 - PAROXYSMAL ATRIAL FIBRILLATION Status: Chronic - Plan is on steroids, off zosyn 02/20/2019 not weanable per pulm, still encephalopathic, palliative care is seeing him DNAR family comtemplating withdrawal of care, has a niece likely poa, palliative care looking into it. has end stage copd continue nebs, brovana, pulmicort, protonix. prognosis poor. ?trach and peg if family declines, we should hear something today per palliative care about terminal extubation has off and on hematuria likely due to teran trauma, is off anticoagulants.
[2019-02-20] MEDS: Sodium Chloride 0.9% 1,000 ML IV SCH (15:13)
--- NOTE | 2019-02-20 16:28 | PDOC.PALFU ---
Palliative Care Follow-up Note Patient remains intubated and clinically unchanged. *Palliative Care RN spoke with Meenu patient bandar, she is attempting to get in contact with her Aunt to collaborate in the decision to transition to comfort care for patient. Please see Palliative Care RN note in notes section of chart. *Will continue to follow up daily with patient jackie to revisit goal of care in relation to patient lack of opportunity for meaningful recovery with hope of preventing suffering.
[2019-02-20] MEDS: Lorazepam 2 MG/ML VIAL SLOW IVP PRN (17:33)
[2019-02-21] MEDS: methylPREDNISolone Sod Succ 40 MG VIAL IVP SCH ×4 (00:18→21:08)
[2019-02-21] MEDS: Propofol 1,000 MG/100 ML VIAL IV PRN ×3 (03:02→14:57)
[2019-02-21 04:10] LABS: Anion Gap 11 mmol/L (10-20); BUN (Urea Nitrogen) 18 mg/dL (8.4-25.7); Calc. Creatinine Clearance 61 mL/min (70-130); Calcium 9.7 mg/dL (7.8-10.44); Carbon Dioxide 29 mmol/L (23-31); Chloride 110 mmol/L (98-107); Estimated GFR-MDRD Greater than 90; Glucose 137 mg/dL (83-110); Potassium 4.2 mmol/L (3.5-5.1); Sodium 146 mmol/L (136-145)
[2019-02-21] MEDS: Arformoterol 15 MCG/2 ML NEB NEB SCH ×2 (07:34→19:22)
[2019-02-21] MEDS: Budesonide 0.5 MG/2 ML NEB INH SCH ×2 (07:34→19:22)
--- NOTE | 2019-02-21 07:56 | PRG ---
DATE OF SERVICE: 02/21/2019 TIME SPENT: 35 minutes of critical care time. SUBJECTIVE: The patient remains intubated on mechanical ventilation. He is heavily sedated. When placed on pressure support yesterday, he becomes very tachypneic and does not last very long. OBJECTIVE: VITAL SIGNS: On exam, his temperature is 98.5, pulse 84, blood pressure 131/100, and O2 saturation 100%. Intake for 24 hours 2031, output 2610. HEENT: Unremarkable. NECK: No adenopathy or JVD. LUNGS: Coarse breath sounds. CARDIOVASCULAR: S1 and S2. Regular. ABDOMEN: Soft. EXTREMITIES: No edema. LABORATORY DATA: Sodium 146, potassium 4.2, chloride 110, CO2 of 29, BUN 18, creatinine 0.7, and glucose 137. ASSESSMENT: 1. Acute on chronic respiratory failure, requiring mechanical ventilation. 2. Severe chronic obstructive pulmonary disease. 3. Generalized failure to thrive. PLAN: Eventual terminal extubation. There were some communication issues in regard to the family. The patient does have a DNR. I think the patient has no hope for meaningful recovery. I have reviewed his medication list. I would like to try to minimize sedation more than what we are doing. I will go ahead and reduce the steroid dose. Job ID: [id number]
[2019-02-21] MEDS: Pantoprazole 40 MG GRANULES PACKET PER TUBE SCH (09:09)
--- NOTE | 2019-02-21 11:29 | PDOC.HOSPP ---
- Subjective Encounter Date: 02/21/19 Encounter Time: 10:15 Subjective: on vent, not oriented, is sedated now - Objective Vital Signs & Weight: Vital Signs (12 hours) Temp Pulse Resp Pulse Ox 02/21/19 10:36 90 02/21/19 08:00 98.1 F 28 H 02/21/19 07:35 73 02/21/19 06:00 19 02/21/19 04:00 33 H 02/21/19 03:14 84 02/21/19 03:13 100 02/21/19 02:00 38 H 02/21/19 00:00 98.5 F 22 H Weight Admit Weight 138 lb Weight 127 lb 10.362 oz Most Recent Monitor Data Heart Rate from ECG 94 NIBP 117/79 NIBP BP-Mean 91 Respiration from ECG 31 SpO2 100 I&O: 02/20/19 02/21/19 02/22/19 06:59 06:59 06:59 Intake Total 2438.6 2032 Output Total 1865 2610 115 Balance 573.6 -578 -115 Result Diagrams: 02/14/19 03:56 02/21/19 03:26 Hospitalist ROS - Medication Medications: Active Medications Generic Name Dose Route Start Last Admin Trade Name Freq PRN Reason Stop Dose Admin Albuterol/Ipratropium 3 ml 02/13/19 10:30 02/21/19 10:36 Duoneb NEB 3 ml [id number] GAMAL Administration Arformoterol Tartrate 15 mcg 02/13/19 18:30 02/21/19 07:34 Brovana NEB 15 mcg BID-RT GAMAL Administration Budesonide 0.5 mg 02/13/19 18:30 02/21/19 07:34 Pulmicort Neb Solution INH 0.5 mg BID-RT GAMAL Administration Fentanyl Citrate 2,000 mcg/ 100 mls @ 0 mls/hr 02/12/19 18:09 02/18/19 15:18 Sodium Chloride IV 03/14/19 18:09 100 mls INF GAMAL Administration Protocol Per Protocol Potassium Chloride 40 meq/ 100 mls @ 50 mls/hr 02/13/19 08:53 02/18/19 10:14 Device IVPB 100 mls ASDIR PRN Administration FOR SERUM K+ 2.5 - 3.5 Sodium Chloride 1,000 mls @ 20 mls/hr 02/15/19 13:15 02/20/19 15:13 Normal Saline 0.9% IV Not Given .Q24H GAMAL TKO Lorazepam 2 mg 02/12/19 18:09 02/20/19 17:33 Ativan SLOW IVP 03/14/19 18:09 2 mg Q1H PRN Administration Breakthrough agitation Methylprednisolone Sodium Succinate 20 mg 02/21/19 09:00 02/21/19 09:10 Solu-Medrol IVP 20 mg BID GAMAL Administration Miscellaneous Medication 1 pkt 02/13/19 08:53 02/15/19 12:11 Phos-Nak PO 1 pkt TIDPRN PRN Administration FOR PHOS LEVEL 1.0 - 1.8 Morphine Sulfate 4 mg 02/15/19 09:38 02/15/19 12:01 Morphine SLOW IVP 4 mg Q1H PRN Administration cough Pantoprazole Sodium 40 mg 02/20/19 09:00 02/21/19 09:09 Protonix PER TUBE 40 mg DAILY GAMAL Administration Propofol 1,000 mg 02/12/19 18:09 02/21/19 09:11 Diprivan IV 03/14/19 18:09 1,000 mg INF PRN Administration TO ACHIEVE GOAL RASS Protocol Scopolamine 1.5 mg 02/15/19 11:00 02/18/19 10:14 Transderm Scop TOP 1.5 mg Q3D GAMAL Administration - Exam General Appearance: ill appearing Eye: anicteric sclera ENT: no oropharyngeal lesions, moist mucosa Neck: supple, no JVD Heart: RRR, no murmur Respiratory: no wheezes, no rales, rhonchi Gastrointestinal: soft, non-tender, non-distended, normal bowel sounds Extremities: no cyanosis, no clubbing Neurological: cranial nerve grossly intact, no focal deficits Hosp A/P (1) COPD (chronic obstructive pulmonary disease) Status: Chronic Qualifiers: COPD type: COPD with acute exacerbation Qualified Code(s): J44.1 - Chronic obstructive pulmonary disease with (acute) exacerbation (2) Acute respiratory failure Code(s): J96.00 - ACUTE RESPIRATORY FAILURE, UNSP W HYPOXIA OR HYPERCAPNIA Status: Acute Qualifiers: Respiratory failure complication: hypoxia and hypercapnia Qualified Code(s) : J96.01 - Acute respiratory failure with hypoxia; J96.02 - Acute respiratory failure with hypercapnia (3) Coronary artery disease Code(s): I25.10 - ATHSCL HEART DISEASE OF [place] CORONARY ARTERY W/O ANG PCTRS Status: Chronic Qualifiers: Coronary Disease-Associated Artery/Lesion type: [place] artery [place] vs. 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 Code(s): Z86.79 - PERSONAL HISTORY OF OTHER DISEASES OF THE CIRCULATORY SYSTEM Status: Chronic (5) Prostate CA Code(s): C61 - MALIGNANT NEOPLASM OF PROSTATE Status: Chronic (6) Dementia Code(s): F03.90 - UNSPECIFIED DEMENTIA WITHOUT BEHAVIORAL DISTURBANCE Status: Chronic Qualifiers: Dementia type: Alzheimer's disease (7) HLD (hyperlipidemia) Code(s): E78.5 - HYPERLIPIDEMIA, UNSPECIFIED Status: Chronic Qualifiers: (8) HTN (hypertension) Code(s): I10 - ESSENTIAL (PRIMARY) HYPERTENSION Status: Chronic Qualifiers: (9) PAF (paroxysmal atrial fibrillation) Code(s): I48.0 - PAROXYSMAL ATRIAL FIBRILLATION Status: Chronic - Plan is on steroids, off zosyn 02/20/2019 not weanable per pulm, still encephalopathic, palliative care is seeing him DNAR family comtemplating withdrawal of care, has a niece likely poa, palliative care looking into it, bandar is also worried about expenses per staff. has end stage copd continue nebs, brovana, pulmicort, protonix. prognosis poor. ?trach and peg if family declines, we should hear something today per palliative care about terminal extubation has off and on hematuria likely due to teran trauma and h/o prostate ca, is off anticoagulants.
[2019-02-21] MEDS: Scopolamine 1.5 mg/72 hour Patch TOP SCH (11:30)
[2019-02-21] MEDS: Lorazepam 2 MG/ML VIAL SLOW IVP PRN ×3 (11:31→23:29)
[2019-02-21] MEDS: Sodium Chloride 0.9% 1,000 ML IV SCH (14:48)
--- NOTE | 2019-02-21 15:00 | PDOC.PALPN ---
Palliative Progress Note - Subjective Remains on vent, currently sedated - Objective Vital Signs: Vital Signs - Most Recent Temp Pulse Resp BP Pulse Ox 98.6 F 78 20 130/94 H 96 02/21/19 12:00 02/21/19 13:53 02/21/19 13:53 02/20/19 22:56 02/21/19 13:53 - Physical Exam Constitutional: ill appearing HEENT: moist MMs, sclera anicteric Respiratory: clear to auscultation bilateral Deviation from normal: mechanical ventilation Cardiovascular: RRR Gastrointestinal: soft, positive bowel sounds Genitourinary: teran catheter Musculoskeletal: no cyanosis, no clubbing Skin: cap refill <2 seconds, no lesions, no rash Deviation from normal: sedated - Assessment (1) Palliative care encounter Code(s): Z51.5 - ENCOUNTER FOR PALLIATIVE CARE Current Visit: Yes Status: Acute (2) Acute respiratory failure Code(s): J96.00 - ACUTE RESPIRATORY FAILURE, UNSP W HYPOXIA OR HYPERCAPNIA Current Visit: Yes Status: Acute Qualifiers: Respiratory failure complication: hypoxia and hypercapnia Qualified Code(s) : J96.01 - Acute respiratory failure with hypoxia; J96.02 - Acute respiratory failure with hypercapnia (3) Coronary artery disease Code(s): I25.10 - ATHSCL HEART DISEASE OF [place] CORONARY ARTERY W/O ANG PCTRS Current Visit: Yes Status: Chronic Qualifiers: Coronary Disease-Associated Artery/Lesion type: [place] artery [place] vs. 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 Code(s): Z86.79 - PERSONAL HISTORY OF OTHER DISEASES OF THE CIRCULATORY SYSTEM Current Visit: Yes Status: Chronic (5) Acute exacerbation of chronic obstructive pulmonary disease (COPD) Code(s): J44.1 - CHRONIC OBSTRUCTIVE PULMONARY DISEASE W (ACUTE) EXACERBATION Current Visit: No Status: Acute (6) H/O primary malignant neoplasm of testis Code(s): Z85.47 - PERSONAL HISTORY OF MALIGNANT NEOPLASM OF TESTIS Current Visit: No Status: Acute (7) Dementia Code(s): F03.90 - UNSPECIFIED DEMENTIA WITHOUT BEHAVIORAL DISTURBANCE Current Visit: No Status: Chronic Qualifiers: Dementia type: Alzheimer's disease (8) HLD (hyperlipidemia) Code(s): E78.5 - HYPERLIPIDEMIA, UNSPECIFIED Current Visit: No Status: Chronic Qualifiers: (9) HTN (hypertension) Code(s): I10 - ESSENTIAL (PRIMARY) HYPERTENSION Current Visit: No Status: Chronic Qualifiers: (10) PAF (paroxysmal atrial fibrillation) Code(s): I48.0 - PAROXYSMAL ATRIAL FIBRILLATION Current Visit: No Status: Chronic - Plan Plan: Meenu relayed 02/20/2019 that she was attempting to confirm with patient sister to transition to comfort measures/hospice. Meenu was going to contact Palliative Care to discuss compassionate extubation, had requested that she be able to wait until possible Tuesday so she can secure funds and get off of work, she was concerned for patient to be extubated without family. Assured her that staff is understanding of her situation and if needed palliative care and spiritual care would work hand in hand to ensure someone was with her uncle. Unable to reach Meenu today after several attempts. Will continue to reach out. Will update involved physicians as soon as Meenu communicates with PC team. [30] minutes spent on this encounter with >50% of the time in counseling and coordination of care. - ROS Non Response: due to endotracheal tube, due to mental status
[2019-02-22] MEDS: Propofol 1,000 MG/100 ML VIAL IV PRN ×5 (03:09→22:42)
[2019-02-22 04:01] LABS: Anion Gap 10 mmol/L (10-20); BUN (Urea Nitrogen) 22 mg/dL (8.4-25.7); Calc. Creatinine Clearance 64 mL/min (70-130); Calcium 9.6 mg/dL (7.8-10.44); Carbon Dioxide 31 mmol/L (23-31); Chloride 109 mmol/L (98-107); Estimated GFR-MDRD Greater than 90; Glucose 119 mg/dL (83-110); Sodium 146 mmol/L (136-145)
[2019-02-22] MEDS: Arformoterol 15 MCG/2 ML NEB NEB SCH ×2 (07:33→18:42)
[2019-02-22] MEDS: Budesonide 0.5 MG/2 ML NEB INH SCH ×2 (07:33→18:41)
--- NOTE | 2019-02-22 08:32 | PRG ---
DATE OF SERVICE: 02/22/2019 TIME SPENT: 35 minutes of critical care time. SUBJECTIVE: Mr. Ray Brunson remains on mechanical ventilation. There have been no acute changes overnight. I read Palliative Care's note and it sounds like the family may be in town tomorrow. OBJECTIVE: VITAL SIGNS: On exam, temperature 98.2, pulse 76, blood pressure 105/73, and O2 saturation 99%. A 24-hour intake 2167, output 1296. HEENT: Unremarkable. NECK: No adenopathy or JVD. LUNGS: Clear, but distant breath sounds. CARDIAC: S1 and S2. Regular. ABDOMEN: Soft. EXTREMITIES: Trace edema. LABORATORY DATA: Sodium 146, potassium 4, chloride 109, CO2 of 31, BUN 22, creatinine 0.7, and glucose 119. ASSESSMENT: 1. Acute on chronic respiratory failure secondary to severe underlying chronic obstructive pulmonary disease. 2. History of left-sided intracranial hemorrhage. PLAN: I think it is reasonable to wait one more day for the family to arrive. Unfortunately, extubation cannot be postponed indefinitely. The patient has progressed to the point where he would probably be ready for extubation anyway. The family needs to understand that we will not reintubate if he fails based on the fact that the patient now has a DNR order. I reviewed the orders. He remains on low-dose steroids, nebulization treatments, and sedation. We will continue to follow. Job ID: [id number]
[2019-02-22] MEDS: Pantoprazole 40 MG GRANULES PACKET PER TUBE SCH (09:29)
[2019-02-22] MEDS: methylPREDNISolone Sod Succ 40 MG VIAL IVP SCH ×2 (09:32→20:13)
--- NOTE | 2019-02-22 11:59 | PDOC.HOSPP ---
- Subjective Encounter Date: 02/22/19 Encounter Time: 08:00 Subjective: is on vent, sedation+ - Objective Vital Signs & Weight: Vital Signs (12 hours) Temp Pulse Resp BP Pulse Ox 02/22/19 10:49 69 02/22/19 08:19 75 107/75 02/22/19 07:00 97.9 F 02/22/19 06:00 23 H 02/22/19 05:00 98.2 F 02/22/19 04:13 69 02/22/19 04:00 33 H 100 02/22/19 03:00 98.5 F 02/22/19 02:00 19 02/22/19 01:00 98.3 F 02/22/19 00:00 28 H Weight Admit Weight 138 lb Weight 131 lb 2.801 oz Most Recent Monitor Data Heart Rate from ECG 76 NIBP 105/73 NIBP BP-Mean 83 Respiration from ECG 20 SpO2 99 I&O: 02/21/19 02/22/19 02/23/19 06:59 06:59 06:59 Intake Total 2 2167 Output Total 2610 1296 35 Balance -578 871 -35 Result Diagrams: 02/14/19 03:56 02/22/19 03:16 Hospitalist ROS - Medication Medications: Active Medications Generic Name Dose Route Start Last Admin Trade Name Freq PRN Reason Stop Dose Admin Albuterol/Ipratropium 3 ml 02/13/19 10:30 02/22/19 10:43 Duoneb NEB 3 ml [id number] GAMAL Administration Arformoterol Tartrate 15 mcg 02/13/19 18:30 02/22/19 07:33 Brovana NEB 15 mcg BID-RT GAMAL Administration Budesonide 0.5 mg 02/13/19 18:30 02/22/19 07:33 Pulmicort Neb Solution INH 0.5 mg BID-RT GAMAL Administration Fentanyl Citrate 2,000 mcg/ 100 mls @ 0 mls/hr 02/12/19 18:09 02/18/19 15:18 Sodium Chloride IV 03/14/19 18:09 100 mls INF GAMAL Administration Protocol Per Protocol Potassium Chloride 40 meq/ 100 mls @ 50 mls/hr 02/13/19 08:53 02/18/19 10:14 Device IVPB 100 mls ASDIR PRN Administration FOR SERUM K+ 2.5 - 3.5 Sodium Chloride 1,000 mls @ 20 mls/hr 02/15/19 13:15 02/21/19 14:48 Normal Saline 0.9% IV Not Given .Q24H GAMAL TKO Lorazepam 2 mg 02/12/19 18:09 02/21/19 23:29 Ativan SLOW IVP 03/14/19 18:09 2 mg Q1H PRN Administration Breakthrough agitation Methylprednisolone Sodium Succinate 20 mg 02/21/19 09:00 02/22/19 09:32 Solu-Medrol IVP 20 mg BID GAMAL Administration Miscellaneous Medication 1 pkt 02/13/19 08:53 02/15/19 12:11 Phos-Nak PO 1 pkt TIDPRN PRN Administration FOR PHOS LEVEL 1.0 - 1.8 Morphine Sulfate 4 mg 02/15/19 09:38 02/15/19 12:01 Morphine SLOW IVP 4 mg Q1H PRN Administration cough Pantoprazole Sodium 40 mg 02/20/19 09:00 02/22/19 09:29 Protonix PER TUBE 40 mg DAILY GAMAL Administration Propofol 1,000 mg 02/12/19 18:09 02/22/19 05:38 Diprivan IV 03/14/19 18:09 1,000 mg INF PRN Administration TO ACHIEVE GOAL RASS Protocol Scopolamine 1.5 mg 02/15/19 11:00 02/21/19 11:30 Transderm Scop TOP 1.5 mg Q3D GAMAL Administration - Exam General Appearance: ill appearing Eye: PERRL, anicteric sclera ENT: no oropharyngeal lesions, moist mucosa Neck: supple, no JVD Heart: RRR, no murmur Respiratory: no wheezes, no rales Gastrointestinal: soft, non-tender, non-distended, normal bowel sounds Extremities: no cyanosis, no edema Neurological: cranial nerve grossly intact, no focal deficits Hosp A/P (1) COPD (chronic obstructive pulmonary disease) Status: Chronic Qualifiers: COPD type: COPD with acute exacerbation Qualified Code(s): J44.1 - Chronic obstructive pulmonary disease with (acute) exacerbation (2) Acute respiratory failure Code(s): J96.00 - ACUTE RESPIRATORY FAILURE, UNSP W HYPOXIA OR HYPERCAPNIA Status: Acute Qualifiers: Respiratory failure complication: hypoxia and hypercapnia Qualified Code(s) : J96.01 - Acute respiratory failure with hypoxia; J96.02 - Acute respiratory failure with hypercapnia (3) Coronary artery disease Code(s): I25.10 - ATHSCL HEART DISEASE OF [place] CORONARY ARTERY W/O ANG PCTRS Status: Chronic Qualifiers: Coronary Disease-Associated Artery/Lesion type: [place] artery [place] vs. 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 Code(s): Z86.79 - PERSONAL HISTORY OF OTHER DISEASES OF THE CIRCULATORY SYSTEM Status: Chronic (5) Prostate CA Code(s): C61 - MALIGNANT NEOPLASM OF PROSTATE Status: Chronic (6) Dementia Code(s): F03.90 - UNSPECIFIED DEMENTIA WITHOUT BEHAVIORAL DISTURBANCE Status: Chronic Qualifiers: Dementia type: Alzheimer's disease (7) HLD (hyperlipidemia) Code(s): E78.5 - HYPERLIPIDEMIA, UNSPECIFIED Status: Chronic Qualifiers: (8) HTN (hypertension) Code(s): I10 - ESSENTIAL (PRIMARY) HYPERTENSION Status: Chronic Qualifiers: (9) PAF (paroxysmal atrial fibrillation) Code(s): I48.0 - PAROXYSMAL ATRIAL FIBRILLATION Status: Chronic - Plan is on steroids, off zosyn 02/20/2019 not weanable per pulm, palliative care is seeing him DNAR bandar comtemplating withdrawal of care either today/am per staff/palliative care notes. has end stage copd continue nebs, brovana, pulmicort, protonix. prognosis poor. ?trach and peg if family declines, we should hear something today per palliative care about terminal extubation has off and on hematuria likely due to teran trauma and h/o prostate ca, is off anticoagulants.
[2019-02-22] MEDS: Sodium Chloride 0.9% 1,000 ML IV SCH (14:30)
[2019-02-22] MEDS ORDERED: Fentanyl BOLUS 250 ML IVPB PRN (22:33)
[2019-02-22] MEDS: Lorazepam 2 MG/ML VIAL SLOW IVP PRN (22:41)
[2019-02-22] MEDS ORDERED: fentaNYL Citrate/PF 2,000 MCG in Sodium Chloride 0.9% 60 ML IV SCH (22:45)
[2019-02-23] MEDS: Morphine 4 MG/ML VIAL SLOW IVP PRN (01:05)
[2019-02-23] MEDS: Propofol 1,000 MG/100 ML VIAL IV PRN ×4 (04:03→19:54)
[2019-02-23 04:11] LABS: Anion Gap 13 mmol/L (10-20); BUN (Urea Nitrogen) 18 mg/dL (8.4-25.7); Calc. Creatinine Clearance 66 mL/min (70-130); Calcium 9.6 mg/dL (7.8-10.44); Carbon Dioxide 26 mmol/L (23-31); Chloride 109 mmol/L (98-107); Estimated GFR-MDRD Greater than 90; Glucose 114 mg/dL (83-110); Potassium 4.2 mmol/L (3.5-5.1); Sodium 144 mmol/L (136-145)
[2019-02-23] MEDS: Budesonide 0.5 MG/2 ML NEB INH SCH ×2 (06:46→19:20)
[2019-02-23] MEDS: Arformoterol 15 MCG/2 ML NEB NEB SCH ×2 (06:46→19:20)
--- NOTE | 2019-02-23 08:35 | PRG ---
DATE OF SERVICE: 02/23/2019 TIME SPENT: 35 minutes critical time. SUBJECTIVE: The patient remains intubated on mechanical ventilation. He is sedated. OBJECTIVE: VITAL SIGNS: Temperature 97.9, pulse 65, blood pressure 120/82, O2 saturation 100%. Intake 2226, output 1235. Weight 130 pounds. HEENT: Unremarkable. NECK: No adenopathy or JVD. CHEST: Fairly clear anteriorly. CARDIAC: S1 and S2. Regular. ABDOMEN: Soft. EXTREMITIES: Trace edema throughout. LABORATORY DATA: Sodium 144, potassium 4.2, chloride 109, CO2 of 26, BUN 18, creatinine 0.7, glucose 114. ASSESSMENT: 1. Acute on chronic respiratory failure, requiring mechanical ventilation. 2. End-stage chronic obstructive pulmonary disease. 3. 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 PLAN: Told that the family maybe arriving today, so that extubation can be facilitated. I am continuing treatment as is until the family gets here. Job ID: [id number]
[2019-02-23] MEDS: methylPREDNISolone Sod Succ 40 MG VIAL IVP SCH ×2 (09:39→21:30)
[2019-02-23] MEDS: Pantoprazole 40 MG GRANULES PACKET PER TUBE SCH (09:39)
[2019-02-23] MEDS: Sodium Chloride 0.9% 1,000 ML IV SCH (14:00)
--- NOTE | 2019-02-23 14:19 | PDOC.HOSPP ---
- Subjective Encounter Date: 02/23/19 Encounter Time: 10:10 Subjective: on vent, sedated, not oriented or follows verbal stimuli - Objective Vital Signs & Weight: Vital Signs (12 hours) Temp Pulse Resp BP Pulse Ox 02/23/19 12:00 19 02/23/19 10:35 71 124/79 02/23/19 10:33 77 17 99 02/23/19 10:00 27 H 02/23/19 08:00 25 H 97 02/23/19 06:47 76 128/82 02/23/19 06:44 71 21 H 99 02/23/19 06:00 14 02/23/19 04:05 62 02/23/19 04:00 97.9 F 15 Weight Admit Weight 138 lb Weight 130 lb 11.746 oz Most Recent Monitor Data Heart Rate from ECG 70 NIBP 131/84 NIBP BP-Mean 99 Respiration from ECG 26 SpO2 99 I&O: 02/22/19 02/23/19 02/24/19 06:59 06:59 06:59 Intake Total 2167 2226 Output Total 1296 1235 Balance 871 991 Result Diagrams: 02/14/19 03:56 02/23/19 03:11 Hospitalist ROS - Medication Medications: Active Medications Generic Name Dose Route Start Last Admin Trade Name Freq PRN Reason Stop Dose Admin Albuterol/Ipratropium 3 ml 02/13/19 10:30 02/23/19 10:33 Duoneb NEB 3 ml [id number] GAMAL Administration Arformoterol Tartrate 15 mcg 02/13/19 18:30 02/23/19 06:46 Brovana NEB 15 mcg BID-RT GAMAL Administration Budesonide 0.5 mg 02/13/19 18:30 02/23/19 06:46 Pulmicort Neb Solution INH 0.5 mg BID-RT GAMAL Administration Potassium Chloride 40 meq/ 100 mls @ 50 mls/hr 02/13/19 08:53 02/18/19 10:14 Device IVPB 100 mls ASDIR PRN Administration FOR SERUM K+ 2.5 - 3.5 Sodium Chloride 1,000 mls @ 20 mls/hr 02/15/19 13:15 02/22/19 14:30 Normal Saline 0.9% IV 1,000 mls .Q24H GAMAL Administration TKO Lorazepam 2 mg 02/22/19 22:33 02/22/19 22:41 Ativan SLOW IVP 03/24/19 22:34 2 mg Q1H PRN Administration Breakthrough agitation Methylprednisolone Sodium Succinate 20 mg 02/21/19 09:00 02/23/19 09:39 Solu-Medrol IVP 20 mg BID GAMAL Administration Miscellaneous Medication 1 pkt 02/13/19 08:53 02/15/19 12:11 Phos-Nak PO 1 pkt TIDPRN PRN Administration FOR PHOS LEVEL 1.0 - 1.8 Morphine Sulfate 4 mg 02/15/19 09:38 02/23/19 01:05 Morphine SLOW IVP 4 mg Q1H PRN Administration cough Pantoprazole Sodium 40 mg 02/20/19 09:00 02/23/19 09:39 Protonix PER TUBE 40 mg DAILY GAMAL Administration Propofol 1,000 mg 02/12/19 18:09 02/23/19 09:47 Diprivan IV 03/14/19 18:09 1,000 mg INF PRN Administration TO ACHIEVE GOAL RASS Protocol Scopolamine 1.5 mg 02/15/19 11:00 02/21/19 11:30 Transderm Scop TOP 1.5 mg Q3D GAMAL Administration - Exam General Appearance: ill appearing Eye: PERRL, anicteric sclera ENT: no oropharyngeal lesions, moist mucosa Neck: supple, no JVD Heart: RRR, no murmur Respiratory: no wheezes, no rales, rhonchi Gastrointestinal: soft, non-tender, non-distended, normal bowel sounds Extremities: no cyanosis, no edema Neurological: cranial nerve grossly intact Hosp A/P (1) COPD (chronic obstructive pulmonary disease) Status: Chronic Qualifiers: COPD type: COPD with acute exacerbation Qualified Code(s): J44.1 - Chronic obstructive pulmonary disease with (acute) exacerbation (2) Acute respiratory failure Code(s): J96.00 - ACUTE RESPIRATORY FAILURE, UNSP W HYPOXIA OR HYPERCAPNIA Status: Acute Qualifiers: Respiratory failure complication: hypoxia and hypercapnia Qualified Code(s) : J96.01 - Acute respiratory failure with hypoxia; J96.02 - Acute respiratory failure with hypercapnia (3) Coronary artery disease Code(s): I25.10 - ATHSCL HEART DISEASE OF [place] CORONARY ARTERY W/O ANG PCTRS Status: Chronic Qualifiers: Coronary Disease-Associated Artery/Lesion type: [place] artery [place] vs. 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 Code(s): Z86.79 - PERSONAL HISTORY OF OTHER DISEASES OF THE CIRCULATORY SYSTEM Status: Chronic (5) Prostate CA Code(s): C61 - MALIGNANT NEOPLASM OF PROSTATE Status: Chronic (6) Dementia Code(s): F03.90 - UNSPECIFIED DEMENTIA WITHOUT BEHAVIORAL DISTURBANCE Status: Chronic Qualifiers: Dementia type: Alzheimer's disease (7) HLD (hyperlipidemia) Code(s): E78.5 - HYPERLIPIDEMIA, UNSPECIFIED Status: Chronic Qualifiers: (8) HTN (hypertension) Code(s): I10 - ESSENTIAL (PRIMARY) HYPERTENSION Status: Chronic Qualifiers: (9) PAF (paroxysmal atrial fibrillation) Code(s): I48.0 - PAROXYSMAL ATRIAL FIBRILLATION Status: Chronic (10) Physical deconditioning Code(s): R53.81 - OTHER [place] Status: Acute - Plan is on steroids, off zosyn 02/20/2019 not weanable, palliative care is seeing him DNAR bandar comtemplating withdrawal of care/terminal extubation in view of poor prognosis and end stage copd and adv age with severe deconditioning. Bandar is waiting on ethics committee recom per palliative care. continue nebs, brovana, pulmicort, protonix. prognosis poor. ?trach and peg if family wants to pursue further has off and on hematuria likely due to teran trauma and h/o prostate ca, is off anticoagulants.
[2019-02-24] MEDS: Propofol 1,000 MG/100 ML VIAL IV PRN ×5 (01:16→22:56)
[2019-02-24 03:43] LABS: Anion Gap 15 mmol/L (10-20); BUN (Urea Nitrogen) 18 mg/dL (8.4-25.7); Calc. Creatinine Clearance 64 mL/min (70-130); Calcium 9.6 mg/dL (7.8-10.44); Carbon Dioxide 23 mmol/L (23-31); Chloride 109 mmol/L (98-107); Estimated GFR-MDRD Greater than 90; Glucose 112 mg/dL (83-110); Sodium 143 mmol/L (136-145)
[2019-02-24] MEDS: Budesonide 0.5 MG/2 ML NEB INH SCH ×2 (06:54→19:39)
[2019-02-24] MEDS: Arformoterol 15 MCG/2 ML NEB NEB SCH ×2 (06:54→19:40)
--- NOTE | 2019-02-24 09:21 | PRG ---
DATE OF SERVICE: 02/24/2019 SUBJECTIVE: He is intubated on the vent, sedated on Diprivan. OBJECTIVE: VITAL SIGNS: Pulse 99, blood pressure and temperature 98. I's and O's have been positive. CHEST: Decreased breath sounds. No wheezing. CARDIAC: Normal S1-S2. No gallops. ABDOMEN: No masses. LABORATORY DATA: Lytes are normal. IMPRESSION: 1. Respiratory failure, end-stage. 2. Cerebrovascular accident. PLAN: 1. Family is to apparently make a decision regarding extubation and comfort care. 2. He is a DNR at this stage. 3. He has had a large left-sided intracranial hemorrhage. We will continue supportive care for the time being. We will discuss with family as they arrive. He is on neb treatments and steroids. TIME SPENT: One-half hour critical care time. Job ID: [id number]
[2019-02-24] MEDS: Pantoprazole 40 MG GRANULES PACKET PER TUBE SCH (10:27)
[2019-02-24] MEDS: methylPREDNISolone Sod Succ 40 MG VIAL IVP SCH ×2 (10:29→21:23)
[2019-02-24] MEDS: Scopolamine 1.5 mg/72 hour Patch TOP SCH (11:26)
--- NOTE | 2019-02-24 12:36 | PDOC.HOSPP ---
- Subjective Encounter Date: 02/24/19 Encounter Time: 10:00 Subjective: Intubated and sedated.. - Objective Vital Signs & Weight: Vital Signs (12 hours) Temp Pulse Resp BP Pulse Ox 02/24/19 10:39 91 130/93 H 02/24/19 10:38 91 37 H 99 02/24/19 08:00 28 H 95 02/24/19 06:55 92 171/115 H 02/24/19 06:53 99 39 H 90 L 02/24/19 06:00 39 H 02/24/19 04:00 98.1 F 36 H 02/24/19 02:00 33 H Weight Admit Weight 138 lb Weight 132 lb 4.438 oz Most Recent Monitor Data Heart Rate from ECG 94 NIBP 118/73 NIBP BP-Mean 88 Respiration from ECG 31 SpO2 97 I&O: 02/23/19 02/24/19 02/25/19 06:59 06:59 06:59 Intake Total 2226 2355 30 Output Total 1235 1647 Balance 991 708 30 Result Diagrams: 02/14/19 03:56 02/24/19 03:23 Hospitalist ROS - Medication Medications: Active Medications Generic Name Dose Route Start Last Admin Trade Name Freq PRN Reason Stop Dose Admin Albuterol/Ipratropium 3 ml 02/13/19 10:30 02/24/19 10:38 Duoneb NEB 3 ml [id number] GAMAL Administration Arformoterol Tartrate 15 mcg 02/13/19 18:30 02/24/19 06:54 Brovana NEB 15 mcg BID-RT GAMAL Administration Budesonide 0.5 mg 02/13/19 18:30 02/24/19 06:54 Pulmicort Neb Solution INH 0.5 mg BID-RT GAMAL Administration Potassium Chloride 40 meq/ 100 mls @ 50 mls/hr 02/13/19 08:53 02/18/19 10:14 Device IVPB 100 mls ASDIR PRN Administration FOR SERUM K+ 2.5 - 3.5 Sodium Chloride 1,000 mls @ 20 mls/hr 02/15/19 13:15 02/23/19 14:00 Normal Saline 0.9% IV 1,000 mls .Q24H GAMAL Administration TKO Lorazepam 2 mg 02/22/19 22:33 02/22/19 22:41 Ativan SLOW IVP 03/24/19 22:34 2 mg Q1H PRN Administration Breakthrough agitation Methylprednisolone Sodium Succinate 20 mg 02/21/19 09:00 02/24/19 10:29 Solu-Medrol IVP 20 mg BID GAMAL Administration Miscellaneous Medication 1 pkt 02/13/19 08:53 02/15/19 12:11 Phos-Nak PO 1 pkt TIDPRN PRN Administration FOR PHOS LEVEL 1.0 - 1.8 Morphine Sulfate 4 mg 02/15/19 09:38 02/23/19 01:05 Morphine SLOW IVP 4 mg Q1H PRN Administration cough Pantoprazole Sodium 40 mg 02/20/19 09:00 02/24/19 10:27 Protonix PER TUBE 40 mg DAILY GAMAL Administration Propofol 1,000 mg 02/12/19 18:09 02/24/19 11:38 Diprivan IV 03/14/19 18:09 1,000 mg INF PRN Administration TO ACHIEVE GOAL RASS Protocol Scopolamine 1.5 mg 02/15/19 11:00 02/24/19 11:26 Transderm Scop TOP 1.5 mg Q3D GAMAL Administration - Exam Neck: no JVD Heart: RRR Respiratory: CTAB Gastrointestinal: soft Extremities: no edema Hosp A/P (1) Acute respiratory failure Code(s): J96.00 - ACUTE RESPIRATORY FAILURE, UNSP W HYPOXIA OR HYPERCAPNIA Status: Acute Qualifiers: Respiratory failure complication: hypoxia and hypercapnia Qualified Code(s) : J96.01 - Acute respiratory failure with hypoxia; J96.02 - Acute respiratory failure with hypercapnia (2) COPD (chronic obstructive pulmonary disease) Status: Chronic Qualifiers: COPD type: COPD with acute exacerbation Qualified Code(s): J44.1 - Chronic obstructive pulmonary disease with (acute) exacerbation (3) Coronary artery disease Code(s): I25.10 - ATHSCL HEART DISEASE OF [place] CORONARY ARTERY W/O ANG PCTRS Status: Chronic Qualifiers: Coronary Disease-Associated Artery/Lesion type: [place] artery [place] vs. 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 Awaiting ethic committee regarding palliative care.
[2019-02-24] MEDS: Lorazepam 2 MG/ML VIAL SLOW IVP PRN (13:03)
[2019-02-24] MEDS: Sodium Chloride 0.9% 1,000 ML IV SCH (13:12)
[2019-02-25 03:58] LABS: Anion Gap 14 mmol/L (10-20); BUN (Urea Nitrogen) 21 mg/dL (8.4-25.7); Calc. Creatinine Clearance 65 mL/min (70-130); Calcium 9.2 mg/dL (7.8-10.44); Carbon Dioxide 24 mmol/L (23-31); Chloride 109 mmol/L (98-107); Estimated GFR-MDRD Greater than 90; Glucose 137 mg/dL (83-110); Potassium 4.5 mmol/L (3.5-5.1); Sodium 142 mmol/L (136-145)
[2019-02-25] MEDS: Propofol 1,000 MG/100 ML VIAL IV PRN ×4 (04:07→21:05)
[2019-02-25] MEDS: Budesonide 0.5 MG/2 ML NEB INH SCH ×2 (06:55→18:29)
[2019-02-25] MEDS: Arformoterol 15 MCG/2 ML NEB NEB SCH ×2 (06:56→18:28)
[2019-02-25] MEDS: methylPREDNISolone Sod Succ 40 MG VIAL IVP SCH ×2 (09:36→21:05)
[2019-02-25] MEDS: Pantoprazole 40 MG GRANULES PACKET PER TUBE SCH (09:36)
--- NOTE | 2019-02-25 10:53 | PDOC.HOSPP ---
- Subjective Encounter Date: 02/25/19 Encounter Time: 10:50 Subjective: Sluggish response to pain.. - Objective Vital Signs & Weight: Vital Signs (12 hours) Temp Pulse Resp BP Pulse Ox 02/25/19 10:00 26 H 02/25/19 08:00 99.3 F 23 H 99 02/25/19 06:53 72 123/79 02/25/19 06:43 76 27 H 99 02/25/19 06:00 18 02/25/19 04:00 98.6 F 29 H 02/25/19 03:05 79 02/25/19 03:04 100 02/25/19 02:00 37 H 02/25/19 00:00 98.8 F 35 H Weight Admit Weight 138 lb Weight 122 lb 2.177 oz Most Recent Monitor Data Heart Rate from ECG 84 NIBP 105/70 NIBP BP-Mean 81 Respiration from ECG 23 SpO2 98 I&O: 02/24/19 02/25/19 02/26/19 06:59 06:59 06:59 Intake Total 2355 2337 60 Output Total 1647 1528 125 Balance 708 809 -65 Result Diagrams: 02/14/19 03:56 02/25/19 03:18 Hospitalist ROS - Medication Medications: Active Medications Generic Name Dose Route Start Last Admin Trade Name Freq PRN Reason Stop Dose Admin Albuterol/Ipratropium 3 ml 02/13/19 10:30 02/25/19 06:43 Duoneb NEB 3 ml [id number] GAMAL Administration Arformoterol Tartrate 15 mcg 02/13/19 18:30 02/25/19 06:56 Brovana NEB 15 mcg BID-RT GAMAL Administration Budesonide 0.5 mg 02/13/19 18:30 02/25/19 06:55 Pulmicort Neb Solution INH 0.5 mg BID-RT GAMAL Administration Potassium Chloride 40 meq/ 100 mls @ 50 mls/hr 02/13/19 08:53 02/18/19 10:14 Device IVPB 100 mls ASDIR PRN Administration FOR SERUM K+ 2.5 - 3.5 Sodium Chloride 1,000 mls @ 20 mls/hr 02/15/19 13:15 02/24/19 13:12 Normal Saline 0.9% IV 1,000 mls .Q24H GAMAL Administration TKO Lorazepam 2 mg 02/22/19 22:33 02/24/19 13:03 Ativan SLOW IVP 03/24/19 22:34 2 mg Q1H PRN Administration Breakthrough agitation Methylprednisolone Sodium Succinate 20 mg 02/21/19 09:00 02/25/19 09:36 Solu-Medrol IVP 20 mg BID GAMAL Administration Miscellaneous Medication 1 pkt 02/13/19 08:53 02/15/19 12:11 Phos-Nak PO 1 pkt TIDPRN PRN Administration FOR PHOS LEVEL 1.0 - 1.8 Pantoprazole Sodium 40 mg 02/20/19 09:00 02/25/19 09:36 Protonix PER TUBE 40 mg DAILY GAMAL Administration Propofol 1,000 mg 02/12/19 18:09 02/25/19 09:36 Diprivan IV 03/14/19 18:09 1,000 mg INF PRN Administration TO ACHIEVE GOAL RASS Protocol Scopolamine 1.5 mg 02/15/19 11:00 02/24/19 11:26 Transderm Scop TOP 1.5 mg Q3D GAMAL Administration - Exam Neck: no JVD Heart: RRR Respiratory: CTAB Gastrointestinal: soft Extremities: no edema Hosp A/P (1) Acute respiratory failure Code(s): J96.00 - ACUTE RESPIRATORY FAILURE, UNSP W HYPOXIA OR HYPERCAPNIA Status: Acute Qualifiers: Respiratory failure complication: hypoxia and hypercapnia Qualified Code(s) : J96.01 - Acute respiratory failure with hypoxia; J96.02 - Acute respiratory failure with hypercapnia (2) COPD (chronic obstructive pulmonary disease) Status: Chronic Qualifiers: COPD type: COPD with acute exacerbation Qualified Code(s): J44.1 - Chronic obstructive pulmonary disease with (acute) exacerbation (3) Coronary artery disease Code(s): I25.10 - ATHSCL HEART DISEASE OF [place] CORONARY ARTERY W/O ANG PCTRS Status: Chronic Qualifiers: Coronary Disease-Associated Artery/Lesion type: [place] artery [place] vs. 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 Awaiting ethic committee regarding palliative care.
[2019-02-25] MEDS: Sodium Chloride 0.9% 1,000 ML IV SCH (21:52)
[2019-02-26] MEDS: Propofol 1,000 MG/100 ML VIAL IV PRN ×3 (02:30→20:05)
[2019-02-26 04:14] LABS: Anion Gap 12 mmol/L (10-20); BUN (Urea Nitrogen) 19 mg/dL (8.4-25.7); Calc. Creatinine Clearance 64 mL/min (70-130); Calcium 9.1 mg/dL (7.8-10.44); Carbon Dioxide 25 mmol/L (23-31); Chloride 109 mmol/L (98-107); Estimated GFR-MDRD Greater than 90; Glucose 137 mg/dL (83-110); Potassium 3.9 mmol/L (3.5-5.1); Sodium 142 mmol/L (136-145)
[2019-02-26 07:25] LABS: Actual Bicarbonate (HCO3a) 26.3 mEq/L (22-28); Base Excess (BEa) 1.7 mEq/L (-2.0 to +3.0); CO2 Tension 41.3 mmHg (35.0-45.0); Calcium, Ionized 1.26 mmol/L (1.12-1.30); Carboxyhemoglobin (COHb) 0.7 gm% (0.0-3.0); Hemoglobin (Hb) 11.4 g/dL (14.0-18.0); O2 Tension (PaO2) 94.3 mmHg (> 60.0); Potassium - ABG Lab 3.94 mmol/L (3.70-5.30); pH, Arterial 7.42 (7.35-7.45)
[2019-02-26 07:26] LABS: ALV-art Gradient 139.275 (0-20); Puncture Site RB
[2019-02-26] MEDS: Budesonide 0.5 MG/2 ML NEB INH SCH ×2 (07:39→18:18)
[2019-02-26] MEDS: Arformoterol 15 MCG/2 ML NEB NEB SCH ×2 (07:40→18:18)
--- NOTE | 2019-02-26 08:12 | PRG ---
DATE OF SERVICE: 02/26/2019 TIME SPENT: 35 minutes critical care time. SUBJECTIVE: The patient remains intubated on mechanical ventilation. He is sedated on propofol because without it he becomes highly agitated. OBJECTIVE: VITAL SIGNS: His temperature is 98.9, pulse 73, blood pressure 100/ 63. 24-hour intake 2037, output 1198. HEENT: Unremarkable. NECK: No adenopathy or JVD. LUNGS: Coarse. CARDIAC: S1, S2, regular. ABDOMEN: Soft. EXTREMITIES: No edema. LABORATORY DATA: Sodium 142, potassium 3.9, BUN 19, creatinine 0.6, glucose 137. PH 7.42, pCO2 of 41, pO2 of 94, it is on SIMV rate 12, tidal volume 450, PEEP 5, pressure support 11, FiO2 40%. ASSESSMENT: 1. Acute on chronic respiratory failure, requiring mechanical ventilation. 2. End-stage chronic obstructive pulmonary disease. 3. Failure to wean on multiple attempts. RECOMMENDATION: This patient has endstage COPD and is unlikely to survive very long once extubated. I do not believe going forward with a trach and a PEG would significantly prolong the patient's life and for sure would not give him any reasonable quality of life. My recommendation would be to compassionately extubate him and provide comfort care. Apparently, there is an ethics committee meeting today because the family is not making decisions for fear of repraisal. Job ID: [id number] MTDD
--- NOTE | 2019-02-26 08:49 | PDOC.HOSPP ---
- Subjective Encounter Date: 02/26/19 Encounter Time: 08:48 Subjective: intubated, unresponsive - Objective Vital Signs & Weight: Vital Signs (12 hours) Temp Pulse Resp BP 02/26/19 08:00 98.6 F 02/26/19 07:40 75 108/72 02/26/19 06:00 15 02/26/19 04:00 98.9 F 24 H 02/26/19 03:40 82 91/65 02/26/19 02:00 32 H 02/26/19 00:54 82 02/26/19 00:00 21 H 02/25/19 23:00 98.9 F 02/25/19 22:03 79 118/79 02/25/19 22:00 26 H Weight Admit Weight 138 lb Weight 122 lb 2.177 oz Most Recent Monitor Data Heart Rate from ECG 87 NIBP 100/72 NIBP BP-Mean 81 Respiration from ECG 36 SpO2 98 I&O: 02/25/19 02/26/19 02/27/19 06:59 06:59 06:59 Intake Total 2337 2038 Output Total 1528 1198 90 Balance 809 840 -90 Result Diagrams: 02/14/19 03:56 02/26/19 03:13 Hospitalist ROS - Medication Medications: Active Medications Generic Name Dose Route Start Last Admin Trade Name Freq PRN Reason Stop Dose Admin Albuterol/Ipratropium 3 ml 02/13/19 10:30 02/26/19 07:39 Duoneb NEB 3 ml [id number] GAMAL Administration Arformoterol Tartrate 15 mcg 02/13/19 18:30 02/26/19 07:40 Brovana NEB 15 mcg BID-RT GAMAL Administration Budesonide 0.5 mg 02/13/19 18:30 02/26/19 07:39 Pulmicort Neb Solution INH 0.5 mg BID-RT GAMAL Administration Potassium Chloride 40 meq/ 100 mls @ 50 mls/hr 02/13/19 08:53 02/18/19 10:14 Device IVPB 100 mls ASDIR PRN Administration FOR SERUM K+ 2.5 - 3.5 Sodium Chloride 1,000 mls @ 20 mls/hr 02/15/19 13:15 02/25/19 21:52 Normal Saline 0.9% IV 1,000 mls .Q24H GAMAL Administration TKO Lorazepam 2 mg 02/22/19 22:33 02/24/19 13:03 Ativan SLOW IVP 03/24/19 22:34 2 mg Q1H PRN Administration Breakthrough agitation Methylprednisolone Sodium Succinate 20 mg 02/21/19 09:00 02/25/19 21:05 Solu-Medrol IVP 20 mg BID GAMAL Administration Miscellaneous Medication 1 pkt 02/13/19 08:53 02/15/19 12:11 Phos-Nak PO 1 pkt TIDPRN PRN Administration FOR PHOS LEVEL 1.0 - 1.8 Pantoprazole Sodium 40 mg 02/20/19 09:00 02/25/19 09:36 Protonix PER TUBE 40 mg DAILY GAMAL Administration Propofol 1,000 mg 02/12/19 18:09 02/26/19 02:30 Diprivan IV 03/14/19 18:09 1,000 mg INF PRN Administration TO ACHIEVE GOAL RASS Protocol Scopolamine 1.5 mg 02/15/19 11:00 02/24/19 11:26 Transderm Scop TOP 1.5 mg Q3D GAMAL Administration - Exam Neck: no JVD Heart: RRR, no murmur Respiratory - other findings: adequate BS, no focal findings Gastrointestinal: soft, normal bowel sounds Extremities: no edema Hosp A/P (1) Acute respiratory failure Code(s): J96.00 - ACUTE RESPIRATORY FAILURE, UNSP W HYPOXIA OR HYPERCAPNIA Status: Acute Qualifiers: Respiratory failure complication: hypoxia and hypercapnia Qualified Code(s) : J96.01 - Acute respiratory failure with hypoxia; J96.02 - Acute respiratory failure with hypercapnia (2) Coronary artery disease Code(s): I25.10 - ATHSCL HEART DISEASE OF [place] CORONARY ARTERY W/O ANG PCTRS Status: Chronic Qualifiers: Coronary Disease-Associated Artery/Lesion type: [place] artery [place] vs. 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
[2019-02-26] MEDS: methylPREDNISolone Sod Succ 40 MG VIAL IVP SCH ×2 (08:59→20:06)
[2019-02-26] MEDS: Pantoprazole 40 MG GRANULES PACKET PER TUBE SCH (08:59)
--- NOTE | 2019-02-26 09:28 | PRG ---
DATE OF SERVICE: 02/25/2019 SUBJECTIVE: This morning, the patient remains intubated in the vent, sedated. Yesterday, briefly, when his sedation was withheld, he was breathing 40 times a minute, his pulse was 130, diaphoretic, agonal respiration. No family members arrived yesterday to have any armani discussion with the patient regarding his ongoing care, he is a DNR, though. OBJECTIVE: VITAL SIGNS: Pulse 72, blood pressure 118/78, saturations 99%, heart rate this morning is intubated on the vent. I's and O's are ahead. CHEST: Bilateral rhonchi, crackles. CARDIAC: Normal S1 and S2. No gallops. ABDOMEN: No masses. LABORATORY DATA: Lytes are normal. ASSESSMENT AND PLAN: Respiratory failure, end-stage chronic obstructive pulmonary disease, CVA. He is not weanable at this stage. He is a DNR. Family is to make a decision about comfort care, extubation. In the meantime, we will continue steroids, neb treatment, nutrition, and PT. One-half hour of critical care time. Job ID: [id number]
[2019-02-26] MEDS: Sodium Chloride 0.9% 1,000 ML IV SCH (19:44)
[2019-02-26] MEDS: Lorazepam 2 MG/ML VIAL SLOW IVP PRN (22:14)
[2019-02-27] MEDS: Propofol 1,000 MG/100 ML VIAL IV PRN ×2 (04:22→12:50)
[2019-02-27 04:25] VITALS: BMI 18.1
[2019-02-27 04:41] LABS: Anion Gap 8 mmol/L (10-20); BUN (Urea Nitrogen) 20 mg/dL (8.4-25.7); Calc. Creatinine Clearance 67 mL/min (70-130); Calcium 9.2 mg/dL (7.8-10.44); Carbon Dioxide 30 mmol/L (23-31); Chloride 110 mmol/L (98-107); Estimated GFR-MDRD Greater than 90; Glucose 126 mg/dL (83-110); Potassium 3.9 mmol/L (3.5-5.1); Sodium 144 mmol/L (136-145)
[2019-02-27] MEDS: Arformoterol 15 MCG/2 ML NEB NEB SCH ×2 (07:28→22:25)
[2019-02-27] MEDS: Budesonide 0.5 MG/2 ML NEB INH SCH ×2 (07:28→22:25)
--- NOTE | 2019-02-27 08:22 | PDOC.HOSPP ---
- Subjective Encounter Date: 02/27/19 Encounter Time: 08:20 Subjective: intubated, non- responsive - Objective Vital Signs & Weight: Vital Signs (12 hours) Temp Pulse Resp BP 02/27/19 07:32 94 159/82 H 02/27/19 06:00 21 H 02/27/19 04:00 33 H 02/27/19 02:03 69 144/81 H 02/27/19 02:00 21 H 02/27/19 00:00 99.5 F 39 H 02/26/19 22:00 33 H 02/26/19 21:39 73 115/80 Weight Admit Weight 138 lb Weight 126 lb 5.198 oz Most Recent Monitor Data Heart Rate from ECG 83 NIBP 99/69 NIBP BP-Mean 79 Respiration from ECG 25 SpO2 100 I&O: 02/26/19 02/27/19 02/28/19 06:59 06:59 06:59 Intake Total 2038 1872 Output Total 1198 1140 Balance 840 732 Result Diagrams: 02/14/19 03:56 02/27/19 03:23 Hospitalist ROS - Medication Medications: Active Medications Generic Name Dose Route Start Last Admin Trade Name Freq PRN Reason Stop Dose Admin Albuterol/Ipratropium 3 ml 02/13/19 10:30 02/27/19 07:28 Duoneb NEB 3 ml [id number] GAMAL Administration Arformoterol Tartrate 15 mcg 02/13/19 18:30 02/27/19 07:28 Brovana NEB 15 mcg BID-RT GAMAL Administration Budesonide 0.5 mg 02/13/19 18:30 02/27/19 07:28 Pulmicort Neb Solution INH 0.5 mg BID-RT GAMAL Administration Potassium Chloride 40 meq/ 100 mls @ 50 mls/hr 02/13/19 08:53 02/18/19 10:14 Device IVPB 100 mls ASDIR PRN Administration FOR SERUM K+ 2.5 - 3.5 Sodium Chloride 1,000 mls @ 20 mls/hr 02/15/19 13:15 02/26/19 19:44 Normal Saline 0.9% IV Not Given .Q24H GAMAL TKO Lorazepam 2 mg 02/22/19 22:33 02/26/19 22:14 Ativan SLOW IVP 03/24/19 22:34 2 mg Q1H PRN Administration Breakthrough agitation Methylprednisolone Sodium Succinate 20 mg 02/21/19 09:00 02/26/19 20:06 Solu-Medrol IVP 20 mg BID GAMAL Administration Miscellaneous Medication 1 pkt 02/13/19 08:53 02/15/19 12:11 Phos-Nak PO 1 pkt TIDPRN PRN Administration FOR PHOS LEVEL 1.0 - 1.8 Pantoprazole Sodium 40 mg 02/20/19 09:00 02/26/19 08:59 Protonix PER TUBE 40 mg DAILY GAMAL Administration Propofol 1,000 mg 02/12/19 18:09 02/27/19 04:22 Diprivan IV 03/14/19 18:09 1,000 mg INF PRN Administration TO ACHIEVE GOAL RASS Protocol Scopolamine 1.5 mg 02/15/19 11:00 02/24/19 11:26 Transderm Scop TOP 1.5 mg Q3D GAMAL Administration - Exam Neck: no JVD Heart: RRR, no murmur Respiratory - other findings: mildly coarse BS Gastrointestinal: soft, non-tender, normal bowel sounds Extremities: no edema Hosp A/P (1) Acute respiratory failure Code(s): J96.00 - ACUTE RESPIRATORY FAILURE, UNSP W HYPOXIA OR HYPERCAPNIA Status: Acute Qualifiers: Respiratory failure complication: hypoxia and hypercapnia Qualified Code(s) : J96.01 - Acute respiratory failure with hypoxia; J96.02 - Acute respiratory failure with hypercapnia (2) Coronary artery disease Code(s): I25.10 - ATHSCL HEART DISEASE OF [place] CORONARY ARTERY W/O ANG PCTRS Status: Chronic Qualifiers: Coronary Disease-Associated Artery/Lesion type: [place] artery [place] vs. 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
--- NOTE | 2019-02-27 08:55 | PRG ---
DATE OF SERVICE: 02/27/2019 TIME SPENT: 35 minutes critical time. SUBJECTIVE: The patient remains intubated on mechanical ventilation. There have been no acute changes overnight. Ethics committee is pending. OBJECTIVE: VITAL SIGNS: His temperature is 99.5, pulse 67, blood pressure 110/75, O2 saturation 100%, intake 1872, output 1114. HEENT: Unremarkable. NECK: No adenopathy or JVD. LUNGS: Coarse breath sounds. CARDIOVASCULAR: S1, S2. Regular. ABDOMEN: Soft. EXTREMITIES: Trace edema throughout. LABORATORY DATA: Sodium 144, potassium 3.9, chloride 110, CO2 of 30, BUN 20, creatinine 0.6, glucose 126. ASSESSMENT: 1. Chronic obstructive pulmonary disease with exacerbation. 2. Acute on chronic respiratory failure, requiring mechanical ventilation. 3. Multiple attempts to wean with failure. PLAN: As per my dictation yesterday, I do not think the patient has much hope for survival or improvement to his previous state. I would support compassionate extubation and comfort care afterwards. In the meantime, we are continuing present treatment until the family gives us further directions. Job ID: [id number]
[2019-02-27] MEDS: Pantoprazole 40 MG GRANULES PACKET PER TUBE SCH (09:26)
[2019-02-27] MEDS: methylPREDNISolone Sod Succ 40 MG VIAL IVP SCH (09:26)
[2019-02-27] MEDS: Scopolamine 1.5 mg/72 hour Patch TOP SCH (11:04)
[2019-02-27 15:37] VITALS: BP 106/64
[2019-02-27] MEDS: Sodium Chloride 0.9% 1,000 ML IV SCH (18:22)
[2019-02-27] MEDS: Morphine 4 MG/ML VIAL SLOW IVP PRN ×10 (19:23→23:50)
[2019-02-28] MEDS: Morphine 4 MG/ML VIAL SLOW IVP PRN ×12 (01:04→06:27)
--- NOTE | 2019-02-28 07:49 | PDOC.HOSPP ---
- Subjective Encounter Date: 02/28/19 Encounter Time: 07:44 Subjective: extubated, unresponsive, casie-vogt resp - Objective Vital Signs & Weight: Vital Signs (12 hours) Temp Pulse Ox 02/28/19 07:21 98.7 F 02/28/19 00:00 98.8 F 02/27/19 20:00 87 L Weight Admit Weight 138 lb Weight 123 lb 10.869 oz Most Recent Monitor Data Heart Rate from ECG 118 NIBP 94/66 NIBP BP-Mean 75 Respiration from ECG 12 SpO2 55 I&O: 02/27/19 02/28/19 03/01/19 06:59 06:59 06:59 Intake Total 1872 1283.4 0 Output Total 1140 1468 0 Balance 732 -184.6 0 Result Diagrams: 02/14/19 03:56 02/27/19 03:23 Hospitalist ROS - Medication Medications: Active Medications Generic Name Dose Route Start Last Admin Trade Name Freq PRN Reason Stop Dose Admin Morphine Sulfate 4 mg 02/27/19 18:38 02/28/19 06:27 Morphine SLOW IVP 4 mg Q10MIN PRN Administration comfort - Exam Neck: no JVD Heart: RRR, no murmur Respiratory - other findings: pos BS Gastrointestinal: soft, normal bowel sounds Extremities: no edema Hosp A/P (1) Acute respiratory failure Code(s): J96.00 - ACUTE RESPIRATORY FAILURE, UNSP W HYPOXIA OR HYPERCAPNIA Status: Acute Qualifiers: Respiratory failure complication: hypoxia and hypercapnia Qualified Code(s) : J96.01 - Acute respiratory failure with hypoxia; J96.02 - Acute respiratory failure with hypercapnia (2) Coronary artery disease Code(s): I25.10 - ATHSCL HEART DISEASE OF [place] CORONARY ARTERY W/O ANG PCTRS Status: Chronic Qualifiers: Coronary Disease-Associated Artery/Lesion type: [place] artery [place] vs. 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
--- NOTE | 2019-02-28 08:38 | PRG ---
DATE OF SERVICE: 02/28/2019 Mr. Brunson was compassionately extubated last night. He is still breathing but is having irregular respirations and severe hypoxemia. Right now, he is being treated with morphine for comfort. His family is apparently in town and will see him today. He will be transferred to the medical floor and we anticipate that he will pass away soon. Job ID: [id number]
[2019-02-28 12:44] VITALS: TEMP 100.3
--- NOTE | 2019-03-01 07:28 | DIS ---
DATE OF ADMISSION: 02/12/2019 DATE OF DISCHARGE: 02/28/2019 PRIMARY CARE PROVIDER: Nestor Nielsen MD DATE OF : 02/28/2019. FINAL DIAGNOSES: Acute respiratory failure with hypoxemia, chronic obstructive pulmonary disease with acute exacerbation, coronary artery disease, dementia, and dyslipidemia. HOSPITAL COURSE: The patient was admitted to the hospital to [facility] to the Hospitalist Service. He was intubated by EMS in the field with severe respiratory distress. He was placed in the ICU on a mechanical ventilator. He was apparently unresponsive. He was hypotensive at that point, had shock syndrome to his diagnoses. Levophed was used for blood pressure support. Fluids were given. He was started on vancomycin, Zosyn, blood and urine cultures were obtained. His initial chest x-ray revealed endotracheal tube, left subclavian. No evidence of pneumonia, mass, or effusion. His initial laboratory revealed a white count of 7.3, hemoglobin 13.3, and platelet count of 137,000. Initial chemistries, metabolic profile was normal except for a glucose of 155. His troponin was 0.034. BNP was 125. The patient was seen in consultation by Dr. Weston Clement, Pulmonology, and was followed throughout his hospital stay by Pulmonology. He was seen on 02/19 by palliative care as the patient is not responsive to weaning, etc. The patient made no progress during his hospital stay. The family eventually requested ethics committee for palliative extubation. Decision was finally reached by the family on 02/27 to remove the ventilator. The patient was eventually moved to the medical floor and today at 15:32, he ceased respirations and was pronounced . Body will be released to home. No autopsy has been requested. No procedures were done. Job ID: [id number]
--- NOTE | 2019-03-02 05:07 | PQF ---
[employer] Legal Assistant Crystal Reports Winform ViewerERIKA PORTILLO DEE MCGUIRE MD [id number] CLINICAL DOCUMENTATION CLARIFICATION FORM: POST DISCHARGE Addendum to original discharge summary date: ____ Late entry note date: __ DATE: 03/02/2019 ATTN:DEE MCGUIRE MD Please exercise your independent, professional judgment in responding to the clarification form. Clinical indicators are provided on the bottom of this form for your review Please check appropriate box(s): Kindly Clarify which condition Patient had in this admission [ ] Sepsis with Septic Shock [ ] Sepsis without Septic Shock [ ] Pneumonia [ ] Unable to determine In addition, please specify: Present on Admission (POA): [ ] Yes [ ] No [ ] Unable to determine For continuity of documentation, please document condition throughout progress notes and discharge summary. Thank You. CLINICAL INDICATORS - SIGNS / SYMPTOMS / LABS Shock is septic in nature due to LL bacterial Pneumonia - Documented in hospital PNs on 02/13 by B[address]in Cab[address] MD CT scan Showing LL Pneumonia - Documented in hospital PNs on 02/13 by Bipin Cabrera MD BP 62/42 on 02/12 - Documented in ED report pg#4 Temperature 101.1 on 02/12 - Documented in ED report pg#4 No evidence of Pneumonia - Documented in DS on 02/12 by Govind Elizondo MD Septic Shock in nature due to Pneumonia - Documented in hospital PNs on 02/13 by Bipin Cabrera MD RISK FACTORS Acute respiratory failure - Documented in hospital PNs on 02/13 by Bipin Cabrera MD COPD exacerbation - Documented in DS on 02/12 by Govind Elizondo MD Metabolic Encephalopathy TREATMENTS: Continue Vancomycin and Zosyn - Documented in hospital PNs on 02/13 by Bipin Cabrera MD vancomycin HCL IVPB 250ml - Documented in Medication reportSAP Legal Assistant Crystal Reports Winform Viewer (This form is maintained as a part of the permanent medical record) 2014 [employer], [employer]. All Rights Reserved [email or web address] [not provided] MTDD
== END 2019-02-28 15:32 | disposition expired | DRG 207 ==
LOC: ERS 14:38 → CCU 17:34 → ONC 02-28 11:43
PROVIDERS: ADMIT Hospitalist; ATTEND Hospitalist
PROC: 5A1955Z Respiratory Ventilation, Greater than 96 Consecutive Hours (ICD-10-PCS; principal; 2019-02-12)
PROC: 0BH17EZ Insertion of Endotracheal Airway into Trachea, Via Natural or Artificial Opening (ICD-10-PCS; 2019-02-12)
PROC: 3E033XZ Introduction of Vasopressor into Peripheral Vein, Percutaneous Approach (ICD-10-PCS; 2019-02-12)
DX: J96.21 Acute and chronic respiratory failure with hypoxia (principal); G93.41 Metabolic encephalopathy; R40.2312 Coma scale, best motor response, none, at arrival to emergency department; R40.2112 Coma scale, eyes open, never, at arrival to emergency department; R40.2212 Coma scale, best verbal response, none, at arrival to emergency department; J44.1 Chronic obstructive pulmonary disease with (acute) exacerbation; J44.0 Chronic obstructive pulmonary disease with (acute) lower respiratory infection; Z68.1 Body mass index [BMI] 19.9 or less, adult; I69.151 Hemiplegia and hemiparesis following nontraumatic intracerebral hemorrhage affecting right dominant side; I16.1 Hypertensive emergency; R57.9 Shock, unspecified; J96.22 Acute and chronic respiratory failure with hypercapnia; Z51.5 Encounter for palliative care; Z66 Do not resuscitate; I25.10 Atherosclerotic heart disease of native coronary artery without angina pectoris; E78.5 Hyperlipidemia, unspecified; Z79.82 Long term (current) use of aspirin; Z87.891 Personal history of nicotine dependence; Z86.79 Personal history of other diseases of the circulatory system; I48.0 Paroxysmal atrial fibrillation; K21.9 Gastro-esophageal reflux disease without esophagitis; Z90.49 Acquired absence of other specified parts of digestive tract; C61 Malignant neoplasm of prostate; R62.7 Adult failure to thrive; G30.9 Alzheimer's disease, unspecified; F02.80 Dementia in other diseases classified elsewhere, unspecified severity, without behavioral disturbance, psychotic disturbance, mood disturbance, and anxiety; I10 Essential (primary) hypertension; Z85.47 Personal history of malignant neoplasm of testis
CPT/HCPCS: 31500; 36415; 36416; 36556; 51702; 70450; 71045; 71250; 80048; 80053; 80202; 81003; 82550; 82553; 82805; 83605; 83735; 83880; 84100; 84484; 85007; 85025; 85027; 87040; 87070; 87086; 87205; 93005; 93306; 94002; 94003; 94640; 96361; 96365; 96367; 96375; 99292; C9113; J1650; J1940; J2060; J2250; J2270; J2543; J2704; J2920; J2930; J3010; J3370; J3480; J3490; J7050; J7512; J7620; J7626